=== PATIENT | female | born 1955 | race Caucasian/White ===

== ENCOUNTER 2018-07-12 18:03 | Inpatient (IN) | payer OTHER ==
[~2018-07-12] VITALS: Ht 154.9 cm; Wt 60.1 kg
[~2018-07-12 18:03] MED LIST: ASPI-535 PO; CINA60TA PO; CLON0.5T PO; CLON1TAB13 PO; FOLI-49 PO; GLYC15DR2 BOTH EYES; LAMO25TA8 PO; LEVO100T82 PO; LOSA50TA14 PO; NEPH PO; NORVAC; QUET100T32 PO; QUET400T11 PO; SEVE800T7 PO; SIMV40TA2 PO
--- NOTE | 2018-07-12 18:10 | ERD ---
ER Documentation Chief Complaint Chief Complaint BIB RA FROM HD C/O WEAKNESS. HPI The patient is a 61-year-old female, presenting to the ER because of generalized weakness and muscle spasm after hemodialysis. She had similar symptoms previously, she feels better now, denies headache, neck pain, chest pain, complains of dyspnea, denies abdominal pain, vomiting, dysuria, diarrhea. She does not smoke nor drink Past medical history: Hypertension, chronic kidney disease on hemodialysis Thursday/Thursday/Thursday, anxiety, dyslipidemia, hypothyroidism, chronic constipation Past surgical history: Left upper extremity AV fistula ROS All systems reviewed and are negative except as per history of present illness. Medications Home Meds Reported Medications [Norvac] No Conflict Check, 5 MILLIU DAILY 09/19/14 Clonazepam (Klonopin) 0.5 Mg Tablet, 0.5 MG PO HS, TAB 07/05/14 Losartan Potassium* (Losartan Potassium*) 50 Mg Tablet, 50 MG PO BID, TAB 07/05/14 Glycerin-Propylene Glycol (Lubricant Eye Drops) 15 Ml Drops, 2 DROP BOTH EYES QID, EA 07/05/14 Quetiapine Fumarate* (Quetiapine Fumarate*) 400 Mg Tablet, 400 MG PO HS, TAB 07/04/14 Quetiapine Fumarate* (Quetiapine Fumarate*) 100 Mg Tablet, 100 MG PO QPM, TAB 07/04/14 Lamotrigine* (Lamotrigine*) 25 Mg Tablet, 125 MG PO DAILY, TAB 07/04/14 Clonazepam* (Clonazepam*) 1 Mg Tablet, 1 MG PO DAILY PRN for ANXIETY, TAB 07/04/14 Folic Acid* (Folic Acid*) 1 Mg Tablet, 1 MG PO DAILY 06/29/13 Multivit/Ca Carb/B Cmplx/Fa* (Deepthi-Frida*) 1 Tab Tab, 1 TAB PO DAILY, TAB 06/24/13 Aspirin Ec (Aspir 81) 81 Mg Tablet.dr, 81 MG PO DAILY 06/24/13 Sevelamer Carbonate* (Renvela*) 800 Mg Tablet, 800 MG PO TID 06/24/13 Cinacalcet* (Sensipar*) 60 Mg Tablet, 60 MG PO DAILY 06/24/13 Simvastatin* (Zocor*) 40 Mg Tablet, 40 MG PO DAILY 02/12/10 Levothyroxine Sodium* (Levoxyl*) 100 Mcg Tablet, 100 MCG PO DAILY 02/20/09 Allergies Allergies: Coded Allergies: No Known Allergies (Verified Allergy, Mild, 07/10/13) PMhx/Soc History of Surgery: Yes (HERNIA, FISTULA LEFT ARM) Anesthesia Reaction: No Hx Neurological Disorder: No Hx Respiratory Disorders: No Hx Cardiac Disorders: No Hx Psychiatric Problems: Yes Hx Miscellaneous Medical Probl: No Hx Alcohol Use: No Hx Substance Use: No Hx Tobacco Use: No Physical Exam Vitals Vital Signs Date Temp Pulse Resp B/P (MAP) Pulse Ox O2 O2 Flow FiO2 Time Delivery Rate 07/12/18 98.1 96 18 199/88 92 18:05 (125) Physical Exam Const: No acute distress. Head: Atraumatic. Eyes: Normal Conjunctiva. ENT: Normal External Ears, Nose and Mouth. Neck: Full range of motion. No meningismus. Resp: Clear to auscultation bilaterally. Cardio: Regular rate and rhythm. Abd: Soft, non distended, normal bowel sounds, non tender. Skin: Ecchymosis Back: No midline or flank tenderness. Ext: bilateral leg edema, no calf tenderness Neur: Awake and alert. No focal deficit Psych: Anxious Result Diagram: 07/12/18 1848 07/12/18 1848 Results 24 hrs Laboratory Tests Test 07/12/18 18:48 White Blood Count 3.4 10^3/ul Red Blood Count 3.01 10^6/ul Hemoglobin 11.2 g/dl Hematocrit 33.4 % Mean Corpuscular Volume 111.0 fl Mean Corpuscular Hemoglobin 37.2 pg Mean Corpuscular Hemoglobin Concent 33.5 g/dl Red Cell Distribution Width 14.4 % Platelet Count 165 10^3/UL Mean Platelet Volume 10.5 fl Immature Granulocytes % 0.300 % Neutrophils % 63.6 % Lymphocytes % 16.7 % Monocytes % 12.8 % Eosinophils % 5.7 % Basophils % 0.9 % Nucleated Red Blood Cells % 0.0 /100WBC Immature Granulocytes # 0.010 10^3/ul Neutrophils # 2.1 10^3/ul Lymphocytes # 0.6 10^3/ul Monocytes # 0.4 10^3/ul Eosinophils # 0.2 10^3/ul Basophils # 0.0 10^3/ul Nucleated Red Blood Cells # 0.0 10^3/ul Sodium Level 135 mmol/L Potassium Level 4.0 mmol/L Chloride Level 99 mmol/L Carbon Dioxide Level 26 mmol/L Anion Gap 10 Blood Urea Nitrogen 27 mg/dl Creatinine 2.99 mg/dl Est Glomerular Filtrat Rate mL/min 16 mL/min Glucose Level 115 mg/dl Calcium Level 9.8 mg/dl Current Medications Medications Dose Sig/Martín Start Time Status Last (Trade) Ordered Route PRN Stop Time Admin Dose Reason Admin Hydralazine 10 mg ONCE ONCE 07/12/18 DC HCl IV 20:30 07/12/18 (Apresoline) 20:31 Furosemide 80 mg ONCE ONCE 07/12/18 DC (Lasix) IV 20:30 07/12/18 20:31 Procedures/[place] [id number] Radiology Main Line: [phone] DIAGNOSTIC IMAGING REPORT Patient: TERRI LOMAS : 1955 Age: 62 Sex: F MR #: [id number] DOS: 07/12/181818 Ordering MD: DAVID PARDO MD Location: E/R Room/Bed: PROCEDURE: XR Chest 1 View CLINICAL INDICATION: Chest pain TECHNIQUE: Frontal view of the chest was obtained COMPARISON: SD CR CHEST 05/26/2018 FINDINGS: Left central vascular stent noted. Left upper extremity clips. Heart is enlarged. Aorta is tortuous and atherosclerotic. Bibasilar linear patchy opacities, Moderate left and small right pleural effusions para No acute osseous abnormality. IMPRESSION: Cardiomegaly with congestive change and/or multifocal pneumonia. Moderate left and small right pleural effusions. RPTAT: [facility] Physician Niru Date Time Electronically viewed and signed by Physician Niru on 07/12/2018 19:42 ME/ CC: DAVID PARDO MD [phone] EKG: Read by emergency physician Rate/Rhythm: Normal Sinus Rhythm 64 beats/min QRS, ST, T-waves: No ST elevation, no T inversion, LAD Impression: Abnormal EKG Brain CT Pending MEDICAL MAKING DECISION: The patient is a 62-year-old female, presenting with acute generalized weakness, acute fluid overload, acute hypertensive urgency. She was treated with hydralazine 10 mg IV for acute hypertensive urgency, Lasix 80 mg IV for acute fluid overload because she is still making urine o2 saturation was 88% on room air, responding to supplemental nasal cannula The differential diagnoses considered include but are not limited to asthma, COPD, pneumonia, pulmonary embolus, pleural effusion, congestive heart failure. Departure Diagnosis: Primary Impression: Fluid overload Additional Impressions: Hypertensive urgency Hypoxemia Leukopenia Anemia Bilateral pleural effusion Condition: Stable Comments I discussed the findings with the patient. I discussed the patient with Dr Olivarez at 8:35 p , who was made aware of the lab, the treatment, the patient condition. The patient is admitted to [facility] Disclaimer: Inadvertent spelling and grammatical errors are likely due to EHR/dictation software use and do not reflect on the overall quality of patient care. Also, please note that the electronic time recorded on this note does not necessarily reflect the actual time of the patient encounter. DAVID PARDO MD July 12, 2018 18:10
[2018-07-12] MEDS ORDERED: hydrALAzine 20 MG INJ IV ONE ×2 (20:30→23:00)
[2018-07-12] MEDS: FUROSEMIDE 40 MG INJ IV ONE ×2 (20:40→20:54)
[2018-07-12] MEDS ORDERED: DOXA1TAB PO (22:20)
[2018-07-12] MEDS ORDERED: LEVO300T5 PO (22:20)
[2018-07-12] MEDS ORDERED: HYDR100T25 PO (22:24)
[2018-07-12] MEDS ORDERED: LEVO112T57 PO (22:24)
[2018-07-12] MEDS ORDERED: CLON0.2T5 PO (22:24)
[2018-07-13] VITALS (18 sets, daily range): BP systolic 161–194; BP diastolic 84–94; PULSE 63–73; RESP 17–18; Ht 154.9 cm; Wt 60.1 kg
[2018-07-13] MEDS ORDERED: NACL 0.9% 3 ML SYG IV SCH (00:30)
[2018-07-13] MEDS ORDERED: ACETAMINOPHEN 325 MG TAB PO PRN (00:30)
[2018-07-13] MEDS ORDERED: clonAZEPAM 0.5 MG TAB PO PRN (00:30)
[2018-07-13] MEDS: DOXAZOSIN 1 MG TAB PO SCH ×2 (02:36→08:31)
[2018-07-13] MEDS: LOSARTAN 50 MG TAB PO SCH ×3 (02:37→20:58)
[2018-07-13] MEDS ORDERED: ALPRAZOLAM 1 MG TAB PO PRN (03:30)
--- NOTE | 2018-07-13 06:15 | HP ---
Date/Time of Note Date/Time of Note DATE: 07/12/18 TIME: 23:30 Assessment/Plan VTE Prophylaxis Pharmacological prophylaxis: heparin Lines/Catheters IV Catheter Type (from Nrsg): Saline Lock Assessment/Plan Assessment/Plan 1. Hypertensive urgency -Blood pressure has been difficult to control -Adjust antihypertensive as needed -Nephrology consult 2. Generalized weakness and dizziness: Secondary to elevated pressure and chronic disease including the dialysis -Head CT negative for acute findings -PT eval 3. ESRD on HD (MWF): Nephrology consult 4. Dyslipidemia: Continue statin 5. Hypothyroidism: Continue Synthroid 6. Depression/anxiety: Continue home meds 7. Anemia of kidney failure/chronic disease: Hemoglobin stable Result Diagram: 07/13/18 0543 07/12/18 1848 Results 24hrs Laboratory Tests Test 07/12/18 18:48 07/13/18 05:43 White Blood Count 3.4 L 3.5 L Red Blood Count 3.01 L 2.75 L Hemoglobin 11.2 L 10.4 L Hematocrit 33.4 L 30.8 L Mean Corpuscular Volume 111.0 H 112.0 H Mean Corpuscular Hemoglobin 37.2 H 37.8 H Mean Corpuscular Hemoglobin Concent 33.5 33.8 Red Cell Distribution Width 14.4 14.6 H Platelet Count 165 164 Mean Platelet Volume 10.5 #H 10.4 Immature Granulocytes % 0.300 0.000 L Neutrophils % 63.6 61.8 Lymphocytes % 16.7 21.0 Monocytes % 12.8 H 12.9 H Eosinophils % 5.7 3.4 Basophils % 0.9 0.9 Nucleated Red Blood Cells % 0.0 0.0 Immature Granulocytes # 0.010 0.000 Neutrophils # 2.1 2.2 Lymphocytes # 0.6 L 0.7 L Monocytes # 0.4 0.5 Eosinophils # 0.2 0.1 Basophils # 0.0 0.0 Nucleated Red Blood Cells # 0.0 0.0 Sodium Level 135 Potassium Level 4.0 Chloride Level 99 Carbon Dioxide Level 26 Anion Gap 10 Blood Urea Nitrogen 27 H Creatinine 2.99 H Est Glomerular Filtrat Rate mL/min 16 L Glucose Level 115 Calcium Level 9.8 HPI/ROS Admit Date/Time Admit Date/Time Hx of Present Illness This is a 62-year-old female with a history of hypertension, ESRD on HD (MWF), dyslipidemia, bipolar, hypothyroidism, migraine headache. Patient was brought to the ER from the dialysis center complaining of generalized weakness and dizziness. Generalized weakness is been going on for several months. She has also occasionally been feeling dizzy. After dialysis her symptoms worsened and as such as shortness of brought here for evaluation. Denied focal weakness. She reports headache. No chest pain. When presented to ER, blood pressure was 200/88. Head CT without acute findings. Chest x-ray shows cardiomegaly with congestive change and/or multifocal pneumonia and Moderate left and small right pleural effusions. PMH/Family/Social Past Medical History Past Surgical Hx: other (HPI) Family History Significant Family History: no pertinent family hx Social History Alcohol Use: none Smoking Status: Never smoker Drug Use: none Exam Constitutional: alert, oriented, well developed Head: normocephalic, atraumatic Eyes: EOMI, PERRL Respiratory: clear to auscultation, normal air movement Cardiovascular: regular rate and rhythm, nl pulses Gastrointestinal: soft, other (Right lower quadrant tenderness elicited on palpation. Patient also with right flank pain) Extremities: normal pulses Medications Current Medications IV Flush (NS 3 ml) 3 ml PER PROTOCOL IV ; Start 07/13/18 at 00:30 Ondansetron HCl (Zofran Inj) 4 mg Q6H PRN IV NAUSEA/VOMITING; Start 07/13/18 at 00:30 Acetaminophen (Tylenol Tab) 650 mg Q6H PRN PO .PAIN 1-3 OR TEMP; Start 07/13/18 at 00:30 Acetaminophen/ Hydrocodone Bitart ([place] (5/325)) 1 tab Q6H PRN PO .PAIN 4-6; Start 07/13/18 at 00:30 Heparin Sodium (Porcine) (Heparin (5000 Units/1ml)) 5,000 unit Q12 SC ; Start 07/13/18 at 09:00 Albuterol/ Ipratropium (Duoneb) 3 ml Q2H RESP THERAPY PRN HHN SHORTNESS OF BREATH; Start 07/13/18 at 00:30 Aspirin (Halfprin) 81 mg DAILY PO ; Start 07/13/18 at 09:00 Cinacalcet (Sensipar) 60 mg DAILY PO ; Start 07/13/18 at 09:00 Clonazepam (Klonopin) 0.5 mg HS PO ; Start 07/13/18 at 21:00 Clonazepam (Klonopin) 1 mg DAILY PRN PO ANXIETY; Start 07/13/18 at 00:30 Clonidine (Catapres) 0.2 mg TID PO ; Start 07/13/18 at 09:00 Doxazosin Mesylate (Cardura) 1 mg BID PO Last administered on 07/13/18at 02:36; Admin Dose 1 MG; Start 07/13/18 at 00:30 Folic Acid (Folic Acid) 1 mg DAILY PO ; Start 07/13/18 at 09:00 Hydralazine HCl (Apresoline) 100 mg TID PO Last administered on 07/13/18at 02:36; Admin Dose 100 MG; Start 07/13/18 at 00:30 Lamotrigine (Lamictal) 125 mg DAILY PO ; Start 07/13/18 at 09:00 Levothyroxine Sodium (Synthroid) 224 mcg AC BREAKFAST PO ; Start 07/13/18 at 07:00 Losartan Potassium (Cozaar) 50 mg BID PO Last administered on 07/13/18at 02:37; Admin Dose 50 MG; Start 07/13/18 at 00:30 Multivit/Ca Carb/ B Cmplx/FA/Prenat (Deepthi-Frida) 1 tab DAILY PO ; Start 07/13/18 at 09:00 Quetiapine Fumarate (Seroquel) 400 mg HS PO ; Start 07/13/18 at 21:00 Sevelamer Carbonate (Renvela) 0.8 gm WITH MEALS PO ; Start 07/13/18 at 08:00 Alprazolam (Xanax) 1 mg Q4H WHILE AWAKE PRN PO ANXIETY Last administered on 07/13/18at 03:58; Admin Dose 1 MG; Start 07/13/18 at 03:30 Hydralazine HCl (Apresoline) 20 mg ONCE ONCE IV ; Start 07/13/18 at 06:30; Stop 07/13/18 at 06:31; Status UNV Clonidine (Catapres) 0.3 mg ONCE ONCE PO ; Start 07/13/18 at 06:30; Stop 07/13/18 at 06:31; Status UNV Labetalol HCl (Labetalol) 20 mg Q4H PRN IV SBP > 170; Start 5/7/19 at 06:30; Status UNV Coded Allergies: No Known Allergies (Verified Allergy, Mild, 07/10/13) Social History Smoking Status: Never smoker Exam/Review of Systems Vital Signs Vitals Vital Signs Date Temp Pulse Resp B/P (MAP) Pulse Ox O2 O2 Flow FiO2 Time Delivery Rate 07/13/18 72 24 193/80 99 Nasal 2.0 05:29 (117) Cannula 07/12/18 98.1 21:27 LUCÍA HICKS MD July 13, 2018 06:15
[2018-07-13] MEDS ORDERED: hydrALAzine 20 MG INJ IV ONE (06:30)
[2018-07-13] MEDS ORDERED: LABETALOL HCL 20MG INJ IV PRN (06:30)
[2018-07-13] MEDS ORDERED: LORAZEPAM 2 MG INJ IV ONE (07:00)
[2018-07-13] MEDS: LEVOTHYROXINE 112 MCG TAB PO SCH (08:28)
[2018-07-13] MEDS: HEPARIN 5,000 UNIT/1 ML VIAL SC SCH ×2 (08:28→21:00)
[2018-07-13] MEDS: FOLIC ACID 1 MG TAB PO SCH (08:30)
[2018-07-13] MEDS: LAMOTRIGINE 25 MG TAB PO SCH (08:30)
[2018-07-13] MEDS: CINACALCET 30 MG TAB PO SCH (08:31)
[2018-07-13] MEDS: ASPIRIN (EC) 81 MG TAB PO SCH (08:31)
[2018-07-13] MEDS: MULTIVIT/CA CARB/B CMPLX/FA TAB PO SCH (08:32)
--- NOTE | 2018-07-13 10:13 | CONS ---
DATE OF ADMISSION: 07/12/2018 DATE OF CONSULTATION: TYPE OF CONSULTATION: Nephrology. REASON FOR CONSULTATION: End-stage renal disease. PHYSICIAN REQUESTING CONSULT: HISTORY OF PRESENT ILLNESS: This is a 62-year-old female with a past medical history of end-stage re nal disease. The patient had dialysis in [place] on Thursday, Thursday, Thursday, access AV fistula. T he patient's primary wrapping checker is Dr. Vazquez who presents to [facility] for compla ints of weakness. The patient states that after hemodialysis, she started having generalized weaknes s, muscle spasms. The patient states she has had similar symptoms previously. As a result, she came in to [facility]. Upon arrival, the patient was noted to be hypertensive in the e mergency room, the patient was given antihypertensive medications. The patient also had a CT scan of the brain which showed no acute findings. The patient denies any hemoptysis, hematemesis or hematoc hezia. In terms of patient's renal history, the patient is on dialysis 3 times weekly Thursday, Thursday, Thu with access AV fistula. The patient's last hemodialysis was Thursday. The patient usually dialyze s for 3-1/2 hours with ultrafiltration approximately 1 to 2 kilograms. PAST MEDICAL HISTORY: See above, history of end-stage renal disease, history of anemia, history of h ypertension, history of mineral bone disorder, history of hypothyroidism, constipation, anxiety disor justin, dyslipidemia. PAST SURGICAL HISTORY: Left upper extremity AV fistula. FAMILY HISTORY: No family history of kidney disease. SOCIAL HISTORY: Does not drink, smoke or do drugs. MEDICATIONS: The patient's medications have been reviewed. ALLERGIES: HAVE BEEN REVIEWED. REVIEW OF SYSTEMS: A 14-point review of systems conducted. Pertinent positives stated in HPI, other mclean negative. PHYSICAL EXAMINATION: VITAL SIGNS: Blood pressure is 182/90, respirations 17, pulse 82, temperature 98.1. HEENT: Head is normocephalic. NECK: Supple. HEART: Regular rate. LUNGS: Show diminished breath sounds at the base. ABDOMEN: Soft, nontender to palpation without rebound or guarding. EXTREMITIES: Negative for clubbing, cyanosis, positive edema. DERMATOLOGIC: No rashes. MUSCULOSKELETAL: No joint effusion. NEUROLOGIC: No change in exam. LABORATORY DATA: Has been reviewed. IMAGING STUDIES: Have been reviewed. ASSESSMENT AND PLAN: This is a 62-year-old female with: 1. End-stage renal disease. The patient is on dialysis Thursday, Thursday, Thursday, access AV fistula . The patient's last hemodialysis was Thursday. Plan is for hemodialysis today for solute clearance a nd volume removal. The patient has noted anasarca. on physical exam and chest x-rays do show eviden ce of congestion. Will ultrafiltrate approximately 2 to 3 liters. 2. Hypertension in part due to increased intravascular volume. We will plan for ultrafiltration wit h hemodialysis. Continue current blood pressure regimen. 3. Anemia. Monitor hemoglobin and hematocrit levels, we will give Epogen as needed. 4. Mineral bone disorder. Monitor calcium and phosphorus levels. We will give phosphate binders as needed. 5. Generalized weakness, dizziness. Continue supportive care. CT scan was negative for acute findi ngs. 6. Dyslipidemia. Continue statin therapy. 7. Hypothyroidism. Continue Synthroid. 8. Depression. 9. Anxiety disorder. Continue current medical management. Thank you, , for this interesting consult. It will be a pleasure to follow patient with you throughout the hospital course. Dictated By: MOISES OLSON/DC Conf#: [id number] DID#: [id number]
[2018-07-13] MEDS: SEVELAMER CARBONATE 0.8 GM PKT PO SCH ×3 (12:00→17:25)
[2018-07-13] MEDS: ONDANSETRON 4 MG INJ IV PRN (12:12)
--- NOTE | 2018-07-13 13:17 | PN ---
Date/Time of Note Date/Time of Note DATE: 07/13/18 TIME: 13:12 Assessment/Plan VTE Prophylaxis SCD applied (from Nsg): Yes Pharmacological prophylaxis: heparin Lines/Catheters IV Catheter Type (from Nrsg): Saline Lock Assessment/Plan Assessment/Plan 1. Hypertensive urgency, adjust antihypertensive to get better BP control add procardia 2. Generalized weakness and dizziness: Secondary to elevated pressure and chronic disease including the dialysis, head CT negative for acute findings, PT 3. ESRD on HD (MWF): Nephrology for HD 4. Dyslipidemia: Continue statin 5. Hypothyroidism: Continue Synthroid 6. Depression/anxiety: Continue home meds 7. Anemia of kidney failure/chronic disease: Hemoglobin stable 8. DVT prophylaxis: heparin Result Diagram: 07/13/18 0543 07/13/18 0543 Results 24hrs Laboratory Tests Test 07/12/18 18:48 07/13/18 05:43 White Blood Count 3.4 L 3.5 L Red Blood Count 3.01 L 2.75 L Hemoglobin 11.2 L 10.4 L Hematocrit 33.4 L 30.8 L Mean Corpuscular Volume 111.0 H 112.0 H Mean Corpuscular Hemoglobin 37.2 H 37.8 H Mean Corpuscular Hemoglobin Concent 33.5 33.8 Red Cell Distribution Width 14.4 14.6 H Platelet Count 165 164 Mean Platelet Volume 10.5 #H 10.4 Immature Granulocytes % 0.300 0.000 L Neutrophils % 63.6 61.8 Lymphocytes % 16.7 21.0 Monocytes % 12.8 H 12.9 H Eosinophils % 5.7 3.4 Basophils % 0.9 0.9 Nucleated Red Blood Cells % 0.0 0.0 Immature Granulocytes # 0.010 0.000 Neutrophils # 2.1 2.2 Lymphocytes # 0.6 L 0.7 L Monocytes # 0.4 0.5 Eosinophils # 0.2 0.1 Basophils # 0.0 0.0 Nucleated Red Blood Cells # 0.0 0.0 Sodium Level 135 138 Potassium Level 4.0 4.0 Chloride Level 99 98 Carbon Dioxide Level 26 29 Anion Gap 10 11 Blood Urea Nitrogen 27 H 36 H Creatinine 2.99 H 3.60 H Est Glomerular Filtrat Rate mL/min 16 L 13 L Glucose Level 115 97 Calcium Level 9.8 9.7 Hemoglobin A1c 4.7 Magnesium Level 2.6 H Total Bilirubin 0.0 L Direct Bilirubin 0.00 Indirect Bilirubin 0.0 Aspartate Amino Transf (AST/SGOT) 24 Alanine Aminotransferase (ALT/SGPT) 12 L Alkaline Phosphatase 114 Total Protein 6.2 Albumin 3.7 Globulin 2.50 Albumin/Globulin Ratio 1.48 Triglycerides Level 122 Cholesterol Level 126 LDL Cholesterol, Calculated 48 HDL Cholesterol 54 Cholesterol/HDL Ratio 2.3 Thyroid Stimulating Hormone (TSH) 8.240 H Subjective 24 Hr Interval Summary Free Text/Dictation weakness Exam/Review of Systems Exam Vitals Vital Signs Date Temp Pulse Resp B/P (MAP) Pulse Ox O2 O2 Flow FiO2 Time Delivery Rate 07/13/18 98.7 71 16 174/100 100 Nasal 2.0 12:23 (124) Cannula Constitutional: alert, oriented, well developed Head: normocephalic, atraumatic Eyes: nl conjunctiva, EOMI, nl lids ENMT: nl external ears & nose, nl lips & teeth, nl nasal mucosa & septum Neck: supple, non-tender Respiratory: clear to auscultation, normal air movement; No congested cough, No crackles/rales, No diminished breath sounds, No intercostal retraction, No labored breathing, No respirations, No tactile fremitus, No wheezing, No other Cardiovascular: regular rate and rhythm, nl pulses; No bruits, No diastolic murmur, No edema, No gallop, No irregular rhythm, No jugular venous distention (JVD), No murmurs/extra sounds, No rub, No systolic murmur, No S3, No S4, No other Gastrointestinal: soft, nl liver, spleen, non-tender Musculoskeletal: nl extremities to inspection Extremities: normal pulses; No calf tenderness, No cyanosis, No clubbing, No edema, No pitting pedal edema, No palpable cord, No tenderness, No other Neurological: [employer] II-XII intact, nl mental status, nl speech, nl strength Results Results 24hrs Laboratory Tests Test 07/12/18 18:48 07/13/18 05:43 White Blood Count 3.4 L 3.5 L Red Blood Count 3.01 L 2.75 L Hemoglobin 11.2 L 10.4 L Hematocrit 33.4 L 30.8 L Mean Corpuscular Volume 111.0 H 112.0 H Mean Corpuscular Hemoglobin 37.2 H 37.8 H Mean Corpuscular Hemoglobin Concent 33.5 33.8 Red Cell Distribution Width 14.4 14.6 H Platelet Count 165 164 Mean Platelet Volume 10.5 #H 10.4 Immature Granulocytes % 0.300 0.000 L Neutrophils % 63.6 61.8 Lymphocytes % 16.7 21.0 Monocytes % 12.8 H 12.9 H Eosinophils % 5.7 3.4 Basophils % 0.9 0.9 Nucleated Red Blood Cells % 0.0 0.0 Immature Granulocytes # 0.010 0.000 Neutrophils # 2.1 2.2 Lymphocytes # 0.6 L 0.7 L Monocytes # 0.4 0.5 Eosinophils # 0.2 0.1 Basophils # 0.0 0.0 Nucleated Red Blood Cells # 0.0 0.0 Sodium Level 135 138 Potassium Level 4.0 4.0 Chloride Level 99 98 Carbon Dioxide Level 26 29 Anion Gap 10 11 Blood Urea Nitrogen 27 H 36 H Creatinine 2.99 H 3.60 H Est Glomerular Filtrat Rate mL/min 16 L 13 L Glucose Level 115 97 Calcium Level 9.8 9.7 Hemoglobin A1c 4.7 Magnesium Level 2.6 H Total Bilirubin 0.0 L Direct Bilirubin 0.00 Indirect Bilirubin 0.0 Aspartate Amino Transf (AST/SGOT) 24 Alanine Aminotransferase (ALT/SGPT) 12 L Alkaline Phosphatase 114 Total Protein 6.2 Albumin 3.7 Globulin 2.50 Albumin/Globulin Ratio 1.48 Triglycerides Level 122 Cholesterol Level 126 LDL Cholesterol, Calculated 48 HDL Cholesterol 54 Cholesterol/HDL Ratio 2.3 Thyroid Stimulating Hormone (TSH) 8.240 H Medications Medication Current Medications IV Flush (NS 3 ml) 3 ml PER PROTOCOL IV ; Start 07/13/18 at 00:30 Ondansetron HCl (Zofran Inj) 4 mg Q6H PRN IV NAUSEA/VOMITING Last administered on 07/13/18at 12:12; Admin Dose 4 MG; Start 07/13/18 at 00:30 Acetaminophen (Tylenol Tab) 650 mg Q6H PRN PO .PAIN 1-3 OR TEMP; Start 07/13/18 at 00:30 Acetaminophen/ Hydrocodone Bitart ([place] (5/325)) 1 tab Q6H PRN PO .PAIN 4-6; Start 07/13/18 at 00:30 Heparin Sodium (Porcine) (Heparin (5000 Units/1ml)) 5,000 unit Q12 SC Last administered on 07/13/18 08:28; Admin Dose 5,000 UNIT; Start 07/13/18 at 09:00 Albuterol/ Ipratropium (Duoneb) 3 ml Q2H RESP THERAPY PRN HHN SHORTNESS OF BREATH; Start 07/13/18 at 00:30 Aspirin (Halfprin) 81 mg DAILY PO Last administered on 07/13/18 08:31; Admin Dose 81 MG; Start 07/13/18 at 09:00 Cinacalcet (Sensipar) 60 mg DAILY PO Last administered on 07/13/18 08:31; Admin Dose 60 MG; Start 07/13/18 at 09:00 Clonazepam (Klonopin) 0.5 mg HS PO ; Start 07/13/18 at 21:00 Clonazepam (Klonopin) 1 mg DAILY PRN PO ANXIETY; Start 07/13/18 at 00:30 Clonidine (Catapres) 0.2 mg TID PO ; Start 07/13/18 at 09:00 Doxazosin Mesylate (Cardura) 1 mg BID PO Last administered on 07/13/18 08:31; Admin Dose 1 MG; Start 07/13/18 at 00:30 Folic Acid (Folic Acid) 1 mg DAILY PO Last administered on 07/13/18 08:30; Admin Dose 1 MG; Start 07/13/18 at 09:00 Hydralazine HCl (Apresoline) 100 mg TID PO Last administered on 07/13/18 08:29; Admin Dose 100 MG; Start 07/13/18 at 00:30 Lamotrigine (Lamictal) 125 mg DAILY PO Last administered on 07/13/18 08:30; Admin Dose 125 MG; Start 07/13/18 at 09:00 Levothyroxine Sodium (Synthroid) 224 mcg AC BREAKFAST PO Last administered on 07/13/18 08:28; Admin Dose 224 MCG; Start 07/13/18 at 07:00 Losartan Potassium (Cozaar) 50 mg BID PO Last administered on 07/13/18 08:32; Admin Dose 50 MG; Start 07/13/18 at 00:30 Multivit/Ca Carb/ B Cmplx/FA/Prenat (Deepthi-Frida) 1 tab DAILY PO Last administered on 5/7/19at 08:32; Admin Dose 1 TAB; Start 07/13/18 at 09:00 Quetiapine Fumarate (Seroquel) 400 mg HS PO ; Start 07/13/18 at 21:00 Sevelamer Carbonate (Renvela) 0.8 gm WITH MEALS PO ; Start 07/13/18 at 08:00 Alprazolam (Xanax) 1 mg Q4H WHILE AWAKE PRN PO ANXIETY Last administered on 07/13/18at 03:58; Admin Dose 1 MG; Start 07/13/18 at 03:30 Labetalol HCl (Labetalol) 20 mg Q4H PRN IV SBP > 170; Start 07/13/18 at 06:30 SHOLA GA MD July 13, 2018 13:17
[2018-07-13] MEDS ORDERED: AMLODIPINE 10 MG TAB PO SCH (13:30)
[2018-07-13] MEDS ORDERED: PENDING SANTYL ORDER FOR WOUND CARE XX PRN (14:30)
[2018-07-13] MEDS ORDERED: NIFEdipine (XL) 60 MG TAB PO SCH (16:00)
[2018-07-13] MEDS ORDERED: QUETIAPINE 100 MG TAB PO SCH (21:00)
[2018-07-13] MEDS: clonAZEPAM 0.5 MG TAB PO SCH (22:40)
[2018-07-13] MEDS: QUETIAPINE 100 MG TAB PO SCH (22:40)
[2018-07-14] VITALS (20 sets, daily range): BP systolic 122–202; BP diastolic 58–98; PULSE 66–79; RESP 16–20
[2018-07-14] MEDS ORDERED: hydrALAzine 20 MG INJ IV ONE ×2 (00:30→22:00)
[2018-07-14] MEDS: LEVOTHYROXINE 112 MCG TAB PO SCH (06:07)
[2018-07-14] MEDS: HEPARIN 5,000 UNIT/1 ML VIAL SC SCH ×2 (09:00→21:00)
--- NOTE | 2018-07-14 09:09 | PN ---
DATE: 07/14/2018 SUBJECTIVE: The patient is stable, had hemodialysis yesterday, tolerated well. OBJECTIVE: VITAL SIGNS: Blood pressure is 151/74, pulse 71, respirations 17, temperature 98.2. HEENT: Head is normocephalic. NECK: Supple. HEART: Regular rate. LUNGS: Show diminished breath sounds at the base. ABDOMEN: Soft, nontender to palpation without rebound or guarding. EXTREMITIES: Negative for clubbing, cyanosis, no edema. DERMATOLOGIC: No rashes. MUSCULOSKELETAL: No joint effusion. NEUROLOGIC: No change in exam. MEDICATIONS: Reviewed. LABORATORY DATA: Reviewed. ASSESSMENT AND PLAN: 1. End-stage renal disease. The patient is on dialysis Thursday, Thursday, and Thursday. The patient had hemodialysis yesterday, tolerated well. Plan is for dialysis again today. 2. Hypertension. Continue ultrafiltration with dialysis. Continue current blood pressure regimen. We will adjust medications as needed. 3. Anemia. Continue to monitor hemoglobin and hematocrit levels. Continue Epogen. 4. Mineral bone disorder. Continue to monitor calcium and phosphorus levels. Continue Sensipar, gi ve phosphate binders as needed. 5. Generalized weakness, dizziness, improved. 6. Dyslipidemia. Continue statin therapy. 7. Hypothyroidism. Continue Synthroid. 8. Depression. 9. Anxiety disorder. Continue current medical management. Dictated By: MOISES WEISS DO NR/NTS Conf#: [id number] DID#: [id number] CC: LUCÍA HICKS MD; SHOLA GA MD;*EndCC*
[2018-07-14] MEDS: MULTIVIT/CA CARB/B CMPLX/FA TAB PO SCH (09:10)
[2018-07-14] MEDS: FOLIC ACID 1 MG TAB PO SCH (09:10)
[2018-07-14] MEDS: ASPIRIN (EC) 81 MG TAB PO SCH (09:11)
[2018-07-14] MEDS: SEVELAMER CARBONATE 0.8 GM PKT PO SCH ×3 (09:11→17:53)
[2018-07-14] MEDS: CINACALCET 30 MG TAB PO SCH (09:11)
[2018-07-14] MEDS: LOSARTAN 50 MG TAB PO SCH ×2 (09:13→19:44)
[2018-07-14] MEDS: LAMOTRIGINE 25 MG TAB PO SCH (09:14)
[2018-07-14] MEDS: NIFEdipine (XL) 60 MG TAB PO SCH ×2 (09:14→19:45)
[2018-07-14] MEDS: ONDANSETRON 4 MG INJ IV PRN (12:30)
--- NOTE | 2018-07-14 13:02 | PN ---
Date/Time of Note Date/Time of Note DATE: 07/14/18 TIME: 12:59 Assessment/Plan VTE Prophylaxis Risk score (from Nsg)>0 risk: 7 Pharmacological prophylaxis: heparin Lines/Catheters IV Catheter Type (from Nrsg): Saline Lock Urinary Cath still in place: No Assessment/Plan Hospital Course 62-year-old female who was sent to us from dialysis center because of severe lethargy and multiple falls currently admitted and managed as follows: 1. Generalized weakness with multiple prior falls and severe lethargy: -Patient states this is likely secondary to chronic muscle wasting, she has been seen as outpatient by a neurologist was just recently started her on lamotrigine about 5 weeks ago. She however does not feel this drug is making her weak. She states this drug was started to help with the recurrent Muscle spasms and spasticity. -Brain CT was negative save for possible sinusitis -PT eval is pending -Patient has chronic debility but she feels this is getting worse. She has home health for physical therapy and multiple ADLs as well as a caregiver at home. -She would rather not consider SNF placement unless absolutely necessary. 2. End Stage renal disease on hemodialysis -Patient dialysis on Thursday and Thursday -Patient states this was due to lithium therapy for bipolar disorder -Patient does not wants fluid removal, she wants only ultrafiltration. Nephrology notified 3. Hypertension status post hypertensive emergency: -Hypertensive emergency was likely secondary to incomplete hemodialysis, indices have improved on current regimen, no further intervention required 4, Anemia of chronic renal disease with leucopenia -Rule out iron deficiency 5. Chronic dyslipidemia on statin 6. Chronic hypothyroidism -still with suboptimal control, continue current Synthroid therapy 7. Chronic bipolar disorder -for more than 11 years per patient -states she has been stable and remains stable. -Denies suicidal or homicidal ideations, denies depression. -Continue as needed Klonopin for anxiety 8. Chronic debility and lethargy: -Status post dietary review, recommendation of Novasure renal 3 times daily. Will initiate. 9. Chronic memory issues 10. Chronic msc spasms on lamotrigne started 5 weeks ago after multiple falls 11. abd distention 12. chronic constipation Disposition -await physical therapy evaluation for disposition, patient does not feel ready to be discharged home today, has not ambulated, she does look quite lethargic clinically. -She may require short-term SNF placement.. also send urine for UA and US for abd distention -Downgraded to [facility]. -Further interventions per clinical course. Result Diagram: 07/14/1814 07/14/1814 Results 24hrs Laboratory Tests Test 07/14/18 05:14 White Blood Count 3.7 L Red Blood Count 2.78 L Hemoglobin 10.1 L Hematocrit 31.4 L Mean Corpuscular Volume 112.9 H Mean Corpuscular Hemoglobin 36.3 H Mean Corpuscular Hemoglobin Concent 32.2 Red Cell Distribution Width 14.5 Platelet Count 166 Mean Platelet Volume 10.2 Immature Granulocytes % 0.300 Neutrophils % 56.1 Lymphocytes % 22.3 Monocytes % 14.0 H Eosinophils % 5.1 Basophils % 2.2 H Nucleated Red Blood Cells % 0.0 Immature Granulocytes # 0.010 Neutrophils # 2.1 Lymphocytes # 0.8 Monocytes # 0.5 Eosinophils # 0.2 Basophils # 0.1 Nucleated Red Blood Cells # 0.0 Sodium Level 136 Potassium Level 4.8 Chloride Level 97 Carbon Dioxide Level 28 Anion Gap 11 Blood Urea Nitrogen 51 H Creatinine 4.72 #H Est Glomerular Filtrat Rate mL/min 9 L Glucose Level 101 Calcium Level 9.3 Phosphorus Level 3.9 Magnesium Level 2.7 H Subjective 24 Hr Interval Summary Free Text/Dictation patient still very lethargic, still very weak Exam/Review of Systems Exam Vitals Vital Signs Date Temp Pulse Resp B/P (MAP) Pulse Ox O2 O2 Flow FiO2 Time Delivery Rate 07/14/18 68 12:05 07/14/18 98.0 18 122/58 90 11:02 (79) 07/14/18 Nasal 2.0 08:00 Cannula Intake and Output 07/13/18 07/13/18 07/14/18 1414:59 22:59 06:59 IntakeIntake Total 200 ml OutputOutput Total 2500 ml BalanceBalance -2300 ml Constitutional: alert, oriented, frail; No distress Head: normocephalic Eyes: PERRL ENMT: No mucosa pink and moist (dry) Respiratory: clear to auscultation, diminished breath sounds; No crackles/rales, No labored breathing, No wheezing Cardiovascular: regular rate and rhythm Gastrointestinal: soft, bowel sounds, distended, firm; No rebound or guarding Musculoskeletal: No muscle tone (reduced, with diffuse msc wasting ) Extremities: other; No edema Neurological: nl mental status, nl speech, lethargic Skin: other (large LUE AV fistula and old ecchymosis) Results Results 24hrs Laboratory Tests Test 07/14/18 05:14 White Blood Count 3.7 L Red Blood Count 2.78 L Hemoglobin 10.1 L Hematocrit 31.4 L Mean Corpuscular Volume 112.9 H Mean Corpuscular Hemoglobin 36.3 H Mean Corpuscular Hemoglobin Concent 32.2 Red Cell Distribution Width 14.5 Platelet Count 166 Mean Platelet Volume 10.2 Immature Granulocytes % 0.300 Neutrophils % 56.1 Lymphocytes % 22.3 Monocytes % 14.0 H Eosinophils % 5.1 Basophils % 2.2 H Nucleated Red Blood Cells % 0.0 Immature Granulocytes # 0.010 Neutrophils # 2.1 Lymphocytes # 0.8 Monocytes # 0.5 Eosinophils # 0.2 Basophils # 0.1 Nucleated Red Blood Cells # 0.0 Sodium Level 136 Potassium Level 4.8 Chloride Level 97 Carbon Dioxide Level 28 Anion Gap 11 Blood Urea Nitrogen 51 H Creatinine 4.72 #H Est Glomerular Filtrat Rate mL/min 9 L Glucose Level 101 Calcium Level 9.3 Phosphorus Level 3.9 Magnesium Level 2.7 H Medications Medication Current Medications IV Flush (NS 3 ml) 3 ml PER PROTOCOL IV ; Start 07/13/18 at 00:30 Ondansetron HCl (Zofran Inj) 4 mg Q6H PRN IV NAUSEA/VOMITING Last administered on 07/14/18at 12:30; Admin Dose 4 MG; Start 07/13/18 at 00:30 Acetaminophen (Tylenol Tab) 650 mg Q6H PRN PO .PAIN 1-3 OR TEMP Last administered on 07/14/18at 04:22; Admin Dose 650 MG; Start 07/13/18 at 00:30 Acetaminophen/ Hydrocodone Bitart ([place] (5/325)) 1 tab Q6H PRN PO .PAIN 4-6; Start 07/13/18 at 00:30 Heparin Sodium (Porcine) (Heparin (5000 Units/1ml)) 5,000 unit Q12 SC Last administered on 07/13/18at 08:28; Admin Dose 5,000 UNIT; Start 07/13/18 at 09:00 Albuterol/ Ipratropium (Duoneb) 3 ml Q2H RESP THERAPY PRN HHN SHORTNESS OF BREATH; Start 07/13/18 at 00:30 Aspirin (Halfprin) 81 mg DAILY PO Last administered on 07/14/18 09:11; Admin Dose 81 MG; Start 07/13/18 at 09:00 Cinacalcet (Sensipar) 60 mg DAILY PO Last administered on 07/14/18 09:11; Admin Dose 60 MG; Start 07/13/18 at 09:00 Clonazepam (Klonopin) 0.5 mg HS PO Last administered on 07/13/18 22:40; Admin Dose 0.5 MG; Start 07/13/18 at 21:00 Clonazepam (Klonopin) 1 mg DAILY PRN PO ANXIETY; Start 07/13/18 at 00:30 Folic Acid (Folic Acid) 1 mg DAILY PO Last administered on 07/14/18 09:10; Admin Dose 1 MG; Start 07/13/18 at 09:00 Hydralazine HCl (Apresoline) 100 mg TID PO Last administered on 07/14/18 09:14; Admin Dose 100 MG; Start 07/13/18 at 00:30 Lamotrigine (Lamictal) 125 mg DAILY PO Last administered on 07/14/18 09:14; Admin Dose 125 MG; Start 07/13/18 at 09:00 Levothyroxine Sodium (Synthroid) 224 mcg AC BREAKFAST PO Last administered on 07/14/18 06:07; Admin Dose 224 MCG; Start 07/13/18 at 07:00 Losartan Potassium (Cozaar) 50 mg BID PO Last administered on 07/14/18 09:13; Admin Dose 50 MG; Start 07/13/18 at 00:30 Multivit/Ca Carb/ B Cmplx/FA/Prenat (Deepthi-Frida) 1 tab DAILY PO Last administered on 07/14/18 09:10; Admin Dose 1 TAB; Start 07/13/18 at 09:00 Quetiapine Fumarate (Seroquel) 400 mg HS PO Last administered on 07/13/18 22:40; Admin Dose 400 MG; Start 07/13/18 at 21:00 Sevelamer Carbonate (Renvela) 0.8 gm WITH MEALS PO Last administered on 07/14/18 12:30; Admin Dose 0.8 GM; Start 07/13/18 at 08:00 Alprazolam (Xanax) 1 mg Q4H WHILE AWAKE PRN PO ANXIETY Last administered on 07/13/18at 03:58; Admin Dose 1 MG; Start 07/13/18 at 03:30 Labetalol HCl (Labetalol) 20 mg Q4H PRN IV SBP > 170; Start 07/13/18 at 06:30 Clonidine (Catapres) 0.1 mg Q6H PRN PO SBP>160 Last administered on 07/13/18at 20:58; Admin Dose 0.1 MG; Start 07/13/18 at 15:00 Miscellaneous Information (Pending Santyl Order For Wound Care) This patient sahu... PRN PRN XX WOUND CARE; Start 07/13/18 at 14:30 Nifedipine (Procardia Xl) 60 mg BID PO Last administered on 07/14/18at 09:14; Admin Dose 60 MG; Start 07/14/18 at 09:00 Amoxicillin (Amoxicillin) 500 mg Q8 PO ; Start 07/14/18 at 14:00; Stop 07/24/18 at 13:59 CARLOS SUÁREZ July 14, 2018 13:02
[2018-07-14] MEDS: POLYETHYLENE GLYCOL 17 GM PACKET PO SCH (14:15)
[2018-07-14] MEDS: AMOXICILLIN 500 MG CAP PO SCH ×2 (14:15→21:49)
[2018-07-14] MEDS: DOCUSATE SODIUM 250 MG CAP PO SCH (14:15)
[2018-07-14] MEDS: QUETIAPINE 100 MG TAB PO SCH (21:49)
[2018-07-14] MEDS: clonAZEPAM 0.5 MG TAB PO SCH (21:52)
[2018-07-14] MEDS ORDERED: MAGNESIUM HYDROXIDE 30ML CUP PO ONE (22:00)
[2018-07-15] VITALS (10 sets, daily range): BP systolic 142–212; BP diastolic 69–100; PULSE 76–79; RESP 17–18
[2018-07-15] MEDS: AMOXICILLIN 500 MG CAP PO SCH ×3 (06:51→21:33)
[2018-07-15] MEDS: HEPARIN 5,000 UNIT/1 ML VIAL SC SCH ×2 (09:00→20:36)
[2018-07-15] MEDS: SEVELAMER CARBONATE 0.8 GM PKT PO SCH ×3 (09:37→17:56)
[2018-07-15] MEDS: LEVOTHYROXINE 112 MCG TAB PO SCH (09:38)
[2018-07-15] MEDS: POLYETHYLENE GLYCOL 17 GM PACKET PO SCH (09:38)
[2018-07-15] MEDS: ASPIRIN (EC) 81 MG TAB PO SCH (09:38)
[2018-07-15] MEDS: FOLIC ACID 1 MG TAB PO SCH (09:38)
[2018-07-15] MEDS: LAMOTRIGINE 25 MG TAB PO SCH (09:39)
[2018-07-15] MEDS: MULTIVIT/CA CARB/B CMPLX/FA TAB PO SCH (09:40)
[2018-07-15] MEDS: SENNA TAB PO SCH (09:40)
[2018-07-15] MEDS: NIFEdipine (XL) 60 MG TAB PO SCH ×2 (09:41→20:29)
[2018-07-15] MEDS: LOSARTAN 50 MG TAB PO SCH ×2 (09:41→20:28)
[2018-07-15] MEDS: SPIRONOLACTONE 50 MG TAB PO SCH (09:42)
--- NOTE | 2018-07-15 10:23 | PN ---
DATE: 07/15/2018 SUBJECTIVE: The patient had hemodialysis yesterday, tolerated well. No other events noted. OBJECTIVE: VITAL SIGNS: Blood pressure is 157/76, respirations 18, pulse is 78, temperature is 98.7. HEENT: Head is normocephalic. NECK: Supple. HEART: Regular rate. LUNGS: Show diminished breath sounds at the base. ABDOMEN: Soft, nontender to palpation. No rebound or guarding. EXTREMITIES: Negative for clubbing, cyanosis, no edema. DERMATOLOGIC: No rashes. MUSCULOSKELETAL: No joint effusion. NEUROLOGIC: No change in exam. MEDICATIONS: The patient's medications have been reviewed. LABORATORY DATA: Reviewed. ASSESSMENT AND PLAN: 1. End-stage renal disease. The patient had hemodialysis yesterday, tolerated well. Plan is for di alysis again tomorrow. 2. Hypertension, etiology is multifactorial in part due to increased intravascular volume. Continue ultrafiltration with dialysis. Continue current blood pressure regimen. We will add Aldactone. 3. Anemia. Monitor hemoglobin and hematocrit levels. Continue Epogen as needed. 4. Mineral bone disorder. Monitor calcium and phosphorus levels. Continue Sensipar. 5. Dyslipidemia. Continue statin therapy. 6. Hypothyroidism. Continue Synthroid. 7. Anxiety disorder. Continue current medical management. 8. Depression. 9. Dyslipidemia. Continue statin therapy. Dictated By: MOISES WEISS DO NR/NTS Conf#: [id number] DID#: [id number] CC: LUCÍA HICKS MD; CARLOS SUÁREZ MD;*EndCC*
[2018-07-15] MEDS: CINACALCET 30 MG TAB PO SCH (12:27)
[2018-07-15] MEDS: DOCUSATE SODIUM 250 MG CAP PO SCH (12:27)
--- NOTE | 2018-07-15 14:29 | PN ---
Date/Time of Note Date/Time of Note DATE: 07/15/18 TIME: 14:25 Assessment/Plan VTE Prophylaxis Risk score (from Ns)>0 risk: 4 SCD applied (from Ns): Yes Pharmacological prophylaxis: heparin Lines/Catheters IV Catheter Type (from Nrs): Saline Lock Urinary Cath still in place: No Assessment/Plan Hospital Course Subjective : No new complaints Objective : Constitutional: alert, oriented, frail; No distress Head: normocephalic Eyes: PERRL ENMT: No mucosa pink and moist (dry) Respiratory: clear to auscultation, diminished breath sounds; No crackles/rales, No labored breathing, No wheezing Cardiovascular: regular rate and rhythm Gastrointestinal: soft, bowel sounds, distended, firm; No rebound or guarding Musculoskeletal: No muscle tone (reduced, with diffuse msc wasting ) yohan finger clubbing Extremities: other; No edema Neurological: nl mental status, nl speech, lethargic Skin: other (large LUE AV fistula and old ecchymosis) PROCEDURE: US Abdomen. IMPRESSION: 1. No evidence cholelithiasis or acute cholecystitis. 2. Increased bilateral renal cortical echogenicity suggest medical renal disease. 3. No obstructive uropathy. 4. Trace ascites and moderate right pleural effusion RPTAT: HH .Raheel Ram MD, Date Time Electronically viewed and signed by .Raheel Ram MD, on 07/14/2018 17:46 .W/ CC: CARLOS SUÁREZ assessment and plan: 62-year-old female who was sent to us from dialysis center because of severe lethargy and multiple falls currently admitted and managed as follows: 1. Generalized weakness with multiple prior falls and severe lethargy: -Patient states this is likely secondary to chronic muscle wasting, she has been seen as outpatient by a neurologist was just recently started her on lamotrigine about 5 weeks ago. She however does not feel this drug is making her weak. She states this drug was started to help with the recurrent Muscle spasms and spasticity. -Brain CT was negative save for possible sinusitis -PT eval is pending -Patient has chronic debility but she feels this is getting worse. She has home health for physical therapy and multiple ADLs as well as a caregiver at home. -She would rather not consider SNF placement unless absolutely necessary. 2. End Stage renal disease on hemodialysis -Patient dialysis on Thursday and Thursday -Patient states this was due to lithium therapy for bipolar disorder -Patient does not wants fluid removal, she wants only ultrafiltration. Nephrology notified 3. Hypertension status post hypertensive emergency: -Hypertensive emergency was likely secondary to incomplete hemodialysis, indices have improved on current regimen, no further intervention required 4, Anemia of chronic renal disease with leucopenia -Rule out iron deficiency 5. Chronic dyslipidemia on statin 6. Chronic hypothyroidism -still with suboptimal control, continue current Synthroid therapy 7. Chronic bipolar disorder -for more than 11 years per patient -states she has been stable and remains stable. -Denies suicidal or homicidal ideations, denies depression. -Continue as needed Klonopin for anxiety 8. Chronic debility and lethargy: -Status post dietary review, recommendation of Novasure renal 3 times daily. Will initiate. 9. Chronic memory issues 10. Chronic msc spasms on lamotrigne started 5 weeks ago after multiple falls 11. abd distention 12. chronic constipation 13. Moderate pleural effusion: fluid removal with hemodialysis, likely chronic, no indication for thoracentesis at this time, patient clinically stable Disposition -Physical therapy notes noted, arrange for assisted facility placement. Patient is in agreement. Result Diagram: 07/15/1818 07/15/18 0518 Results 24hrs Laboratory Tests Test 07/15/18 05:18 White Blood Count 4.2 L Red Blood Count 2.85 L Hemoglobin 10.5 L Hematocrit 31.9 L Mean Corpuscular Volume 111.9 H Mean Corpuscular Hemoglobin 36.8 H Mean Corpuscular Hemoglobin Concent 32.9 Red Cell Distribution Width 14.6 H Platelet Count 193 Mean Platelet Volume 10.3 Immature Granulocytes % 0.200 Neutrophils % 63.0 Lymphocytes % 18.3 Monocytes % 11.3 H Eosinophils % 6.0 Basophils % 1.2 Nucleated Red Blood Cells % 0.0 Immature Granulocytes # 0.010 Neutrophils # 2.6 Lymphocytes # 0.8 Monocytes # 0.5 Eosinophils # 0.3 Basophils # 0.1 Nucleated Red Blood Cells # 0.0 Sodium Level 139 Potassium Level 4.7 Chloride Level 98 Carbon Dioxide Level 30 Anion Gap 11 Blood Urea Nitrogen 39 #H Creatinine 3.82 H Est Glomerular Filtrat Rate mL/min 12 L Glucose Level 124 Calcium Level 9.0 Phosphorus Level 2.8 Magnesium Level 2.8 H Iron Level 65 Total Iron Binding Capacity 210 L Percent Iron Saturation 31 Exam/Review of Systems Exam Vitals Vital Signs Date Temp Pulse Resp B/P (MAP) Pulse Ox O2 O2 Flow FiO2 Time Delivery Rate 07/15/18 Nasal 2.0 08:30 Cannula 07/15/18 99.1 76 18 142/69 91 08:29 (93) Intake and Output 07/14/18 07/14/18 07/15/18 1515:00 23:00 07:00 IntakeIntake Total 400 ml OutputOutput Total 500 ml BalanceBalance -100 ml Results Results 24hrs Laboratory Tests Test 07/15/18 05:18 White Blood Count 4.2 L Red Blood Count 2.85 L Hemoglobin 10.5 L Hematocrit 31.9 L Mean Corpuscular Volume 111.9 H Mean Corpuscular Hemoglobin 36.8 H Mean Corpuscular Hemoglobin Concent 32.9 Red Cell Distribution Width 14.6 H Platelet Count 193 Mean Platelet Volume 10.3 Immature Granulocytes % 0.200 Neutrophils % 63.0 Lymphocytes % 18.3 Monocytes % 11.3 H Eosinophils % 6.0 Basophils % 1.2 Nucleated Red Blood Cells % 0.0 Immature Granulocytes # 0.010 Neutrophils # 2.6 Lymphocytes # 0.8 Monocytes # 0.5 Eosinophils # 0.3 Basophils # 0.1 Nucleated Red Blood Cells # 0.0 Sodium Level 139 Potassium Level 4.7 Chloride Level 98 Carbon Dioxide Level 30 Anion Gap 11 Blood Urea Nitrogen 39 #H Creatinine 3.82 H Est Glomerular Filtrat Rate mL/min 12 L Glucose Level 124 Calcium Level 9.0 Phosphorus Level 2.8 Magnesium Level 2.8 H Iron Level 65 Total Iron Binding Capacity 210 L Percent Iron Saturation 31 Medications Medication Current Medications IV Flush (NS 3 ml) 3 ml PER PROTOCOL IV ; Start 07/13/18 at 00:30 Ondansetron HCl (Zofran Inj) 4 mg Q6H PRN IV NAUSEA/VOMITING Last administered on 07/14/18at 12:30; Admin Dose 4 MG; Start 07/13/18 at 00:30 Acetaminophen (Tylenol Tab) 650 mg Q6H PRN PO .PAIN 1-3 OR TEMP Last administered on 07/14/18 04:22; Admin Dose 650 MG; Start 07/13/18 at 00:30 Acetaminophen/ Hydrocodone Bitart ([place] (5/325)) 1 tab Q6H PRN PO .PAIN 4-6; Start 07/13/18 at 00:30 Heparin Sodium (Porcine) (Heparin (5000 Units/1ml)) 5,000 unit Q12 SC Last administered on 07/13/18 08:28; Admin Dose 5,000 UNIT; Start 07/13/18 at 09:00 Albuterol/ Ipratropium (Duoneb) 3 ml Q2H RESP THERAPY PRN HHN SHORTNESS OF BREATH; Start 07/13/18 at 00:30 Aspirin (Halfprin) 81 mg DAILY PO Last administered on 07/15/18 09:38; Admin Dose 81 MG; Start 07/13/18 at 09:00 Cinacalcet (Sensipar) 60 mg DAILY PO Last administered on 07/15/18 12:27; Admin Dose 60 MG; Start 07/13/18 at 09:00 Clonazepam (Klonopin) 0.5 mg HS PO Last administered on 07/14/18 21:52; Admin Dose 0.5 MG; Start 07/13/18 at 21:00 Clonazepam (Klonopin) 1 mg DAILY PRN PO ANXIETY; Start 07/13/18 at 00:30 Folic Acid (Folic Acid) 1 mg DAILY PO Last administered on 07/15/18 09:38; Admin Dose 1 MG; Start 07/13/18 at 09:00 Hydralazine HCl (Apresoline) 100 mg TID PO Last administered on 07/15/18 12:27; Admin Dose 100 MG; Start 07/13/18 at 00:30 Lamotrigine (Lamictal) 125 mg DAILY PO Last administered on 07/15/18 09:39; Admin Dose 125 MG; Start 07/13/18 at 09:00 Levothyroxine Sodium (Synthroid) 224 mcg AC BREAKFAST PO Last administered on 07/15/18 09:38; Admin Dose 224 MCG; Start 07/13/18 at 07:00 Losartan Potassium (Cozaar) 50 mg BID PO Last administered on 07/15/18 09:41; Admin Dose 50 MG; Start 07/13/18 at 00:30 Multivit/Ca Carb/ B Cmplx/FA/Prenat (Deepthi-Frida) 1 tab DAILY PO Last administered on 07/15/18 09:40; Admin Dose 1 TAB; Start 07/13/18 at 09:00 Quetiapine Fumarate (Seroquel) 400 mg HS PO Last administered on 07/14/18 21:49; Admin Dose 400 MG; Start 07/13/18 at 21:00 Sevelamer Carbonate (Renvela) 0.8 gm WITH MEALS PO Last administered on 07/15/18 12:27; Admin Dose 0.8 GM; Start 07/13/18 at 08:00 [facility] This patient sahu... PRN PRN XX WOUND CARE; Start 07/13/18 at 14:30 Nifedipine (Procardia Xl) 60 mg BID PO Last administered on 07/15/18 09:41; Admin Dose 60 MG; Start 07/14/18 at 09:00 Amoxicillin (Amoxicillin) 500 mg Q8 PO Last administered on 07/15/18 06:51; Admin Dose 500 MG; Start 07/14/18 at 14:00; Stop 07/24/18 at 13:59 Polyethylene Glycol (Miralax) 8.5 gm DAILY PO Last administered on 07/15/18 09:38; Admin Dose 8.5 GM; Start 07/14/18 at 13:30 Docusate Sodium (Colace) 250 mg DAILY PO Last administered on 07/15/18 12:27; Admin Dose 250 MG; Start 07/14/18 at 13:30 Senna (Senokot) 2 tab DAILY PO Last administered on 07/15/18 09:40; Admin Dose 2 TAB; Start 07/15/18 at 09:00 Clonidine (Catapres) 0.1 mg Q6H PRN PO SBP>160 Last administered on 07/15/18 01:59; Admin Dose 0.1 MG; Start 07/15/18 at 01:55 Spironolactone (Aldactone) 50 mg DAILY PO Last administered on 5/9/19at 09:42; Admin Dose 50 MG; Start 07/15/18 at 09:00 CARLOS SUÁREZ July 15, 2018 14:29
[2018-07-15] MEDS: QUETIAPINE 100 MG TAB PO SCH (20:28)
[2018-07-15] MEDS: clonAZEPAM 0.5 MG TAB PO SCH (20:29)
[2018-07-16] VITALS (23 sets, daily range): BP systolic 128–208; BP diastolic 67–98; PULSE 66–80; RESP 16–18
[2018-07-16] MEDS: LEVOTHYROXINE 112 MCG TAB PO SCH (06:14)
[2018-07-16] MEDS: AMOXICILLIN 500 MG CAP PO SCH ×3 (06:14→21:37)
[2018-07-16] MEDS: CINACALCET 30 MG TAB PO SCH (08:39)
[2018-07-16] MEDS: HEPARIN 5,000 UNIT/1 ML VIAL SC SCH ×2 (08:39→21:00)
[2018-07-16] MEDS: SENNA TAB PO SCH (08:39)
[2018-07-16] MEDS: SEVELAMER CARBONATE 0.8 GM PKT PO SCH ×3 (08:39→17:29)
[2018-07-16] MEDS: LAMOTRIGINE 25 MG TAB PO SCH ×2 (08:40→21:36)
[2018-07-16] MEDS: SPIRONOLACTONE 50 MG TAB PO SCH (08:40)
[2018-07-16] MEDS: DOCUSATE SODIUM 250 MG CAP PO SCH (08:40)
[2018-07-16] MEDS: FOLIC ACID 1 MG TAB PO SCH (08:41)
[2018-07-16] MEDS: MULTIVIT/CA CARB/B CMPLX/FA TAB PO SCH (08:41)
[2018-07-16] MEDS: LOSARTAN 50 MG TAB PO SCH ×2 (08:41→21:37)
[2018-07-16] MEDS: ASPIRIN (EC) 81 MG TAB PO SCH (08:41)
[2018-07-16] MEDS: NIFEdipine (XL) 60 MG TAB PO SCH ×2 (08:42→21:34)
[2018-07-16] MEDS: POLYETHYLENE GLYCOL 17 GM PACKET PO SCH (08:42)
--- NOTE | 2018-07-16 08:51 | PN ---
DATE: 07/16/2018 SUBJECTIVE: The patient is stable, no events overnight. OBJECTIVE: VITAL SIGNS: Blood pressure is 151/71, pulse 72, respiration 18, temperature 98.3. HEENT: Head is normocephalic. NECK: Supple. HEART: Regular rate. LUNGS: Show diminished breath sounds at the base. ABDOMEN: Soft, nontender to palpation without rebound or guarding. EXTREMITIES: Negative for clubbing, cyanosis, no edema. DERMATOLOGIC: No rashes. MUSCULOSKELETAL: No joint effusions. NEUROLOGIC: No change in exam. MEDICATIONS: The patient's medications have been reviewed. LABORATORY DATA: Has been reviewed. IMAGING STUDIES: Have been reviewed. ASSESSMENT AND PLAN: 1. End-stage renal disease. The patient is scheduled for dialysis today. We will dialyze 3 hours 2 k bath, calcium 2.5. 2. Hyperkalemia. The patient will be dialyzed on a low potassium bath. 3. Hypertension. Continue current blood pressure regimen. Continue ultrafiltration with hemodialys is. 4. Anemia. Monitor hemoglobin and hematocrit levels. Will give Epogen as needed. 5. Mineral bone disorder. Patient is on Sensipar, phos binders will continue. Monitor calcium and phosphorus levels. 6. Dyslipidemia. Continue statin therapy. 7. Hypothyroidism. Continue Synthroid. 8. Anxiety disorder. Continue medical management. 9. Depression. Dictated By: MOISES WEISS DO NR/NTS Conf#: [id number] DID#: [id number] CC: LUCÍA HICKS MD;*EndCC*
[2018-07-16] MEDS ORDERED: MAGNESIUM CITRATE 300 ML BTL PO ONE (11:30)
--- NOTE | 2018-07-16 11:46 | DS ---
Date/Time of Note Date/Time of Note DATE: 07/16/18 TIME: 11:45 Discharge Summary Admission/Discharge Info Admit Date/Time July 12, 2018 at 20:28 Discharge Date/Time Discharge Diagnosis assessment and plan: 62-year-old female who was sent to us from dialysis center because of severe lethargy and multiple falls currently admitted and managed as follows: 1. Generalized weakness with multiple prior falls and severe lethargy: -Patient states this is likely secondary to chronic muscle wasting, she has been seen as outpatient by a neurologist was just recently started her on lamotrigine about 5 weeks ago. She however does not feel this drug is making her weak. She states this drug was started to help with the recurrent Muscle spasms and spasticity. -Brain CT was negative save for possible sinusitis -requiring skilled PT 2. End Stage renal disease on hemodialysis -Patient dialysis on Thursday and Thursday -Patient states this was due to lithium therapy for bipolar disorder 3. Hypertension status post hypertensive emergency: -Hypertensive emergency was likely secondary to incomplete hemodialysis, indices have improved on current regimen, no further intervention required 4, Anemia of chronic renal disease with leucopenia -Rule out iron deficiency 5. Chronic dyslipidemia on statin 6. Chronic hypothyroidism -still with suboptimal control, continue current Synthroid therapy 7. Chronic bipolar disorder -for more than 11 years per patient -states she has been stable and remains stable. -Denies suicidal or homicidal ideations, denies depression. -Continue as needed Klonopin for anxiety 8. Chronic debility and lethargy: -Status post dietary review, recommendation of Novasure renal 3 times daily initiated 9. Chronic memory issues 10. Chronic msc spasms on lamotrigne started 5 weeks ago after multiple falls 11. abd distention with unremarkable USS 12. chronic constipation: maintained on stool softeners 13. Multifocal pneumonia with yohan pleural effusion: treat for HCAP with abx post HD. needs CXR upon completion of abx therapy. . Patient Condition: Stable Consults Nephrology: [facility] Course 62-year-old female with a long-term history of end-stage renal disease on hemodialysis (11years) sent to us from dialysis unit after she was having multiple falls, she was found to be very lethargic and the dialysis unit felt she was unsafe to go home by herself. The patient does have evidence of chronic muscle wasting and she is quite frail and debilitated. She was also found to be in hypertensive emergency on arrival. Her multiple comorbidities were monitored, and patient was also found to be with possible multifocal pneumonia and bilateral pleural effusions described as possibly moderate on the left side. Her medications were adjusted, she was also have found to have some abdominal distention which was worked up by ultrasound without any significant findings. Patient did also report constipation. At this time the plan is to repeat her chest x-ray after which she will make a decision on whether she does need antibiotics for pneumonia. She is planned for hemodialysis today after which she will be discharged to a half-way facility for rehab. Note the patient's debility is chronic and she has ADLs at home and a primary caregiver. But due to her debility, she will benefit from short-term SNF placement. . Home Meds Active Scripts Sennosides* (Senna Lax*) 8.6 Mg Tablet, 2 TAB PO DAILY for 30 Days, TAB Prov:CARLOS SUÁREZ. 07/16/18 Polyethylene Glycol* (Miralax*) 17 Gm Powd.pack, 17 GM PO DAILY, #30 PACKET Prov:CARLOS SUÁREZ. 07/16/18 Lactobacillus Rhamnosus GG (Culturelle) 1 Each Capsule, 1 CAP PO BID for 14 Days, CAP Prov:CARLOS SUÁREZ. 07/16/18 Docusate Sodium* (Colace*) 250 Mg Capsule, 250 MG PO DAILY, #30 CAP Prov:CARLOS SUÁREZ. 07/16/18 Buspirone Hcl* (Buspirone Hcl*) 5 Mg Tab, 5 MG PO BID, #60 TAB Prov:CARLOS SUÁREZ. 07/16/18 Spironolactone* (Aldactone*) 50 Mg Tablet, 50 MG PO DAILY, #30 TAB Prov:CARLOS SUÁREZ. 07/16/18 Nifedipine (Procardia Xl) 60 Mg Tab.er.24, 60 MG PO BID, #60 TAB Prov:CARLOS SUÁREZ. 07/16/18 Ipratropium-Albuterol (Ipratropium-Albuterol) 0.5-3 Mg/3 Ml Ampul.neb, 3 ML HHN Q2H RESP THERAPY PRN for SHORTNESS OF BREATH, #30 VIAL Prov:CARLOS SUÁREZ. 07/16/18 Cefepime Hcl/Dextrose, Iso-Osm (Cefepime 2 Gm Injection) 2 Gm/100 Ml Froz.piggy, 2 GM IV AFTER DIALYSIS, #5 DOSE Prov:CARLOS SUÁREZ. 07/16/18 Reported Medications Levothyroxine Sodium* (Levothyroxine Sodium*) 112 Mcg Tablet, 224 MCG PO AC BREAKFAST for 30 Days, #60 07/12/18 Clonidine Hcl* (Clonidine Hcl*) 0.2 Mg Tablet, 0.2 MG PO TID for 30 Days, #90 TAKE 1 TABLET (0.2 MG TOTAL) BY MOUTH THREE (3) TIMES DAILY. 07/12/18 Hydralazine Hcl* (Hydralazine Hcl*) 100 Mg Tablet, 100 MG PO TID TAKE 1 TABLET (100 MG TOTAL) BY MOUTH THREE (3) TIMES DAILY. 07/12/18 Clonazepam (Klonopin) 0.5 Mg Tablet, 0.5 MG PO HS, TAB 07/05/14 Losartan Potassium* (Losartan Potassium*) 50 Mg Tablet, 50 MG PO BID, TAB 07/05/14 Glycerin-Propylene Glycol (Lubricant Eye Drops) 15 Ml Drops, 2 DROP BOTH EYES QID, EA 07/05/14 Quetiapine Fumarate* (Quetiapine Fumarate*) 400 Mg Tablet, 400 MG PO HS, TAB 07/04/14 Folic Acid* (Folic Acid*) 1 Mg Tablet, 1 MG PO DAILY 06/29/13 Multivit/Ca Carb/B Cmplx/Fa* (Deepthi-Frida*) 1 Tab Tab, 1 TAB PO DAILY, TAB 06/24/13 Aspirin Ec (Aspir 81) 81 Mg Tablet.dr, 81 MG PO DAILY 06/24/13 Sevelamer Carbonate* (Renvela*) 800 Mg Tablet, 800 MG PO TID 06/24/13 Cinacalcet* (Sensipar*) 60 Mg Tablet, 60 MG PO DAILY 06/24/13 Discontinued Reported Medications Doxazosin Mesylate* (Doxazosin Mesylate*) 1 Mg Tablet, 1 MG PO BID for 90 Days, #180 TAKE ONE TABLET BY MOUTH TWICE DAILY 07/12/18 Quetiapine Fumarate* (Quetiapine Fumarate*) 100 Mg Tablet, 100 MG PO QPM, TAB 07/04/14 Lamotrigine* (Lamotrigine*) 25 Mg Tablet, 125 MG PO DAILY, TAB 07/04/14 Clonazepam* (Clonazepam*) 1 Mg Tablet, 1 MG PO DAILY PRN for ANXIETY, TAB 07/04/14 Levothyroxine Sodium* (Levothyroxine Sodium*) 300 Mcg Tablet, 300 MCG PO BEFORE BREAKFAST, #30 TAB 07/12/18 [Norvac] No Conflict Check, 5 MILLIU DAILY 09/19/14 Simvastatin* (Zocor*) 40 Mg Tablet, 40 MG PO DAILY 02/12/10 Levothyroxine Sodium* (Levoxyl*) 100 Mcg Tablet, 100 MCG PO DAILY 02/20/09 Follow-up Plan SNF needs CXR upon completion of abx therapy. . Primary Care Provider Not On Staff Doctor Time spent on discharge: > 30 minutes Pending Labs Laboratory Tests Test 07/16/18 04:54 White Blood Count 4.8 10^3/ul (4.8-10.8) Red Blood Count 2.80 10^6/ul (4.20-5.40) Hemoglobin 10.2 g/dl (12.0-16.0) Hematocrit 31.5 % (37.0-47.0) Mean Corpuscular Volume 112.5 fl (82.0-101.0) Mean Corpuscular Hemoglobin 36.4 pg (29.0-33.0) Mean Corpuscular Hemoglobin Concent 32.4 g/dl (32.0-37.0) Red Cell Distribution Width 14.9 % (11.5-14.5) Platelet Count 186 10^3/UL (140-415) Mean Platelet Volume 10.2 fl (7.4-10.4) Immature Granulocytes % 0.200 % (0.001-0.429) Neutrophils % 59.5 % (39.0-77.0) Lymphocytes % 18.4 % (15.0-51.0) Monocytes % 14.0 % (0.0-11.0) Eosinophils % 6.9 % (0.0-7.0) Basophils % 1.0 % (0.0-2.0) Nucleated Red Blood Cells % 0.0 /100WBC (0.0-0.0) Immature Granulocytes # 0.010 10^3/ul (0.0-0.031) Neutrophils # 2.8 10^3/ul (1.6-7.5) Lymphocytes # 0.9 10^3/ul (0.8-2.9) Monocytes # 0.7 10^3/ul (0.3-0.9) Eosinophils # 0.3 10^3/ul (0.0-0.5) Basophils # 0.1 10^3/ul (0.0-0.1) Nucleated Red Blood Cells # 0.0 10^3/ul (0.0-0.0) Sodium Level 136 mmol/L (135-144) Potassium Level 5.9 mmol/L (3.5-5.1) Chloride Level 99 mmol/L (97-110) Carbon Dioxide Level 26 mmol/L (21-31) Anion Gap 11 (5-13) Blood Urea Nitrogen 62 mg/dl (7-20) Creatinine 4.78 mg/dl (0.44-1.00) Est Glomerular Filtrat Rate mL/min 9 mL/min (>60) Glucose Level 100 mg/dl (70-220) Calcium Level 8.9 mg/dl (8.4-10.2) CARLOS SUÁREZ July 16, 2018 11:46
[2018-07-16] MEDS ORDERED: LAMOTRIGINE 25 MG TAB GTB SCH (12:30)
--- NOTE | 2018-07-16 12:38 | PSY ---
Date/Time of Note Date/Time of Note DATE: 07/16/18 TIME: 12:28 Psychiatric Subjective Eval Consent Pt consented to telemedicine: No Subjective Evaluation Patient location: inpatient Chief Complaint: BIB RA FROM HD C/O WEAKNESS. History of present illness Patient is a 62-year-old female with a history of ESRD on HD, hypertension, dyslipidemia, bipolar, hypothyroidism, and migraine headache. On a face to face evaluation, patient reports increased anxiety, poor coping skills, she also reports history of Bipolar disorder with a lot of impulsivity. She denies suicidal ideation and contracted for safety. Past psychiatric history Long history with Bipolar disorder Hospitalization: other Medical history Problems Medical Problems: (1) Anemia Status: Acute (2) Bilateral pleural effusion Status: Acute (3) Fluid overload Status: Acute (4) Hypertensive urgency Status: Acute (5) Hypoxemia Status: Acute (6) Intractable headache Status: Acute (7) Leukopenia Status: Acute Allergies: Coded Allergies: No Known Allergies (Verified Allergy, Mild, 07/10/13) Substance Abuse Substance use: other Substance abuse history: No Prior substance abuse treatmen: No Social History Marital status: other DPA/Conservatorship: No Psychiatric Objective Eval Review of Systems: Review of Systems: Not Applicable Physical Examination: Physical Examination: Not Applicable Mental Status Examination: Appearance: Groomed Eye Contact: Good Psychomotor Activity: Slow Behavior: Cooperative Speech: Clear AFFECT: Anxious Mood: Anxious Though Process: Linear Thought Content: Other Insight: Intact Judgement: Intact Attention Span: Intact Laboratory Results Laboratory Tests Test 07/14/18 15:07 07/15/18 05:18 07/16/18 04:54 Urine Color STRAW Urine Clarity CLEAR Urine pH 8.0 Urine Specific [place] 1.005 Urine Ketones NEGATIVE mg/dL Urine Nitrite NEGATIVE mg/dL Urine Bilirubin NEGATIVE mg/dL Urine Urobilinogen NEGATIVE mg/dL Urine Leukocyte Esterase NEGATIVE Filipe/ul Urine Microscopic RBC 1 /HPF Urine Microscopic WBC 0 /HPF Urine Hemoglobin NEGATIVE mg/dL Urine Glucose NEGATIVE mg/dL Urine Total Protein 2+ mg/dl White Blood Count 4.2 10^3/ul 4.8 10^3/ul Red Blood Count 2.85 10^6/ul 2.80 10^6/ul Hemoglobin 10.5 g/dl 10.2 g/dl Hematocrit 31.9 % 31.5 % Mean Corpuscular Volume 111.9 fl 112.5 fl Mean Corpuscular Hemoglobin 36.8 pg 36.4 pg Mean Corpuscular 32.9 g/dl 32.4 g/dl Hemoglobin Concent Red Cell Distribution Width 14.6 % 14.9 % Platelet Count 193 10^3/UL 186 10^3/UL Mean Platelet Volume 10.3 fl 10.2 fl Immature Granulocytes % 0.200 % 0.200 % Neutrophils % 63.0 % 59.5 % Lymphocytes % 18.3 % 18.4 % Monocytes % 11.3 % 14.0 % Eosinophils % 6.0 % 6.9 % Basophils % 1.2 % 1.0 % Nucleated Red Blood Cells % 0.0 /100WBC 0.0 /100WBC Immature Granulocytes # 0.010 10^3/ul 0.010 10^3/ul Neutrophils # 2.6 10^3/ul 2.8 10^3/ul Lymphocytes # 0.8 10^3/ul 0.9 10^3/ul Monocytes # 0.5 10^3/ul 0.7 10^3/ul Eosinophils # 0.3 10^3/ul 0.3 10^3/ul Basophils # 0.1 10^3/ul 0.1 10^3/ul Nucleated Red Blood Cells # 0.0 10^3/ul 0.0 10^3/ul Sodium Level 139 mmol/L 136 mmol/L Potassium Level 4.7 mmol/L 5.9 mmol/L Chloride Level 98 mmol/L 99 mmol/L Carbon Dioxide Level 30 mmol/L 26 mmol/L Anion Gap 11 11 Blood Urea Nitrogen 39 mg/dl 62 mg/dl Creatinine 3.82 mg/dl 4.78 mg/dl Est Glomerular Filtrat 12 mL/min 9 mL/min Rate mL/min Glucose Level 124 mg/dl 100 mg/dl Calcium Level 9.0 mg/dl 8.9 mg/dl Phosphorus Level 2.8 mg/dl Magnesium Level 2.8 mg/dl Iron Level 65 ug/dl Total Iron Binding Capacity 210 ug/dl Percent Iron Saturation 31 % SAT Assessment and Plan Assessment/Diagnosis Diagnosis Bipolar disorder Depressed type Recommendation/Plan Medication Management Lamictal 50mg bid, Seroquel 400mg QHS, Klonopin 1mg Q6H and Buspar 5mg TID Multiple antipsychotics: No Discharge Disposition: Other Legal Status: Voluntary (Does not meet criteria for 5150) YONAS VYAS NP July 16, 2018 12:37
[2018-07-16] MEDS: BUSPIRONE 5 MG TAB PO SCH ×2 (14:15→21:37)
[2018-07-16] MEDS ORDERED: IPRA3AMP29 HHN (14:23)
[2018-07-16] MEDS ORDERED: NIFE60TA2 PO (14:23)
[2018-07-16] MEDS ORDERED: DOCU250C58 PO (14:23)
[2018-07-16] MEDS ORDERED: SENN-120 PO (14:23)
[2018-07-16] MEDS ORDERED: CEFE2FRO IV (14:23)
[2018-07-16] MEDS ORDERED: LACT1CAP28 PO (14:23)
[2018-07-16] MEDS ORDERED: BUSP5TAB2 PO (14:23)
[2018-07-16] MEDS ORDERED: SPIR50TA PO (14:23)
[2018-07-16] MEDS ORDERED: POLY17PO6 PO (14:23)
--- NOTE | 2018-07-16 14:25 | PDOCDIS ---
Discharge Instructions CONDITION [id number] Patient Condition: [id number] Stable ACTIVITY: [id number] Activity Restrictions: [id number] Slowly Increase Activity Rest between Activity FOLLOW UP/APPOINTMENTS Follow-up Plan Complete abx therapy Continue wound care Aggressive PT needs physician visit in the next 1-2 days CARLOS SUÁREZ July 16, 2018 14:25
[2018-07-16] MEDS: CEFEPIME 1GM/50 ML (PMX) 50 ML IVPB SCH (14:30)
[2018-07-16] MEDS ORDERED: hydrALAzine 20 MG INJ IV ONE (20:00)
[2018-07-16] MEDS ORDERED: LAMOTRIGINE 25 MG TAB PO SCH (21:00)
[2018-07-16] MEDS: LACTOBACILLUS RHAMNOSUS CAP PO SCH (21:34)
[2018-07-16] MEDS: QUETIAPINE 100 MG TAB PO SCH (21:35)
[2018-07-16] MEDS: clonAZEPAM 0.5 MG TAB PO SCH (21:38)
[2018-07-16] MEDS: HYDROCODONE/APAP (5/325) TAB PO PRN (22:21)
[2018-07-17 02:00] VITALS: BP 221/97; PULSE 75; RESP 16
[2018-07-17] MEDS ORDERED: hydrALAzine 20 MG INJ IV ONE ×2 (04:00→11:30)
[2018-07-17] MEDS: AMOXICILLIN 500 MG CAP PO SCH ×2 (06:08→13:36)
[2018-07-17] MEDS: LEVOTHYROXINE 112 MCG TAB PO SCH (06:08)
[2018-07-17 07:46] VITALS: BP 185/89; PULSE 76; RESP 16
[2018-07-17] MEDS: DOCUSATE SODIUM 250 MG CAP PO SCH (08:16)
[2018-07-17] MEDS: BUSPIRONE 5 MG TAB PO SCH ×3 (08:17→20:17)
[2018-07-17] MEDS: ASPIRIN (EC) 81 MG TAB PO SCH (08:17)
[2018-07-17] MEDS: LACTOBACILLUS RHAMNOSUS CAP PO SCH ×2 (08:17→20:15)
[2018-07-17] MEDS: MULTIVIT/CA CARB/B CMPLX/FA TAB PO SCH (08:17)
[2018-07-17] MEDS: FOLIC ACID 1 MG TAB PO SCH (08:17)
[2018-07-17] MEDS: NIFEdipine (XL) 60 MG TAB PO SCH ×2 (08:18→20:16)
[2018-07-17] MEDS: SENNA TAB PO SCH (08:18)
[2018-07-17] MEDS: LOSARTAN 50 MG TAB PO SCH ×2 (08:18→20:15)
[2018-07-17] MEDS: SEVELAMER CARBONATE 0.8 GM PKT PO SCH ×3 (08:19→18:56)
[2018-07-17] MEDS: LAMOTRIGINE 25 MG TAB PO SCH ×2 (08:19→20:15)
[2018-07-17] MEDS: POLYETHYLENE GLYCOL 17 GM PACKET PO SCH (08:19)
[2018-07-17] MEDS: SPIRONOLACTONE 50 MG TAB PO SCH (08:45)
[2018-07-17] MEDS: CINACALCET 30 MG TAB PO SCH (08:45)
[2018-07-17] MEDS: HEPARIN 5,000 UNIT/1 ML VIAL SC SCH ×2 (08:46→20:17)
[2018-07-17 10:56] VITALS: BP 169/74
--- NOTE | 2018-07-17 11:08 | DS ---
Date/Time of Note Date/Time of Note DATE: 07/17/18 TIME: 11:07 Discharge Summary Admission/Discharge Info Admit Date/Time July 12, 2018 at 20:28 Discharge Date/Time Discharge Diagnosis assessment and plan: 62-year-old female who was sent to us from dialysis center because of severe lethargy and multiple falls currently admitted and managed as follows: 1. Generalized weakness with multiple prior falls and severe lethargy: -Patient states this is likely secondary to chronic muscle wasting, she has been seen as outpatient by a neurologist was just recently started her on lamotrigine about 5 weeks ago. She however does not feel this drug is making her weak. She states this drug was started to help with the recurrent Muscle spasms and spasticity. -Brain CT was negative save for possible sinusitis -requiring skilled PT 2. End Stage renal disease on hemodialysis -Patient dialysis on Thursday and Thursday -Patient states this was due to lithium therapy for bipolar disorder 3. Hypertension status post hypertensive emergency: -Hypertensive emergency was likely secondary to incomplete hemodialysis, indices have improved on current regimen, no further intervention required 4, Anemia of chronic renal disease with leucopenia -Rule out iron deficiency 5. Chronic dyslipidemia on statin 6. Chronic hypothyroidism -still with suboptimal control, continue current Synthroid therapy 7. Chronic bipolar disorder -for more than 11 years per patient -states she has been stable and remains stable. -Denies suicidal or homicidal ideations, denies depression. -Continue as needed Klonopin for anxiety 8. Chronic debility and lethargy: -Status post dietary review, recommendation of Novasure renal 3 times daily initiated 9. Chronic memory issues 10. Chronic msc spasms on lamotrigne started 5 weeks ago after multiple falls 11. abd distention with unremarkable USS 12. chronic constipation: maintained on stool softeners 13. Multifocal pneumonia with yohan pleural effusion: treat for HCAP with abx post HD. needs CXR upon completion of abx therapy. . Patient Condition: Stable Hospital Course 62-year-old female with a long-term history of end-stage renal disease on hemodialysis (11years) sent to us from dialysis unit after she was having multiple falls, she was found to be very lethargic and the dialysis unit felt she was unsafe to go home by herself. The patient does have evidence of chronic muscle wasting and she is quite frail and debilitated. She was also found to be in hypertensive emergency on arrival. Her multiple comorbidities were monitored, and patient was also found to be with possible multifocal pneumonia and bilateral pleural effusions described as possibly moderate on the left side. Her medications were adjusted, she was also have found to have some abdominal distention which was worked up by ultrasound without any significant findings. Patient did also report constipation. At this time the plan is to repeat her chest x-ray after which she will make a decision on whether she does need antibiotics for pneumonia. Patient received hemodialysis on July 16, 2018. She was supposed to be discharged to care home facility that evening, but still had high blood pressure. On the morning of July 17, 2018 blood pressure is improved and patient will be discharged to SNF today. See printed medicine reconciliation sheet for full list of discharge medications Note the patient's debility is chronic and she has ADLs at home and a primary caregiver. But due to her debility, she will benefit from short-term SNF placement. . Home Meds Active Scripts Sennosides* (Senna Lax*) 8.6 Mg Tablet, 2 TAB PO DAILY for 30 Days, TAB Prov:CARLOS SÁUREZ. 07/16/18 Polyethylene Glycol* (Miralax*) 17 Gm Powd.pack, 17 GM PO DAILY, #30 PACKET Prov:CARLOS SUÁREZ. 07/16/18 Lactobacillus Rhamnosus GG (Culturelle) 1 Each Capsule, 1 CAP PO BID for 14 Days, CAP Prov:CARLOS SUÁREZ. 07/16/18 Docusate Sodium* (Colace*) 250 Mg Capsule, 250 MG PO DAILY, #30 CAP Prov:CARLOS SUÁREZ. 07/16/18 Buspirone Hcl* (Buspirone Hcl*) 5 Mg Tab, 5 MG PO BID, #60 TAB Prov:CARLOS SUÁREZ. 07/16/18 Spironolactone* (Aldactone*) 50 Mg Tablet, 50 MG PO DAILY, #30 TAB Prov:CARLOS SUÁREZ. 07/16/18 Nifedipine (Procardia Xl) 60 Mg Tab.er.24, 60 MG PO BID, #60 TAB Prov:CARLOS SUÁREZ. 07/16/18 Ipratropium-Albuterol (Ipratropium-Albuterol) 0.5-3 Mg/3 Ml Ampul.neb, 3 ML HHN Q2H RESP THERAPY PRN for SHORTNESS OF BREATH, #30 VIAL Prov:CARLOS SUÁREZ. 07/16/18 Cefepime Hcl/Dextrose, Iso-Osm (Cefepime 2 Gm Injection) 2 Gm/100 Ml Froz.piggy, 2 GM IV AFTER DIALYSIS, #5 DOSE Prov:CARLOS SUÁREZ. 07/16/18 Reported Medications Levothyroxine Sodium* (Levothyroxine Sodium*) 112 Mcg Tablet, 224 MCG PO AC BREAKFAST for 30 Days, #60 07/12/18 Clonidine Hcl* (Clonidine Hcl*) 0.2 Mg Tablet, 0.2 MG PO TID for 30 Days, #90 TAKE 1 TABLET (0.2 MG TOTAL) BY MOUTH THREE (3) TIMES DAILY. 07/12/18 Hydralazine Hcl* (Hydralazine Hcl*) 100 Mg Tablet, 100 MG PO TID TAKE 1 TABLET (100 MG TOTAL) BY MOUTH THREE (3) TIMES DAILY. 07/12/18 Clonazepam (Klonopin) 0.5 Mg Tablet, 0.5 MG PO HS, TAB 07/05/14 Losartan Potassium* (Losartan Potassium*) 50 Mg Tablet, 50 MG PO BID, TAB 07/05/14 Glycerin-Propylene Glycol (Lubricant Eye Drops) 15 Ml Drops, 2 DROP BOTH EYES QID, EA 07/05/14 Quetiapine Fumarate* (Quetiapine Fumarate*) 400 Mg Tablet, 400 MG PO HS, TAB 07/04/14 Folic Acid* (Folic Acid*) 1 Mg Tablet, 1 MG PO DAILY 06/29/13 Multivit/Ca Carb/B Cmplx/Fa* (Deepthi-Frida*) 1 Tab Tab, 1 TAB PO DAILY, TAB 06/24/13 Aspirin Ec (Aspir 81) 81 Mg Tablet.dr, 81 MG PO DAILY 06/24/13 Sevelamer Carbonate* (Renvela*) 800 Mg Tablet, 800 MG PO TID 06/24/13 Cinacalcet* (Sensipar*) 60 Mg Tablet, 60 MG PO DAILY 06/24/13 Discontinued Reported Medications Doxazosin Mesylate* (Doxazosin Mesylate*) 1 Mg Tablet, 1 MG PO BID for 90 Days, #180 TAKE ONE TABLET BY MOUTH TWICE DAILY 07/12/18 Quetiapine Fumarate* (Quetiapine Fumarate*) 100 Mg Tablet, 100 MG PO QPM, TAB 07/04/14 Lamotrigine* (Lamotrigine*) 25 Mg Tablet, 125 MG PO DAILY, TAB 07/04/14 Clonazepam* (Clonazepam*) 1 Mg Tablet, 1 MG PO DAILY PRN for ANXIETY, TAB 07/04/14 Levothyroxine Sodium* (Levothyroxine Sodium*) 300 Mcg Tablet, 300 MCG PO BEFORE BREAKFAST, #30 TAB 07/12/18 [Norvac] No Conflict Check, 5 MILLIU DAILY 09/19/14 Simvastatin* (Zocor*) 40 Mg Tablet, 40 MG PO DAILY 02/12/10 Levothyroxine Sodium* (Levoxyl*) 100 Mcg Tablet, 100 MCG PO DAILY 02/20/09 Follow-up Plan SNF needs CXR upon completion of abx therapy. . Primary Care Provider Not On Staff Doctor Time spent on discharge: > 30 minutes Pending Labs Laboratory Tests Test 07/17/18 06:04 White Blood Count 4.3 10^3/ul (4.8-10.8) Red Blood Count 2.86 10^6/ul (4.20-5.40) Hemoglobin 10.7 g/dl (12.0-16.0) Hematocrit 31.7 % (37.0-47.0) Mean Corpuscular Volume 110.8 fl (82.0-101.0) Mean Corpuscular Hemoglobin 37.4 pg (29.0-33.0) Mean Corpuscular Hemoglobin Concent 33.8 g/dl (32.0-37.0) Red Cell Distribution Width 14.6 % (11.5-14.5) Platelet Count 183 10^3/UL (140-415) Mean Platelet Volume 9.9 fl (7.4-10.4) Immature Granulocytes % 0.200 % (0.001-0.429) Neutrophils % 61.0 % (39.0-77.0) Lymphocytes % 17.2 % (15.0-51.0) Monocytes % 13.4 % (0.0-11.0) Eosinophils % 7.5 % (0.0-7.0) Basophils % 0.7 % (0.0-2.0) Nucleated Red Blood Cells % 0.0 /100WBC (0.0-0.0) Immature Granulocytes # 0.010 10^3/ul (0.0-0.031) Neutrophils # 2.6 10^3/ul (1.6-7.5) Lymphocytes # 0.7 10^3/ul (0.8-2.9) Monocytes # 0.6 10^3/ul (0.3-0.9) Eosinophils # 0.3 10^3/ul (0.0-0.5) Basophils # 0.0 10^3/ul (0.0-0.1) Nucleated Red Blood Cells # 0.0 10^3/ul (0.0-0.0) Sodium Level 135 mmol/L (135-144) Potassium Level 5.1 mmol/L (3.5-5.1) Chloride Level 95 mmol/L (97-110) Carbon Dioxide Level 27 mmol/L (21-31) Anion Gap 13 (5-13) Blood Urea Nitrogen 42 mg/dl (7-20) Creatinine 3.28 mg/dl (0.44-1.00) Est Glomerular Filtrat Rate mL/min 14 mL/min (>60) Glucose Level 103 mg/dl (70-220) Calcium Level 8.4 mg/dl (8.4-10.2) JARED SOTO July 17, 2018 11:08
[2018-07-17] MEDS: HYDROCODONE/APAP (5/325) TAB PO PRN ×2 (11:47→20:21)
--- NOTE | 2018-07-17 12:40 | CONS ---
Assessment/Plan Assessment/Plan Hospital Course (Demo Recall) 1. End-stage renal disease. s/p HD yesterday 2. Hyperkalemia. improved with HD 3. Hypertension. Continue current blood pressure regimen. Continue ultrafiltration with hemodialysis. 4. Anemia. Monitor hemoglobin and hematocrit levels. Will give Epogen as needed. 5. Mineral bone disorder. Patient is on Sensipar, phos binders will continue. Monitor calcium and phosphorus levels. 6. Dyslipidemia. Continue statin therapy. 7. Hypothyroidism. Continue Synthroid. 8. Anxiety disorder. Continue medical management. 9. Depression. Consultation Date/Type/Reason Admit Date/Time July 12, 2018 at 20:28 Initial Consult Date Date/Time of Note DATE: 07/17/18 TIME: 12:39 24 HR Interval Summary Free Text/Dictation denies n/v or shortness of breath gen nad cv rrr pulm ctab abd soft, nd,nt +bs ext: no edema Exam/Review of Systems Exam Vitals Vital Signs Date Temp Pulse Resp B/P (MAP) Pulse Ox O2 O2 Flow FiO2 Time Delivery Rate 07/17/18 Nasal 2.0 11:23 Cannula 07/17/18 169/74 10:56 (105) 07/17/18 98.4 76 16 95 07:46 Intake and Output 07/16/18 07/16/18 07/17/18 1515:00 23:00 07:00 IntakeIntake Total 240 ml OutputOutput Total 900 ml BalanceBalance -660 ml Results Result Diagram: 07/17/18 0604 07/17/18 0604 Results 24hrs Laboratory Tests Test 07/17/18 06:04 White Blood Count 4.3 L Red Blood Count 2.86 L Hemoglobin 10.7 L Hematocrit 31.7 L Mean Corpuscular Volume 110.8 H Mean Corpuscular Hemoglobin 37.4 H Mean Corpuscular Hemoglobin Concent 33.8 Red Cell Distribution Width 14.6 H Platelet Count 183 Mean Platelet Volume 9.9 Immature Granulocytes % 0.200 Neutrophils % 61.0 Lymphocytes % 17.2 Monocytes % 13.4 H Eosinophils % 7.5 H Basophils % 0.7 Nucleated Red Blood Cells % 0.0 Immature Granulocytes # 0.010 Neutrophils # 2.6 Lymphocytes # 0.7 L Monocytes # 0.6 Eosinophils # 0.3 Basophils # 0.0 Nucleated Red Blood Cells # 0.0 Sodium Level 135 Potassium Level 5.1 Chloride Level 95 L Carbon Dioxide Level 27 Anion Gap 13 Blood Urea Nitrogen 42 #H Creatinine 3.28 #H Est Glomerular Filtrat Rate mL/min 14 L Glucose Level 103 Calcium Level 8.4 Medications Medication Current Medications IV Flush (NS 3 ml) 3 ml PER PROTOCOL IV ; Start 07/13/18 at 00:30 Ondansetron HCl (Zofran Inj) 4 mg Q6H PRN IV NAUSEA/VOMITING Last administered on 07/14/18 12:30; Admin Dose 4 MG; Start 07/13/18 at 00:30 Acetaminophen (Tylenol Tab) 650 mg Q6H PRN PO .PAIN 1-3 OR TEMP Last administered on 07/14/18 04:22; Admin Dose 650 MG; Start 07/13/18 at 00:30 Acetaminophen/ Hydrocodone Bitart ([place] (5/325)) 1 tab Q6H PRN PO .PAIN 4-6 Last administered on 07/17/18 11:47; Admin Dose 1 TAB; Start 07/13/18 at 00:30 Heparin Sodium (Porcine) (Heparin (5000 Units/1ml)) 5,000 unit Q12 SC Last administered on 07/13/18 08:28; Admin Dose 5,000 UNIT; Start 07/13/18 at 09:00 Albuterol/ Ipratropium (Duoneb) 3 ml Q2H RESP THERAPY PRN HHN SHORTNESS OF BREATH; Start 07/13/18 at 00:30 Aspirin (Halfprin) 81 mg DAILY PO Last administered on 07/17/18 08:17; Admin Dose 81 MG; Start 07/13/18 at 09:00 Cinacalcet (Sensipar) 60 mg DAILY PO Last administered on 07/16/18 08:39; Admin Dose 60 MG; Start 07/13/18 at 09:00 Clonazepam (Klonopin) 0.5 mg HS PO Last administered on 07/16/18 21:38; Admin Dose 0.5 MG; Start 07/13/18 at 21:00 Folic Acid (Folic Acid) 1 mg DAILY PO Last administered on 07/17/18 08:17; Admin Dose 1 MG; Start 07/13/18 at 09:00 Hydralazine HCl (Apresoline) 100 mg TID PO Last administered on 07/17/18 08:17; Admin Dose 100 MG; Start 07/13/18 at 00:30 Levothyroxine Sodium (Synthroid) 224 mcg AC BREAKFAST PO Last administered on 07/17/18 06:08; Admin Dose 224 MCG; Start 07/13/18 at 07:00 Losartan Potassium (Cozaar) 50 mg BID PO Last administered on 07/17/18 08:18; Admin Dose 50 MG; Start 07/13/18 at 00:30 Multivit/Ca Carb/ B Cmplx/FA/Prenat (Deepthi-Frida) 1 tab DAILY PO Last administered on 07/17/18 08:17; Admin Dose 1 TAB; Start 07/13/18 at 09:00 Quetiapine Fumarate (Seroquel) 400 mg HS PO Last administered on 07/16/18 21:35; Admin Dose 400 MG; Start 07/13/18 at 21:00 Sevelamer Carbonate (Renvela) 0.8 gm WITH MEALS PO Last administered on 07/17/18 08:19; Admin Dose 0.8 GM; Start 07/13/18 at 08:00 [facility]isc[facility] This patient sahu... PRN PRN XX WOUND CARE; Start 07/13/18 at 14:30 Nifedipine (Procardia Xl) 60 mg BID PO Last administered on 07/17/18 08:18; Admin Dose 60 MG; Start 07/14/18 at 09:00 Amoxicillin (Amoxicillin) 500 mg Q8 PO Last administered on 07/17/18 06:08; Admin Dose 500 MG; Start 07/14/18 at 14:00; Stop 07/24/18 at 13:59 Docusate Sodium (Colace) 250 mg DAILY PO Last administered on 07/17/18 08:16; Admin Dose 250 MG; Start 07/14/18 at 13:30 Senna (Senokot) 2 tab DAILY PO Last administered on 07/17/18 08:18; Admin Dose 2 TAB; Start 07/15/18 at 09:00 Clonidine (Catapres) 0.1 mg Q6H PRN PO SBP>160 Last administered on 07/17/18 08:17; Admin Dose 0.1 MG; Start 07/15/18 at 01:55 Spironolactone (Aldactone) 50 mg DAILY PO Last administered on 07/16/18at 08:40; Admin Dose 50 MG; Start 07/15/18 at 09:00 Polyethylene Glycol (Miralax) 17 gm DAILY PO Last administered on 07/17/18 08:19; Admin Dose 17 GM; Start 07/17/18 at 09:00 Lamotrigine (Lamictal) 50 mg BID PO Last administered on 07/17/18 08:19; Admin Dose 50 MG; Start 07/16/18 at 21:00 Clonazepam (Klonopin) 1 mg Q6H PRN PO ANXIETY; Start 07/16/18 at 13:00 Buspirone HCl (Buspar) 5 mg TID PO Last administered on 07/17/18at 08:17; Admin Dose 5 MG; Start 07/16/18 at 13:00 Cefepime HCl 50 ml @ 100 mls/hr Q24H IVPB ; Start 07/16/18 at 14:30 Lactobacillus Acidophilus/ Rhamnosus (Culturelle) 1 cap BID PO Last administered on 07/17/18at 08:17; Admin Dose 1 CAP; Start 07/16/18 at 21:00 AJ PRICE MD July 17, 2018 12:40
[2018-07-17] MEDS: clonAZEPAM 0.5 MG TAB PO PRN (13:35)
[2018-07-17 14:47] VITALS: BP 162/77; PULSE 75; RESP 16
[2018-07-17] MEDS: CEFEPIME 1GM/50 ML (PMX) 50 ML IVPB SCH (16:18)
[2018-07-17 19:59] VITALS: BP 202/97; PULSE 78; RESP 16
[2018-07-17] MEDS: clonAZEPAM 0.5 MG TAB PO SCH (20:15)
[2018-07-17] MEDS: QUETIAPINE 100 MG TAB PO SCH (20:16)
[2018-07-17] MEDS: BENAZEPRIL 40 MG TAB PO SCH (22:39)
[2018-07-18 01:03] VITALS: BP 205/95; PULSE 80; RESP 16
[2018-07-18] MEDS: LEVOTHYROXINE 112 MCG TAB PO SCH (06:03)
[2018-07-18 06:44] VITALS: BP 186/86; PULSE 83; RESP 18
[2018-07-18 07:38] VITALS: BP 177/90; PULSE 76; RESP 20
[2018-07-18] MEDS: HEPARIN 5,000 UNIT/1 ML VIAL SC SCH ×2 (09:00→20:42)
[2018-07-18] MEDS: CINACALCET 30 MG TAB PO SCH (09:00)
[2018-07-18] MEDS: MULTIVIT/CA CARB/B CMPLX/FA TAB PO SCH (09:30)
[2018-07-18] MEDS: POLYETHYLENE GLYCOL 17 GM PACKET PO SCH (09:30)
[2018-07-18] MEDS: LOSARTAN 50 MG TAB PO SCH ×2 (09:31→20:41)
[2018-07-18] MEDS: LACTOBACILLUS RHAMNOSUS CAP PO SCH ×2 (09:31→20:39)
[2018-07-18] MEDS: FOLIC ACID 1 MG TAB PO SCH (09:31)
[2018-07-18] MEDS: BUSPIRONE 5 MG TAB PO SCH ×3 (09:31→20:39)
[2018-07-18] MEDS: BENAZEPRIL 40 MG TAB PO SCH (09:31)
[2018-07-18] MEDS: SENNA TAB PO SCH (09:32)
[2018-07-18] MEDS: SPIRONOLACTONE 50 MG TAB PO SCH (09:32)
[2018-07-18] MEDS: LAMOTRIGINE 25 MG TAB PO SCH ×2 (09:32→20:41)
[2018-07-18] MEDS: ASPIRIN (EC) 81 MG TAB PO SCH (09:32)
[2018-07-18] MEDS: SEVELAMER CARBONATE 0.8 GM PKT PO SCH ×3 (09:33→18:07)
[2018-07-18] MEDS: DOCUSATE SODIUM 250 MG CAP PO SCH (09:34)
[2018-07-18] MEDS: NIFEdipine (XL) 60 MG TAB PO SCH ×2 (11:40→20:41)
--- NOTE | 2018-07-18 12:08 | CONS ---
Assessment/Plan Assessment/Plan Hospital Course (Demo Recall) 1. End-stage renal disease. HD tomorrow 2. Hyperkalemia. improved with HD 3. Hypertension. elevated. started on clonidine and lisinopril. adjust as needed 4. Anemia. Monitor hemoglobin and hematocrit levels. Will give Epogen as needed. 5. Mineral bone disorder. Patient is on Sensipar, phos binders will continue. Monitor calcium and phosphorus levels. 6. Dyslipidemia. Continue statin therapy. 7. Hypothyroidism. Continue Synthroid. 8. Anxiety disorder. Continue medical management. 9. Depression. Consultation Date/Type/Reason Admit Date/Time July 12, 2018 at 20:28 Initial Consult Date Date/Time of Note DATE: 07/18/18 TIME: 12:07 24 HR Interval Summary Free Text/Dictation denies shortness of breath, n/v gen nad cv rrr pulm ctab abd soft, nd, nt +bs ext: no edema Exam/Review of Systems Exam Vitals Vital Signs Date Temp Pulse Resp B/P (MAP) Pulse Ox O2 O2 Flow FiO2 Time Delivery Rate 07/18/18 Nasal 2.0 08:00 Cannula 07/18/18 98.9 76 20 177/90 97 07:38 (119) Intake and Output 07/17/18 07/17/18 07/18/18 1515:00 23:00 07:00 IntakeIntake Total 1040 ml 370 ml BalanceBalance 1040 ml 370 ml Results Result Diagram: 07/17/18 0604 07/17/18 0604 Medications Medication Current Medications IV Flush (NS 3 ml) 3 ml PER PROTOCOL IV ; Start 07/13/18 at 00:30 Ondansetron HCl (Zofran Inj) 4 mg Q6H PRN IV NAUSEA/VOMITING Last administered on 07/14/18at 12:30; Admin Dose 4 MG; Start 07/13/18 at 00:30 Acetaminophen (Tylenol Tab) 650 mg Q6H PRN PO .PAIN 1-3 OR TEMP Last administered on 07/14/18at 04:22; Admin Dose 650 MG; Start 07/13/18 at 00:30 Acetaminophen/ Hydrocodone Bitart ([place] (5/325)) 1 tab Q6H PRN PO .PAIN 4-6 Last administered on 07/17/18at 20:21; Admin Dose 1 TAB; Start 07/13/18 at 00:30 Heparin Sodium (Porcine) (Heparin (5000 Units/1ml)) 5,000 unit Q12 SC Last administered on 07/13/18 08:28; Admin Dose 5,000 UNIT; Start 07/13/18 at 09:00 Albuterol/ Ipratropium (Duoneb) 3 ml Q2H RESP THERAPY PRN HHN SHORTNESS OF BREATH; Start 07/13/18 at 00:30 Aspirin (Halfprin) 81 mg DAILY PO Last administered on 07/18/18 09:32; Admin Dose 81 MG; Start 07/13/18 at 09:00 Cinacalcet (Sensipar) 60 mg DAILY PO Last administered on 07/16/18 08:39; Admin Dose 60 MG; Start 07/13/18 at 09:00 Clonazepam (Klonopin) 0.5 mg HS PO Last administered on 07/17/18 20:15; Admin Dose 0.5 MG; Start 07/13/18 at 21:00 Folic Acid (Folic Acid) 1 mg DAILY PO Last administered on 07/18/18 09:31; Admin Dose 1 MG; Start 07/13/18 at 09:00 Levothyroxine Sodium (Synthroid) 224 mcg AC BREAKFAST PO Last administered on 07/18/18 06:03; Admin Dose 224 MCG; Start 07/13/18 at 07:00 Losartan Potassium (Cozaar) 50 mg BID PO Last administered on 07/18/18 09:31; Admin Dose 50 MG; Start 07/13/18 at 00:30 Multivit/Ca Carb/ B Cmplx/FA/Prenat (Deepthi-Frida) 1 tab DAILY PO Last administered on 07/18/18 09:30; Admin Dose 1 TAB; Start 07/13/18 at 09:00 Quetiapine Fumarate (Seroquel) 400 mg HS PO Last administered on 07/17/18 20:16; Admin Dose 400 MG; Start 07/13/18 at 21:00 Sevelamer Carbonate (Renvela) 0.8 gm WITH MEALS PO Last administered on 07/18/18 09:33; Admin Dose 0.8 GM; Start 07/13/18 at 08:00 Miscellaneous Information (Pending [facility] Order For Wound Care) This patient sahu... PRN PRN XX WOUND CARE; Start 07/13/18 at 14:30 Nifedipine (Procardia Xl) 60 mg BID PO Last administered on 07/18/18 11:40; Admin Dose 60 MG; Start 07/14/18 at 09:00 Docusate Sodium (Colace) 250 mg DAILY PO Last administered on 07/18/18 09:34; Admin Dose 250 MG; Start 07/14/18 at 13:30 Senna (Senokot) 2 tab DAILY PO Last administered on 07/18/18 09:32; Admin Dose 2 TAB; Start 07/15/18 at 09:00 Clonidine (Catapres) 0.1 mg Q6H PRN PO SBP>160 Last administered on 07/17/18 21:11; Admin Dose 0.1 MG; Start 07/15/18 at 01:55 Spironolactone (Aldactone) 50 mg DAILY PO Last administered on 07/18/18 09:32; Admin Dose 50 MG; Start 07/15/18 at 09:00 Polyethylene Glycol (Miralax) 17 gm DAILY PO Last administered on 07/18/18 09:30; Admin Dose 17 GM; Start 07/17/18 at 09:00 Lamotrigine (Lamictal) 50 mg BID PO Last administered on 07/18/18 09:32; Admin Dose 50 MG; Start 07/16/18 at 21:00 Clonazepam (Klonopin) 1 mg Q6H PRN PO ANXIETY Last administered on 07/17/18 13:35; Admin Dose 1 MG; Start 07/16/18 at 13:00 Buspirone HCl (Buspar) 5 mg TID PO Last administered on 07/18/18 09:31; Admin Dose 5 MG; Start 07/16/18 at 13:00 Cefepime HCl 50 ml @ 100 mls/hr Q24H IVPB Last administered on 07/17/18 16:18; Admin Dose 100 MLS/HR; Start 07/16/18 at 14:30 Lactobacillus Acidophilus/ Rhamnosus (Culturelle) 1 cap BID PO Last administered on 07/18/18 09:31; Admin Dose 1 CAP; Start 07/16/18 at 21:00 Amoxicillin (Amoxicillin) 500 mg Q24H PO ; Start 07/18/18 at 14:00; Stop 07/24/18 at 13:59 Hydralazine HCl (Apresoline) 100 mg Q6 PO Last administered on 07/18/18at 06:02; Admin Dose 100 MG; Start 07/18/18 at 00:00 Benazepril HCl (Lotensin) 40 mg DAILY PO Last administered on 07/18/18at 09:31; Admin Dose 40 MG; Start 07/17/18 at 22:30 Clonidine (Catapres) 0.2 mg Q8 PO Last administered on 07/18/18at 06:02; Admin Dose 0.2 MG; Start 07/18/18 at 06:00 AJ PRICE MD July 18, 2018 12:08
--- NOTE | 2018-07-18 12:28 | PN ---
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 Ultrasound results of the bilateral proximity did not show any clots or other abnormalities acutely. Seen by physical therapy team yesterday. Objective : Constitutional: alert, oriented, frail; No distress Head: normocephalic Eyes: PERRL ENMT: No mucosa pink and moist (dry) Respiratory: clear to auscultation, No crackles/rales, No labored breathing, No wheezing Cardiovascular: regular rate and rhythm Gastrointestinal: soft, bowel sounds, firm; No rebound or guarding Musculoskeletal: No muscle tone (reduced, with diffuse msc wasting ) yohan finger clubbing Extremities: other; mild upper extremity edema Neurological: nl mental status, nl speech, lethargic Skin: other (large LUE AV fistula and old ecchymosis) PROCEDURE: US Abdomen. IMPRESSION: 1. No evidence cholelithiasis or acute cholecystitis. 2. Increased bilateral renal cortical echogenicity suggest medical renal disease. 3. No obstructive uropathy. 4. Trace ascites and moderate right pleural effusion Assessment and plan: 62-year-old female who was sent to us from dialysis center because of severe lethargy and multiple falls currently admitted and managed as follows: 1. Generalized weakness with multiple prior falls and severe lethargy-Patient states this is likely secondary to chronic muscle wasting, she has been seen as outpatient by a neurologist was just recently started her on lamotrigine about 5 weeks ago. She however does not feel this drug is making her weak. She states this drug was started to help with the recurrent Muscle spasms and spasticity.- Brain CT was negative save for possible sinusitis -Continue physical therapy while patient here in the hospital -Again awaiting discharge to SNF either today or tomorrow, patient is medically clear for the since yesterday but she is appealing the discharge since yesterday 2. End Stage renal disease on hemodialysis-Patient dialysis on Thursday and Thursday-Patient states this was due to lithium therapy for bipolar disorder- Nephrology notified -Follow-up renal recommendations, continue dialysis per the recommendations, next session scheduled for tomorrow 3. Hypertension status post hypertensive emergency:-Hypertensive emergency was likely secondary to incomplete hemodialysis, indices have improved on current regimen, no further intervention required. Blood pressure has been improved since then but still occasionally is in the systolic 1 70-1 80 range -Monitor, continue current IV PRN medications as well as [id number] p.o. medications as ordered 4, Anemia of chronic renal disease -iron levels normal, hemoglobin stable -Monitor 5. Chronic dyslipidemia -on statin 6. Chronic hypothyroidism -still with suboptimal control, continue current Synthroid therapy 7. Chronic bipolar disorder-for more than 11 years per patient-states she has been "stable"-Denies suicidal or homicidal ideations, denies depression. Seen by psychiatry team earlier this admission -Continue Lamictal 50mg bid, Seroquel 400mg QHS, Klonopin 1mg Q6H prn, and Buspar 5mg TID per psychiatry recommendations 8. Chronic debility and lethargy: -Status post dietary review. Seen by physical therapy during this hospitalization, and again recommended for SNF placement -Monitor, continue PT while patient here in the hospital, eventually will be discharged to SNF in the next 24 hours as patient is presently appealing the discharge -recommendation of Novasure renal 3 times daily. 9. Chronic memory issues -Monitor 10. Chronic msc spasms on lamotrigne started 5 weeks ago after multiple falls -Continue PT, monitor 12. chronic constipation -Colace as needed 13. Moderate pleural effusion: fluid removal with hemodialysis, likely chron ic, no indication for thoracentesis at this time, patient clinically stable -Monitor Disposition -Again patient did not go to SNF yesterday, appealed the discharge because she wants a vascular surgeon first. We have contacted the vascular surgeon who saw her 2015 briefly for her upper extremity stenosis and AV fistula. Patient's ultrasound of her upper extremities yesterday did not show any acute abnormality's. Nevertheless vascular surgeon is aware of these results and says that he will see the patient Thursday either at the [facility] facility if the patient goes there, or here in the hospital if the patient still here. Result Diagram: 07/17/1860307/17/18603 Exam/Review of Systems Exam Vitals Vital Signs Date Temp Pulse Resp B/P (MAP) Pulse Ox O2 O2 Flow FiO2 Time Delivery Rate 07/18/18 Nasal 2.0 08:00 Cannula 07/18/18 98.9 76 20 177/90 97 07:38 (119) Intake and Output 07/17/18 07/17/18 07/18/18 1414:59 22:59 06:59 IntakeIntake Total 1040 ml 370 ml BalanceBalance 1040 ml 370 ml Medications Medication Current Medications IV Flush (NS 3 ml) 3 ml PER PROTOCOL IV ; Start 07/13/18 at 00:30 Ondansetron HCl (Zofran Inj) 4 mg Q6H PRN IV NAUSEA/VOMITING Last administered on 07/14/18 12:30; Admin Dose 4 MG; Start 07/13/18 at 00:30 Acetaminophen (Tylenol Tab) 650 mg Q6H PRN PO .PAIN 1-3 OR TEMP Last administered on 07/14/18 04:22; Admin Dose 650 MG; Start 07/13/18 at 00:30 Acetaminophen/ Hydrocodone Bitart ([place] (5/325)) 1 tab Q6H PRN PO .PAIN 4-6 Last administered on 07/17/18 20:21; Admin Dose 1 TAB; Start 07/13/18 at 00:30 Heparin Sodium (Porcine) (Heparin (5000 Units/1ml)) 5,000 unit Q12 SC Last administered on 07/13/18 08:28; Admin Dose 5,000 UNIT; Start 07/13/18 at 09:00 Albuterol/ Ipratropium (Duoneb) 3 ml Q2H RESP THERAPY PRN HHN SHORTNESS OF BREATH; Start 07/13/18 at 00:30 Aspirin (Halfprin) 81 mg DAILY PO Last administered on 07/18/18 09:32; Admin Dose 81 MG; Start 07/13/18 at 09:00 Cinacalcet (Sensipar) 60 mg DAILY PO Last administered on 07/16/18 08:39; Admin Dose 60 MG; Start 07/13/18 at 09:00 Clonazepam (Klonopin) 0.5 mg HS PO Last administered on 07/17/18 20:15; Admin Dose 0.5 MG; Start 07/13/18 at 21:00 Folic Acid (Folic Acid) 1 mg DAILY PO Last administered on 07/18/18 09:31; Admin Dose 1 MG; Start 07/13/18 at 09:00 Levothyroxine Sodium (Synthroid) 224 mcg AC BREAKFAST PO Last administered on 07/18/18 06:03; Admin Dose 224 MCG; Start 07/13/18 at 07:00 Losartan Potassium (Cozaar) 50 mg BID PO Last administered on 07/18/18 09:31; Admin Dose 50 MG; Start 07/13/18 at 00:30 Multivit/Ca Carb/ B Cmplx/FA/Prenat (Deepthi-Frida) 1 tab DAILY PO Last administered on 07/18/18 09:30; Admin Dose 1 TAB; Start 07/13/18 at 09:00 Quetiapine Fumarate (Seroquel) 400 mg HS PO Last administered on 07/17/18 20:16; Admin Dose 400 MG; Start 07/13/18 at 21:00 Sevelamer Carbonate (Renvela) 0.8 gm WITH MEALS PO Last administered on 07/18/18 09:33; Admin Dose 0.8 GM; Start 07/13/18 at 08:00 Miscellaneous Information (Pending [facility] Order For Wound Care) This patient sahu... PRN PRN XX WOUND CARE; Start 07/13/18 at 14:30 Nifedipine (Procardia Xl) 60 mg BID PO Last administered on 07/18/18 11:40; Admin Dose 60 MG; Start 07/14/18 at 09:00 Docusate Sodium (Colace) 250 mg DAILY PO Last administered on 07/18/18 09:34; Admin Dose 250 MG; Start 07/14/18 at 13:30 Senna (Senokot) 2 tab DAILY PO Last administered on 07/18/18 09:32; Admin Dose 2 TAB; Start 07/15/18 at 09:00 Clonidine (Catapres) 0.1 mg Q6H PRN PO SBP>160 Last administered on 07/17/18 21:11; Admin Dose 0.1 MG; Start 07/15/18 at 01:55 Spironolactone (Aldactone) 50 mg DAILY PO Last administered on 07/18/18 09:32; Admin Dose 50 MG; Start 07/15/18 at 09:00 Polyethylene Glycol (Miralax) 17 gm DAILY PO Last administered on 07/18/18 09:30; Admin Dose 17 GM; Start 07/17/18 at 09:00 Lamotrigine (Lamictal) 50 mg BID PO Last administered on 07/18/18 09:32; Admin Dose 50 MG; Start 07/16/18 at 21:00 Clonazepam (Klonopin) 1 mg Q6H PRN PO ANXIETY Last administered on 07/17/18 13:35; Admin Dose 1 MG; Start 07/16/18 at 13:00 Buspirone HCl (Buspar) 5 mg TID PO Last administered on 07/18/18 09:31; Admin Dose 5 MG; Start 07/16/18 at 13:00 Cefepime HCl 50 ml @ 100 mls/hr Q24H IVPB Last administered on 07/17/18 16:18; Admin Dose 100 MLS/HR; Start 07/16/18 at 14:30 Lactobacillus Acidophilus/ Rhamnosus (Culturelle) 1 cap BID PO Last administered on 07/18/18 09:31; Admin Dose 1 CAP; Start 07/16/18 at 21:00 Amoxicillin (Amoxicillin) 500 mg Q24H PO ; Start 07/18/18 at 14:00; Stop 07/24/18 at 13:59 Hydralazine HCl (Apresoline) 100 mg Q6 PO Last administered on 07/18/18 06:02; Admin Dose 100 MG; Start 07/18/18 at 00:00 Benazepril HCl (Lotensin) 40 mg DAILY PO Last administered on 07/18/18 09:31; Admin Dose 40 MG; Start 07/17/18 at 22:30 Clonidine (Catapres) 0.2 mg Q8 PO Last administered on 07/18/18 06:02; Admin Dose 0.2 MG; Start 07/18/18 at 06:00 JARED SOTO July 18, 2018 12:28
[2018-07-18] MEDS: HYDROCODONE/APAP (5/325) TAB PO PRN ×2 (12:32→23:07)
[2018-07-18] MEDS: ONDANSETRON 4 MG INJ IV PRN (12:56)
[2018-07-18 13:43] VITALS: BP 144/69; PULSE 72; RESP 20
[2018-07-18] MEDS: CEFEPIME 1GM/50 ML (PMX) 50 ML IVPB SCH (14:00)
[2018-07-18] MEDS: AMOXICILLIN 500 MG CAP PO SCH (14:01)
[2018-07-18] MEDS: clonAZEPAM 0.5 MG TAB PO PRN (18:07)
[2018-07-18 20:00] VITALS: BP_SYST 140; BP_SYST 187; BP_DIAS 61; BP_DIAS 83; PULSE 75; PULSE 78; RESP 19
[2018-07-18] MEDS: QUETIAPINE 100 MG TAB PO SCH (20:40)
[2018-07-18] MEDS: clonAZEPAM 0.5 MG TAB PO SCH (20:40)
[2018-07-19] VITALS (19 sets, daily range): BP systolic 167–227; BP diastolic 84–139; PULSE 76–102; RESP 16–22
[2018-07-19] MEDS: LEVOTHYROXINE 112 MCG TAB PO SCH (06:04)
[2018-07-19] MEDS: HYDROCODONE/APAP (5/325) TAB PO PRN (06:11)
--- NOTE | 2018-07-19 08:26 | CONS ---
DATE OF ADMISSION: 07/12/2018 DATE OF CONSULTATION: 07/19/2018 REFERRING PHYSICIAN: Dr. Jared Soto REASON FOR CONSULTATION: Evaluate left arm AV fistula. HISTORY OF PRESENT ILLNESS: This is a 62-year-old woman. She has end-stage renal disease, has been on dialysis for at least 5 or 6 years. I saw her once in 2014 for her left upper arm AV fistula, jada or to that I think Dr. Patino had made the fistula and had placed some central venous stents back in . She was admitted with hypertension today. She has actually been treated and ready to be discha rg, but she insisted on seeing a vascular surgeon before she went home. She said she has been seei ng Dr. Shaw at [place] and has had multiple angioplasties in the past. Her primary earth moving technician i s Dr. Vazquez over the [place] area as well. Here, Dr. Weiss is seeing her. She has a long histo ry of mental disorder. She is bipolar for many years. She lives in a residential facility and s he has been evaluated by a psychiatrist while she is here. She has not been found to be suicidal. PAST MEDICAL HISTORY: Again, significant for end-stage renal disease on hemodialysis, hypertension, hypothyroidism, bipolar disorder, anxiety, hyperlipidemia. PAST SURGICAL HISTORY: Significant for left upper arm AV fistulas and multiple central venous stents in the past. MEDICATIONS: Consist of: 1. Amoxicillin. 2. Catapres. 3. Hydralazine. 4. Lotensin. 5. MiraLax. 6. Lamictal. 7. Culturelle. 8. Cefepime. 9. Klonopin. 10. BuSpar 11. Senokot. 12. Aldactone. 13. Nifedipine. 14. Seroquel. 15. Aspirin. 16. Sensipar. 17. Renvela. 18. Zofran. 19. Cozaar. ALLERGIES: No known drug allergies. SOCIAL HISTORY: She is a nonsmoker. Does not drink or do any illicit drugs. She lives in a residential facility. REVIEW OF SYSTEMS: She complains of just generalized weakness. Says she can't walk and she is not s ure why. She complains of some swelling in both arms. Facial swelling is moderate. It appears to b e fairly chronic. She has no chest pain or shortness of breath, no nausea, vomiting or diarrhea. No fever, no chills, no recent weight gain or weight loss. PHYSICAL EXAMINATION: GENERAL: She is an elderly woman. She is in no acute distress. She appears much older th an her stated age. VITAL SIGNS: She has been afebrile. Blood pressure is 196/85, heart rate 81, respiratory rate is 18 . She is 98% sat on room air. NECK: She has 2+ carotid, radial and brachial pulses bilaterally. EXTREMITIES: She has a left upper arm AV fistula that has an excellent thrill. It has chronic pseud oaneurysmal enlargement. There are no ulcerations. She has some moderate edema in the forearm and h ands bilaterally. It is actually worse on the right than the left, but very soft, not tense at all. She has good radial pulses. There is good color and normal sensation and motor function in both shah ds. LUNGS: Clear. HEART: Regular rate and rhythm. ABDOMEN: Obese, soft, nontender, nondistended. MUSCULOSKELETAL: She has 2+ femoral, popliteal and DP pulses bilaterally. Her feet are both warm an d pink, well perfused. No ulcerations. LABORATORY DATA: Had a venous duplex of the upper extremities which shows normal flow in the bilater al upper extremity veins. No sign of any central venous stenosis or occlusion. The fistula is aneur ysmal, but has good flow and is patent. Ultrasound of the abdomen did show some ascites that it look s like she does have some general overall fluid overload. Her lab values are relatively normal other than her elevated creatinine. IMPRESSION: Left arm AV fistula. 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 Th ere is no sign of infection. She does have some edema in both upper extremities. Venous duplex is n ormal. The fistula has been working well. I could schedule her for a fistulogram as an outpatient. I do not see any acute issues and from my standpoint, she can be discharged to a [facility] that has already been arranged. I will arrange for outpatient fistulogram. She sees Dr. Vazquez and Dr. Shaw at [place]. If she wants to follow up with them, that is fine as well. I will follo w up with her once she is discharged, and arrange for the outpatient fistulogram to be done. Dictated By: TANA MCCLENDON/DC Conf#: [id number] DID#: [id number] CC: CARLOS SUÁREZ MD; AJ PRICE MD; MOISES WEISS DO; LUCÍA HICKS MD; JARED SOTO;*EndCC*
--- NOTE | 2018-07-19 08:34 | PN ---
DATE: 07/19/2018 SUBJECTIVE: The patient is stable. No events overnight. OBJECTIVE: VITAL SIGNS: Blood pressure is 196/85, pulse 81, respirations 18, temperature 98.1. HEENT: Head is normocephalic. NECK: Supple. HEART: Regular rate. LUNGS: Show diminished breath sounds at the base. ABDOMEN: Soft, nontender to palpation without rebound or guarding. EXTREMITIES: Negative for clubbing, cyanosis, no edema. DERMATOLOGIC: No rashes. MUSCULOSKELETAL: No joint effusion. NEUROLOGIC: No change in exam. MEDICATIONS: Reviewed. LABORATORY DATA: Reviewed. ASSESSMENT AND PLAN: 1. End-stage renal disease. Plan is for hemodialysis today. We will dialyze for 3 hours 2k bath, c alcium 2.5. 2. Hyperkalemia. Continue dialysis on a low potassium bath. 3. Hypertension. Blood pressure remains elevated. Continue to adjust blood pressure regimen. Cont inue ultrafiltration with hemodialysis. 4. Anemia. Monitor hemoglobin and hematocrit levels. We will give Epogen as needed. 5. Mineral bone disorder. The patient is on Sensipar and phosphate binders. Continue to monitor. 6. Dyslipidemia. Continue statin therapy. 7. Hypothyroidism. Continue Synthroid. 8. Anxiety disorder. Continue medical management. 9. Depression. Dictated By: MOISES WEISS DO NR/NTS Conf#: [id number] DID#: [id number] CC: TANA BENTON MD; LUCÍA HICKS MD; JARED SOTO;*EndCC*
[2018-07-19] MEDS: LAMOTRIGINE 25 MG TAB PO SCH (08:38)
[2018-07-19] MEDS: ASPIRIN (EC) 81 MG TAB PO SCH (08:38)
[2018-07-19] MEDS: FOLIC ACID 1 MG TAB PO SCH (08:38)
[2018-07-19] MEDS: SENNA TAB PO SCH (08:38)
[2018-07-19] MEDS: MULTIVIT/CA CARB/B CMPLX/FA TAB PO SCH (08:38)
[2018-07-19] MEDS: DOCUSATE SODIUM 250 MG CAP PO SCH (08:38)
[2018-07-19] MEDS: CINACALCET 30 MG TAB PO SCH (08:38)
[2018-07-19] MEDS: BUSPIRONE 5 MG TAB PO SCH ×3 (08:38→21:27)
[2018-07-19] MEDS: SEVELAMER CARBONATE 0.8 GM PKT PO SCH ×3 (08:38→17:54)
[2018-07-19] MEDS: SPIRONOLACTONE 50 MG TAB PO SCH (08:39)
[2018-07-19] MEDS: LOSARTAN 50 MG TAB PO SCH ×2 (08:39→21:27)
[2018-07-19] MEDS: POLYETHYLENE GLYCOL 17 GM PACKET PO SCH (08:39)
[2018-07-19] MEDS: LACTOBACILLUS RHAMNOSUS CAP PO SCH ×2 (08:39→21:25)
[2018-07-19] MEDS: NIFEdipine (XL) 60 MG TAB PO SCH ×2 (08:39→21:26)
[2018-07-19] MEDS: BENAZEPRIL 40 MG TAB PO SCH (08:40)
[2018-07-19] MEDS: HEPARIN 5,000 UNIT/1 ML VIAL SC SCH ×4 (08:48→21:34)
[2018-07-19] MEDS ORDERED: LORAZEPAM 2 MG INJ IV ONE (13:30)
[2018-07-19] MEDS: AMOXICILLIN 500 MG CAP PO SCH (14:11)
[2018-07-19] MEDS: CEFEPIME 1GM/50 ML (PMX) 50 ML IVPB SCH (14:12)
--- NOTE | 2018-07-19 14:30 | PN ---
Date/Time of Note Date/Time of Note DATE: 07/19/18 TIME: 14:11 Assessment/Plan VTE Prophylaxis Risk score (from Nsg)>0 risk: 4 SCD applied (from Nsg): Yes Pharmacological prophylaxis: heparin Lines/Catheters IV Catheter Type (from Nrsg): Saline Lock Urinary Cath still in place: No Assessment/Plan Hospital Course Subjective: Patient is quite short of breath today, unable to speak in full sentences. She also seems somewhat confused as compared to my last assessment of her 2 days ago. The dialysis nurses at the bedside trying to check her blood pressure but she is refusing. She is trying to say something about why she does not want any intervention but it is not clear. She just keeps repeating "I do not feel well, I do not feel well" . Objective : Constitutional: Alert, visibly tachypneic, confused? Head: normocephalic Eyes: PERRL, conjunctival pallor ENMT: No mucosa pink and moist (dry) Respiratory: diminished breath sounds; bibasal crackles Cardiovascular: regular rate and rhythm Gastrointestinal: soft, bowel sounds, more distended? firm; No rebound or guarding Musculoskeletal: No muscle tone (reduced, with diffuse msc wasting ) yohan finger clubbing Extremities: other; Pitting edema in all 4 extremities, upper extremities more than lower extremities Neurological: nl mental status, nl speech, lethargic Skin: other (large LUE AV fistula and old ecchymosis) assessment and plan: 62-year-old female who was sent to us from dialysis center because of severe lethargy and multiple falls currently admitted and managed as follows: 62-year-old female with a history of end-stage renal disease on hemodialysis who was originally admitted from dialysis units due to weakness and lethargy and recurrent falls. She had gone to the dialysis unit but was too weak to be discharged to. She was sent to the emergency room for evaluation. Her own home detailed work-up only showed multifocal pneumonia with bilateral pleural ef fusion and she was treated for healthcare associated pneumonia she was planned [facility] on IV antibiotic therapy. However upon my review today, her problems are listed below: 1. Mild acute encephalopathy: Likely toxic metabolic. May be related to uremia -Dialysis nurses at the bedside for hemodialysis, patient is refusing the procedure, its unclear how cognitive she is. Plan to reevaluate post hemodialysis. If no improvement patient will need brain imaging. 2. Respiratory distress and shortness of breath. -Patient does have generalized anasarca. Prior chest x-ray had showed fluid overload, central pulmonary congestion, infiltrates and pleural effusions. -Patient will benefit from thoracentesis -We will get CT of the chest to properly define lung parenchyma and evaluate pleural effusion to see if further intervention is warranted. 3. Healthcare assisted pneumonia: -On treatment with IV cefepime 4. End-stage renal disease: -Patient is on routine hemodialysis, she had complained prior that she did not want fluid removal just ultrafiltration, however it seems patient would benefit from some fluid removal at this time. -Defer to nephrology 5. Generalized anasarca -No evidence of hypoalbuminemia labs, likely secondary to fluid retention due to patient's wishes for lack of fluid removal during hemodialysis. 6. Abdominal distention: -Ultrasound prior suggestion 3 cystitis hemorrhagic pleural effusion -We will get CT of the abdomen and pelvis to further evaluate. -Distention looks worse than prior 7. Hypertension: Well-controlled -Indices should hopefully improve with hemodialysis -Continue to titrate antihypertensives for improved control 8. Chronic muscle wasting and multiple muscle spasms -Patient was started on lamotrigine by outpatient neurologist -In view of patient's lethargy, will hold this medication for now 9. Chronic bipolar disorder -Per patient she has had for 11 years and is well controlled on current regimen 10. Chronic hypothyroidism: -Free T4 within the marriage though TSH still high -Patient continued on home regimen of Synthroid 11. Sinusitis on CAT scan -She was started on amoxicillin for 10 days, but in view of the fact that she is on cefepime for H CAP, will DC amoxicillin. 12. Generalized weakness with multiple prior falls and severe lethargy and memory loss -brain MRI to assess for possible CVA 13. 13. chronic constipation Disposition: -Hold discharge for now -Work-up as per above -If no improvement post hemodialysis, patient may need to be transferred to telemetry versus ICU -Close monitoring -I will also transiently cut down her psychotropic drugs in view of her severe lethargy. Once her overall state is improved, we can slowly increase her dose back to prior dosages -We will also call patient is next of kin, her brother whose documentation is in the chart to update him of patient's clinical status. Result Diagram: 07/17/1860307/17/18603 Exam/Review of Systems Exam Vitals Vital Signs Date Temp Pulse Resp B/P (MAP) Pulse Ox O2 O2 Flow FiO2 Time Delivery Rate 07/19/18 Nasal 2.0 08:15 Cannula 07/19/18 98.1 81 18 196/85 98 07:36 (122) Intake and Output 07/18/18 07/18/18 07/19/18 1515:00 23:00 07:00 IntakeIntake Total 530 ml 240 ml OutputOutput Total 0 ml BalanceBalance 530 ml 240 ml Medications Medication Current Medications IV Flush (NS 3 ml) 3 ml PER PROTOCOL IV ; Start 07/13/18 at 00:30 Ondansetron HCl (Zofran Inj) 4 mg Q6H PRN IV NAUSEA/VOMITING Last administered on 07/18/18 12:56; Admin Dose 4 MG; Start 07/13/18 at 00:30 Acetaminophen (Tylenol Tab) 650 mg Q6H PRN PO .PAIN 1-3 OR TEMP Last administered on 07/14/18 04:22; Admin Dose 650 MG; Start 07/13/18 at 00:30 Acetaminophen/ Hydrocodone Bitart ([place] (5/325)) 1 tab Q6H PRN PO .PAIN 4-6 Last administered on 07/19/18 06:11; Admin Dose 1 TAB; Start 07/13/18 at 00:30 Heparin Sodium (Porcine) (Heparin (5000 Units/1ml)) 5,000 unit Q12 SC Last administered on 07/13/18 08:28; Admin Dose 5,000 UNIT; Start 07/13/18 at 09:00 Albuterol/ Ipratropium (Duoneb) 3 ml Q2H RESP THERAPY PRN HHN SHORTNESS OF BREATH; Start 07/13/18 at 00:30 Aspirin (Halfprin) 81 mg DAILY PO Last administered on 07/19/18 08:38; Admin Dose 81 MG; Start 07/13/18 at 09:00 Cinacalcet (Sensipar) 60 mg DAILY PO Last administered on 07/19/18 08:38; Admin Dose 60 MG; Start 07/13/18 at 09:00 Clonazepam (Klonopin) 0.5 mg HS PO Last administered on 07/18/18 20:40; Admin Dose 0.5 MG; Start 07/13/18 at 21:00 Folic Acid (Folic Acid) 1 mg DAILY PO Last administered on 07/19/18 08:38; Adm in Dose 1 MG; Start 07/13/18 at 09:00 Levothyroxine Sodium (Synthroid) 224 mcg AC BREAKFAST PO Last administered on 07/19/18 06:04; Admin Dose 224 MCG; Start 07/13/18 at 07:00 Losartan Potassium (Cozaar) 50 mg BID PO Last administered on 07/19/18 08:39; Admin Dose 50 MG; Start 07/13/18 at 00:30 Multivit/Ca Carb/ B Cmplx/FA/Prenat (Deepthi-Frida) 1 tab DAILY PO Last administered on 07/19/18 08:38; Admin Dose 1 TAB; Start 07/13/18 at 09:00 Quetiapine Fumarate (Seroquel) 400 mg HS PO Last administered on 07/18/18 20:40; Admin Dose 400 MG; Start 07/13/18 at 21:00 Sevelamer Carbonate (Renvela) 0.8 gm WITH MEALS PO Last administered on 07/19/18 08:38; Admin Dose 0.8 GM; Start 07/13/18 at 08:00 Miscellaneous Information (Pending [facility] Order For Wound Care) This patient sahu... PRN PRN XX WOUND CARE; Start 07/13/18 at 14:30 Nifedipine (Procardia Xl) 60 mg BID PO Last administered on 07/19/18 08:39; Admin Dose 60 MG; Start 07/14/18 at 09:00 Docusate Sodium (Colace) 250 mg DAILY PO Last administered on 07/19/18 08:38; Admin Dose 250 MG; Start 07/14/18 at 13:30 Senna (Senokot) 2 tab DAILY PO Last administered on 07/19/18 08:38; Admin Dose 2 TAB; Start 07/15/18 at 09:00 Clonidine (Catapres) 0.1 mg Q6H PRN PO SBP>160 Last administered on 07/17/18 21:11; Admin Dose 0.1 MG; Start 07/15/18 at 01:55 Spironolactone (Aldactone) 50 mg DAILY PO Last administered on 07/19/18 08:39; Admin Dose 50 MG; Start 07/15/18 at 09:00 Polyethylene Glycol (Miralax) 17 gm DAILY PO Last administered on 07/19/18 08:39; Admin Dose 17 GM; Start 07/17/18 at 09:00 Lamotrigine (Lamictal) 50 mg BID PO Last administered on 07/19/18 08:38; Admin Dose 50 MG; Start 07/16/18 at 21:00 Clonazepam (Klonopin) 1 mg Q6H PRN PO ANXIETY Last administered on 07/18/18 18:07; Admin Dose 1 MG; Start 07/16/18 at 13:00 Buspirone HCl (Buspar) 5 mg TID PO Last administered on 07/19/18 08:38; Admin Dose 5 MG; Start 07/16/18 at 13:00 Cefepime HCl 50 ml @ 100 mls/hr Q24H IVPB Last administered on 07/18/18 14:00; Admin Dose 100 MLS/HR; Start 07/16/18 at 14:30 Lactobacillus Acidophilus/ Rhamnosus (Culturelle) 1 cap BID PO Last administered on 07/19/18 08:39; Admin Dose 1 CAP; Start 07/16/18 at 21:00 Amoxicillin (Amoxicillin) 500 mg Q24H PO Last administered on 07/18/18 14:01; Admin Dose 500 MG; Start 07/18/18 at 14:00; Stop 07/24/18 at 13:59 Hydralazine HCl (Apresoline) 100 mg Q6 PO Last administered on 07/19/18 06:11; Admin Dose 100 MG; Start 07/18/18 at 00:00 Benazepril HCl (Lotensin) 40 mg DAILY PO Last administered on 07/19/18 08:40; Admin Dose 40 MG; Start 07/17/18 at 22:30 Clonidine (Catapres) 0.2 mg Q8 PO Last administered on 07/19/18 06:12; Admin Dose 0.2 MG; Start 07/18/18 at 06:00 CARLOS SUÁREZ July 19, 2018 14:21
[2018-07-19] MEDS: clonAZEPAM 0.5 MG TAB PO SCH (21:26)
[2018-07-19] MEDS: QUETIAPINE 100 MG TAB PO SCH (21:27)
[2018-07-20] VITALS (16 sets, daily range): BP systolic 142–189; BP diastolic 65–87; PULSE 80–88; RESP 16–19
[2018-07-20] MEDS: LEVOTHYROXINE 112 MCG TAB PO SCH (06:31)
--- NOTE | 2018-07-20 09:03 | PN ---
DATE: 07/20/2018 SUBJECTIVE: The patient had hemodialysis yesterday with approximately 2 liters removed. No other ac [place] events noted. OBJECTIVE: VITAL SIGNS: Blood pressure is 142/65, respirations 16, pulse 83, temperature 97.9. HEENT: Head is normocephalic. NECK: Supple. HEART: Regular rate. LUNGS: Show diminished breath sounds at the base. ABDOMEN: Soft, nontender to palpation without rebound or guarding. EXTREMITIES: Negative for clubbing, cyanosis. Trace edema. DERMATOLOGIC: No rashes. MUSCULOSKELETAL: No joint effusion. NEUROLOGIC: No change in exam. MEDICATIONS: Reviewed. LABORATORY DATA: Reviewed. ASSESSMENT AND PLAN: 1. End-stage renal disease. The patient had hemodialysis yesterday. Anticipate dialysis again toda y for solute clearance. 2. Hyperkalemia. Plan is for dialysis again on a low potassium bath. 3. Hypertension. Blood pressure improved. Continue current blood pressure regimen. Continue ultra filtration with dialysis. 4. Anemia. Monitor hemoglobin and hematocrit levels. We will give Epogen as needed. 5. Mineral bone disorder, monitor calcium and phosphorus levels. Continue Sensipar and phosphate bi nders. 6. Dyslipidemia. Continue statin therapy. 7. Hypothyroidism. Continue Synthroid. 8. Anxiety disorder. Continue medical management. 9. Depression. Dictated By: MOISES WEISS DO NR/NTS Conf#: [id number] DID#: [id number] CC: LUCÍA HICKS MD; CARLOS SUÁREZ MD; TANA BENTON MD;*EndCC*
[2018-07-20] MEDS: ASPIRIN (EC) 81 MG TAB PO SCH (09:57)
[2018-07-20] MEDS: POLYETHYLENE GLYCOL 17 GM PACKET PO SCH (09:58)
[2018-07-20] MEDS: CINACALCET 30 MG TAB PO SCH (09:58)
[2018-07-20] MEDS: BUSPIRONE 5 MG TAB PO SCH ×2 (09:58→20:24)
[2018-07-20] MEDS: NIFEdipine (XL) 60 MG TAB PO SCH ×2 (09:58→20:25)
[2018-07-20] MEDS: BENAZEPRIL 40 MG TAB PO SCH (09:58)
[2018-07-20] MEDS: DOCUSATE SODIUM 250 MG CAP PO SCH (09:58)
[2018-07-20] MEDS: MULTIVIT/CA CARB/B CMPLX/FA TAB PO SCH (09:58)
[2018-07-20] MEDS: LACTOBACILLUS RHAMNOSUS CAP PO SCH ×2 (09:58→20:24)
[2018-07-20] MEDS: SPIRONOLACTONE 50 MG TAB PO SCH (09:59)
[2018-07-20] MEDS: FOLIC ACID 1 MG TAB PO SCH (09:59)
[2018-07-20] MEDS: LOSARTAN 50 MG TAB PO SCH ×2 (09:59→20:25)
[2018-07-20] MEDS: SENNA TAB PO SCH (09:59)
[2018-07-20] MEDS: SEVELAMER CARBONATE 0.8 GM PKT PO SCH ×3 (09:59→18:00)
[2018-07-20] MEDS: HEPARIN 5,000 UNIT/1 ML VIAL SC SCH ×2 (10:08→20:37)
--- NOTE | 2018-07-20 10:35 | PN ---
Date/Time of Note Date/Time of Note DATE: 07/20/18 TIME: 10:35 Assessment/Plan VTE Prophylaxis Risk score (from Nsg)>0 risk: 5 Pharmacological prophylaxis: heparin Lines/Catheters IV Catheter Type (from Nrsg): Saline Lock Urinary Cath still in place: No Assessment/Plan Hospital Course Subjective: less confusion, anxiety +++, demanding to speak with psychiatrist right away Objective : Constitutional: Alert, very anxious, lethargic Head: normocephalic Eyes: PERRL, conjunctival pallor ENMT: No mucosa pink and moist (dry) Respiratory: diminished breath sounds; Cardiovascular: regular rate and rhythm Gastrointestinal: soft, bowel sounds, more distended? firm; No rebound or guarding Musculoskeletal: No muscle tone (reduced, with diffuse msc wasting ) yohan finger clubbing Extremities: other; Pitting edema in all 4 extremities, upper extremities more than lower extremities Neurological: nl mental status, nl speech, lethargic Skin: other (large LUE AV fistula and old ecchymosis) assessment and plan: 62-year-old female with a history of end-stage renal disease on hemodialysis who was originally admitted from dialysis units due to weakness and lethargy and recurrent falls. She had gone to the dialysis unit but was too weak to be discharged home . She was sent to the emergency room for evaluation. Detailed work-up only showed multifocal pneumonia with bilateral pleural effusion and she was treated for healthcare associated pneumonia she was planned to be discharged to snf facility on IV antibiotic therapy but still felt sick, she is currently managed for the followin. Pericardial effusion 2. SOB with fluid overload and Bilateral pleural effusion, moderate on the ri ght with associated atelectasis 3. Bilateral, multifocal pneumonia 4. Severe constipation with possible enteritis versus developing small bowel obstruction 5. Severe anasarca with market body wall edema, severe mesenteric edema, trace ascites 6. Soft tissue fullness right lower neck concerning for dilated vascular structures versus lymphadenopathy 6. Impaired cognition with poor short term memory likely reflective of dementia versus acute CVA 8. End-stage renal disease on hemodialysis 9. Chronic bipolar disorder 10. Chronic hypothyroidism 11. Chronic debility Plan: -Patient has impaired short-term memory, and this is very distressing to her worsening her anxiety. MRI of the brain, neurology consult -Cardiology consultation for pericardial effusion, will also order 2D echo -Continue IV antibiotics, will continue to try to convince patient to undergo thoracentesis. -Spoke with patient's brother and next of kin extensively. He will try to convince patient to do thoracentesis. -Start patient on enema until patient has good bowel response, will also get GI consultation to help with treatment of severe constipation. -Add Flagyl for possible enteritis -Reconsult psych per patient's request and resume antianxiety medication -charge nurse and primary nurse at bedside, orders given to recall licensed clinical psychologist who was already on case officially, primary RN will call per charge. -Note that on arrival patient had requested for no fluid removal during dialysis patient for ultrafiltration only. Result Diagram: 07/20/18 0439 07/20/18 0439 Results 24hrs Laboratory Tests Test 07/19/18 14:09 07/19/18 14:34 07/20/18 04:39 Blood Gas Specimen Source Blood arterial Arterial Blood Date Drawn 07/19/2018 7:35:00 PM Arterial Blood pH 7.408 (Temp corrected) Arterial Blood pCO2 43.8 (Temp correct) Arterial Blood pO2 91.1 (Temp corrected) Arterial Blood HCO3 27.0 H Arterial Blood Base Excess 2.0 Arterial Blood 95.8 Oxygen Saturation Tommy Test ACCEPTAB Arterial Blood Gas Right Radial Puncture Site Arterial 0.6 Blood Carboxyhemoglobin Arterial Blood Methemoglobin 0.1 Blood Gas A-a O2 71.3 H Differential Oxyhemoglobin Percent 95.1 Blood Gas Temperature 37.0 Blood Gas Modality NASAL CANNULA FiO2 30.0 Blood Gas Notified Whom RTR Blood Gas Notified Time 07/19/2018 7:56:00 PM White Blood Count 4.1 L 4.0 L Red Blood Count 2.61 L 2.60 L Hemoglobin 9.6 L 9.7 L Hematocrit 28.7 L 29.1 L Mean Corpuscular Volume 110.0 H 111.9 H Mean Corpuscular Hemoglobin 36.8 H 37.3 H Mean Corpuscular 33.4 33.3 Hemoglobin Concent Red Cell Distribution Width 14.5 14.4 Platelet Count 160 169 Mean Platelet Volume 9.6 10.1 Immature Granulocytes % 0.200 0.300 Neutrophils % 56.3 56.8 Lymphocytes % 20.4 17.9 Monocytes % 14.5 H 15.4 H Eosinophils % 7.6 H 8.6 H Basophils % 1.0 1.0 Nucleated Red Blood Cells % 0.0 0.0 Immature Granulocytes # 0.010 0.010 Neutrophils # 2.3 2.3 Lymphocytes # 0.8 0.7 L Monocytes # 0.6 0.6 Eosinophils # 0.3 0.3 Basophils # 0.0 0.0 Nucleated Red Blood Cells # 0.0 0.0 Prothrombin Time 14.1 Prothrombin Time Ratio 1.1 INR International 1.08 Normalized Ratio Activated 34.4 Partial Thromboplast Time Sodium Level 128 L 135 Potassium Level 6.1 *H 5.3 H Chloride Level 91 L 97 Carbon Dioxide Level 26 27 Anion Gap 11 11 Blood Urea Nitrogen 86 H 59 H Creatinine 5.14 H 3.67 #H Est Glomerular Filtrat 8 L 12 L Rate mL/min Glucose Level 89 96 Calcium Level 8.7 8.9 Phosphorus Level 4.1 Magnesium Level 3.2 H 2.8 H Total Bilirubin 0.0 L Direct Bilirubin 0.00 Indirect Bilirubin 0.0 Aspartate Amino 21 Transf (AST/SGOT) Alanine 15 Aminotransferase (ALT/SGPT) Alkaline Phosphatase 147 H Total Protein 6.3 Albumin 3.5 Globulin 2.80 Albumin/Globulin Ratio 1.25 Exam/Review of Systems Exam Vitals Vital Signs Date Temp Pulse Resp B/P (MAP) Pulse Ox O2 O2 Flow FiO2 Time Delivery Rate 07/20/18 97.9 83 16 142/65 97 07:36 (90) 07/20/18 3.0 05:32 07/19/18 Nasal 22:29 Cannula Intake and Output 07/19/18 07/19/18 07/20/18 1515:00 23:00 07:00 IntakeIntake Total 240 ml 50 ml 118 ml OutputOutput Total 2300 ml BalanceBalance 240 ml -2250 ml 118 ml Results Results 24hrs Laboratory Tests Test 07/19/18 14:09 07/19/18 14:34 07/20/18 04:39 Blood Gas Specimen Source Blood arterial Arterial Blood Date Drawn 07/19/2018 7:35:00 PM Arterial Blood pH 7.408 (Temp corrected) Arterial Blood pCO2 43.8 (Temp correct) Arterial Blood pO2 91.1 (Temp corrected) Arterial Blood HCO3 27.0 H Arterial Blood Base Excess 2.0 Arterial Blood 95.8 Oxygen Saturation Tommy Test ACCEPTAB Arterial Blood Gas Right Radial Puncture Site Arterial 0.6 Blood Carboxyhemoglobin Arterial Blood Methemoglobin 0.1 Blood Gas A-a O2 71.3 H Differential Oxyhemoglobin Percent 95.1 Blood Gas Temperature 37.0 Blood Gas Modality NASAL CANNULA FiO2 30.0 Blood Gas Notified Whom RTR Blood Gas Notified Time 07/19/2018 7:56:00 PM White Blood Count 4.1 L 4.0 L Red Blood Count 2.61 L 2.60 L Hemoglobin 9.6 L 9.7 L Hematocrit 28.7 L 29.1 L Mean Corpuscular Volume 110.0 H 111.9 H Mean Corpuscular Hemoglobin 36.8 H 37.3 H Mean Corpuscular 33.4 33.3 Hemoglobin Concent Red Cell Distribution Width 14.5 14.4 Platelet Count 160 169 Mean Platelet Volume 9.6 10.1 Immature Granulocytes % 0.200 0.300 Neutrophils % 56.3 56.8 Lymphocytes % 20.4 17.9 Monocytes % 14.5 H 15.4 H Eosinophils % 7.6 H 8.6 H Basophils % 1.0 1.0 Nucleated Red Blood Cells % 0.0 0.0 Immature Granulocytes # 0.010 0.010 Neutrophils # 2.3 2.3 Lymphocytes # 0.8 0.7 L Monocytes # 0.6 0.6 Eosinophils # 0.3 0.3 Basophils # 0.0 0.0 Nucleated Red Blood Cells # 0.0 0.0 Prothrombin Time 14.1 Prothrombin Time Ratio 1.1 INR International 1.08 Normalized Ratio Activated 34.4 Partial Thromboplast Time Sodium Level 128 L 135 Potassium Level 6.1 *H 5.3 H Chloride Level 91 L 97 Carbon Dioxide Level 26 27 Anion Gap 11 11 Blood Urea Nitrogen 86 H 59 H Creatinine 5.14 H 3.67 #H Est Glomerular Filtrat 8 L 12 L Rate mL/min Glucose Level 89 96 Calcium Level 8.7 8.9 Phosphorus Level 4.1 Magnesium Level 3.2 H 2.8 H Total Bilirubin 0.0 L Direct Bilirubin 0.00 Indirect Bilirubin 0.0 Aspartate Amino 21 Transf (AST/SGOT) Alanine 15 Aminotransferase (ALT/SGPT) Alkaline Phosphatase 147 H Total Protein 6.3 Albumin 3.5 Globulin 2.80 Albumin/Globulin Ratio 1.25 Medications Medication Current Medications IV Flush (NS 3 ml) 3 ml PER PROTOCOL IV ; Start 07/13/18 at 00:30 Ondansetron HCl (Zofran Inj) 4 mg Q6H PRN IV NAUSEA/VOMITING Last administered on 07/18/18 12:56; Admin Dose 4 MG; Start 07/13/18 at 00:30 Acetaminophen (Tylenol Tab) 650 mg Q6H PRN PO .PAIN 1-3 OR TEMP Last administered on 07/14/18 04:22; Admin Dose 650 MG; Start 07/13/18 at 00:30 Acetaminophen/ Hydrocodone Bitart ([place] (5/325)) 1 tab Q6H PRN PO .PAIN 4-6 Last administered on 07/19/18 06:11; Admin Dose 1 TAB; Start 07/13/18 at 00:30 Heparin Sodium (Porcine) (Heparin (5000 Units/1ml)) 5,000 unit Q12 SC Last administered on 07/13/18 08:28; Admin Dose 5,000 UNIT; Start 07/13/18 at 09:00 Albuterol/ Ipratropium (Duoneb) 3 ml Q2H RESP THERAPY PRN HHN SHORTNESS OF BREATH; Start 07/13/18 at 00:30 Aspirin (Halfprin) 81 mg DAILY PO Last administered on 07/20/18 09:57; Admin Dose 81 MG; Start 07/13/18 at 09:00 Cinacalcet (Sensipar) 60 mg DAILY PO Last administered on 07/20/18 09:58; Admin Dose 60 MG; Start 07/13/18 at 09:00 Clonazepam (Klonopin) 0.5 mg HS PO Last administered on 07/19/18 21:26; Admin Dose 0.5 MG; Start 07/13/18 at 21:00 Folic Acid (Folic Acid) 1 mg DAILY PO Last administered on 07/20/18 09:59; Admin Dose 1 MG; Start 07/13/18 at 09:00 Levothyroxine Sodium (Synthroid) 224 mcg AC BREAKFAST PO Last administered on 07/20/18 06:31; Admin Dose 224 MCG; Start 07/13/18 at 07:00 Losartan Potassium (Cozaar) 50 mg BID PO Last administered on 07/20/18 09:59; Admin Dose 50 MG; Start 07/13/18 at 00:30 Multivit/Ca Carb/ B Cmplx/FA/Prenat (Deepthi-Frida) 1 tab DAILY PO Last administered on 07/20/18 09:58; Admin Dose 1 TAB; Start 07/13/18 at 09:00 Sevelamer Carbonate (Renvela) 0.8 gm WITH MEALS PO Last administered on 07/20/18 09:59; Admin Dose 0.8 GM; Start 07/13/18 at 08:00 Miscellaneous Information (Pending Santyl Order For Wound Care) This patient sahu... PRN PRN XX WOUND CARE; Start 07/13/18 at 14:30 Nifedipine (Procardia Xl) 60 mg BID PO Last administered on 07/20/18 09:58; Admin Dose 60 MG; Start 07/14/18 at 09:00 Docusate Sodium (Colace) 250 mg DAILY PO Last administered on 07/20/18 09:58; Admin Dose 250 MG; Start 07/14/18 at 13:30 Senna (Senokot) 2 tab DAILY PO Last administered on 07/20/18 09:59; Admin Dose 2 TAB; Start 07/15/18 at 09:00 Clonidine (Catapres) 0.1 mg Q6H PRN PO SBP>160 Last administered on 07/19/18 1 6:58; Admin Dose 0.1 MG; Start 07/15/18 at 01:55 Spironolactone (Aldactone) 50 mg DAILY PO Last administered on 07/20/18 09:59; Admin Dose 50 MG; Start 07/15/18 at 09:00 Polyethylene Glycol (Miralax) 17 gm DAILY PO Last administered on 07/20/18 09:58; Admin Dose 17 GM; Start 07/17/18 at 09:00 Lamotrigine (Lamictal) 50 mg BID PO Last administered on 07/19/18 08:38; Admin Dose 50 MG; Start 07/16/18 at 21:00; Status Hold Clonazepam (Klonopin) 1 mg Q6H PRN PO ANXIETY Last administered on 07/18/18 18:07; Admin Dose 1 MG; Start 07/16/18 at 13:00 Cefepime HCl 50 ml @ 100 mls/hr Q24H IVPB Last administered on 07/19/18 14:12; Admin Dose 100 MLS/HR; Start 07/16/18 at 14:30 Lactobacillus Acidophilus/ Rhamnosus (Culturelle) 1 cap BID PO Last administered on 07/20/18 09:58; Admin Dose 1 CAP; Start 07/16/18 at 21:00 Hydralazine HCl (Apresoline) 100 mg Q6 PO Last administered on 07/20/18 06:30; Admin Dose 100 MG; Start 07/18/18 at 00:00 Benazepril HCl (Lotensin) 40 mg DAILY PO Last administered on 07/20/18 09:58; Admin Dose 40 MG; Start 07/17/18 at 22:30 Clonidine (Catapres) 0.2 mg Q8 PO Last administered on 07/20/18 06:31; Admin Dose 0.2 MG; Start 07/18/18 at 06:00 Buspirone HCl (Buspar) 5 mg BID PO Last administered on 07/20/18 09:58; Admin Dose 5 MG; Start 07/19/18 at 21:00 Quetiapine Fumarate (Seroquel) 200 mg HS PO Last administered on 07/19/18 21:27; Admin Dose 200 MG; Start 07/19/18 at 21:00 CARLOS SUÁREZ July 20, 2018 10:35
[2018-07-20] MEDS: clonAZEPAM 0.5 MG TAB PO SCH ×3 (12:15→20:24)
[2018-07-20] MEDS ORDERED: MAGNESIUM CITRATE 300 ML BTL PO ONE (13:00)
[2018-07-20] MEDS: CEFEPIME 1GM/50 ML (PMX) 50 ML IVPB SCH (14:43)
[2018-07-20] MEDS: clonAZEPAM 0.5 MG TAB PO PRN ×2 (14:50→21:40)
[2018-07-20] MEDS: HYDROCODONE/APAP (5/325) TAB PO PRN ×2 (16:22→22:41)
[2018-07-20] MEDS: QUETIAPINE 100 MG TAB PO SCH (20:24)
[2018-07-20] MEDS ORDERED: traZODone 50 MG TAB PO ONE (23:00)
[2018-07-21] VITALS (18 sets, daily range): BP systolic 151–190; BP diastolic 69–93; PULSE 77–91; RESP 17–21
--- NOTE | 2018-07-21 06:15 | PN ---
Date/Time of Note Date/Time of Note DATE: 07/21/18 TIME: 06:04 Assessment/Plan VTE Prophylaxis Risk score (from Ns)>0 risk: 9 SCD applied (from Ns): No SCD contraindicated: other Pharmacological prophylaxis: heparin Lines/Catheters IV [facility]from [facility] Saline Lock Urinary Cath still in place: No Assessment/Plan Hospital Course Subjective: still no BM, anxiety a little better , concerned about lack of BM and left upper extremity swelling Objective : Constitutional: Alert, lethargic, much more cooperative and less anxious today Head: normocephalic Eyes: PERRL, conjunctival pallor ENMT: No mucosa pink and moist (dry) Respiratory: diminished breath sounds; Cardiovascular: regular rate and rhythm Gastrointestinal: soft, bowel sounds, more distended? firm; No rebound or guarding Musculoskeletal: No muscle tone (reduced, with diffuse msc wasting ) yohan finger clubbing Extremities: other; Pitting edema in all 4 extremities, upper extremities more than lower extremities Neurological: nl mental status, nl speech, lethargic Skin: other (large LUE AV fistula and old ecchymosis) assessment and plan: 62-year-old female with a history of end-stage renal disease on hemodialysis who was originally admitted from dialysis units due to weakness and lethargy and recurrent falls. -She had gone to the dialysis unit but was too weak to be discharged home . She was sent to the emergency room for evaluation. -Detailed work-up only showed multifocal pneumonia with bilateral pleural effusion and she was treated for healthcare associated pneumonia she was [facility] on IV antibiotic therapy but still felt sick, she is currently managed for the followin. Pericardial effusion -echo ordered -cardio to review today, f/u recs 2. SOB with fluid overload and Bilateral pleural effusion, moderate on the right with associated atelectasis -patient has finally consented to thoracentesis -hopefully it can be done today 3. Bilateral, multifocal pneumonia -continue IV abx 4. Severe constipation with possible enteritis versus developing small bowel obstruction -still no BM -add suppositories, GI consult 5. Severe anasarca with market body wall edema, severe mesenteric edema, trace ascites -fluid removal with HD, patient had previously declined this 6. Soft tissue fullness right lower neck concerning for dilated vascular structures versus lymphadenopathy -will get USS 6. Impaired cognition with poor short term memory likely reflective of dementia versus acute CVA --Patient has impaired short-term memory, and this is very distressing to her worsening her anxiety. MRI of the brain, neurology consult 8. End-stage renal disease on hemodialysis 9. Chronic bipolar disorder 10. Chronic hypothyroidism 11. Chronic debility Plan: -patient with persistent pleural effusion and constipation. once improved can be dced back to snf. -MRI of the brain also pending to work-up worsening of mentation. Result Diagram: 07/20/1843807/20/18438 Exam/Review of Systems Exam Vitals Vital Signs Date Temp Pulse Resp B/P (MAP) Pulse Ox O2 O2 Flow FiO2 Time Delivery Rate 07/20/18 Nasal 2.0 22:00 Cannula 07/20/18 97.8 82 19 165/72 98 21:10 (103) Intake and Output 07/20/18 07/20/18 07/21/18 1515:00 23:00 07:00 IntakeIntake Total 480 ml OutputOutput Total 1400 ml BalanceBalance 480 ml -1400 ml Medications Medication Current Medications IV Flush (NS 3 ml) 3 ml PER PROTOCOL IV ; Start 07/13/18 at 00:30 Ondansetron HCl (Zofran Inj) 4 mg Q6H PRN IV NAUSEA/VOMITING Last administered on 07/18/18at 12:56; Admin Dose 4 MG; Start 07/13/18 at 00:30 Acetaminophen (Tylenol Tab) 650 mg Q6H PRN PO .PAIN 1-3 OR TEMP Last administered on 07/14/18 04:22; Admin Dose 650 MG; Start 07/13/18 at 00:30 Acetaminophen/ Hydrocodone Bitart ([place] (5/325)) 1 tab Q6H PRN PO .PAIN 4-6 Last administered on 07/20/18at 16:22; Admin Dose 1 TAB; Start 07/13/18 at 00:30 Heparin Sodium (Porcine) (Heparin (5000 Units/1ml)) 5,000 unit Q12 SC Last administered on 07/13/18at 08:28; Admin Dose 5,000 UNIT; Start 07/13/18 at 09:00 Albuterol/ Ipratropium (Duoneb) 3 ml Q2H RESP THERAPY PRN HHN SHORTNESS OF BREATH; Start 07/13/18 at 00:30 Aspirin (Halfprin) 81 mg DAILY PO Last administered on 07/20/18 09:57; Admin Dose 81 MG; Start 07/13/18 at 09:00 Cinacalcet (Sensipar) 60 mg DAILY PO Last administered on 07/20/18 09:58; Admin Dose 60 MG; Start 07/13/18 at 09:00 Clonazepam (Klonopin) 0.5 mg HS PO Last administered on 07/20/18 20:24; Admin Dose 0.5 MG; Start 07/13/18 at 21:00 Folic Acid (Folic Acid) 1 mg DAILY PO Last administered on 07/20/18 09:59; Admin Dose 1 MG; Start 07/13/18 at 09:00 Levothyroxine Sodium (Synthroid) 224 mcg AC BREAKFAST PO Last administered on 07/20/18 06:31; Admin Dose 224 MCG; Start 07/13/18 at 07:00 Losartan Potassium (Cozaar) 50 mg BID PO Last administered on 07/20/18 20:25; Admin Dose 50 MG; Start 07/13/18 at 00:30 Multivit/Ca Carb/ B Cmplx/FA/Prenat (Deepthi-Frida) 1 tab DAILY PO Last administered on 07/20/18 09:58; Admin Dose 1 TAB; Start 07/13/18 at 09:00 Sevelamer Carbonate (Renvela) 0.8 gm WITH MEALS PO Last administered on 07/20/18 12:15; Admin Dose 0.8 GM; Start 07/13/18 at 08:00 Miscellaneous Information (Pending [facility] Order For Wound Care) This patient sahu... PRN PRN XX WOUND CARE; Start 07/13/18 at 14:30 Nifedipine (Procardia Xl) 60 mg BID PO Last administered on 07/20/18 20:25; Admin Dose 60 MG; Start 07/14/18 at 09:00 Docusate Sodium (Colace) 250 mg DAILY PO Last administered on 07/20/18 09:58; Admin Dose 250 MG; Start 07/14/18 at 13:30 Senna (Senokot) 2 tab DAILY PO Last administered on 07/20/18 09:59; Admin Dose 2 TAB; Start 07/15/18 at 09:00 Clonidine (Catapres) 0.1 mg Q6H PRN PO SBP>160 Last administered on 07/19/18 16:58; Admin Dose 0.1 MG; Start 07/15/18 at 01:55 Spironolactone (Aldactone) 50 mg DAILY PO Last administered on 07/20/18 09:59; Admin Dose 50 MG; Start 07/15/18 at 09:00 Polyethylene Glycol (Miralax) 17 gm DAILY PO Last administered on 07/20/18 09:58; Admin Dose 17 GM; Start 07/17/18 at 09:00 Lamotrigine (Lamictal) 50 mg BID PO Last administered on 07/19/18 08:38; Admin Dose 50 MG; Start 07/16/18 at 21:00; Status Hold Clonazepam (Klonopin) 1 mg Q6H PRN PO ANXIETY Last administered on 07/20/18 21:40; Admin Dose 1 MG; Start 07/16/18 at 13:00 Cefepime HCl 50 ml @ 100 mls/hr Q24H IVPB Last administered on 07/20/18 14:43; Admin Dose 100 MLS/HR; Start 07/16/18 at 14:30 Lactobacillus Acidophilus/ Rhamnosus (Culturelle) 1 cap BID PO Last administered on 07/20/18 20:24; Admin Dose 1 CAP; Start 07/16/18 at 21:00 Hydralazine HCl (Apresoline) 100 mg Q6 PO Last administered on 07/20/18 12:19; Admin Dose 100 MG; Start 07/18/18 at 00:00 Benazepril HCl (Lotensin) 40 mg DAILY PO Last administered on 07/20/18 09:58; Admin Dose 40 MG; Start 07/17/18 at 22:30 Clonidine (Catapres) 0.2 mg Q8 PO Last administered on 07/20/18 21:41; Admin Dose 0.2 MG; Start 07/18/18 at 06:00 Buspirone HCl (Buspar) 5 mg BID PO Last administered on 07/20/18 20:24; Admin Dose 5 MG; Start 07/19/18 at 21:00 Quetiapine Fumarate (Seroquel) 200 mg HS PO Last administered on 5/14/19at 20:24; Admin Dose 200 MG; Start 07/19/18 at 21:00 Clonazepam (Klonopin) 0.5 mg Q12 PO Last administered on 07/20/18at 20:24; Admin Dose 0.5 MG; Start 07/20/18 at 11:30 CARLOS SUÁREZ July 21, 2018 06:14
[2018-07-21] MEDS: LEVOTHYROXINE 112 MCG TAB PO SCH (06:44)
[2018-07-21] MEDS: BISACODYL 10 MG SUPP PR ONE ×2 (06:45→13:25)
[2018-07-21] MEDS: HEPARIN 5,000 UNIT/1 ML VIAL SC SCH ×3 (09:00→21:00)
--- NOTE | 2018-07-21 09:40 | RADRPT ---
Echocardiogram Report Patient Name: BERTO LOMASatient ID: [id number] : 1955 (62y 12m)Study Date: 07/21/2018 7:13:01 AM Gender: FAccession #: [id number] Tech: Carter Rossi [facility] Location: [id number] Ref.Physician: DARLIN HANSEN Height(Cm): BSA: Weight(Kg): Quality: AdequateOrder Physician: DARLIN HANSEN Account #: Procedures: Echocardiographic Report: Transthoracic echocardiogram with complete 2D, M-Mode, and doppler examination. Indications: Pericardial Effusion. Measurements: 2D/M Mode Doppler Measurement Value Normal Range Measurement Value Normal Range LVIDd 2D 4.0 [ 3.8 - 5.2 ] cm AV Mean Roberto 1.5 [ 70.0 - 90.0 ] cm/sec LVIDs 2D 2.3 [ 2.2 - 3.5 ] cm AV Mean PG 10.0 [ 2.0 - 4.0 ] mmHg LVPWd 2D 1.7 [ 0.6 - 0.9 ] cm AV Peak Roberto 2.1 [ 100.0 - 170.0 ] cm/sec IVSd 2D 1.4 [ 0.6 - 0.9 ] cm AV Peak PG 18.0 [ 2.0 - 9.0 ] mmHg AoR Diam 2D 3.1 [ 2.3 - 3.1 ] cm AV VTI 48.1 cm EDV 2D 67.9 [ 46.0 - 106.0 ] ml LVOT Mean Roberto 1.0 [ 60.0 - 80.0 ] cm/sec ESV 2D 18.1 [ 14.0 - 42.0 ] ml LVOT Mean PG 5.0 [ 1.0 - 3.0 ] mmHg EF 2D 73.3 [ 54.0 - 74.0 ] percent LVOT Peak Roberto 1.5 [ 70.0 - 110.0 ] cm/sec LA Dimen 2D 3.7 [ 2.7 - 3.8 ] cm LVOT Peak PG 9.0 [ 2.0 - 6.0 ] mmHg LVOT VTI 31.0 [ 20.0 - 30.0 ] cm MV E Peak Roberto 1.2 [ 60.0 - 130.0 ] cm/sec MV A Peak Roberto 1.0 [ 100.0 - 120.0 ] cm/sec MV E/A 1.2 [ 0.8 - 1.5 ] ratio MV Decel Time 158 [ 104 - 258 ] msec Lat E` Roberto 0.1 [ 10.0 - 15.0 ] cm/sec Lateral E/E` 16.1 [ 1.0 - 2.0 ] ratio MV E/A 1.2 [ 0.8 - 1.5 ] ratio TR Peak Roberto 1.7 [ 100.0 - 280.0 ] cm/sec TR Peak PG 12.0 mmHg RVSP 20.0 [ 10.0 - 36.0 ] mmHg RA Pressure 8.0 mmHg Findings: Left Ventricle: Normal left ventricular systolic function. Normal left ventricular cavity size. Severe concentric left ventricular hypertrophy. Ejection fraction is visually estimated at 55 %. Tissue Doppler/Mitral Doppler indices are consistent with pseudonormalization with mildly elevated left atrial pressure (Stage II diastolic dysfunction). Right Ventricle: Normal right ventricular size. Normal right ventricular systolic function. Left Atrium: The left atrium is normal in size. Right Atrium: The right atrium is normal in size. Mitral Valve: Mitral valve leaflets appear mildly thickened. Mild mitral annular calcification. Trace mitral regurgitation. Aortic Valve: Aortic valve Max velocity 2.12 m/sec. Max PG 18.00 mmHg. Mean PG 10.00 mmHg. Aortic sclerosis without significant stenosis. Trace aortic valve regurgitation. Tricuspid Valve: Normal appearance of the tricuspid valve. Estimated peak PA systolic pressure 20 mmHg. There is trace tricuspid regurgitation. Pulmonic Valve: Pulmonic valve not well visualized. Pericardium: Moderate pericardial effusion. No echocardiographic evidence to suggest pericardial tamponade. Pleural effusion seen. Aorta: Normal aortic root. IVC: Normal size and normal respiratory collapse consistent with normal right atrial pressure. Conclusions: Severe concentric left ventricular hypertrophy with normal systolic function. Pseudonormal diastolic function. Moderate sized circumferential pericardial effusion without tamponade. Left pleural effusion. Mild mitral regurgitation. Trace tricuspid regurgitation. Electronically Signed By: Darlin Hansen 2018-07-21 09:39:43 PDT
[2018-07-21] MEDS ORDERED: LIDOCAINE 1% (MPF) 5 ML VIAL ONE (09:42)
--- NOTE | 2018-07-21 09:56 | PN ---
DATE: 07/21/2018 SUBJECTIVE: The patient had hemodialysis yesterday, tolerated well. OBJECTIVE: VITAL SIGNS: Blood pressure is 165/77, respirations 18, pulse 80, temperature 98.0. HEENT: Head is normocephalic. NECK: Supple. HEART: Regular rate. LUNGS: Show diminished breath sounds at the base. ABDOMEN: Soft, nontender to palpation without rebound or guarding. EXTREMITIES: Negative for clubbing, cyanosis, positive edema. DERMATOLOGIC: No rashes. MUSCULOSKELETAL: No joint effusion. NEUROLOGIC: No change in exam. MEDICATIONS: The patient's medications have been reviewed. LABORATORY DATA: Reviewed. ASSESSMENT AND PLAN: 1. End-stage renal disease. The patient had hemodialysis yesterday, tolerated well. Plan is for di alysis again tomorrow. 2. Hyperkalemia, improved. Continue dialysis on low potassium bath. Continue low-potassium diet. 3. Hypertension, improving. Continue ultrafiltration with hemodialysis. Continue current blood pre ssure regimen. 4. Volume overload secondary to end-stage renal disease. Continue ultrafiltration with hemodialysis . 5. Anemia. Continue to monitor hemoglobin and hematocrit levels. We will give Epogen as needed. 6. Mineral bone disorder. Monitor calcium and phosphorus levels. Continue Sensipar and phosphate b inders. 7. Dyslipidemia. Continue statin therapy. 8. Hypothyroidism. Continue Synthroid. 9. Anxiety disorder, depression, behavioral disorder. Continue to monitor. 10. Pneumonia. Continue current antibiotic therapy. 11. Large pericardial effusion. The patient is pending 2D echo. We would continue aggressive dialy sis if the patient allows. Dictated By: MOISES WEISS DO NR/NTS Conf#: [id number] DID#: [id number] CC: LUCÍA HICKS MD; TANA BENTON MD; CARLOS SUÁREZ MD;*EndCC*
[2018-07-21] MEDS: NIFEdipine (XL) 60 MG TAB PO SCH ×2 (10:20→20:47)
[2018-07-21] MEDS: POLYETHYLENE GLYCOL 17 GM PACKET PO SCH (10:20)
[2018-07-21] MEDS: BENAZEPRIL 40 MG TAB PO SCH (10:21)
[2018-07-21] MEDS: ASPIRIN (EC) 81 MG TAB PO SCH (10:21)
[2018-07-21] MEDS: FOLIC ACID 1 MG TAB PO SCH (10:21)
[2018-07-21] MEDS: CINACALCET 30 MG TAB PO SCH (10:21)
[2018-07-21] MEDS: DOCUSATE SODIUM 250 MG CAP PO SCH (10:21)
[2018-07-21] MEDS: MULTIVIT/CA CARB/B CMPLX/FA TAB PO SCH (10:21)
[2018-07-21] MEDS: LACTOBACILLUS RHAMNOSUS CAP PO SCH ×2 (10:21→20:48)
[2018-07-21] MEDS: SENNA TAB PO SCH (10:22)
[2018-07-21] MEDS: BUSPIRONE 5 MG TAB PO SCH ×2 (10:22→20:47)
[2018-07-21] MEDS: LOSARTAN 50 MG TAB PO SCH ×2 (10:22→20:48)
[2018-07-21] MEDS: clonAZEPAM 0.5 MG TAB PO SCH ×3 (10:22→20:47)
[2018-07-21] MEDS: SEVELAMER CARBONATE 0.8 GM PKT PO SCH ×3 (10:23→17:04)
[2018-07-21] MEDS: SPIRONOLACTONE 50 MG TAB PO SCH (10:23)
--- NOTE | 2018-07-21 12:05 | CONS ---
Assessment/Plan Assessment/Plan Hospital Course (Demo Recall) Medium size pericardial effusion Preserved left ventricular ejection fraction Left ventricular hypertrophy Hypertension End-stage renal disease on hemodialysis Psychiatric disorder -Echocardiogram with medium sized pericardial effusion with no evidence of tamponade. Furthermore, no hypotension, actually patient with hypertension. -In discussion with nursing staff, patient has not been agreeable to further fluid removal with hemodialysis. Given patient with pleural effusions and pericardial effusion, I agree, volume removal via hemodialysis is the ideal therapy -Continue blood pressure control -No further inpatient cardiac work-up needed at the current time Consultation Date/Type/Reason Admit Date/Time July 12, 2018 at 20:28 Type of Consult Cardiology Reason for Consultation Pericardial effusion Date/Time of Note DATE: 07/21/18 TIME: 11:56 Hx of Present Illness This is a 62-year-old female who presents emergency room with symptoms of fatigue and tiredness. Patient also with hypertension urgency. Patient was admitted for further evaluation and care. Patient had a CT scan which demonstrated a pericardial effusion and for this reason cardiology consult was requested. She denies any current shortness of breath, dizziness or chest pain. Her main complaint is left arm swelling where her AV fistula is. She also complains of fatigue. She becomes agitated at times during history taking and tells me repeatedly "why want to fix the swelling in my arm? I need to see an infectious specialist now!" 12 point review of systems was performed with all pertinent positives and negatives mentioned above and all else is negative Past Medical History Psychiatric disorder Medical History: hypertension, renal disease Home Meds Active Scripts Sennosides* (Senna Lax*) 8.6 Mg Tablet, 2 TAB PO DAILY for 30 Days, TAB Prov:KAMINIJESICAATITO M. 07/16/18 Polyethylene Glycol* (Miralax*) 17 Gm Powd.pack, 17 GM PO DAILY, #30 PACKET Prov:KAMINI,JESICAATITO M. 07/16/18 Lactobacillus Rhamnosus GG (Culturelle) 1 Each Capsule, 1 CAP PO BID for 14 Days, CAP Prov:KAMINIHEIDIO M. 07/16/18 Docusate Sodium* (Colace*) 250 Mg Capsule, 250 MG PO DAILY, #30 CAP Prov:KAMINI,JESICAATITO M. 07/16/18 Buspirone Hcl* (Buspirone Hcl*) 5 Mg Tab, 5 MG PO BID, #60 TAB Prov:CARLOS SUÁREZ. 07/16/18 Spironolactone* (Aldactone*) 50 Mg Tablet, 50 MG PO DAILY, #30 TAB Prov:CARLOS SUÁREZ. 07/16/18 Nifedipine (Procardia Xl) 60 Mg Tab.er.24, 60 MG PO BID, #60 TAB Prov:CARLOS SUÁREZ. 07/16/18 Ipratropium-Albuterol (Ipratropium-Albuterol) 0.5-3 Mg/3 Ml Ampul.neb, 3 ML HHN Q2H RESP THERAPY PRN for SHORTNESS OF BREATH, #30 VIAL Prov:CARLOS SUÁREZ. 07/16/18 Cefepime Hcl/Dextrose, Iso-Osm (Cefepime 2 Gm Injection) 2 Gm/100 Ml Froz.piggy, 2 GM IV AFTER DIALYSIS, #5 DOSE Prov:CARLOS SUÁREZ. 07/16/18 Reported Medications Levothyroxine Sodium* (Levothyroxine Sodium*) 112 Mcg Tablet, 224 MCG PO AC BREAKFAST for 30 Days, #60 07/12/18 Clonidine Hcl* (Clonidine Hcl*) 0.2 Mg Tablet, 0.2 MG PO TID for 30 Days, #90 TAKE 1 TABLET (0.2 MG TOTAL) BY MOUTH THREE (3) TIMES DAILY. 07/12/18 Hydralazine Hcl* (Hydralazine Hcl*) 100 Mg Tablet, 100 MG PO TID TAKE 1 TABLET (100 MG TOTAL) BY MOUTH THREE (3) TIMES DAILY. 07/12/18 Clonazepam (Klonopin) 0.5 Mg Tablet, 0.5 MG PO HS, TAB 07/05/14 Losartan Potassium* (Losartan Potassium*) 50 Mg Tablet, 50 MG PO BID, TAB 07/05/14 Glycerin-Propylene Glycol (Lubricant Eye Drops) 15 Ml Drops, 2 DROP BOTH EYES QID, EA 07/05/14 Quetiapine Fumarate* (Quetiapine Fumarate*) 400 Mg Tablet, 400 MG PO HS, TAB 07/04/14 Folic Acid* (Folic Acid*) 1 Mg Tablet, 1 MG PO DAILY 06/29/13 Multivit/Ca Carb/B Cmplx/Fa* (Deepthi-Frida*) 1 Tab Tab, 1 TAB PO DAILY, TAB 06/24/13 Aspirin Ec (Aspir 81) 81 Mg Tablet.dr, 81 MG PO DAILY 06/24/13 Sevelamer Carbonate* (Renvela*) 800 Mg Tablet, 800 MG PO TID 06/24/13 Cinacalcet* (Sensipar*) 60 Mg Tablet, 60 MG PO DAILY 06/24/13 Discontinued Reported Medications Doxazosin Mesylate* (Doxazosin Mesylate*) 1 Mg Tablet, 1 MG PO BID for 90 Days, #180 TAKE ONE TABLET BY MOUTH TWICE DAILY 07/12/18 Quetiapine Fumarate* (Quetiapine Fumarate*) 100 Mg Tablet, 100 MG PO QPM, TAB 07/04/14 Lamotrigine* (Lamotrigine*) 25 Mg Tablet, 125 MG PO DAILY, TAB 07/04/14 Clonazepam* (Clonazepam*) 1 Mg Tablet, 1 MG PO DAILY PRN for ANXIETY, TAB 07/04/14 Medications Current Medications IV Flush (NS 3 ml) 3 ml PER PROTOCOL IV ; Start 07/13/18 at 00:30 Ondansetron HCl (Zofran Inj) 4 mg Q6H PRN IV NAUSEA/VOMITING Last administered on 07/18/18 12:56; Admin Dose 4 MG; Start 07/13/18 at 00:30 Acetaminophen (Tylenol Tab) 650 mg Q6H PRN PO .PAIN 1-3 OR TEMP Last administered on 07/14/18 04:22; Admin Dose 650 MG; Start 07/13/18 at 00:30 Acetaminophen/ Hydrocodone Bitart ([place] (5/325)) 1 tab Q6H PRN PO .PAIN 4-6 Last administered on 07/20/18 16:22; Admin Dose 1 TAB; Start 07/13/18 at 00:30 Heparin Sodium (Porcine) (Heparin (5000 Units/1ml)) 5,000 unit Q12 SC Last administered on 07/13/18 08:28; Admin Dose 5,000 UNIT; Start 07/13/18 at 09:00 Albuterol/ Ipratropium (Duoneb) 3 ml Q2H RESP THERAPY PRN HHN SHORTNESS OF BREATH; Start 07/13/18 at 00:30 Aspirin (Halfprin) 81 mg DAILY PO Last administered on 07/21/18 10:21; Admin Dose 81 MG; Start 07/13/18 at 09:00 Cinacalcet (Sensipar) 60 mg DAILY PO Last administered on 07/21/18 10:21; Admin Dose 60 MG; Start 07/13/18 at 09:00 Clonazepam (Klonopin) 0.5 mg HS PO Last administered on 07/20/18 20:24; Admin Dose 0.5 MG; Start 07/13/18 at 21:00 Folic Acid (Folic Acid) 1 mg DAILY PO Last administered on 07/21/18 10:21; Admin Dose 1 MG; Start 07/13/18 at 09:00 Levothyroxine Sodium (Synthroid) 224 mcg AC BREAKFAST PO Last administered on 07/21/18 06:44; Admin Dose 224 MCG; Start 07/13/18 at 07:00 Losartan Potassium (Cozaar) 50 mg BID PO Last administered on 07/21/18 10:22; Admin Dose 50 MG; Start 07/13/18 at 00:30 Multivit/Ca Carb/ B Cmplx/FA/Prenat (Deepthi-Frida) 1 tab DAILY PO Last administered on 07/21/18 10:21; Admin Dose 1 TAB; Start 07/13/18 at 09:00 Sevelamer Carbonate (Renvela) 0.8 gm WITH MEALS PO Last administered on 07/21/18 10:23; Admin Dose 0.8 GM; Start 07/13/18 at 08:00 Miscellaneous Information (Pending [facility] Order For Wound Care) This patient sahu... PRN PRN XX WOUND CARE; Start 07/13/18 at 14:30 Nifedipine (Procardia Xl) 60 mg BID PO Last administered on 07/21/18 10:20; Admin Dose 60 MG; Start 07/14/18 at 09:00 Docusate Sodium (Colace) 250 mg DAILY PO Last administered on 07/21/18 10:21; Admin Dose 250 MG; Start 07/14/18 at 13:30 Senna (Senokot) 2 tab DAILY PO Last administered on 07/21/18 10:22; Admin Dose 2 TAB; Start 07/15/18 at 09:00 Clonidine (Catapres) 0.1 mg Q6H PRN PO SBP>160 Last administered on 07/19/18 16:58; Admin Dose 0.1 MG; Start 07/15/18 at 01:55 Spironolactone (Aldactone) 50 mg DAILY PO Last administered on 07/21/18 10:23; Admin Dose 50 MG; Start 07/15/18 at 09:00 Polyethylene Glycol (Miralax) 17 gm DAILY PO Last administered on 07/21/18 10:20; Admin Dose 17 GM; Start 07/17/18 at 09:00 Lamotrigine (Lamictal) 50 mg BID PO Last administered on 07/19/18 08:38; Admin Dose 50 MG; Start 07/16/18 at 21:00; Status Hold Clonazepam (Klonopin) 1 mg Q6H PRN PO ANXIETY Last administered on 07/20/18 21:40; Admin Dose 1 MG; Start 07/16/18 at 13:00 Cefepime HCl 50 ml @ 100 mls/hr Q24H IVPB Last administered on 07/20/18 14:43; Admin Dose 100 MLS/HR; Start 07/16/18 at 14:30 Lactobacillus Acidophilus/ Rhamnosus (Culturelle) 1 cap BID PO Last administered on 07/21/18 10:21; Admin Dose 1 CAP; Start 07/16/18 at 21:00 Hydralazine HCl (Apresoline) 100 mg Q6 PO Last administered on 07/20/18 12:19; Admin Dose 100 MG; Start 07/18/18 at 00:00 Benazepril HCl (Lotensin) 40 mg DAILY PO Last administered on 07/21/18 10:21; Admin Dose 40 MG; Start 07/17/18 at 22:30 Clonidine (Catapres) 0.2 mg Q8 PO Last administered on 07/20/18 21:41; Admin Dose 0.2 MG; Start 07/18/18 at 06:00 Buspirone HCl (Buspar) 5 mg BID PO Last administered on 07/21/18 10:22; Admin Dose 5 MG; Start 07/19/18 at 21:00 Quetiapine Fumarate (Seroquel) 200 mg HS PO Last administered on 07/20/18 20:24; Admin Dose 200 MG; Start 07/19/18 at 21:00 Clonazepam (Klonopin) 0.5 mg Q12 PO Last administered on 07/21/18at 10:22; Admin Dose 0.5 MG; Start 07/20/18 at 11:30 Bisacodyl (Dulcolax Supp) 10 mg DAILY PRN [place] CONSTIPATION; Start 07/21/18 at 06:30 Allergies: Coded Allergies: No Known Allergies (Verified Allergy, Mild, 07/10/13) Past Surgical History Past Surgical Hx: other (Including but not limited to AV fistula) Social History Smoking Status: Never smoker Exam/Review of Systems Vital Signs Vitals Vital Signs Date Temp Pulse Resp B/P (MAP) Pulse Ox O2 O2 Flow FiO2 Time Delivery Rate 07/21/18 77 17 156/70 94 Room Air 09:40 (98) 07/21/18 2.0 08:00 07/21/18 98.0 07:37 Intake and Output 07/20/18 07/20/18 07/21/18 1515:00 23:00 07:00 IntakeIntake Total 480 ml OutputOutput Total 1400 ml BalanceBalance 480 ml -1400 ml Exam Constitutional: alert, oriented (Becomes agitated and yelling at times, no dyspnea with speaking) Head: normocephalic Respiratory: other (Coarse breath sounds bilaterally, no wheezing) Cardiovascular: regular rate and rhythm, systolic murmur (S1-S2 heard) Gastrointestinal: soft, non-tender, bowel sounds Extremities: other (Fistula left upper extremity with edema and ecchymosis, trace lower extremity edema) Labs Result Diagram: 07/21/18 0729 07/21/18 0729 Results 24hrs Laboratory Tests Test 07/21/18 07:29 White Blood Count 3.8 L Red Blood Count 2.59 L Hemoglobin 9.5 L Hematocrit 29.0 L Mean Corpuscular Volume 112.0 H Mean Corpuscular Hemoglobin 36.7 H Mean Corpuscular Hemoglobin Concent 32.8 Red Cell Distribution Width 14.6 H Platelet Count 157 Mean Platelet Volume 9.4 Immature Granulocytes % 0.300 Neutrophils % 53.4 Lymphocytes % 18.6 Monocytes % 17.8 H Eosinophils % 8.6 H Basophils % 1.3 Nucleated Red Blood Cells % 0.0 Immature Granulocytes # 0.010 Neutrophils # 2.0 Lymphocytes # 0.7 L Monocytes # 0.7 Eosinophils # 0.3 Basophils # 0.1 Nucleated Red Blood Cells # 0.0 Sodium Level 136 Potassium Level 5.1 Chloride Level 97 Carbon Dioxide Level 28 Anion Gap 11 Blood Urea Nitrogen 54 H Creatinine 3.55 H Est Glomerular Filtrat Rate mL/min 13 L Glucose Level 94 Calcium Level 8.7 Imaging Imaging ECG demonstrates sinus rhythm at 64 bpm, QRS 90 ms, nonspecific ST abnormalities Medications Medications Current Medications IV Flush (NS 3 ml) 3 ml PER PROTOCOL IV ; Start 07/13/18 at 00:30 Ondansetron HCl (Zofran Inj) 4 mg Q6H PRN IV NAUSEA/VOMITING Last administered on 07/18/18 12:56; Admin Dose 4 MG; Start 07/13/18 at 00:30 Acetaminophen (Tylenol Tab) 650 mg Q6H PRN PO .PAIN 1-3 OR TEMP Last administered on 07/14/18 04:22; Admin Dose 650 MG; Start 07/13/18 at 00:30 Acetaminophen/ Hydrocodone Bitart ([place] (5/325)) 1 tab Q6H PRN PO .PAIN 4-6 Last administered on 07/20/18 16:22; Admin Dose 1 TAB; Start 07/13/18 at 00:30 Heparin Sodium (Porcine) (Heparin (5000 Units/1ml)) 5,000 unit Q12 SC Last administered on 07/13/18 08:28; Admin Dose 5,000 UNIT; Start 07/13/18 at 09:00 Albuterol/ Ipratropium (Duoneb) 3 ml Q2H RESP THERAPY PRN HHN SHORTNESS OF BREATH; Start 07/13/18 at 00:30 Aspirin (Halfprin) 81 mg DAILY PO Last administered on 07/21/18 10:21; Admin Dose 81 MG; Start 07/13/18 at 09:00 Cinacalcet (Sensipar) 60 mg DAILY PO Last administered on 07/21/18 10:21; Admin Dose 60 MG; Start 07/13/18 at 09:00 Clonazepam (Klonopin) 0.5 mg HS PO Last administered on 07/20/18 20:24; Admin Dose 0.5 MG; Start 07/13/18 at 21:00 Folic Acid (Folic Acid) 1 mg DAILY PO Last administered on 07/21/18 10:21; Admin Dose 1 MG; Start 07/13/18 at 09:00 Levothyroxine Sodium (Synthroid) 224 mcg AC BREAKFAST PO Last administered on 07/21/18 06:44; Admin Dose 224 MCG; Start 07/13/18 at 07:00 Losartan Potassium (Cozaar) 50 mg BID PO Last administered on 07/21/18 10:22; Admin Dose 50 MG; Start 07/13/18 at 00:30 Multivit/Ca Carb/ B Cmplx/FA/Prenat (Deepthi-Frida) 1 tab DAILY PO Last administered on 07/21/18 10:21; Admin Dose 1 TAB; Start 07/13/18 at 09:00 Sevelamer Carbonate (Renvela) 0.8 gm WITH MEALS PO Last administered on 07/21/18 10:23; Admin Dose 0.8 GM; Start 07/13/18 at 08:00 Miscellaneous Information (Pending [facility] Order For Wound Care) This patient sahu... PRN PRN XX WOUND CARE; Start 07/13/18 at 14:30 Nifedipine (Procardia Xl) 60 mg BID PO Last administered on 07/21/18 10:20; Admin Dose 60 MG; Start 07/14/18 at 09:00 Docusate Sodium (Colace) 250 mg DAILY PO Last administered on 07/21/18 10:21; Admin Dose 250 MG; Start 07/14/18 at 13:30 Senna (Senokot) 2 tab DAILY PO Last administered on 07/21/18 10:22; Admin Dose 2 TAB; Start 07/15/18 at 09:00 Clonidine (Catapres) 0.1 mg Q6H PRN PO SBP>160 Last administered on 07/19/18 16:58; Admin Dose 0.1 MG; Start 07/15/18 at 01:55 Spironolactone (Aldactone) 50 mg DAILY PO Last administered on 07/21/18 10:23; Admin Dose 50 MG; Start 07/15/18 at 09:00 Polyethylene Glycol (Miralax) 17 gm DAILY PO Last administered on 07/21/18 10:20; Admin Dose 17 GM; Start 07/17/18 at 09:00 Lamotrigine (Lamictal) 50 mg BID PO Last administered on 07/19/18 08:38; Admin Dose 50 MG; Start 07/16/18 at 21:00; Status Hold Clonazepam (Klonopin) 1 mg Q6H PRN PO ANXIETY Last administered on 07/20/18 2 1:40; Admin Dose 1 MG; Start 07/16/18 at 13:00 Cefepime HCl 50 ml @ 100 mls/hr Q24H IVPB Last administered on 07/20/18 14:43; Admin Dose 100 MLS/HR; Start 07/16/18 at 14:30 Lactobacillus Acidophilus/ Rhamnosus (Culturelle) 1 cap BID PO Last administered on 07/21/18 10:21; Admin Dose 1 CAP; Start 07/16/18 at 21:00 Hydralazine HCl (Apresoline) 100 mg Q6 PO Last administered on 07/20/18 12:19; Admin Dose 100 MG; Start 07/18/18 at 00:00 Benazepril HCl (Lotensin) 40 mg DAILY PO Last administered on 07/21/18 10:21; Admin Dose 40 MG; Start 07/17/18 at 22:30 Clonidine (Catapres) 0.2 mg Q8 PO Last administered on 07/20/18 21:41; Admin Dose 0.2 MG; Start 07/18/18 at 06:00 Buspirone HCl (Buspar) 5 mg BID PO Last administered on 07/21/18 10:22; Admin Dose 5 MG; Start 07/19/18 at 21:00 Quetiapine Fumarate (Seroquel) 200 mg HS PO Last administered on 07/20/18 20:24; Admin Dose 200 MG; Start 07/19/18 at 21:00 Clonazepam (Klonopin) 0.5 mg Q12 PO Last administered on 07/21/18 10:22; Admin Dose 0.5 MG; Start 07/20/18 at 11:30 Bisacodyl (Dulcolax Supp) 10 mg DAILY PRN [place] CONSTIPATION; Start 07/21/18 at 06:30 Gonzales Munroe DO July 21, 2018 12:05
[2018-07-21] MEDS: HYDROCODONE/APAP (5/325) TAB PO PRN (13:30)
--- NOTE | 2018-07-21 13:48 | CONS ---
Assessment/Plan Assessment/Plan Hospital Course (Demo Recall) Summary Assessment and Plan: Assessment: Chronic constipation ESRD on HD Macrocytic anemia -Abd us- shows the liver is normal in echogenicity and measures 16.7 cm Pneumonia- on ABX HTN Medium size pericardial effusion -Preserved left ventricular ejection fraction History of Bipolar disorder Plan: KUB assess obstruction/ileus If negative will start Amitiza and increase MiraLAX to BID Enemas PRN Encourage ambulation/OOB as tolerated Patient seen in collaboration with Dr. Knight CC: MIKEL KNIGHT MD ; Consultation Date/Type/Reason Admit Date/Time July 12, 2018 at 20:28 Date of Consultation: July 21, 2018 Type of Consult GI Reason for Consultation Constipation Date/Time of Note DATE: 07/21/18 TIME: 13:30 Hx of Present Illness This is a 62 year old female with PMH of ESRD on HD, hypothyroidism, HTN, anxiety/depression, anemia, chronic constipation who presented from her dialysis center for fatigue/lethargy, during hospitalization here patient has been treated for with moderate left and small right pleural effusions s/p thoracentesis and pneumonia treated with antibiotics. She now complains of constipation. Last bowel movement documented on 07/18/2018. Patient states she has had chronic constipation most of her adult life she also complains of bloating and abdominal discomfort. She denies passing flatus, but has been eating a renal diet without noted nausea/vomiting or increased abdominal pain. Review of Systems: A 12 system, review was conducted and is negative except as noted in the HPI or here. Past Medical History Home Meds Active Scripts Sennosides* (Senna Lax*) 8.6 Mg Tablet, 2 TAB PO DAILY for 30 Days, TAB Prov:KAMINI,BOLATITO M. 07/16/18 Polyethylene Glycol* (Miralax*) 17 Gm Powd.pack, 17 GM PO DAILY, #30 PACKET Prov:KAMINI,BOLATITO M. 07/16/18 Lactobacillus Rhamnosus GG (Culturelle) 1 Each Capsule, 1 CAP PO BID for 14 D ays, CAP Prov:KAMINI,JESICAATITO M. 07/16/18 Docusate Sodium* (Colace*) 250 Mg Capsule, 250 MG PO DAILY, #30 CAP Prov:KAMINI,BOLATITO M. 07/16/18 Buspirone Hcl* (Buspirone Hcl*) 5 Mg Tab, 5 MG PO BID, #60 TAB Prov:CARLOS SUÁREZ. 07/16/18 Spironolactone* (Aldactone*) 50 Mg Tablet, 50 MG PO DAILY, #30 TAB Prov:CARLOS SUÁREZ. 07/16/18 Nifedipine (Procardia Xl) 60 Mg Tab.er.24, 60 MG PO BID, #60 TAB Prov:CARLOS SUÁREZ. 07/16/18 Ipratropium-Albuterol (Ipratropium-Albuterol) 0.5-3 Mg/3 Ml Ampul.neb, 3 ML HHN Q2H RESP THERAPY PRN for SHORTNESS OF BREATH, #30 VIAL Prov:CARLOS SUÁREZBlaze 07/16/18 Cefepime Hcl/Dextrose, Iso-Osm (Cefepime 2 Gm Injection) 2 Gm/100 Ml Froz.piggy, 2 GM IV AFTER DIALYSIS, #5 DOSE Prov:CARLOS SUÁREZBlaze 07/16/18 Reported Medications Levothyroxine Sodium* (Levothyroxine Sodium*) 112 Mcg Tablet, 224 MCG PO AC BREAKFAST for 30 Days, #60 07/12/18 Clonidine Hcl* (Clonidine Hcl*) 0.2 Mg Tablet, 0.2 MG PO TID for 30 Days, #90 TAKE 1 TABLET (0.2 MG TOTAL) BY MOUTH THREE (3) TIMES DAILY. 07/12/18 Hydralazine Hcl* (Hydralazine Hcl*) 100 Mg Tablet, 100 MG PO TID TAKE 1 TABLET (100 MG TOTAL) BY MOUTH THREE (3) TIMES DAILY. 07/12/18 Clonazepam (Klonopin) 0.5 Mg Tablet, 0.5 MG PO HS, TAB 07/05/14 Losartan Potassium* (Losartan Potassium*) 50 Mg Tablet, 50 MG PO BID, TAB 07/05/14 Glycerin-Propylene Glycol (Lubricant Eye Drops) 15 Ml Drops, 2 DROP BOTH EYES QID, EA 07/05/14 Quetiapine Fumarate* (Quetiapine Fumarate*) 400 Mg Tablet, 400 MG PO HS, TAB 07/04/14 Folic Acid* (Folic Acid*) 1 Mg Tablet, 1 MG PO DAILY 06/29/13 Multivit/Ca Carb/B Cmplx/Fa* (Deepthi-Frida*) 1 Tab Tab, 1 TAB PO DAILY, TAB 06/24/13 Aspirin Ec (Aspir 81) 81 Mg Tablet.dr, 81 MG PO DAILY 06/24/13 Sevelamer Carbonate* (Renvela*) 800 Mg Tablet, 800 MG PO TID 06/24/13 Cinacalcet* (Sensipar*) 60 Mg Tablet, 60 MG PO DAILY 06/24/13 Discontinued Reported Medications Doxazosin Mesylate* (Doxazosin Mesylate*) 1 Mg Tablet, 1 MG PO BID for 90 Days, #180 TAKE ONE TABLET BY MOUTH TWICE DAILY 07/12/18 Quetiapine Fumarate* (Quetiapine Fumarate*) 100 Mg Tablet, 100 MG PO QPM, TAB 07/04/14 Lamotrigine* (Lamotrigine*) 25 Mg Tablet, 125 MG PO DAILY, TAB 07/04/14 Clonazepam* (Clonazepam*) 1 Mg Tablet, 1 MG PO DAILY PRN for ANXIETY, TAB 07/04/14 Medications Current Medications IV Flush (NS 3 ml) 3 ml PER PROTOCOL IV ; Start 07/13/18 at 00:30 Ondansetron HCl (Zofran Inj) 4 mg Q6H PRN IV NAUSEA/VOMITING Last administered on 07/18/18at 12:56; Admin Dose 4 MG; Start 07/13/18 at 00:30 Acetaminophen (Tylenol Tab) 650 mg Q6H PRN PO .PAIN 1-3 OR TEMP Last administered on 07/14/18 04:22; Admin Dose 650 MG; Start 07/13/18 at 00:30 Acetaminophen/ Hydrocodone Bitart (Cayce (5/325)) 1 tab Q6H PRN PO .PAIN 4-6 Last administered on 07/20/18at 16:22; Admin Dose 1 TAB; Start 07/13/18 at 00:30 Heparin Sodium (Porcine) (Heparin (5000 Units/1ml)) 5,000 unit Q12 SC Last administered on 07/13/18at 08:28; Admin Dose 5,000 UNIT; Start 07/13/18 at 09:00 Albuterol/ Ipratropium (Duoneb) 3 ml Q2H RESP THERAPY PRN HHN SHORTNESS OF BREATH; Start 07/13/18 at 00:30 Aspirin (Halfprin) 81 mg DAILY PO Last administered on 07/21/18 10:21; Admin Dose 81 MG; Start 07/13/18 at 09:00 Cinacalcet (Sensipar) 60 mg DAILY PO Last administered on 07/21/18 10:21; Admin Dose 60 MG; Start 07/13/18 at 09:00 Clonazepam (Klonopin) 0.5 mg HS PO Last administered on 07/20/18 20:24; Admin Dose 0.5 MG; Start 07/13/18 at 21:00 Folic Acid (Folic Acid) 1 mg DAILY PO Last administered on 07/21/18 10:21; Admin Dose 1 MG; Start 07/13/18 at 09:00 Levothyroxine Sodium (Synthroid) 224 mcg AC BREAKFAST PO Last administered on 07/21/18 06:44; Admin Dose 224 MCG; Start 07/13/18 at 07:00 Losartan Potassium (Cozaar) 50 mg BID PO Last administered on 07/21/18 10:22; Admin Dose 50 MG; Start 07/13/18 at 00:30 Multivit/Ca Carb/ B Cmplx/FA/Prenat (Deepthi-Frida) 1 tab DAILY PO Last administered on 07/21/18 10:21; Admin Dose 1 TAB; Start 07/13/18 at 09:00 Sevelamer Carbonate (Renvela) 0.8 gm WITH MEALS PO Last administered on 07/21/18 10:23; Admin Dose 0.8 GM; Start 07/13/18 at 08:00 Miscellaneous Information (Pending [facility] Order For Wound Care) This patient sahu... PRN PRN XX WOUND CARE; Start 07/13/18 at 14:30 Nifedipine (Procardia Xl) 60 mg BID PO Last administered on 07/21/18 10:20; Admin Dose 60 MG; Start 07/14/18 at 09:00 Docusate Sodium (Colace) 250 mg DAILY PO Last administered on 07/21/18 10:21; Admin Dose 250 MG; Start 07/14/18 at 13:30 Senna (Senokot) 2 tab DAILY PO Last administered on 07/21/18 10:22; Admin Dose 2 TAB; Start 07/15/18 at 09:00 Clonidine (Catapres) 0.1 mg Q6H PRN PO SBP>160 Last administered on 07/19/18 16:58; Admin Dose 0.1 MG; Start 07/15/18 at 01:55 Spironolactone (Aldactone) 50 mg DAILY PO Last administered on 07/21/18 10:23; Admin Dose 50 MG; Start 07/15/18 at 09:00 Polyethylene Glycol (Miralax) 17 gm DAILY PO Last administered on 07/21/18 10:20; Admin Dose 17 GM; Start 07/17/18 at 09:00 Lamotrigine (Lamictal) 50 mg BID PO Last administered on 07/19/18 08:38; Admin Dose 50 MG; Start 07/16/18 at 21:00; Status Hold Clonazepam (Klonopin) 1 mg Q6H PRN PO ANXIETY Last administered on 07/20/18 21:40; Admin Dose 1 MG; Start 07/16/18 at 13:00 Cefepime HCl 50 ml @ 100 mls/hr Q24H IVPB Last administered on 07/20/18 14:43; Admin Dose 100 MLS/HR; Start 07/16/18 at 14:30 Lactobacillus Acidophilus/ Rhamnosus (Culturelle) 1 cap BID PO Last administered on 07/21/18 10:21; Admin Dose 1 CAP; Start 07/16/18 at 21:00 Hydralazine HCl (Apresoline) 100 mg Q6 PO Last administered on 07/20/18 12:19; Admin Dose 100 MG; Start 07/18/18 at 00:00 Benazepril HCl (Lotensin) 40 mg DAILY PO Last administered on 07/21/18 10:21; Admin Dose 40 MG; Start 07/17/18 at 22:30 Clonidine (Catapres) 0.2 mg Q8 PO Last administered on 07/20/18 21:41; Admin Dose 0.2 MG; Start 07/18/18 at 06:00 Buspirone HCl (Buspar) 5 mg BID PO Last administered on 07/21/18 10:22; Admin Dose 5 MG; Start 07/19/18 at 21:00 Quetiapine Fumarate (Seroquel) 200 mg HS PO Last administered on 07/20/18 20:24; Admin Dose 200 MG; Start 07/19/18 at 21:00 Clonazepam (Klonopin) 0.5 mg Q12 PO Last administered on 07/21/18at 10:22; Admin Dose 0.5 MG; Start 07/20/18 at 11:30 Bisacodyl (Dulcolax Supp) 10 mg DAILY PRN [place] CONSTIPATION; Start 07/21/18 at 06:30 Allergies: Coded Allergies: No Known Allergies (Verified Allergy, Mild, 07/10/13) Past Surgical History Past Surgical Hx: other (Including but not limited to AV fistula) Social History Smoking Status: Never smoker Exam/Review of Systems Exam Vitals Vital Signs Date Temp Pulse Resp B/P (MAP) Pulse Ox O2 O2 Flow FiO2 Time Delivery Rate 07/21/18 77 17 156/70 94 Room Air 09:40 (98) 07/21/18 2.0 08:00 07/21/18 98.0 07:37 Intake and Output 07/20/18 07/20/18 07/21/18 1515:00 23:00 07:00 IntakeIntake Total 480 ml OutputOutput Total 1400 ml BalanceBalance 480 ml -1400 ml Exam PHYSICAL EXAMINATION: GENERAL: Chronically ill alert & oriented x 3, in no acute distress SKIN: AV fistula Left arm- edema, bruises HEAD: Normocephalic, atraumatic, no tenderness. EYES: Pupils equal reactive to light, no discharge. EARS/NOSE AND THROAT: Ears normal, nose normal. NECK: Supple, no masses. CHEST: Inspection within normal limits. CARDIOVASCULAR: Heart: Regular rate and rhythm RESPIRATORY: Rales lower bases GASTROINTESTINAL AND LIVER: Abdomen: Soft, mild generalized tenderness, distended, no guarding, no rebound tenderness, normoactive bowel sounds. Rectal: Deferred. GENITOURINARY: Female genitalia within normal limits. EXTREMITIES: Mild edema. Results Result Diagram: 07/21/18 0729 07/21/18 07 Results 24hrs Laboratory Tests Test 07/21/18 07:29 White Blood Count 3.8 L Red Blood Count 2.59 L Hemoglobin 9.5 L Hematocrit 29.0 L Mean Corpuscular Volume 112.0 H Mean Corpuscular Hemoglobin 36.7 H Mean Corpuscular Hemoglobin Concent 32.8 Red Cell Distribution Width 14.6 H Platelet Count 157 Mean Platelet Volume 9.4 Immature Granulocytes % 0.300 Neutrophils % 53.4 Lymphocytes % 18.6 Monocytes % 17.8 H Eosinophils % 8.6 H Basophils % 1.3 Nucleated Red Blood Cells % 0.0 Immature Granulocytes # 0.010 Neutrophils # 2.0 Lymphocytes # 0.7 L Monocytes # 0.7 Eosinophils # 0.3 Basophils # 0.1 Nucleated Red Blood Cells # 0.0 Sodium Level 136 Potassium Level 5.1 Chloride Level 97 Carbon Dioxide Level 28 Anion Gap 11 Blood Urea Nitrogen 54 H Creatinine 3.55 H Est Glomerular Filtrat Rate mL/min 13 L Glucose Level 94 Calcium Level 8.7 Magnesium Level 2.7 H Medications Medication Current Medications IV Flush (NS 3 ml) 3 ml PER PROTOCOL IV ; Start 07/13/18 at 00:30 Ondansetron HCl (Zofran Inj) 4 mg Q6H PRN IV NAUSEA/VOMITING Last administered on 07/18/18 12:56; Admin Dose 4 MG; Start 07/13/18 at 00:30 Acetaminophen (Tylenol Tab) 650 mg Q6H PRN PO .PAIN 1-3 OR TEMP Last administered on 07/14/18 04:22; Admin Dose 650 MG; Start 07/13/18 at 00:30 Acetaminophen/ Hydrocodone Bitart (Cayce (5/325)) 1 tab Q6H PRN PO .PAIN 4-6 Last administered on 07/20/18 16:22; Admin Dose 1 TAB; Start 07/13/18 at 00:30 Heparin Sodium (Porcine) (Heparin (5000 Units/1ml)) 5,000 unit Q12 SC Last administered on 07/13/18 08:28; Admin Dose 5,000 UNIT; Start 07/13/18 at 09:00 Albuterol/ Ipratropium (Duoneb) 3 ml Q2H RESP THERAPY PRN HHN SHORTNESS OF BREATH; Start 07/13/18 at 00:30 Aspirin (Halfprin) 81 mg DAILY PO Last administered on 07/21/18 10:21; Admin Dose 81 MG; Start 07/13/18 at 09:00 Cinacalcet (Sensipar) 60 mg DAILY PO Last administered on 07/21/18 10:21; Admin Dose 60 MG; Start 07/13/18 at 09:00 Clonazepam (Klonopin) 0.5 mg HS PO Last administered on 07/20/18 20:24; Admin Dose 0.5 MG; Start 07/13/18 at 21:00 Folic Acid (Folic Acid) 1 mg DAILY PO Last administered on 07/21/18 10:21; Admin Dose 1 MG; Start 07/13/18 at 09:00 Levothyroxine Sodium (Synthroid) 224 mcg AC BREAKFAST PO Last administered on 07/21/18 06:44; Admin Dose 224 MCG; Start 07/13/18 at 07:00 Losartan Potassium (Cozaar) 50 mg BID PO Last administered on 07/21/18 10:22; Admin Dose 50 MG; Start 07/13/18 at 00:30 Multivit/Ca Carb/ B Cmplx/FA/Prenat (Deepthi-Frida) 1 tab DAILY PO Last administered on 07/21/18 10:21; Admin Dose 1 TAB; Start 07/13/18 at 09:00 Sevelamer Carbonate (Renvela) 0.8 gm WITH MEALS PO Last administered on 07/21/18 10:23; Admin Dose 0.8 GM; Start 07/13/18 at 08:00 Miscellaneous Information ([facility]) This patient sahu... PRN PRN XX WOUND CARE; Start 07/13/18 at 14:30 Nifedipine (Procardia Xl) 60 mg BID PO Last administered on 07/21/18 10:20; Admin Dose 60 MG; Start 07/14/18 at 09:00 Docusate Sodium (Colace) 250 mg DAILY PO Last administered on 07/21/18 10:21; Admin Dose 250 MG; Start 07/14/18 at 13:30 Senna (Senokot) 2 tab DAILY PO Last administered on 07/21/18 10:22; Admin Dose 2 TAB; Start 07/15/18 at 09:00 Clonidine (Catapres) 0.1 mg Q6H PRN PO SBP>160 Last administered on 07/19/18 16:58; Admin Dose 0.1 MG; Start 07/15/18 at 01:55 Spironolactone (Aldactone) 50 mg DAILY PO Last administered on 07/21/18 10:23; Admin Dose 50 MG; Start 07/15/18 at 09:00 Polyethylene Glycol (Miralax) 17 gm DAILY PO Last administered on 07/21/18 10:20; Admin Dose 17 GM; Start 07/17/18 at 09:00 Lamotrigine (Lamictal) 50 mg BID PO Last administered on 07/19/18 08:38; Admin Dose 50 MG; Start 07/16/18 at 21:00; Status Hold Clonazepam (Klonopin) 1 mg Q6H PRN PO ANXIETY Last administered on 07/20/18 21:40; Admin Dose 1 MG; Start 07/16/18 at 13:00 Cefepime HCl 50 ml @ 100 mls/hr Q24H IVPB Last administered on 07/20/18 14:43; Admin Dose 100 MLS/HR; Start 07/16/18 at 14:30 Lactobacillus Acidophilus/ Rhamnosus (Culturelle) 1 cap BID PO Last administer ed on 07/21/18 10:21; Admin Dose 1 CAP; Start 07/16/18 at 21:00 Hydralazine HCl (Apresoline) 100 mg Q6 PO Last administered on 07/20/18 12:19; Admin Dose 100 MG; Start 07/18/18 at 00:00 Benazepril HCl (Lotensin) 40 mg DAILY PO Last administered on 07/21/18 10:21; Admin Dose 40 MG; Start 07/17/18 at 22:30 Clonidine (Catapres) 0.2 mg Q8 PO Last administered on 07/20/18 21:41; Admin Dose 0.2 MG; Start 07/18/18 at 06:00 Buspirone HCl (Buspar) 5 mg BID PO Last administered on 07/21/18 10:22; Admin Dose 5 MG; Start 07/19/18 at 21:00 Quetiapine Fumarate (Seroquel) 200 mg HS PO Last administered on 07/20/18 20:24; Admin Dose 200 MG; Start 07/19/18 at 21:00 Clonazepam (Klonopin) 0.5 mg Q12 PO Last administered on 07/21/18 10:22; Admin Dose 0.5 MG; Start 07/20/18 at 11:30 Bisacodyl (Dulcolax Supp) 10 mg DAILY PRN [place] CONSTIPATION; Start 07/21/18 at 06:30 ANDREA ANDERSON July 21, 2018 13:41
[2018-07-21] MEDS ORDERED: MINERAL OIL 133 ML ENEMA PR PRN (14:00)
--- NOTE | 2018-07-21 15:59 | PN ---
Date/Time of Note Date/Time of Note DATE: 07/21/18 TIME: 15:55 Assessment/Plan Lines/Catheters IV Catheter Type (from Nrsg): Saline Lock Arredondo in Place (from Nrsg): No Assessment/Plan Assessment/Plan BUE edema, L arm AVF with h/o central venous stenosis and stenting Planning to return to SNF soon, I thought she was going on Thursday but she is still here Scheduled for L arm AV fistulagram on Thursday If she is discharged tomorrow to SNF I will arrange for this to be done as an outpatient Subjective 24 Hr Interval Summary No pain in the arms. AVF has been working well. Exam/Review of Systems Vital Signs Vitals Vital Signs Date Temp Pulse Resp B/P (MAP) Pulse Ox O2 O2 Flow FiO2 Time Delivery Rate 07/21/18 77 17 156/70 94 Room Air 09:40 (98) 07/21/18 2.0 08:00 07/21/18 98.0 07:37 Intake and Output 07/20/18 07/20/18 07/21/18 1515:00 23:00 07:00 IntakeIntake Total 480 ml OutputOutput Total 1400 ml BalanceBalance 480 ml -1400 ml Exam Free Text/Dictation BUE edema persists, L > R L arm AVF with good thrill - stable pseudoaneurysms Chest wall collaterals c/w central venous stenosis Less leg edema Results Result Diagram: 07/21/18 0729 07/21/18 0729 TANA BENTON MD July 21, 2018 15:59
--- NOTE | 2018-07-21 17:15 | CONS ---
Date/Time of Note Date/Time of Note DATE: 07/21/18 TIME: 17:12 Consult Date/Type/Reason Admit Date July 12, 2018 at 20:28 Type of Consult Psych Subjective Reevaluation for medication adjustments was requested by primary MD. On a ribw-vl-giaz evaluation patient requested her medications to be adjusted states she is increasingly anxious and irritable she has poor impulse control poor coping skills. Patient will benefit from medication increase to reduce risk for self-harm or harm to other people Objective Patient Appearance: Appropriate dress Voice Loudness: Mildly Loud, Mildly Soft/Quiet Mood and Affect Description: Agitated Mood or Affect: Cooperative Speech Pattern: Clear Thought Process: Intact Hallucination Type: None Delusion Description: Present YONAS VYAS NP July 21, 2018 17:15
--- NOTE | 2018-07-21 17:17 | CONS ---
Assessment/Plan Assessment/Plan Hospital Course 62 yo F with reported hx of ? seizures and other comorbidities who presents for evaluation of dizziness and generalized weakness. She was noted on 07/20 to become acutely altered, for which neurology is cons ulted. Likely an acute toxic-metabolic encephalopathy in the context of respiratory distress... that has shown improvement. A focal COMMUNITY EDUCATION COORDINATOR process is less likely. P: Await MRI brain for further characterization OK to continue Lamictal per ops Ativan iv prn prolonged seizure or cluster PT/OT as necessary Cont medical management per primary Will follow Consultation Date/Type/Reason Admit Date/Time July 12, 2018 at 20:28 Type of Consult Neurology Reason for Consultation ams Requesting Provider: CARLOS SUÁREZ Date/Time of Note DATE: 07/21/18 TIME: 17:04 Hx of Present Illness The pt is a difficult historian. She was noted on 06/20 to be confused and short of breath. It is additionally noted elsewhere: Hx of Present Illness This is a 62-year-old female with a history of hypertension, ESRD on HD (MWF), dyslipidemia, bipolar, hypothyroidism, migraine headache. Patient was brought to the ER from the dialysis center complaining of generalized weakness and dizziness. Generalized weakness is been going on for several months. She has also occasionally been feeling dizzy. After dialysis her symptoms worsened and as such as shortness of brought here for evaluation. Denied focal weakness. She reports headache. No chest pain. When presented to ER, blood pressure was 200/88. Head CT without acute findings. Chest x-ray shows cardiomegaly with congestive change and/or multifocal pneumonia and Moderate left and small right pleural effusions. negative unless noted otherwise in HPI Exam/Review of Systems Exam Vitals Vital Signs Date Temp Pulse Resp B/P (MAP) Pulse Ox O2 O2 Flow FiO2 Time Delivery Rate 07/21/18 77 17 156/70 94 Room Air 09:40 (98) 07/21/18 2.0 08:00 07/21/18 98.0 07:37 Intake and Output 07/20/18 07/20/18 07/21/18 1515:00 23:00 07:00 IntakeIntake Total 480 ml OutputOutput Total 1400 ml BalanceBalance 480 ml -1400 ml Exam PE: Gen Appearance: Anxious HEENT: Normocephalic Cardiovascular: Regular rate Lungs: Clear bilaterally Abdomen: Soft Extremities: Dry NE: The patient was alert and oriented. Language was normal. Attention span limited. Difficult to direct/redirect. Fund of knowledge was normal. Pupils were equal and reactive to light. There was no afferent pupillary defect. Visual sun were normal. Funduscopic examination was limited. Extra-ocular movements were full. Ptosis was absent. There was no nystagmus. Facial sensation was normal. Face was symmetric with normal strength. Hearing was intact. Palate movements were normal. Neck strength was normal. There was normal tongue bulk and speed of movement. Tone was normal. Muscle bulk was normal. I did not see fasciculations. The pt was generally weak. Vibration sensation was normal. Temperature and pinprick sensation was normal. Rapid alternating movements were normal. There was no dysmetria. There was no intention tremor. Gait was deferred due to bedrest. Arm and leg reflexes were 2+ and symmetric. Anguiano's sign was absent. Plantar responses were flexor. Results Result Diagram: 07/21/18 0729 07/21/18 0729 Results 24hrs Laboratory Tests Test 07/21/18 07:29 White Blood Count 3.8 L Red Blood Count 2.59 L Hemoglobin 9.5 L Hematocrit 29.0 L Mean Corpuscular Volume 112.0 H Mean Corpuscular Hemoglobin 36.7 H Mean Corpuscular Hemoglobin Concent 32.8 Red Cell Distribution Width 14.6 H Platelet Count 157 Mean Platelet Volume 9.4 Immature Granulocytes % 0.300 Neutrophils % 53.4 Lymphocytes % 18.6 Monocytes % 17.8 H Eosinophils % 8.6 H Basophils % 1.3 Nucleated Red Blood Cells % 0.0 Immature Granulocytes # 0.010 Neutrophils # 2.0 Lymphocytes # 0.7 L Monocytes # 0.7 Eosinophils # 0.3 Basophils # 0.1 Nucleated Red Blood Cells # 0.0 Sodium Level 136 Potassium Level 5.1 Chloride Level 97 Carbon Dioxide Level 28 Anion Gap 11 Blood Urea Nitrogen 54 H Creatinine 3.55 H Est Glomerular Filtrat Rate mL/min 13 L Glucose Level 94 Calcium Level 8.7 Magnesium Level 2.7 H Medications Medication Current Medications IV Flush (NS 3 ml) 3 ml PER PROTOCOL IV ; Start 07/13/18 at 00:30 Ondansetron HCl (Zofran Inj) 4 mg Q6H PRN IV NAUSEA/VOMITING Last administered on 07/18/18 12:56; Admin Dose 4 MG; Start 07/13/18 at 00:30 Acetaminophen (Tylenol Tab) 650 mg Q6H PRN PO .PAIN 1-3 OR TEMP Last administered on 07/14/18 04:22; Admin Dose 650 MG; Start 07/13/18 at 00:30 Acetaminophen/ Hydrocodone Bitart ([place] (5/325)) 1 tab Q6H PRN PO .PAIN 4-6 Last administered on 07/21/18 13:30; Admin Dose 1 TAB; Start 07/13/18 at 00:30 Heparin Sodium (Porcine) (Heparin (5000 Units/1ml)) 5,000 unit Q12 SC Last administered on 07/13/18 08:28; Admin Dose 5,000 UNIT; Start 07/13/18 at 09:00 Albuterol/ Ipratropium (Duoneb) 3 ml Q2H RESP THERAPY PRN HHN SHORTNESS OF BREATH; Start 07/13/18 at 00:30 Aspirin (Halfprin) 81 mg DAILY PO Last administered on 07/21/18 10:21; Admin Dose 81 MG; Start 07/13/18 at 09:00 Cinacalcet (Sensipar) 60 mg DAILY PO Last administered on 07/21/18 10:21; Admin Dose 60 MG; Start 07/13/18 at 09:00 Folic Acid (Folic Acid) 1 mg DAILY PO Last administered on 07/21/18 10:21; Admin Dose 1 MG; Start 07/13/18 at 09:00 Levothyroxine Sodium (Synthroid) 224 mcg AC BREAKFAST PO Last administered on 07/21/18 06:44; Admin Dose 224 MCG; Start 07/13/18 at 07:00 Losartan Potassium (Cozaar) 50 mg BID PO Last administered on 07/21/18 10:22; Admin Dose 50 MG; Start 07/13/18 at 00:30 Multivit/Ca Carb/ B Cmplx/FA/Prenat (Deepthi-Frida) 1 tab DAILY PO Last administered on 07/21/18 10:21; Admin Dose 1 TAB; Start 07/13/18 at 09:00 Sevelamer Carbonate (Renvela) 0.8 gm WITH MEALS PO Last administered on 07/21/18 13:22; Admin Dose 0.8 GM; Start 07/13/18 at 08:00 Miscellaneous Information (Pending [facility] Order For Wound Care) This patient sahu... PRN PRN XX WOUND CARE; Start 07/13/18 at 14:30 Nifedipine (Procardia Xl) 60 mg BID PO Last administered on 07/21/18 10:20; Admin Dose 60 MG; Start 07/14/18 at 09:00 Docusate Sodium (Colace) 250 mg DAILY PO Last administered on 07/21/18 10:21; Admin Dose 250 MG; Start 07/14/18 at 13:30 Senna (Senokot) 2 tab DAILY PO Last administered on 07/21/18 10:22; Admin Dose 2 TAB; Start 07/15/18 at 09:00 Clonidine (Catapres) 0.1 mg Q6H PRN PO SBP>160 Last administered on 07/19/18 16:58; Admin Dose 0.1 MG; Start 07/15/18 at 01:55 Spironolactone (Aldactone) 50 mg DAILY PO Last administered on 07/21/18 10:23; Admin Dose 50 MG; Start 07/15/18 at 09:00 Polyethylene Glycol (Miralax) 17 gm DAILY PO Last administered on 07/21/18 10:20; Admin Dose 17 GM; Start 07/17/18 at 09:00 Clonazepam (Klonopin) 1 mg Q6H PRN PO ANXIETY Last administered on 07/20/18 21:40; Admin Dose 1 MG; Start 07/16/18 at 13:00 Cefepime HCl 50 ml @ 100 mls/hr Q24H IVPB Last administered on 07/20/18 14:43; Admin Dose 100 MLS/HR; Start 07/16/18 at 14:30 Lactobacillus Acidophilus/ Rhamnosus (Culturelle) 1 cap BID PO Last administered on 07/21/18 10:21; Admin Dose 1 CAP; Start 07/16/18 at 21:00 Hydralazine HCl (Apresoline) 100 mg Q6 PO Last administered on 07/21/18 13:27; Admin Dose 100 MG; Start 07/18/18 at 00:00 Benazepril HCl (Lotensin) 40 mg DAILY PO Last administered on 5/15/19at 10:21; Admin Dose 40 MG; Start 07/17/18 at 22:30 Clonidine (Catapres) 0.2 mg Q8 PO Last administered on 07/21/18at 14:13; Admin Dose 0.2 MG; Start 07/18/18 at 06:00 Buspirone HCl (Buspar) 5 mg BID PO Last administered on 07/21/18at 10:22; Admin Dose 5 MG; Start 07/19/18 at 21:00 Quetiapine Fumarate (Seroquel) 200 mg HS PO Last administered on 07/20/18at 20:24; Admin Dose 200 MG; Start 07/19/18 at 21:00 Bisacodyl (Dulcolax Supp) 10 mg DAILY PRN [place] CONSTIPATION; Start 07/21/18 at 06:30 Mineral Oil (Fleet Mineral Oil Enema) 133 ml DAILY PRN [place] constipation; Start 07/21/18 at 14:00 Lamotrigine (Lamictal) 100 mg BID PO ; Start 07/21/18 at 21:00 Clonazepam (Klonopin) 0.5 mg TID PO ; Start 07/21/18 at 21:00; Status UNV Past Medical History reviewed Home Meds Active Scripts Sennosides* (Senna Lax*) 8.6 Mg Tablet, 2 TAB PO DAILY for 30 Days, TAB Prov:CARLOS SUÁREZ. 07/16/18 Polyethylene Glycol* (Miralax*) 17 Gm Powd.pack, 17 GM PO DAILY, #30 PACKET Prov:CARLOS SUÁREZ . 07/16/18 Lactobacillus Rhamnosus GG (Culturelle) 1 Each Capsule, 1 CAP PO BID for 14 Days, CAP Prov:CARLOS SUÁREZ M. 07/16/18 Docusate Sodium* (Colace*) 250 Mg Capsule, 250 MG PO DAILY, #30 CAP Prov:CARLOS SUÁREZ. 07/16/18 Buspirone Hcl* (Buspirone Hcl*) 5 Mg Tab, 5 MG PO BID, #60 TAB Prov:CARLOS SUÁREZ M. 07/16/18 Spironolactone* (Aldactone*) 50 Mg Tablet, 50 MG PO DAILY, #30 TAB Prov:CARLOS SUÁREZ. 5/10/19 Nifedipine (Procardia Xl) 60 Mg Tab.er.24, 60 MG PO BID, #60 TAB Prov:CARLOS SUÁREZ. 07/16/18 Ipratropium-Albuterol (Ipratropium-Albuterol) 0.5-3 Mg/3 Ml Ampul.neb, 3 ML HHN Q2H RESP THERAPY PRN for SHORTNESS OF BREATH, #30 VIAL Prov:CARLOS SUÁREZ. 07/16/18 Cefepime Hcl/Dextrose, Iso-Osm (Cefepime 2 Gm Injection) 2 Gm/100 Ml Froz.piggy, 2 GM IV AFTER DIALYSIS, #5 DOSE Prov:CARLOS SUÁREZ. 07/16/18 Reported Medications Levothyroxine Sodium* (Levothyroxine Sodium*) 112 Mcg Tablet, 224 MCG PO AC BREAKFAST for 30 Days, #60 07/12/18 Clonidine Hcl* (Clonidine Hcl*) 0.2 Mg Tablet, 0.2 MG PO TID for 30 Days, #90 TAKE 1 TABLET (0.2 MG TOTAL) BY MOUTH THREE (3) TIMES DAILY. 07/12/18 Hydralazine Hcl* (Hydralazine Hcl*) 100 Mg Tablet, 100 MG PO TID TAKE 1 TABLET (100 MG TOTAL) BY MOUTH THREE (3) TIMES DAILY. 07/12/18 Clonazepam (Klonopin) 0.5 Mg Tablet, 0.5 MG PO HS, TAB 07/05/14 Losartan Potassium* (Losartan Potassium*) 50 Mg Tablet, 50 MG PO BID, TAB 07/05/14 Glycerin-Propylene Glycol (Lubricant Eye Drops) 15 Ml Drops, 2 DROP BOTH EYES QID, EA 07/05/14 Quetiapine Fumarate* (Quetiapine Fumarate*) 400 Mg Tablet, 400 MG PO HS, TAB 07/04/14 Folic Acid* (Folic Acid*) 1 Mg Tablet, 1 MG PO DAILY 06/29/13 Multivit/Ca Carb/B Cmplx/Fa* (Deepthi-Frida*) 1 Tab Tab, 1 TAB PO DAILY, TAB 06/24/13 Aspirin Ec (Aspir 81) 81 Mg Tablet.dr, 81 MG PO DAILY 06/24/13 Sevelamer Carbonate* (Renvela*) 800 Mg Tablet, 800 MG PO TID 06/24/13 Cinacalcet* (Sensipar*) 60 Mg Tablet, 60 MG PO DAILY 06/24/13 Discontinued Reported Medications Doxazosin Mesylate* (Doxazosin Mesylate*) 1 Mg Tablet, 1 MG PO BID for 90 Days, #180 TAKE ONE TABLET BY MOUTH TWICE DAILY 07/12/18 Quetiapine Fumarate* (Quetiapine Fumarate*) 100 Mg Tablet, 100 MG PO QPM, TAB 07/04/14 Lamotrigine* (Lamotrigine*) 25 Mg Tablet, 125 MG PO DAILY, TAB 07/04/14 Clonazepam* (Clonazepam*) 1 Mg Tablet, 1 MG PO DAILY PRN for ANXIETY, TAB 07/04/14 Medications Current Medications IV Flush (NS 3 ml) 3 ml PER PROTOCOL IV ; Start 07/13/18 at 00:30 Ondansetron HCl (Zofran Inj) 4 mg Q6H PRN IV NAUSEA/VOMITING Last administered on 07/18/18 12:56; Admin Dose 4 MG; Start 07/13/18 at 00:30 Acetaminophen (Tylenol Tab) 650 mg Q6H PRN PO .PAIN 1-3 OR TEMP Last administered on 07/14/18 04:22; Admin Dose 650 MG; Start 07/13/18 at 00:30 Acetaminophen/ Hydrocodone Bitart ([place] (5/325)) 1 tab Q6H PRN PO .PAIN 4-6 Last administered on 07/21/18 13:30; Admin Dose 1 TAB; Start 07/13/18 at 00:30 Heparin Sodium (Porcine) (Heparin (5000 Units/1ml)) 5,000 unit Q12 SC Last administered on 07/13/18 08:28; Admin Dose 5,000 UNIT; Start 07/13/18 at 09:00 Albuterol/ Ipratropium (Duoneb) 3 ml Q2H RESP THERAPY PRN HHN SHORTNESS OF BREATH; Start 07/13/18 at 00:30 Aspirin (Halfprin) 81 mg DAILY PO Last administered on 07/21/18 10:21; Admin Dose 81 MG; Start 07/13/18 at 09:00 Cinacalcet (Sensipar) 60 mg DAILY PO Last administered on 07/21/18 10:21; Admin Dose 60 MG; Start 07/13/18 at 09:00 Folic Acid (Folic Acid) 1 mg DAILY PO Last administered on 07/21/18 10:21; Admin Dose 1 MG; Start 07/13/18 at 09:00 Levothyroxine Sodium (Synthroid) 224 mcg AC BREAKFAST PO Last administered on 07/21/18 06:44; Admin Dose 224 MCG; Start 07/13/18 at 07:00 Losartan Potassium (Cozaar) 50 mg BID PO Last administered on 07/21/18 10:22; Admin Dose 50 MG; Start 07/13/18 at 00:30 Multivit/Ca Carb/ B Cmplx/FA/Prenat (Deepthi-Frida) 1 tab DAILY PO Last administered on 07/21/18 10:21; Admin Dose 1 TAB; Start 07/13/18 at 09:00 Sevelamer Carbonate (Renvela) 0.8 gm WITH MEALS PO Last administered on 07/21/18 13:22; Admin Dose 0.8 GM; Start 07/13/18 at 08:00 Miscellaneous Information (Pending [facility] Order For Wound Care) This patient sahu... PRN PRN XX WOUND CARE; Start 07/13/18 at 14:30 Nifedipine (Procardia Xl) 60 mg BID PO Last administered on 07/21/18 10:20; Admin Dose 60 MG; Start 07/14/18 at 09:00 Docusate Sodium (Colace) 250 mg DAILY PO Last administered on 07/21/18 10:21; Admin Dose 250 MG; Start 07/14/18 at 13:30 Senna (Senokot) 2 tab DAILY PO Last administered on 07/21/18 10:22; Admin Dose 2 TAB; Start 07/15/18 at 09:00 Clonidine (Catapres) 0.1 mg Q6H PRN PO SBP>160 Last administered on 07/19/18 16:58; Admin Dose 0.1 MG; Start 07/15/18 at 01:55 Spironolactone (Aldactone) 50 mg DAILY PO Last administered on 07/21/18 10:23; Admin Dose 50 MG; Start 07/15/18 at 09:00 Polyethylene Glycol (Miralax) 17 gm DAILY PO Last administered on 07/21/18 10:20; Admin Dose 17 GM; Start 07/17/18 at 09:00 Clonazepam (Klonopin) 1 mg Q6H PRN PO ANXIETY Last administered on 07/20/18 21 :40; Admin Dose 1 MG; Start 07/16/18 at 13:00 Cefepime HCl 50 ml @ 100 mls/hr Q24H IVPB Last administered on 07/20/18 14:43; Admin Dose 100 MLS/HR; Start 07/16/18 at 14:30 Lactobacillus Acidophilus/ Rhamnosus (Culturelle) 1 cap BID PO Last administered on 07/21/18 10:21; Admin Dose 1 CAP; Start 07/16/18 at 21:00 Hydralazine HCl (Apresoline) 100 mg Q6 PO Last administered on 07/21/18 13:27; Admin Dose 100 MG; Start 07/18/18 at 00:00 Benazepril HCl (Lotensin) 40 mg DAILY PO Last administered on 07/21/18 10:21; Admin Dose 40 MG; Start 07/17/18 at 22:30 Clonidine (Catapres) 0.2 mg Q8 PO Last administered on 07/21/18 14:13; Admin Dose 0.2 MG; Start 07/18/18 at 06:00 Buspirone HCl (Buspar) 5 mg BID PO Last administered on 07/21/18 10:22; Admin Dose 5 MG; Start 07/19/18 at 21:00 Quetiapine Fumarate (Seroquel) 200 mg HS PO Last administered on 07/20/18 20:24; Admin Dose 200 MG; Start 07/19/18 at 21:00 Bisacodyl (Dulcolax Supp) 10 mg DAILY PRN [place] CONSTIPATION; Start 07/21/18 at 06:30 Mineral Oil (Fleet Mineral Oil Enema) 133 ml DAILY PRN [place] constipation; Start 07/21/18 at 14:00 Lamotrigine (Lamictal) 100 mg BID PO ; Start 07/21/18 at 21:00 Clonazepam (Klonopin) 0.5 mg TID PO ; Start 07/21/18 at 21:00; Status UNV Allergies: Coded Allergies: No Known Allergies (Verified Allergy, Mild, 07/10/13) Past Surgical History reviewed Past Surgical Hx: other (Including but not limited to AV fistula) Social History reviewed Smoking Status: Never smoker SULY DUONG NP July 21, 2018 17:14 VERONICA DIETZ July 22, 2018 07:15
--- NOTE | 2018-07-21 17:38 | CONS ---
Date/Time of Note Date/Time of Note DATE: 07/21/18 TIME: 17:35 Consult Date/Type/Reason Admit Date July 12, 2018 at 20:28 Type of Consult Psych Ordering Provider: CARLOS SUÁREZ Subjective Patient was interviewed today, reevaluated for medication adjustment, she states she is increasingly anxious, irritable, requesting for medication to be increased, Lamictal increased to 100mg bid, and klonopin increased to 0.5mg tid Objective Patient Appearance: Tense Voice Loudness: Moderately Loud Mood and Affect Description: Anxious Mood or Affect: Anxious Speech Pattern: Clear Thought Process: Intact Hallucination Type: None Delusion Description: Not Present Assessment/Plan Recommendations Lamictal increased to 100mg bid, and klonopin increased to 0.5mg tid YONAS VYAS NP July 21, 2018 17:38
[2018-07-21] MEDS: LAMOTRIGINE 100 MG TAB PO SCH (20:47)
[2018-07-21] MEDS: QUETIAPINE 100 MG TAB PO SCH (20:47)
[2018-07-21] MEDS ORDERED: HEPARIN 5,000 UNIT/1 ML VIAL SC SCH (21:00)
[2018-07-21] MEDS: CEFEPIME 1GM/50 ML (PMX) 50 ML IVPB SCH (21:38)
[2018-07-22] VITALS (18 sets, daily range): BP systolic 128–200; BP diastolic 67–88; PULSE 79–90; RESP 17–20
[2018-07-22] MEDS: LEVOTHYROXINE 112 MCG TAB PO SCH (06:01)
[2018-07-22] MEDS: FOLIC ACID 1 MG TAB PO SCH (08:31)
[2018-07-22] MEDS: DOCUSATE SODIUM 250 MG CAP PO SCH (08:31)
[2018-07-22] MEDS: ASPIRIN (EC) 81 MG TAB PO SCH (08:32)
[2018-07-22] MEDS: LACTOBACILLUS RHAMNOSUS CAP PO SCH ×2 (08:32→20:14)
[2018-07-22] MEDS: NIFEdipine (XL) 60 MG TAB PO SCH ×2 (08:32→20:14)
[2018-07-22] MEDS: BUSPIRONE 5 MG TAB PO SCH ×2 (08:33→20:14)
[2018-07-22] MEDS: LOSARTAN 50 MG TAB PO SCH ×2 (08:33→20:15)
[2018-07-22] MEDS: CINACALCET 30 MG TAB PO SCH (08:34)
[2018-07-22] MEDS: BENAZEPRIL 40 MG TAB PO SCH (08:34)
[2018-07-22] MEDS: MULTIVIT/CA CARB/B CMPLX/FA TAB PO SCH (08:34)
[2018-07-22] MEDS: POLYETHYLENE GLYCOL 17 GM PACKET PO SCH ×2 (08:35→20:15)
[2018-07-22] MEDS: LAMOTRIGINE 100 MG TAB PO SCH ×2 (08:35→20:14)
[2018-07-22] MEDS: clonAZEPAM 0.5 MG TAB PO SCH ×3 (08:35→20:14)
[2018-07-22] MEDS: SPIRONOLACTONE 50 MG TAB PO SCH (08:42)
[2018-07-22] MEDS: SENNA TAB PO SCH (08:42)
[2018-07-22] MEDS: SEVELAMER CARBONATE 0.8 GM PKT PO SCH ×3 (08:43→17:18)
[2018-07-22] MEDS: HEPARIN 5,000 UNIT/1 ML VIAL SC SCH ×2 (08:46→20:16)
--- NOTE | 2018-07-22 10:25 | PN ---
DATE: 07/22/2018 SUBJECTIVE: The patient is stable. Patient remained hypertensive. The patient is pending hemodialy sis today. OBJECTIVE: VITAL SIGNS: Blood pressure is 200/88, respirations 20, pulse 90, temperature 98.4. Patient's I's a nd O's reviewed. HEENT: Head is normocephalic. NECK: Supple. HEART: Regular rate. LUNGS: Show diminished breath sounds at the base. ABDOMEN: Soft, nontender to palpation without rebound or guarding. EXTREMITIES: Negative for clubbing, cyanosis. Positive edema, diffuse anasarca. DERMATOLOGIC: No rashes. MUSCULOSKELETAL: No joint effusions. NEUROLOGIC: No change in exam. MEDICATIONS: Reviewed. LABORATORY DATA: Has been reviewed. ASSESSMENT AND PLAN: 1. End-stage renal disease. The patient has been receiving daily dialysis for volume removal and so lute clearance. Will plan for dialysis today and tomorrow. 2. Volume overload. Etiology is secondary to end-stage renal disease. The patient has been noncomp liant with ultrafiltration with dialysis. Repeatedly refusing ultrafiltration greater than 1 liter. Will attempt more aggressive ultrafiltration today and tomorrow with hemodialysis. Monitor closely. 3. Hyperkalemia. Continue dialysis on low potassium bath. 4. Hypertension. Blood pressures are elevated. Continue ultrafiltration dialysis. Continue curren t blood pressure regimen. 5. Anemia. Monitor hemoglobin and hematocrit levels. Will give Epogen as needed. 6. Mineral bone disorder, monitor calcium and phosphorus levels. 7. Sensipar. Continue phosphatase binders. 8. Dyslipidemia. Continue statin therapy. 9. Hypothyroidism. Continue Synthroid. 10. Anxiety disorder, depression, behavioral disorder. Continue to monitor. Follow up with psychia try. 11. Large pericardial effusion. The patient needs aggressive dialysis with ultrafiltration. There has been no evidence of tamponade, will continue to monitor. Agree with our cardiology colleague, Dr Blaze Munroe. 12. Pneumonia. Patient is completing antibiotic course. Dictated By: MOISES OLSON/NTS Conf#: [id number] DID#: [id number] CC: LUCÍA HICKS MD;*EndCC*
--- NOTE | 2018-07-22 11:11 | PN ---
Date/Time of Note Date/Time of Note DATE: 07/22/18 TIME: 11:07 Assessment/Plan VTE Prophylaxis Risk score (from Nsg)>0 risk: 4 Pharmacological prophylaxis: heparin Lines/Catheters IV Catheter Type (from Nrsg): Peripheral IV Urinary Cath still in place: No Assessment/Plan Hospital Course Subjective: still no BM, enema x 2 yesterday with no significant response Objective : Constitutional: Alert, lethargic, much more cooperative and less anxious today Head: normocephalic Eyes: PERRL, conjunctival pallor ENMT: No mucosa pink and moist (dry) Respiratory: diminished breath sounds; Cardiovascular: regular rate and rhythm Gastrointestinal: soft, bowel sounds, more distended? firm; No rebound or guarding Musculoskeletal: No muscle tone (reduced, with diffuse msc wasting ) yohan finger clubbing Extremities: other; Pitting edema in all 4 extremities, upper extremities more than lower extremities Neurological: nl mental status, nl speech, lethargic Skin: other (large LUE AV fistula and old ecchymosis) assessment and plan: 62-year-old female with a history of end-stage renal disease on hemodialysis who was originally admitted from dialysis units due to weakness and lethargy and recurrent falls. -She had gone to the dialysis unit but was too weak to be discharged home . She was sent to the emergency room for evaluation. -Detailed work-up only showed multifocal pneumonia with bilateral pleural effu jung and she was treated for healthcare associated pneumonia she was planned to be discharged to half-way facility on IV antibiotic therapy but still felt sick, she is currently managed for the followin. Pericardial effusion -Echocardiogram with medium sized pericardial effusion with no evidence of tamponade. Furthermore, no hypotension, actually patient with hypertension. -In discussion with nursing staff, patient has not been agreeable to further fluid removal with hemodialysis. Given patient with pleural effusions and pericardial effusion, I agree, volume removal via hemodialysis is the ideal therapy -No further inpatient cardiac work-up needed at the current time 2. SOB with fluid overload and Bilateral pleural effusion, moderate on the right with associated atelectasis - s/p Satisfactory ultrasound-guided right thoracentesis 07/21/18. Approximately 475 CC of serous fluid was aspirated and sent to the laboratory for cultures 3. Bilateral, multifocal pneumonia -continue IV abx 4. Severe constipation with possible enteritis versus developing small bowel obstruction -still no BM -GI consulted, orders noted 5. Severe anasarca with market body wall edema, severe mesenteric edema, trace ascites -fluid removal with HD, patient had previously declined this 6. Soft tissue fullness right lower neck concerning for dilated vascular structures versus lymphadenopathy -will get USS 6. Impaired cognition with poor short term memory likely reflective of dementia versus acute CVA --Patient has impaired short-term memory, and this is very distressing to her worsening her anxiety. MRI of the brain, neurology consult 8. End-stage renal disease on hemodialysis 9. Chronic bipolar disorder 10. Chronic hypothyroidism 11. Chronic debility Plan: -still with no BM despite stool softeners and laxatives, GI on the case -MRI of the brain also pending to work-up worsening of mentation. Result Diagram: 07/21/18 0707/21/18 07 Exam/Review of Systems Exam Vitals Vital Signs Date Temp Pulse Resp B/P (MAP) Pulse Ox O2 O2 Flow FiO2 Time Delivery Rate 07/22/18 85 146/67 09:26 (93) 07/22/18 98.5 20 99 08:00 07/21/18 21 20:00 07/21/18 Room Air 16:50 07/21/18 2.0 08:00 Intake and Output 07/21/18 07/21/18 07/22/18 1515:00 23:00 07:00 IntakeIntake Total 50 ml OutputOutput Total 475 ml 1600 ml BalanceBalance -475 ml -1550 ml Medications Medication Current Medications IV Flush (NS 3 ml) 3 ml PER PROTOCOL IV ; Start 07/13/18 at 00:30 Ondansetron HCl (Zofran Inj) 4 mg Q6H PRN IV NAUSEA/VOMITING Last administered on 07/18/18at 12:56; Admin Dose 4 MG; Start 07/13/18 at 00:30 Acetaminophen (Tylenol Tab) 650 mg Q6H PRN PO .PAIN 1-3 OR TEMP Last administered on 07/14/18at 04:22; Admin Dose 650 MG; Start 07/13/18 at 00:30 Acetaminophen/ Hydrocodone Bitart ([place] (5/325)) 1 tab Q6H PRN PO .PAIN 4-6 Last administered on 07/21/18at 13:30; Admin Dose 1 TAB; Start 07/13/18 at 00:30 Heparin Sodium (Porcine) (Heparin (5000 Units/1ml)) 5,000 unit Q12 SC Last administered on 07/13/18 08:28; Admin Dose 5,000 UNIT; Start 07/13/18 at 09:00 Albuterol/ Ipratropium (Duoneb) 3 ml Q2H RESP THERAPY PRN HHN SHORTNESS OF BREATH; Start 07/13/18 at 00:30 Aspirin (Halfprin) 81 mg DAILY PO Last administered on 07/22/18 08:32; Admin Dose 81 MG; Start 07/13/18 at 09:00 Cinacalcet (Sensipar) 60 mg DAILY PO Last administered on 07/22/18 08:34; Admin Dose 60 MG; Start 07/13/18 at 09:00 Folic Acid (Folic Acid) 1 mg DAILY PO Last administered on 07/22/18 08:31; Admin Dose 1 MG; Start 07/13/18 at 09:00 Levothyroxine Sodium (Synthroid) 224 mcg AC BREAKFAST PO Last administered on 07/22/18 06:01; Admin Dose 224 MCG; Start 07/13/18 at 07:00 Losartan Potassium (Cozaar) 50 mg BID PO Last administered on 07/22/18 08:33; Admin Dose 50 MG; Start 07/13/18 at 00:30 Multivit/Ca Carb/ B Cmplx/FA/Prenat (Deepthi-Frida) 1 tab DAILY PO Last admini stered on 07/22/18 08:34; Admin Dose 1 TAB; Start 07/13/18 at 09:00 Sevelamer Carbonate (Renvela) 0.8 gm WITH MEALS PO Last administered on 07/22/18 08:43; Admin Dose 0.8 GM; Start 07/13/18 at 08:00 Miscellaneous Information (Pending [facility] Order For Wound Care) This patient sahu... PRN PRN XX WOUND CARE; Start 07/13/18 at 14:30 Nifedipine (Procardia Xl) 60 mg BID PO Last administered on 07/22/18 08:32; Admin Dose 60 MG; Start 07/14/18 at 09:00 Docusate Sodium (Colace) 250 mg DAILY PO Last administered on 07/22/18 08:31; Admin Dose 250 MG; Start 07/14/18 at 13:30 Senna (Senokot) 2 tab DAILY PO Last administered on 07/22/18 08:42; Admin Dose 2 TAB; Start 07/15/18 at 09:00 Clonidine (Catapres) 0.1 mg Q6H PRN PO SBP>160 Last administered on 07/22/18 02:29; Admin Dose 0.1 MG; Start 07/15/18 at 01:55 Spironolactone (Aldactone) 50 mg DAILY PO Last administered on 07/22/18 08:42; Admin Dose 50 MG; Start 07/15/18 at 09:00 Polyethylene Glycol (Miralax) 17 gm DAILY PO Last administered on 07/22/18 08:35; Admin Dose 17 GM; Start 07/17/18 at 09:00 Clonazepam (Klonopin) 1 mg Q6H PRN PO ANXIETY Last administered on 07/20/18 21:40; Admin Dose 1 MG; Start 07/16/18 at 13:00 Lactobacillus Acidophilus/ Rhamnosus (Culturelle) 1 cap BID PO Last administered on 07/22/18 08:32; Admin Dose 1 CAP; Start 07/16/18 at 21:00 Hydralazine HCl (Apresoline) 100 mg Q6 PO Last administered on 07/22/18 05:50; Admin Dose 100 MG; Start 07/18/18 at 00:00 Benazepril HCl (Lotensin) 40 mg DAILY PO Last administered on 07/22/18 08:34; Admin Dose 40 MG; Start 07/17/18 at 22:30 Clonidine (Catapres) 0.2 mg Q8 PO Last administered on 07/22/18 05:50; Admin Dose 0.2 MG; Start 07/18/18 at 06:00 Buspirone HCl (Buspar) 5 mg BID PO Last administered on 07/22/18 08:33; Admin Dose 5 MG; Start 07/19/18 at 21:00 Quetiapine Fumarate (Seroquel) 200 mg HS PO Last administered on 07/21/18 20:47; Admin Dose 200 MG; Start 07/19/18 at 21:00 Bisacodyl (Dulcolax Supp) [address] CONSTIPATION; Start 07/21/18 at 06:30 Mineral Oil (Fleet Mineral Oil Enema) [address] constipation; Start 07/21/18 at 14:00 Lamotrigine (Lamictal) 100 mg BID PO Last administered on 07/22/18at 08:35; Admin Dose 100 MG; Start 07/21/18 at 21:00 Clonazepam (Klonopin) 0.5 mg TID PO Last administered on 07/22/18at 08:35; Admin Dose 0.5 MG; Start 07/21/18 at 16:30 Cefepime HCl 50 ml @ 100 mls/hr Q24H IVPB Last administered on 07/21/18at 21:38; Admin Dose 100 MLS/HR; Start 07/21/18 at 21:00 CARLOS SUÁREZ July 22, 2018 11:11
--- NOTE | 2018-07-22 11:45 | PN ---
Date/Time of Note Date/Time of Note DATE: 07/22/18 TIME: 11:24 Assessment/Plan VTE Prophylaxis Risk score (from Nsg)>0 risk: 4 SCD applied (from Ns): No SCD contraindicated: low risk/ambulating, other Pharmacological prophylaxis: NA/contraindicated Pharm contraindication: renal impairment Lines/Catheters IV Catheter Type (from [facility]): Peripheral IV Urinary Cath still in place: No Assessment/Plan Hospital Course Summary Assessment and Plan: Assessment: Chronic constipation -Abd X-ray Moderate volume stool within the colon suggesting constipation. Findings are significantly improved when compared to the prior examination. ESRD on HD Macrocytic anemia -Abd us- shows the liver is normal in echogenicity and measures 16.7 cm Pneumonia- on ABX -Abd X-ray- Small left pleural effusion with left basilar atelectasis versus pneumonia. HTN Medium size pericardial effusion -Preserved left ventricular ejection fraction History of Bipolar disorder Plan: Start Amitiza and increase MiraLAX to BID Enemas PRN Encourage ambulation/OOB as tolerated Plan to decrease regimen- after patient has BM's or diarrhea Patient seen in collaboration with Dr. Knight Subjective: Course reviewed with nursing staff Patient interviewed and examined All labs, imaging and other results reviewed The patient sitting up in chair, states she had a very small BM yesterday Discussed results of abd x-ray. Less abd pain today, no c/o n/v. PHYSICAL EXAMINATION: GENERAL: Chronically ill alert & oriented x 3, in no acute distress SKIN: AV fistula Left arm- edema, bruises HEAD: Normocephalic, atraumatic, no tenderness. EYES: Pupils equal reactive to light, no discharge. EARS/NOSE AND THROAT: Ears normal, nose normal. NECK: Supple, no masses. CHEST: Inspection within normal limits. CARDIOVASCULAR: Heart: Regular rate and rhythm RESPIRATORY: Rales lower bases GASTROINTESTINAL AND LIVER: Abdomen: Soft, mild generalized tenderness, distended, no guarding, no rebound tenderness, normoactive bowel sounds. Rectal: Deferred. GENITOURINARY: Female genitalia within normal limits. EXTREMITIES: Mild edema. Result Diagram: 07/21/18 0729 07/21/18 0729 Exam/Review of Systems Exam Vitals Vital Signs Date Temp Pulse Resp B/P (MAP) Pulse Ox O2 O2 Flow FiO2 Time Delivery Rate 07/22/18 85 146/67 09:26 (93) 5/16/19 98.5 20 99 08:00 07/21/18 21 20:00 07/21/18 Room Air 16:50 07/21/18 2.0 08:00 Intake and Output 07/21/18 07/21/18 07/22/18 1515:00 23:00 07:00 IntakeIntake Total 50 ml OutputOutput Total 475 ml 1600 ml BalanceBalance -475 ml -1550 ml Medications Medication Current Medications IV Flush (NS 3 ml) 3 ml PER PROTOCOL IV ; Start 07/13/18 at 00:30 Ondansetron HCl (Zofran Inj) 4 mg Q6H PRN IV NAUSEA/VOMITING Last administered on 07/18/18 12:56; Admin Dose 4 MG; Start 07/13/18 at 00:30 Acetaminophen (Tylenol Tab) 650 mg Q6H PRN PO .PAIN 1-3 OR TEMP Last a dministered on 07/14/18 04:22; Admin Dose 650 MG; Start 07/13/18 at 00:30 Acetaminophen/ Hydrocodone Bitart ([place] (5/325)) 1 tab Q6H PRN PO .PAIN 4-6 Last administered on 07/21/18 13:30; Admin Dose 1 TAB; Start 07/13/18 at 00:30 Heparin Sodium (Porcine) (Heparin (5000 Units/1ml)) 5,000 unit Q12 SC Last administered on 07/13/18 08:28; Admin Dose 5,000 UNIT; Start 07/13/18 at 09:00 Albuterol/ Ipratropium (Duoneb) 3 ml Q2H RESP THERAPY PRN HHN SHORTNESS OF BREATH; Start 07/13/18 at 00:30 Aspirin (Halfprin) 81 mg DAILY PO Last administered on 07/22/18 08:32; Admin Dose 81 MG; Start 07/13/18 at 09:00 Cinacalcet (Sensipar) 60 mg DAILY PO Last administered on 07/22/18 08:34; Admin Dose 60 MG; Start 07/13/18 at 09:00 Folic Acid (Folic Acid) 1 mg DAILY PO Last administered on 07/22/18 08:31; Admin Dose 1 MG; Start 07/13/18 at 09:00 Levothyroxine Sodium (Synthroid) 224 mcg AC BREAKFAST PO Last administered on 07/22/18 06:01; Admin Dose 224 MCG; Start 07/13/18 at 07:00 Losartan Potassium (Cozaar) 50 mg BID PO Last administered on 07/22/18 08:33; Admin Dose 50 MG; Start 07/13/18 at 00:30 Multivit/Ca Carb/ B Cmplx/FA/Prenat (Deepthi-Frida) 1 tab DAILY PO Last administered on 07/22/18 08:34; Admin Dose 1 TAB; Start 07/13/18 at 09:00 Sevelamer Carbonate (Renvela) 0.8 gm WITH MEALS PO Last administered on 07/22/18 08:43; Admin Dose 0.8 GM; Start 07/13/18 at 08:00 [facility] This patient sahu... PRN PRN XX WOUND CARE; Start 07/13/18 at 14:30 Nifedipine (Procardia Xl) 60 mg BID PO Last administered on 07/22/18 08:32; Admin Dose 60 MG; Start 07/14/18 at 09:00 Docusate Sodium (Colace) 250 mg DAILY PO Last administered on 07/22/18 08:31; Admin Dose 250 MG; Start 07/14/18 at 13:30 Senna (Senokot) 2 tab DAILY PO Last administered on 07/22/18 08:42; Admin Dose 2 TAB; Start 07/15/18 at 09:00 Clonidine (Catapres) 0.1 mg Q6H PRN PO SBP>160 Last administered on 07/22/18 02:29; Admin Dose 0.1 MG; Start 07/15/18 at 01:55 Spironolactone (Aldactone) 50 mg DAILY PO Last administered on 07/22/18 08:42; Admin Dose 50 MG; Start 07/15/18 at 09:00 Polyethylene Glycol (Miralax) 17 gm DAILY PO Last administered on 07/22/18 08:35; Admin Dose 17 GM; Start 07/17/18 at 09:00 Clonazepam (Klonopin) 1 mg Q6H PRN PO ANXIETY Last administered on 07/20/18 21:40; Admin Dose 1 MG; Start 07/16/18 at 13:00 Lactobacillus Acidophilus/ Rhamnosus (Culturelle) 1 cap BID PO Last administered on 07/22/18 08:32; Admin Dose 1 CAP; Start 07/16/18 at 21:00 Hydralazine HCl (Apresoline) 100 mg Q6 PO Last administered on 07/22/18 05:50; Admin Dose 100 MG; Start 07/18/18 at 00:00 Benazepril HCl (Lotensin) 40 mg DAILY PO Last administered on 07/22/18 08:34; Admin Dose 40 MG; Start 07/17/18 at 22:30 Clonidine (Catapres) 0.2 mg Q8 PO Last administered on 07/22/18 05:50; Admin Dose 0.2 MG; Start 07/18/18 at 06:00 Buspirone HCl (Buspar) 5 mg BID PO Last administered on 07/22/18 08:33; Admin Dose 5 MG; Start 07/19/18 at 21:00 Quetiapine Fumarate (Seroquel) 200 mg HS PO Last administered on 07/21/18 20:47; Admin Dose 200 MG; Start 07/19/18 at 21:00 Bisacodyl (Dulcolax Supp) 10 mg DAILY PRN [place] CONSTIPATION; Start 07/21/18 at 06:30 Mineral Oil (Fleet Mineral Oil Enema) 133 ml DAILY PRN [place] constipation; Start 07/21/18 at 14:00 Lamotrigine (Lamictal) 100 mg BID PO Last administered on 07/22/18 08:35; Admin Dose 100 MG; Start 07/21/18 at 21:00 Clonazepam (Klonopin) 0.5 mg TID PO Last administered on 07/22/18 08:35; Admin Dose 0.5 MG; Start 07/21/18 at 16:30 Cefepime HCl 50 ml @ 100 mls/hr Q24H IVPB Last administered on 07/21/18 21:38; Admin Dose 100 MLS/HR; Start 07/21/18 at 21:00 ANDREA ANDERSON July 22, 2018 11:44
[2018-07-22] MEDS: LUBIPROSTONE 24 MCG CAP PO SCH ×2 (13:00→20:14)
[2018-07-22] MEDS: clonAZEPAM 0.5 MG TAB PO PRN (13:24)
--- NOTE | 2018-07-22 16:31 | CONS ---
Assessment/Plan Assessment/Plan Hospital Course 62 yo F with reported hx of ? seizures and other comorbidities who presents for evaluation of dizziness and generalized weakness. Noted on 06/20 to become acutely altered, for which neurology is consulted. Likely an acute toxic-metabolic encephalopathy in the context of respiratory distress... that has shown improvement. A focal LAMP WIRER process is unlikely. MRI brain is reassuringly without acute intracranial pathology. P: Ok to continue Lamictal per ops PT/OT as necessary Cont medical management per primary Will follow Consultation Date/Type/Reason Admit Date/Time July 12, 2018 at 20:28 Type of Consult Neurology Reason for Consultation ams Requesting Provider: CARLOS SUÁREZ Date/Time of Note DATE: 07/22/18 TIME: 16:31 24 HR Interval Summary Free Text/Dictation Continues acute care. S/p MRI Exam Vital Signs Vitals Vital Signs Date Temp Pulse Resp B/P (MAP) Pulse Ox O2 O2 Flow FiO2 Time Delivery Rate 07/22/18 79 16:18 07/22/18 20 144/75 98 Room Air 14:03 (98) 07/22/18 97.9 14:00 07/21/18 21 20:00 07/21/18 2.0 08:00 Intake and Output 07/21/18 07/21/18 07/22/18 1515:00 23:00 07:00 IntakeIntake Total 50 ml OutputOutput Total 475 ml 1600 ml BalanceBalance -475 ml -1550 ml Exam PE: Gen Appearance: Anxious HEENT: Normocephalic Cardiovascular: Regular rate Lungs: Clear bilaterally Abdomen: Soft Extremities: Dry NE: The patient was alert and oriented. Language was normal. Attention span limited. Difficult to direct/redirect. Fund of knowledge was normal. Pupils were equal and reactive to light. There was no afferent pupillary defect. Visual sun were normal. Funduscopic examination was limited. Extra-ocular movements were full. Ptosis was absent. There was no nystagmus. Facial sensation was normal. Face was symmetric with normal strength. Hearing was intact. Palate movements were normal. Neck strength was normal. There was normal tongue bulk and speed of movement. Tone was normal. Muscle bulk was normal. I did not see fasciculations. The pt was generally weak. Vibration sensation was normal. Temperature and pinprick sensation was normal. Rapid alternating movements were normal. There was no dysmetria. There was no intention tremor. Gait was deferred due to bedrest. Arm and leg reflexes were 2+ and symmetric. Anguiano's sign was absent. Plantar responses were flexor. SULY DUONG NP July 22, 2018 16:31 VERONICA DIETZ July 23, 2018 15:15
[2018-07-22] MEDS: BISACODYL 10 MG SUPP PR PRN (17:18)
[2018-07-22] MEDS: QUETIAPINE 100 MG TAB PO SCH (20:15)
[2018-07-22] MEDS: CEFEPIME 1GM/50 ML (PMX) 50 ML IVPB SCH (20:15)
[2018-07-23] VITALS (17 sets, daily range): BP systolic 169–185; BP diastolic 78–88; PULSE 80–91; RESP 17–20
[2018-07-23] MEDS: LEVOTHYROXINE 112 MCG TAB PO SCH (06:23)
--- NOTE | 2018-07-23 08:44 | PN ---
DATE: 07/23/2018 SUBJECTIVE: The patient had hemodialysis yesterday, tolerated well. OBJECTIVE: VITAL SIGNS: Blood pressure is 169/78, respirations 18, pulse 91, temperature 98.1. HEENT: Head is normocephalic. NECK: Supple. HEART: Regular rate. LUNGS: Show diminished breath sounds at the base. ABDOMEN: Soft, nontender to palpation. No rebound or guarding. EXTREMITIES: Negative for clubbing, cyanosis. Positive edema. DERMATOLOGIC: No rashes. MUSCULOSKELETAL: No joint effusion. NEUROLOGIC: No change in exam. MEDICATIONS: Reviewed. LABORATORY DATA: Reviewed. ASSESSMENT AND PLAN: 1. End-stage renal disease. The patient has been receiving daily dialysis for solute clearance volu me and volume removal. Plan is for dialysis again today. 2. Volume overload. Etiology is secondary to end-stage renal disease. The patient is noncompliant with ultrafiltration. Continue ultrafiltration with hemodialysis. Monitor closely. 3. Hyperkalemia, improved. Continue dialysis on low-potassium diet. 4. Hypertension. Continue ultrafiltration with dialysis. Continue current blood pressure regimen. 5. Anemia. Continue to monitor hemoglobin and hematocrit levels. We will continue Epogen. 6. Mineral bone disorder. Monitor calcium and phosphorus levels. Continue Sensipar and phosphate b inders. 7. Dyslipidemia. Continue statin therapy. 8. Hypothyroidism. Continue Synthroid. 9. Anxiety disorder, depression. Continue current medical management. 10. Pericardial effusion. Etiology is secondary to inadequate hemodialysis. Continue aggressive ul trafiltration. No evidence of tamponade. 11. Pneumonia. The patient is completing antibiotic course. Dictated By: MOISES OLSON/DC Conf#: [id number] DID#: [id number] CC: TANA BENTON MD; CARLOS SUÁREZ MD; LUCÍA HICKS MD;*EndCC*
[2018-07-23] MEDS: MULTIVIT/CA CARB/B CMPLX/FA TAB PO SCH (10:09)
[2018-07-23] MEDS: LUBIPROSTONE 24 MCG CAP PO SCH ×2 (10:09→21:25)
[2018-07-23] MEDS: LACTOBACILLUS RHAMNOSUS CAP PO SCH ×2 (10:09→21:18)
[2018-07-23] MEDS: FOLIC ACID 1 MG TAB PO SCH (10:11)
[2018-07-23] MEDS: NIFEdipine (XL) 60 MG TAB PO SCH ×2 (10:11→21:19)
[2018-07-23] MEDS: BENAZEPRIL 40 MG TAB PO SCH (10:12)
[2018-07-23] MEDS: LOSARTAN 50 MG TAB PO SCH ×2 (10:12→21:17)
[2018-07-23] MEDS: BUSPIRONE 5 MG TAB PO SCH ×2 (10:12→21:17)
[2018-07-23] MEDS: LAMOTRIGINE 100 MG TAB PO SCH ×2 (10:12→21:18)
[2018-07-23] MEDS: DOCUSATE SODIUM 250 MG CAP PO SCH (10:12)
[2018-07-23] MEDS: ASPIRIN (EC) 81 MG TAB PO SCH (10:12)
[2018-07-23] MEDS: clonAZEPAM 0.5 MG TAB PO SCH ×3 (10:12→21:18)
[2018-07-23] MEDS: SENNA TAB PO SCH (10:13)
[2018-07-23] MEDS: SEVELAMER CARBONATE 0.8 GM PKT PO SCH ×3 (10:13→17:40)
[2018-07-23] MEDS: SPIRONOLACTONE 50 MG TAB PO SCH (10:13)
[2018-07-23] MEDS: CINACALCET 30 MG TAB PO SCH (10:13)
[2018-07-23] MEDS: HEPARIN 5,000 UNIT/1 ML VIAL SC SCH ×2 (10:15→21:00)
[2018-07-23] MEDS: POLYETHYLENE GLYCOL 17 GM PACKET PO SCH ×2 (10:16→21:19)
--- NOTE | 2018-07-23 10:28 | OPR ---
DATE OF OPERATION: 07/23/2018 SUBJECTIVE: Ms. Tsang is here for followup. She has bilateral upper extremity edema. She has a le ft upper arm AV fistula. 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 So I brought her in today for left arm fistulogram and possible intervention. PROCEDURE: The patient was brought to the canvas shop laborer and placed on the table in supine position. Left arm was prepped and draped in the usual sterile fashion. I began by infiltrating over the fistula i n the upper part of the left upper arm about 10 mL of 1% Xylocaine below the level of the fistula was very tortuous and hugely aneurysmal. I then entered the fistula with a micropuncture needle. I the n advanced an 0.018 wire through the needle into the vein, then micropuncture sheath was advanced ove r the wire into the vein and then I did a fistulogram showed the fistula was patent, very large diame ter from the upper arm all the way into the chest. The subclavian vein is patent. There are multipl e collaterals coming off the subclavian going up towards the neck and large azygos vein coming off of the subclavian going down towards the heart. There are stents in the innominate vein extending into the superior vena cava that are patent, but it is difficult to really visualize whether there is any stenosis and then at the distal end of the stent looks like there is probably significant stenosis w ithin the stent. There is sort of valdovinos. Given these collaterals coming off proximal to the stents w e decided to go ahead and treat this. I cannot see any other reason why it should be swelling, so I advanced an 0.035 Glidewire through the stent into the right atrium. I then exchanged the micropunct ure sheath for a 7-Spanish sheath over the wire then used a 12 mm x 4 cm balloon. I angioplastied the superior vena cava and the innominate vein through the stent and at the end of the stents bilaterall y after venoplasty a fistulogram now showed brisk flow through the stents, the collateral flow up int o the neck and into the azygos was much less. I did not even seen filling of the azygos after the an gioplasty so hopefully this will take care of the stenosis and the stent. I then removed all the cat heter sheaths and wires and then put a 4-0 Monocryl pursestring suture around the puncture site. Nicola rile dressing was applied. She was transferred back to room in stable condition. She tolerated the procedure well without any complication. The fistula can be used right away. I will see here in the office next week to remove the suture and the fistula was hugely aneurysmal and it probably should b e revised. I will discuss it with her when I see her again as well. Dictated By: TANA MCCLENDON/DC Conf#: [id number] DID#: [id number] CC: CARLOS SUÁREZ MD; MOISES WEISS DO; AJ PRICE MD; TANA BENTON MD; LUCÍA HICKS MD;*EndCC*
[2018-07-23] MEDS: BISACODYL 10 MG SUPP PR PRN (11:42)
--- NOTE | 2018-07-23 11:42 | CONS ---
Assessment/Plan Assessment/Plan Hospital Course (Demo Recall) Medium size pericardial effusion Preserved left ventricular ejection fraction Left ventricular hypertrophy Hypertension End-stage renal disease on hemodialysis Psychiatric disorder -Echocardiogram with medium sized pericardial effusion with no evidence of tamponade. Furthermore, no hypotension, actually patient with hypertension. As mentioned previously, patient with intermittent refusal of fluid removal during hemodialysis. -Patient status post AV fistula intervention today -Patient will be agreeable to further fluid removal via hemodialysis which would help blood pressure and fluid status -Continue blood pressure control and titrate meds as needed Consultation Date/Type/Reason Admit Date/Time July 12, 2018 at 20:28 Initial Consult Date 07/21/18 Type of Consult Cardiology Requesting Provider: CARLOS SUÁREZ Date/Time of Note DATE: 07/23/18 TIME: 11:40 24 HR Interval Summary Free Text/Dictation Denies chest pain, shortness of breath, palpitations Exam/Review of Systems Vital Signs Vitals Vital Signs Date Temp Pulse Resp B/P (MAP) Pulse Ox O2 O2 Flow FiO2 Time Delivery Rate 07/23/18 Nasal 2.0 08:00 Cannula 07/23/18 98.1 91 18 169/78 95 07:47 (108) 07/21/18 21 20:00 Intake and Output 07/22/18 07/22/18 07/23/18 1515:00 23:00 07:00 IntakeIntake Total 480 ml 290 ml OutputOutput Total 200 ml 2400 ml BalanceBalance 280 ml -2110 ml Exam Constitutional: alert, oriented (No apparent distress, no dyspnea with speaking) Head: normocephalic Respiratory: other (Coarse breath sounds, no wheezing) Cardiovascular: regular rate and rhythm (S1-S2 heard) Gastrointestinal: soft, non-tender, bowel sounds Extremities: edema Labs Result Diagram: 07/22/18 1103 07/22/18 1103 Medications Medications Current Medications IV Flush (NS 3 ml) 3 ml PER PROTOCOL IV ; Start 07/13/18 at 00:30 Ondansetron HCl (Zofran Inj) 4 mg Q6H PRN IV NAUSEA/VOMITING Last administered on 07/18/18at 12:56; Admin Dose 4 MG; Start 07/13/18 at 00:30 Acetaminophen (Tylenol Tab) 650 mg Q6H PRN PO .PAIN 1-3 OR TEMP Last administer ed on 07/14/18 04:22; Admin Dose 650 MG; Start 07/13/18 at 00:30 Acetaminophen/ Hydrocodone Bitart ([place] (5/325)) 1 tab Q6H PRN PO .PAIN 4-6 Last administered on 07/21/18 13:30; Admin Dose 1 TAB; Start 07/13/18 at 00:30 Heparin Sodium (Porcine) (Heparin (5000 Units/1ml)) 5,000 unit Q12 SC Last ad ministered on 07/23/18 10:15; Admin Dose 5,000 UNIT; Start 07/13/18 at 09:00 Albuterol/ Ipratropium (Duoneb) 3 ml Q2H RESP THERAPY PRN HHN SHORTNESS OF BREATH; Start 07/13/18 at 00:30 Aspirin (Halfprin) 81 mg DAILY PO Last administered on 07/23/18 10:12; Admin Dose 81 MG; Start 07/13/18 at 09:00 Cinacalcet (Sensipar) 60 mg DAILY PO Last administered on 07/23/18 10:13; Admin Dose 60 MG; Start 07/13/18 at 09:00 Folic Acid (Folic Acid) 1 mg DAILY PO Last administered on 07/23/18 10:11; Admin Dose 1 MG; Start 07/13/18 at 09:00 Levothyroxine Sodium (Synthroid) 224 mcg AC BREAKFAST PO Last administered on 07/23/18 06:23; Admin Dose 224 MCG; Start 07/13/18 at 07:00 Losartan Potassium (Cozaar) 50 mg BID PO Last administered on 07/23/18 10:12; Admin Dose 50 MG; Start 07/13/18 at 00:30 Multivit/Ca Carb/ B Cmplx/FA/Prenat (Deepthi-Frida) 1 tab DAILY PO Last administered on 07/23/18 10:09; Admin Dose 1 TAB; Start 07/13/18 at 09:00 Sevelamer Carbonate (Renvela) 0.8 gm WITH MEALS PO Last administered on 07/23/18 10:13; Admin Dose 0.8 GM; Start 07/13/18 at 08:00 Miscellaneous Information (Pending [facility] Order For Wound Care) This patient sahu... PRN PRN XX WOUND CARE; Start 07/13/18 at 14:30 Nifedipine (Procardia Xl) 60 mg BID PO Last administered on 07/23/18 10:11; Admin Dose 60 MG; Start 07/14/18 at 09:00 Docusate Sodium (Colace) 250 mg DAILY PO Last administered on 07/23/18 10:12; Admin Dose 250 MG; Start 07/14/18 at 13:30 Senna (Senokot) 2 tab DAILY PO Last administered on 07/23/18 10:13; Admin Dose 2 TAB; Start 07/15/18 at 09:00 Clonidine (Catapres) 0.1 mg Q6H PRN PO SBP>160 Last administered on 07/22/18 20:15; Admin Dose 0.1 MG; Start 07/15/18 at 01:55 Spironolactone (Aldactone) 50 mg DAILY PO Last administered on 07/23/18 10:13; Admin Dose 50 MG; Start 07/15/18 at 09:00 Clonazepam (Klonopin) 1 mg Q6H PRN PO ANXIETY Last administered on 07/22/18 13:24; Admin Dose 1 MG; Start 07/16/18 at 13:00 Lactobacillus Acidophilus/ Rhamnosus (Culturelle) 1 cap BID PO Last admi nistered on 07/23/18 10:09; Admin Dose 1 CAP; Start 07/16/18 at 21:00 Hydralazine HCl (Apresoline) 100 mg Q6 PO Last administered on 07/23/18 06:23; Admin Dose 100 MG; Start 07/18/18 at 00:00 Benazepril HCl (Lotensin) 40 mg DAILY PO Last administered on 07/23/18 10:12; Admin Dose 40 MG; Start 07/17/18 at 22:30 Clonidine (Catapres) 0.2 mg Q8 PO Last administered on 07/23/18 06:24; Admin Dose 0.2 MG; Start 07/18/18 at 06:00 Buspirone HCl (Buspar) 5 mg BID PO Last administered on 07/23/18 10:12; Admin Dose 5 MG; Start 07/19/18 at 21:00 Quetiapine Fumarate (Seroquel) 200 mg HS PO Last administered on 5/16/19at 20:15; Admin Dose 200 MG; Start 07/19/18 at 21:00 Bisacodyl (Dulcolax Supp) 10 mg DAILY PRN [place] CONSTIPATION; Start 07/21/18 at 06:30 Mineral Oil (Fleet Mineral Oil Enema) 133 ml DAILY PRN OR constipation; Start 07/21/18 at 14:00 Lamotrigine (Lamictal) 100 mg BID PO Last administered on 07/23/18at 10:12; Admin Dose 100 MG; Start 07/21/18 at 21:00 Clonazepam (Klonopin) 0.5 mg TID PO Last administered on 07/23/18at 10:12; Admin Dose 0.5 MG; Start 07/21/18 at 16:30 Cefepime HCl 50 ml @ 100 mls/hr Q24H IVPB Last administered on 07/22/18at 20:15; Admin Dose 100 MLS/HR; Start 07/21/18 at 21:00 Polyethylene Glycol (Miralax) 17 gm BID PO Last administered on 07/23/18at 10:1 6; Admin Dose 17 GM; Start 07/22/18 at 21:00 Lubiprostone (Amitiza) 24 mcg BID PO Last administered on 07/23/18at 10:09; Admin Dose 24 MCG; Start 07/22/18 at 11:30 Gonzales Munroe DO July 23, 2018 11:42
[2018-07-23] MEDS ORDERED: PEG/ELECTROLYTES 4L BTL PO ONE (13:00)
[2018-07-23] MEDS: clonAZEPAM 0.5 MG TAB PO PRN (13:02)
--- NOTE | 2018-07-23 14:58 | PN ---
Date/Time of Note Date/Time of Note DATE: 07/23/18 TIME: 14:56 Assessment/Plan VTE Prophylaxis Risk score (from Nsg)>0 risk: 3 SCD applied (from Nsg): Yes Pharmacological prophylaxis: heparin Lines/Catheters IV Catheter Type (from Nrsg): Peripheral IV Urinary Cath still in place: No Assessment/Plan Assessment/Plan Assessment: Chronic constipation -Abd X-ray Moderate volume stool within the colon suggesting constipation. Findings are significantly improved when compared to the prior examination. ESRD on HD Macrocytic anemia -Abd us- shows the liver is normal in echogenicity and measures 16.7 cm Pneumonia- on ABX -Abd X-ray- Small left pleural effusion with left basilar atelectasis versus pneumonia. HTN Medium size pericardial effusion -Preserved left ventricular ejection fraction History of Bipolar disorder Plan: GoLYTELY has been ordered Lactulose twice daily as needed Continue Amitiza and increase MiraLAX to BID Enemas PRN Encourage ambulation/OOB as tolerated Plan to decrease regimen- after patient has BM's or diarrhea Patient seen in collaboration with Dr. Knight Subjective: Course reviewed with nursing staff Patient interviewed and examined All labs, imaging and other results reviewed The patient is resting in bed. Dialysis in progress. Patient reports small bowel movements on MiraLAX and mineral oil enemas. Abdomen remains distended. GoLYTELY has been ordered by hospitalist. Will add lactulose twice daily as needed. PHYSICAL EXAMINATION: GENERAL: Chronically ill alert & oriented x 3, in no acute distress SKIN: AV fistula Left arm- edema, bruises HEAD: Normocephalic, atraumatic, no tenderness. EYES: Pupils equal reactive to light, no discharge. EARS/NOSE AND THROAT: Ears normal, nose normal. NECK: Supple, no masses. CHEST: Inspection within normal limits. CARDIOVASCULAR: Heart: Regular rate and rhythm RESPIRATORY: Rales lower bases GASTROINTESTINAL AND LIVER: Abdomen: Soft, mild generalized tenderness, distended, no guarding, no rebound tenderness, normoactive bowel sounds. Rectal: Deferred. GENITOURINARY: Female genitalia within normal limits. EXTREMITIES: Mild edema. Result Diagram: 07/22/18 1103 07/22/18 1103 CC: MIKEL KNIGHT MD ; Exam/Review of Systems Exam Vitals Vital Signs Date Temp Pulse Resp B/P (MAP) Pulse Ox O2 O2 Flow FiO2 Time Delivery Rate 07/23/18 Nasal 2.0 08:00 Cannula 07/23/18 98.1 91 18 169/78 95 07:47 (108) 07/21/18 21 20:00 Intake and Output 07/22/18 07/22/18 07/23/18 1515:00 23:00 07:00 IntakeIntake Total 480 ml 290 ml OutputOutput Total 200 ml 2400 ml BalanceBalance 280 ml -2110 ml Medications Medication Current Medications IV Flush (NS 3 ml) 3 ml PER PROTOCOL IV ; Start 07/13/18 at 00:30 Ondansetron HCl (Zofran Inj) 4 mg Q6H PRN IV NAUSEA/VOMITING Last administered on 07/18/18 12:56; Admin Dose 4 MG; Start 07/13/18 at 00:30 Acetaminophen (Tylenol Tab) 650 mg Q6H PRN PO .PAIN 1-3 OR TEMP Last administered on 07/14/18 04:22; Admin Dose 650 MG; Start 07/13/18 at 00:30 Acetaminophen/ Hydrocodone Bitart ([place] (5/325)) 1 tab Q6H PRN PO .PAIN 4-6 Last administered on 07/21/18 13:30; Admin Dose 1 TAB; Start 07/13/18 at 00:30 Heparin Sodium (Porcine) (Heparin (5000 Units/1ml)) 5,000 unit Q12 SC Last administered on 07/23/18 10:15; Admin Dose 5,000 UNIT; Start 07/13/18 at 09:00 Albuterol/ Ipratropium (Duoneb) 3 ml Q2H RESP THERAPY PRN HHN SHORTNESS OF BREATH; Start 07/13/18 at 00:30 Aspirin (Halfprin) 81 mg DAILY PO Last administered on 07/23/18 10:12; Admin Dose 81 MG; Start 07/13/18 at 09:00 Cinacalcet (Sensipar) 60 mg DAILY PO Last administered on 07/23/18 10:13; Admin Dose 60 MG; Start 07/13/18 at 09:00 Folic Acid (Folic Acid) 1 mg DAILY PO Last administered on 07/23/18 10:11; Admin Dose 1 MG; Start 07/13/18 at 09:00 Levothyroxine Sodium (Synthroid) 224 mcg AC BREAKFAST PO Last administered on 07/23/18 06:23; Admin Dose 224 MCG; Start 07/13/18 at 07:00 Losartan Potassium (Cozaar) 50 mg BID PO Last administered on 07/23/18 10:12; Admin Dose 50 MG; Start 07/13/18 at 00:30 Multivit/Ca Carb/ B Cmplx/FA/Prenat (Deepthi-Frida) 1 tab DAILY PO Last administered on 07/23/18 10:09; Admin Dose 1 TAB; Start 07/13/18 at 09:00 Sevelamer Carbonate (Renvela) 0.8 gm WITH MEALS PO Last administered on 07/23/18 10:13; Admin Dose 0.8 GM; Start 07/13/18 at 08:00 Miscellaneous Information (Pending [facility] Order For Wound Care) This patient sahu... PRN PRN XX WOUND CARE; Start 07/13/18 at 14:30 Nifedipine (Procardia Xl) 60 mg BID PO Last administered on 07/23/18 10:11; Admin Dose 60 MG; Start 07/14/18 at 09:00 Docusate Sodium (Colace) 250 mg DAILY PO Last administered on 07/23/18 10:12; Admin Dose 250 MG; Start 07/14/18 at 13:30 Senna (Senokot) 2 tab DAILY PO Last administered on 07/23/18 10:13; Admin Dose 2 TAB; Start 07/15/18 at 09:00 Clonidine (Catapres) 0.1 mg Q6H PRN PO SBP>160 Last administered on 07/22/18 20:15; Admin Dose 0.1 MG; Start 07/15/18 at 01:55 Spironolactone (Aldactone) 50 mg DAILY PO Last administered on 07/23/18 10:13; Admin Dose 50 MG; Start 07/15/18 at 09:00 Clonazepam (Klonopin) 1 mg Q6H PRN PO ANXIETY Last administered on 07/23/18 13:02; Admin Dose 1 MG; Start 07/16/18 at 13:00 Lactobacillus Acidophilus/ Rhamnosus (Culturelle) 1 cap BID PO Last administered on 07/23/18 10:09; Admin Dose 1 CAP; Start 07/16/18 at 21:00 Hydralazine HCl (Apresoline) 100 mg Q6 PO Last administered on 07/23/18 06:23; Admin Dose 100 MG; Start 07/18/18 at 00:00 Benazepril HCl (Lotensin) 40 mg DAILY PO Last administered on 07/23/18 10:12; Admin Dose 40 MG; Start 07/17/18 at 22:30 Clonidine (Catapres) 0.2 mg Q8 PO Last administered on 07/23/18 06:24; Admin Dose 0.2 MG; Start 07/18/18 at 06:00 Buspirone HCl (Buspar) 5 mg BID PO Last administered on 07/23/18 10:12; Admin Dose 5 MG; Start 07/19/18 at 21:00 Quetiapine Fumarate (Seroquel) 200 mg HS PO Last administered on 07/22/18 20:15; Admin Dose 200 MG; Start 07/19/18 at 21:00 Bisacodyl (Dulcolax Supp) 10 mg DAILY PRN [place] CONSTIPATION Last administered on 07/23/18 11:42; Admin Dose 10 MG; Start 07/21/18 at 06:30 Mineral Oil (Fleet Mineral Oil Enema) 133 ml DAILY PRN [place] constipation; Start 07/21/18 at 14:00 Lamotrigine (Lamictal) 100 mg BID PO Last administered on 07/23/18 10:12; Admi n Dose 100 MG; Start 07/21/18 at 21:00 Clonazepam (Klonopin) 0.5 mg TID PO Last administered on 07/23/18 10:12; Admin Dose 0.5 MG; Start 07/21/18 at 16:30 Cefepime HCl 50 ml @ 100 mls/hr Q24H IVPB Last administered on 07/22/18 20:15; Admin Dose 100 MLS/HR; Start 07/21/18 at 21:00 Polyethylene Glycol (Miralax) 17 gm BID PO Last administered on 07/23/18 10:16; Admin Dose 17 GM; Start 07/22/18 at 21:00 Lubiprostone (Amitiza) 24 mcg BID PO Last administered on 07/23/18 10:09; Admin Dose 24 MCG; Start 07/22/18 at 11:30 JOAN GARNER NP July 23, 2018 14:58
[2018-07-23] MEDS ORDERED: LACTULOSE 30ML CUP PO PRN (15:00)
--- NOTE | 2018-07-23 15:01 | DS ---
Date/Time of Note Date/Time of Note DATE: 07/23/18 TIME: 14:52 Discharge Summary Admission/Discharge Info Admit Date/Time July 12, 2018 at 20:28 Discharge Date/Time Discharge Diagnosis .62-year-old female with a history of end-stage renal disease on hemodialysis who was originally admitted from dialysis units due to weakness and lethargy and recurrent falls. -She had gone to the dialysis unit but was too weak to be discharged home . She was sent to the emergency room for evaluation. 1. Multifocal pneumonia with bilateral pleural effusion and she was treated for healthcare associated pneumonia 2. Pericardial effusion: no need for drainage per cardio 3. SOB with fluid overload and Bilateral pleural effusion, moderate on the right with associated atelectasis - s/p Satisfactory ultrasound-guided right thoracentesis 07/21/18. Approximately 475 CC of serous fluid was aspirated and sent to the laboratory for cultures 4. Severe constipation with possible enteritis: resolved 5. Severe anasarca with market body wall edema, severe mesenteric edema, trace ascites -fluid removal with HD, patient had previously declined this 6. Soft tissue fullness right lower neck concerning for dilated vascular structures versus lymphadenopathy -negative USS 7. . Impaired cognition with poor short term memory likely reflective of dementia --Patient has impaired short-term memory, and this is very distressing to her worsening her anxiety. -Brain MRI negative -likely 2/2 dementia -consider aricept therapy o/p if persistent 8. End-stage renal disease on hemodialysis 9. Chronic bipolar disorder and severe anxiety -see by psych multiple times, meds were adjusted, patient is stable on current regimen 10. Chronic hypothyroidism 11. Chronic debility -has been doing much better with PT . Patient Condition: Stable Hospital Course 62-year-old female with a history of end-stage renal disease on hemodialysis who was originally admitted from dialysis units due to weakness and lethargy and recurrent falls. -She had gone to the dialysis unit but was too weak to be discharged home . She was sent to the emergency room for evaluation. -Detailed work-up only showed multifocal pneumonia with bilateral pleural effusion and she was treated for healthcare associated pneumonia she was planned to be discharged to shelter facility on IV antibiotic therapy. She was also managed for the following as below 1. Pericardial effusion -Echocardiogram with medium sized pericardial effusion with no evidence of tamponade. Furthermore, no hypotension, actually patient with hypertension. -In discussion with nursing staff, patient has not been agreeable to further fluid removal with hemodialysis. Given patient with pleural effusions and pericardial effusion, I agree, volume removal via hemodialysis is the ideal therapy -No further inpatient cardiac work-up needed at the current time 2. SOB with fluid overload and Bilateral pleural effusion, moderate on the right with associated atelectasis - s/p Satisfactory ultrasound-guided right thoracentesis 07/21/18. Approximately 475 CC of serous fluid was aspirated and sent to the laboratory for cultures 3. Bilateral, multifocal pneumonia -continue IV abx for 2 weeks 4. Severe constipation with possible enteritis versus developing small bowel obstruction -appreciate GI input, patient finally having good output BM after about 4 days 5. Severe anasarca with market body wall edema, severe mesenteric edema, trace ascites -fluid removal with HD, patient had previously declined this 6. Soft tissue fullness right lower neck concerning for dilated vascular structures versus lymphadenopathy -will get USS 6. Impaired cognition with poor short term memory likely reflective of dementia versus acute CVA --Patient has impaired short-term memory, and this is very distressing to her worsening her anxiety. -Brain MRI negative -likely 2/2 dementia -consider aricept therapy o/p if persistent 8. End-stage renal disease on hemodialysis 9. Chronic bipolar disorder and severe anxiety -see by psych multiple times, meds were adjusted, patient is stable on current regimen 10. Chronic hypothyroidism 11. Chronic debility -has been doing much better with PT Dispo: now cleared for d/c to SNF after HD today Home Meds Active Scripts Sennosides* (Senna Lax*) 8.6 Mg Tablet, 2 TAB PO DAILY for 30 Days, TAB Prov:KAMINIHEIDIO M. 07/16/18 Polyethylene Glycol* (Miralax*) 17 Gm Powd.pack, 17 GM PO DAILY, #30 PACKET Prov:KAMINIJESICAATITO M. 07/16/18 Lactobacillus Rhamnosus GG (Culturelle) 1 Each Capsule, 1 CAP PO BID for 14 Days, CAP Prov:KAMINIHEIDIO M. 07/16/18 Docusate Sodium* (Colace*) 250 Mg Capsule, 250 MG PO DAILY, #30 CAP Prov:KAMINIJESICAATITO M. 07/16/18 Buspirone Hcl* (Buspirone Hcl*) 5 Mg Tab, 5 MG PO BID, #60 TAB Prov:CARLOS SUÁREZ. 07/16/18 Spironolactone* (Aldactone*) 50 Mg Tablet, 50 MG PO DAILY, #30 TAB Prov:CARLOS SUÁREZ. 07/16/18 Nifedipine (Procardia Xl) 60 Mg Tab.er.24, 60 MG PO BID, #60 TAB Prov:CARLOS SUÁREZ. 07/16/18 Ipratropium-Albuterol (Ipratropium-Albuterol) 0.5-3 Mg/3 Ml Ampul.neb, 3 ML HHN Q2H RESP THERAPY PRN for SHORTNESS OF BREATH, #30 VIAL Prov:CARLOS SUÁREZ. 07/16/18 Cefepime Hcl/Dextrose, Iso-Osm (Cefepime 2 Gm Injection) 2 Gm/100 Ml Froz.piggy, 2 GM IV AFTER DIALYSIS, #5 DOSE Prov:CARLOS SUÁREZ. 07/16/18 Reported Medications Levothyroxine Sodium* (Levothyroxine Sodium*) 112 Mcg Tablet, 224 MCG PO AC BREAKFAST for 30 Days, #60 07/12/18 Clonidine Hcl* (Clonidine Hcl*) 0.2 Mg Tablet, 0.2 MG PO TID for 30 Days, #90 TAKE 1 TABLET (0.2 MG TOTAL) BY MOUTH THREE (3) TIMES DAILY. 07/12/18 Hydralazine Hcl* (Hydralazine Hcl*) 100 Mg Tablet, 100 MG PO TID TAKE 1 TABLET (100 MG TOTAL) BY MOUTH THREE (3) TIMES DAILY. 07/12/18 Clonazepam (Klonopin) 0.5 Mg Tablet, 0.5 MG PO HS, TAB 07/05/14 Losartan Potassium* (Losartan Potassium*) 50 Mg Tablet, 50 MG PO BID, TAB 07/05/14 Glycerin-Propylene Glycol (Lubricant Eye Drops) 15 Ml Drops, 2 DROP BOTH EYES QID, EA 07/05/14 Quetiapine Fumarate* (Quetiapine Fumarate*) 400 Mg Tablet, 400 MG PO HS, TAB 07/04/14 Folic Acid* (Folic Acid*) 1 Mg Tablet, 1 MG PO DAILY 06/29/13 Multivit/Ca Carb/B Cmplx/Fa* (Deepthi-Frida*) 1 Tab Tab, 1 TAB PO DAILY, TAB 06/24/13 Aspirin Ec (Aspir 81) 81 Mg Tablet.dr, 81 MG PO DAILY 06/24/13 Sevelamer Carbonate* (Renvela*) 800 Mg Tablet, 800 MG PO TID 06/24/13 Cinacalcet* (Sensipar*) 60 Mg Tablet, 60 MG PO DAILY 06/24/13 Discontinued Reported Medications Doxazosin Mesylate* (Doxazosin Mesylate*) 1 Mg Tablet, 1 MG PO BID for 90 Days, #180 TAKE ONE TABLET BY MOUTH TWICE DAILY 07/12/18 Quetiapine Fumarate* (Quetiapine Fumarate*) 100 Mg Tablet, 100 MG PO QPM, TAB 07/04/14 Lamotrigine* (Lamotrigine*) 25 Mg Tablet, 125 MG PO DAILY, TAB 07/04/14 Clonazepam* (Clonazepam*) 1 Mg Tablet, 1 MG PO DAILY PRN for ANXIETY, TAB 07/04/14 Follow-up Plan SNF needs CXR upon completion of abx therapy. . Primary Care Provider Not On Staff Doctor Time spent on discharge: > 30 minutes CARLOS SUÁREZ July 23, 2018 15:01
--- NOTE | 2018-07-23 15:51 | CONS ---
Assessment/Plan Assessment/Plan Hospital Course 62 yo F with reported hx of ? seizures and other comorbidities who presents for evaluation of dizziness and generalized weakness. Noted on 06/20 to become acutely altered, for which neurology is consulted. Likely an acute toxic-metabolic encephalopathy in the context of respiratory distress... that has shown improvement. A focal [employer] process is unlikely. MRI brain is reassuringly without acute intracranial pathology. P: Ok to continue Lamictal per ops PT/OT as necessary Cont medical management per primary Will follow Consultation Date/Type/Reason Admit Date/Time July 12, 2018 at 20:28 Type of Consult Neurology Reason for Consultation ams Requesting Provider: CARLOS SUÁREZ Date/Time of Note DATE: 07/23/18 TIME: 15:51 24 HR Interval Summary Free Text/Dictation Continues acute care Exam Vital Signs Vitals Vital Signs Date Temp Pulse Resp B/P (MAP) Pulse Ox O2 O2 Flow FiO2 Time Delivery Rate 07/23/18 20 178/88 Nasal 2.0 13:00 (118) Cannula 07/23/18 98.1 91 95 07:47 07/21/18 21 20:00 Intake and Output 07/22/18 07/22/18 07/23/18 1515:00 23:00 07:00 IntakeIntake Total 480 ml 290 ml OutputOutput Total 200 ml 2400 ml BalanceBalance 280 ml -2110 ml VERONICA DIETZ July 23, 2018 15:51
[2018-07-23] MEDS: CEFEPIME 1GM/50 ML (PMX) 50 ML IVPB SCH (21:16)
[2018-07-23] MEDS: QUETIAPINE 100 MG TAB PO SCH (21:19)
[2018-07-23] MEDS: HYDROCODONE/APAP (5/325) TAB PO PRN (21:21)
[2018-07-23] MEDS ORDERED: morphine 2 MG INJ IV ONE (23:43)
[2018-07-24 01:22] VITALS: BP 170/74; PULSE 86; RESP 18
[2018-07-24 06:01] VITALS: BP 139/66
[2018-07-24] MEDS: LEVOTHYROXINE 112 MCG TAB PO SCH (06:03)
[2018-07-24 08:04] VITALS: BP 140/65; PULSE 87; RESP 18
[2018-07-24] MEDS: ALBUTEROL/IPRATROPIUM (NEB) 3 ML AMP HHN PRN ×2 (08:27→13:26)
[2018-07-24] MEDS: HEPARIN 5,000 UNIT/1 ML VIAL SC SCH ×3 (09:00→20:22)
[2018-07-24] MEDS: ASPIRIN (EC) 81 MG TAB PO SCH (09:22)
[2018-07-24] MEDS: BUSPIRONE 5 MG TAB PO SCH ×2 (09:22→20:17)
[2018-07-24] MEDS: clonAZEPAM 0.5 MG TAB PO SCH ×3 (09:22→20:16)
[2018-07-24] MEDS: CINACALCET 30 MG TAB PO SCH (09:23)
[2018-07-24] MEDS: LUBIPROSTONE 24 MCG CAP PO SCH ×2 (09:23→20:17)
[2018-07-24] MEDS: DOCUSATE SODIUM 250 MG CAP PO SCH (09:23)
[2018-07-24] MEDS: SENNA TAB PO SCH (09:23)
[2018-07-24] MEDS: LAMOTRIGINE 100 MG TAB PO SCH ×2 (09:24→20:16)
[2018-07-24] MEDS: LOSARTAN 50 MG TAB PO SCH ×2 (09:24→20:16)
[2018-07-24] MEDS: SPIRONOLACTONE 50 MG TAB PO SCH (09:24)
[2018-07-24] MEDS: BENAZEPRIL 40 MG TAB PO SCH (09:25)
[2018-07-24] MEDS: POLYETHYLENE GLYCOL 17 GM PACKET PO SCH ×2 (09:25→20:17)
[2018-07-24] MEDS: SEVELAMER CARBONATE 0.8 GM PKT PO SCH ×3 (09:25→17:37)
[2018-07-24] MEDS: MULTIVIT/CA CARB/B CMPLX/FA TAB PO SCH (09:25)
[2018-07-24] MEDS: FOLIC ACID 1 MG TAB PO SCH (09:25)
[2018-07-24] MEDS: NIFEdipine (XL) 60 MG TAB PO SCH ×2 (09:25→20:17)
[2018-07-24] MEDS: LACTOBACILLUS RHAMNOSUS CAP PO SCH ×2 (09:25→20:16)
--- NOTE | 2018-07-24 10:20 | PN ---
DATE: 07/24/2018 SUBJECTIVE: Yesterday, the patient underwent left arm fistulogram. The patient following the proced ure also had angioplasty of the azygos vein. The patient following the procedure had hemodialysis yes terday, tolerated well. The patient did have bleeding through the AV fistula overnight. No other ev ents noted. No hemoptysis, hematemesis, hematochezia. OBJECTIVE: VITAL SIGNS: Blood pressure is 139/66, respiration 18, pulse 86, temperature 98.6. HEENT: Head is normocephalic. NECK: Supple. HEART: Regular rate. LUNGS: Show diminished breath sounds at the base. ABDOMEN: Soft, nontender to palpation. No rebound or guarding. EXTREMITIES: Negative for clubbing, cyanosis. Positive edema bilateral upper extremities, mildly im proved. DERMATOLOGIC: No rashes. MUSCULOSKELETAL: No joint effusions. NEUROLOGIC: No change in exam. MEDICATIONS: The patient's medications have been reviewed. LABORATORY DATA: Has been reviewed. ASSESSMENT AND PLAN: 1. End-stage renal disease. The patient has been receiving daily dialysis for solute clearance and volume removal given underlying pericardial effusion and total body anasarca. We will hold dialysis today. Plan for dialysis again tomorrow as the patient has an actively bleeding AV fistula. 3. Volume overload. Etiology secondary to end-stage renal disease. Continue ultrafiltration dialys is. 4. Pericardial effusion, likely due to uremia and inadequate ultrafiltration dialysis. No overt sig ns of pericarditis. Continue aggressive dialysis and ultrafiltration. Appreciate cardiology evaluat ion. 5. Hyperkalemia, improved. Continue dialysis on a low potassium diet. 6. Hypertension. Continue current blood pressure regimen. Continue ultrafiltration dialysis. 7. Anemia. Monitor hemoglobin and hematocrit levels. 8. Mineral bone disorder. Monitor calcium and phosphorus. Continue Sensipar and phosphate binders. 9. Dyslipidemia. Continue statin therapy. 10. Hypothyroidism, continue Synthroid. 11. Anxiety disorder and depression. Continue medical management. 12. Acute encephalopathy, etiology is likely toxic metabolic. Continue to monitor. Follow up with neurology. 13. Pneumonia. The patient is completing an antibiotic course. Dictated By: MOISES WEISS DO NR/NTS Conf#: [id number] DID#: [id number] CC: LUCÍA HICKS MD; CARLOS SUÁREZ MD; TANA BENTON MD;*EndCC*
--- NOTE | 2018-07-24 11:19 | CONS ---
Assessment/Plan Assessment/Plan Hospital Course 62 yo F with reported hx of ? seizures and other comorbidities who presents for evaluation of dizziness and generalized weakness. Noted on 06/20 to become acutely altered, for which neurology is consulted. Likely an acute toxic-metabolic encephalopathy in the context of respiratory distress... that has shown improvement. A focal FORMULATOR process is unlikely. MRI brain is reassuringly without acute intracranial pathology. P: OK to continue Lamictal per ops PT/OT as necessary Other medical management per primary Will sign off for now; please call w/ ?s Consultation Date/Type/Reason Admit Date/Time July 12, 2018 at 20:28 Type of Consult Neurology Reason for Consultation ams Requesting Provider: CARLOS SUÁREZ Date/Time of Note DATE: 07/24/18 TIME: 11:18 24 HR Interval Summary Free Text/Dictation Continues acute care Exam Vital Signs Vitals Vital Signs Date Temp Pulse Resp B/P (MAP) Pulse Ox O2 O2 Flow FiO2 Time Delivery Rate 07/24/18 84 22 94 Nasal 2.0 08:31 Cannula 07/24/18 97.6 140/65 08:04 (90) 07/21/18 21 20:00 Intake and Output 07/23/18 07/23/18 07/24/18 1515:00 23:00 07:00 IntakeIntake Total 800 ml 50 ml OutputOutput Total 200 ml 2400 ml BalanceBalance 600 ml -2350 ml VERONICA DIETZ July 24, 2018 11:19
[2018-07-24] MEDS ORDERED: morphine 2 MG INJ IV STA (12:27)
--- NOTE | 2018-07-24 14:00 | DS ---
Date/Time of Note Date/Time of Note DATE: 07/24/18 TIME: 13:58 Discharge Summary Admission/Discharge Info Admit Date/Time July 12, 2018 at 20:28 Discharge Date/Time July 24, 2018 Discharge Diagnosis 62-year-old female with a history of end-stage renal disease on hemodialysis who was originally admitted from dialysis units due to weakness and lethargy and recurrent falls. -She had gone to the dialysis unit but was too weak to be discharged home . She was sent to the emergency room for evaluation. 1. Multifocal pneumonia with bilateral pleural effusion and she was treated for healthcare associated pneumonia 2. Pericardial effusion: no need for drainage per cardio 3. SOB with fluid overload and Bilateral pleural effusion, moderate on the r ight with associated atelectasis - s/p Satisfactory ultrasound-guided right thoracentesis 07/21/18. Approximately 475 CC of serous fluid was aspirated and sent to the laboratory for cultures 4. Severe constipation with possible enteritis: resolved 5. Severe anasarca with market body wall edema, severe mesenteric edema, trace ascites -fluid removal with HD, patient had previously declined this 6. Soft tissue fullness right lower neck concerning for dilated vascular structures versus lymphadenopathy -negative USS 7. . Impaired cognition with poor short term memory likely reflective of dementia --Patient has impaired short-term memory, and this is very distressing to her worsening her anxiety. -Brain MRI negative -likely 2/2 dementia -consider aricept therapy o/p if persistent 8. End-stage renal disease on hemodialysis 9. Chronic bipolar disorder and severe anxiety -see by psych multiple times, meds were adjusted, patient is stable on current regimen 10. Chronic hypothyroidism 11. Chronic debility -has been doing much better with PT . Patient Condition: Good Hospital Course 62-year-old female with a history of end-stage renal disease on hemodialysis who was originally admitted from dialysis units due to weakness and lethargy and recurrent falls. -She had gone to the dialysis unit but was too weak to be discharged home . She was sent to the emergency room for evaluation. -Detailed work-up only showed multifocal pneumonia with bilateral pleural effusion and she was treated for healthcare associated pneumonia she was [facility]. She was also managed for the following as below. Discharge to [facility], BP meds have been increased. 1. Pericardial effusion -Echocardiogram with medium sized pericardial effusion with no evidence of tamponade. Furthermore, no hypotension, actually patient with hypertension. -In discussion with nursing staff, patient has not been agreeable to further fluid removal with hemodialysis. Given patient with pleural effusions and pericardial effusion, I agree, volume removal via hemodialysis is the ideal t herapy -No further inpatient cardiac work-up needed at the current time 2. SOB with fluid overload and Bilateral pleural effusion, moderate on the right with associated atelectasis - s/p Satisfactory ultrasound-guided right thoracentesis 07/21/18. Approximately 475 CC of serous fluid was aspirated and sent to the laboratory for cultures 3. Bilateral, multifocal pneumonia -continue IV abx for 2 weeks 4. Severe constipation with possible enteritis versus developing small bowel obstruction -appreciate GI input, patient finally having good output BM after about 4 days 5. Severe anasarca with market body wall edema, severe mesenteric edema, trace ascites -fluid removal with HD, patient had previously declined this 6. Soft tissue fullness right lower neck concerning for dilated vascular structures versus lymphadenopathy -will get USS 6. Impaired cognition with poor short term memory likely reflective of dementia versus acute CVA --Patient has impaired short-term memory, and this is very distressing to her worsening her anxiety. -Brain MRI negative -likely 2/2 dementia -consider aricept therapy o/p if persistent 8. End-stage renal disease on hemodialysis 9. Chronic bipolar disorder and severe anxiety -see by psych multiple times, meds were adjusted, patient is stable on current regimen 10. Chronic hypothyroidism 11. Chronic debility -has been doing much better with PT Home Meds Active Scripts Sennosides* (Senna Lax*) 8.6 Mg Tablet, 2 TAB PO DAILY for 30 Days, TAB Prov:KAMINI,JESICAATITO M. 07/16/18 Polyethylene Glycol* (Miralax*) 17 Gm Powd.pack, 17 GM PO DAILY, #30 PACKET Prov:KAMINI,BOLATITO M. 07/16/18 Lactobacillus Rhamnosus GG (Culturelle) 1 Each Capsule, 1 CAP PO BID for 14 Days, CAP Prov:KAMINI,BOLATITO M. 07/16/18 Docusate Sodium* (Colace*) 250 Mg Capsule, 250 MG PO DAILY, #30 CAP Prov:KAMINI,BOLATITO M. 07/16/18 Buspirone Hcl* (Buspirone Hcl*) 5 Mg Tab, 5 MG PO BID, #60 TAB Prov:CARLOS SUÁREZ. 07/16/18 Spironolactone* (Aldactone*) 50 Mg Tablet, 50 MG PO DAILY, #30 TAB Prov:CARLOS SUÁREZ. 07/16/18 Nifedipine (Procardia Xl) 60 Mg Tab.er.24, 60 MG PO BID, #60 TAB Prov:CARLOS SUÁREZ. 07/16/18 Ipratropium-Albuterol (Ipratropium-Albuterol) 0.5-3 Mg/3 Ml Ampul.neb, 3 ML HHN Q2H RESP THERAPY PRN for SHORTNESS OF BREATH, #30 VIAL Prov:CARLOS SUÁREZ. 07/16/18 Cefepime Hcl/Dextrose, Iso-Osm (Cefepime 2 Gm Injection) 2 Gm/100 Ml Froz.piggy, 2 GM IV AFTER DIALYSIS, #5 DOSE Prov:CARLOS SUÁREZ. 07/16/18 Reported Medications Levothyroxine Sodium* (Levothyroxine Sodium*) 112 Mcg Tablet, 224 MCG PO AC BREAKFAST for 30 Days, #60 07/12/18 Clonidine Hcl* (Clonidine Hcl*) 0.2 Mg Tablet, 0.2 MG PO TID for 30 Days, #90 TAKE 1 TABLET (0.2 MG TOTAL) BY MOUTH THREE (3) TIMES DAILY. 07/12/18 Hydralazine Hcl* (Hydralazine Hcl*) 100 Mg Tablet, 100 MG PO TID TAKE 1 TABLET (100 MG TOTAL) BY MOUTH THREE (3) TIMES DAILY. 07/12/18 Clonazepam (Klonopin) 0.5 Mg Tablet, 0.5 MG PO HS, TAB 07/05/14 Losartan Potassium* (Losartan Potassium*) 50 Mg Tablet, 50 MG PO BID, TAB 07/05/14 Glycerin-Propylene Glycol (Lubricant Eye Drops) 15 Ml Drops, 2 DROP BOTH EYES QID, EA 07/05/14 Quetiapine Fumarate* (Quetiapine Fumarate*) 400 Mg Tablet, 400 MG PO HS, TAB 07/04/14 Folic Acid* (Folic Acid*) 1 Mg Tablet, 1 MG PO DAILY 06/29/13 Multivit/Ca Carb/B Cmplx/Fa* (Deepthi-Frida*) 1 Tab Tab, 1 TAB PO DAILY, TAB 06/24/13 Aspirin Ec (Aspir 81) 81 Mg Tablet.dr, 81 MG PO DAILY 06/24/13 Sevelamer Carbonate* (Renvela*) 800 Mg Tablet, 800 MG PO TID 06/24/13 Cinacalcet* (Sensipar*) 60 Mg Tablet, 60 MG PO DAILY 06/24/13 Follow-up Plan [facility] with [facility] . Primary Care Provider Not On Staff Doctor Time spent on discharge: > 30 minutes MARGARITA MELÉNDEZ July 24, 2018 14:00
--- NOTE | 2018-07-24 14:01 | PN ---
Date/Time of Note Date/Time of Note DATE: 07/24/18 TIME: 13:48 Assessment/Plan VTE Prophylaxis Risk score (from Nsg)>0 risk: 4 SCD applied (from Nsg): No SCD contraindicated: low risk/ambulating Pharmacological prophylaxis: heparin Lines/Catheters IV Catheter Type (from Nrsg): Peripheral IV Urinary Cath still in place: No Assessment/Plan Assessment/Plan Assessment: Chronic constipation -Abd X-ray Moderate volume stool within the colon suggesting constipation. Findings are significantly improved when compared to the prior examination. ESRD on HD Macrocytic anemia -Abd us- shows the liver is normal in echogenicity and measures 16.7 cm Pneumonia- on ABX -Abd X-ray- Small left pleural effusion with left basilar atelectasis versus pneumonia. HTN Medium size pericardial effusion -Preserved left ventricular ejection fraction History of Bipolar disorder Plan: Can add prn simethicone for gas bloating. Continue bowel regimen, constipation improved. Encourage ambulation/OOB as tolerated Patient is in the process of being discharged home per primary team. Patient seen in collaboration with Dr. Garber Subjective: Course reviewed with nursing staff Patient interviewed and examined All labs, imaging and other results reviewed The patient is resting in bed. Dialysis in progress. Patient reports small bowel movements on current bowel regimen. She continues to complain of abdominal distention, denies significant pain. She reports gas bloating. Patient is being discharged. PHYSICAL EXAMINATION: GENERAL: Chronically ill alert & oriented x 3, in no acute distress SKIN: AV fistula Left arm- edema, bruises HEAD: Normocephalic, atraumatic, no tenderness. EYES: Pupils equal reactive to light, no discharge. EARS/NOSE AND THROAT: Ears normal, nose normal. NECK: Supple, no masses. CHEST: Inspection within normal limits. CARDIOVASCULAR: Heart: Regular rate and rhythm RESPIRATORY: Rales lower bases GASTROINTESTINAL AND LIVER: Abdomen: Soft, mild generalized tenderness, mild distended, no guarding, no rebound tenderness, normoactive bowel sounds. Rectal: Deferred. GENITOURINARY: Female genitalia within normal limits. EXTREMITIES: Mild edema. Result Diagram: 07/22/18 1103 07/22/18 1103 CC: LATOYA GARBER ; Exam/Review of Systems Exam Vitals Vital Signs Date Temp Pulse Resp B/P (MAP) Pulse Ox O2 O2 Flow FiO2 Time Delivery Rate 07/24/18 84 22 94 Nasal 2.0 08:31 Cannula 07/24/18 97.6 140/65 08:04 (90) 07/21/18 21 20:00 Intake and Output 07/23/18 07/23/18 07/24/18 1515:00 23:00 07:00 IntakeIntake Total 800 ml 50 ml OutputOutput Total 200 ml 2400 ml BalanceBalance 600 ml -2350 ml Medications Medication Current Medications IV Flush (NS 3 ml) 3 ml PER PROTOCOL IV ; Start 07/13/18 at 00:30 Ondansetron HCl (Zofran Inj) 4 mg Q6H PRN IV NAUSEA/VOMITING Last administered on 07/18/18 12:56; Admin Dose 4 MG; Start 07/13/18 at 00:30 Acetaminophen (Tylenol Tab) 650 mg Q6H PRN PO .PAIN 1-3 OR TEMP Last administered on 07/14/18 04:22; Admin Dose 650 MG; Start 07/13/18 at 00:30 Acetaminophen/ Hydrocodone Bitart ([place] (5/325)) 1 tab Q6H PRN PO .PAIN 4-6 Last administered on 07/23/18 21:21; Admin Dose 1 TAB; Start 07/13/18 at 00:30 Heparin Sodium (Porcine) (Heparin (5000 Units/1ml)) 5,000 unit Q12 SC Last administered on 07/23/18 10:15; Admin Dose 5,000 UNIT; Start 07/13/18 at 09:00 Albuterol/ Ipratropium (Duoneb) 3 ml Q2H RESP THERAPY PRN HHN SHORTNESS OF BREATH Last administered on 07/24/18 13:26; Admin Dose 3 ML; Start 07/13/18 at 00:30 Aspirin (Halfprin) 81 mg DAILY PO Last administered on 07/24/18 09:22; Admin Dose 81 MG; Start 07/13/18 at 09:00 Cinacalcet (Sensipar) 60 mg DAILY PO Last administered on 07/24/18 09:23; Admin Dose 60 MG; Start 07/13/18 at 09:00 Folic Acid (Folic Acid) 1 mg DAILY PO Last administered on 07/24/18 09:25; Admin Dose 1 MG; Start 07/13/18 at 09:00 Levothyroxine Sodium (Synthroid) 224 mcg AC BREAKFAST PO Last administered on 07/24/18 06:03; Admin Dose 224 MCG; Start 07/13/18 at 07:00 Losartan Potassium (Cozaar) 50 mg BID PO Last administered on 07/24/18 09:24; Admin Dose 50 MG; Start 07/13/18 at 00:30 Multivit/Ca Carb/ B Cmplx/FA/Prenat (Deepthi-Frida) 1 tab DAILY PO Last administered on 07/24/18 09:25; Admin Dose 1 TAB; Start 07/13/18 at 09:00 Sevelamer Carbonate (Renvela) 0.8 gm WITH MEALS PO Last administered on 07/24/18 12:43; Admin Dose 0.8 GM; Start 07/13/18 at 08:00 Miscellaneous Information (Pending [facility] Order For Wound Care) This patient sahu... PRN PRN XX WOUND CARE; Start 07/13/18 at 14:30 Nifedipine (Procardia Xl) 60 mg BID PO Last administered on 07/24/18 09:25; Admin Dose 60 MG; Start 07/14/18 at 09:00 Docusate Sodium (Colace) 250 mg DAILY PO Last administered on 07/24/18 09:23; Admin Dose 250 MG; Start 07/14/18 at 13:30 Senna (Senokot) 2 tab DAILY PO Last administered on 07/24/18 09:23; Admin Dose 2 TAB; Start 07/15/18 at 09:00 Clonidine (Catapres) 0.1 mg Q6H PRN PO SBP>160 Last administered on 07/23/18 23:30; Admin Dose 0.1 MG; Start 07/15/18 at 01:55 Spironolactone (Aldactone) 50 mg DAILY PO Last administered on 07/24/18 09:24; Admin Dose 50 MG; Start 07/15/18 at 09:00 Clonazepam (Klonopin) 1 mg Q6H PRN PO ANXIETY Last administered on 07/23/18 13:02; Admin Dose 1 MG; Start 07/16/18 at 13:00 Lactobacillus Acidophilus/ Rhamnosus (Culturelle) 1 cap BID PO Last administered on 07/24/18 09:25; Admin Dose 1 CAP; Start 07/16/18 at 21:00 Hydralazine HCl (Apresoline) 100 mg Q6 PO Last administered on 07/24/18 12:43; Admin Dose 100 MG; Start 07/18/18 at 00:00 Benazepril HCl (Lotensin) 40 mg DAILY PO Last administered on 07/24/18 09:25; Admin Dose 40 MG; Start 07/17/18 at 22:30 Clonidine (Catapres) 0.2 mg Q8 PO Last administered on 07/24/18 06:02; Admin Dose 0.2 MG; Start 07/18/18 at 06:00 Buspirone HCl (Buspar) 5 mg BID PO Last administered on 07/24/18 09:22; Admin Dose 5 MG; Start 07/19/18 at 21:00 Quetiapine Fumarate (Seroquel) 200 mg HS PO Last administered on 07/23/18 21:19; Admin Dose 200 MG; Start 07/19/18 at 21:00 Bisacodyl (Dulcolax Supp) 10 mg DAILY PRN AL CONSTIPATION Last administered on 07/23/18 11:42; Admin Dose 10 MG; Start 07/21/18 at 06:30 Mineral Oil (Fleet Mineral Oil Enema) 133 ml DAILY PRN AL constipation; Start 07/21/18 at 14:00 Lamotrigine (Lamictal) 100 mg BID PO Last administered on 07/24/18 09:24; A dmin Dose 100 MG; Start 07/21/18 at 21:00 Clonazepam (Klonopin) 0.5 mg TID PO Last administered on 07/24/18 12:43; Admin Dose 0.5 MG; Start 07/21/18 at 16:30 Cefepime HCl 50 ml @ 100 mls/hr Q24H IVPB Last administered on 07/23/18 21:16; Admin Dose 100 MLS/HR; Start 07/21/18 at 21:00 Polyethylene Glycol (Miralax) 17 gm BID PO Last administered on 07/24/18 09:25; Admin Dose 17 GM; Start 07/22/18 at 21:00 Lubiprostone (Amitiza) 24 mcg BID PO Last administered on 07/24/18 09:23; Admin Dose 24 MCG; Start 07/22/18 at 11:30 Lactulose (Enulose) 10 gm BID PRN PO CONSTIPATION; Start 07/23/18 at 15:00 BALDOMERO FLORIAN NP July 24, 2018 13:58
[2018-07-24] MEDS ORDERED: hydrALAzine 20 MG INJ IV ONE (14:30)
[2018-07-24 15:04] VITALS: BP 181/88; PULSE 85; RESP 18
--- NOTE | 2018-07-24 18:15 | QN ---
Documentation Comment Called b/c AVF is oozing from site of access on Thursday. There is a tiny area with persistent oozing from the skin - no compression had been applied. A blood soaked gauze was over the site taped to the skin. The AVF has a good thrill and there is no hematoma. The site of AVF gram has no bleeding or hematoma. Edema is still moderate. - instructed nurse to apply surgicel to the bleeding puncture site and cover with gauze and wrap the area with JUAN wraps TANA BENTON MD July 24, 2018 18:15
[2018-07-24 19:53] VITALS: BP 188/89; PULSE 88; RESP 18
[2018-07-24] MEDS: QUETIAPINE 100 MG TAB PO SCH (20:16)
[2018-07-24] MEDS: CEFEPIME 1GM/50 ML (PMX) 50 ML IVPB SCH (20:17)
[2018-07-24] MEDS: HYDROCODONE/APAP (5/325) TAB PO PRN (22:12)
[2018-07-25] VITALS (21 sets, daily range): BP systolic 97–195; BP diastolic 56–95; PULSE 76–86; RESP 17–18
[2018-07-25] MEDS: clonAZEPAM 0.5 MG TAB PO PRN (00:14)
[2018-07-25] MEDS ORDERED: FUROSEMIDE 40 MG INJ IV ONE ×2 (03:30→16:22)
[2018-07-25] MEDS: LEVOTHYROXINE 112 MCG TAB PO SCH (06:49)
[2018-07-25] MEDS: HEPARIN 5,000 UNIT/1 ML VIAL SC SCH ×2 (09:00→21:10)
[2018-07-25] MEDS: BUSPIRONE 5 MG TAB PO SCH ×2 (09:43→21:07)
[2018-07-25] MEDS: FOLIC ACID 1 MG TAB PO SCH (09:43)
[2018-07-25] MEDS: SENNA TAB PO SCH (09:43)
[2018-07-25] MEDS: LUBIPROSTONE 24 MCG CAP PO SCH ×2 (09:43→21:07)
[2018-07-25] MEDS: MULTIVIT/CA CARB/B CMPLX/FA TAB PO SCH (09:43)
[2018-07-25] MEDS: LAMOTRIGINE 100 MG TAB PO SCH ×2 (09:44→21:09)
[2018-07-25] MEDS: LACTOBACILLUS RHAMNOSUS CAP PO SCH ×2 (09:45→21:07)
[2018-07-25] MEDS: clonAZEPAM 0.5 MG TAB PO SCH ×3 (09:45→21:07)
[2018-07-25] MEDS: CINACALCET 30 MG TAB PO SCH (09:45)
[2018-07-25] MEDS: DOCUSATE SODIUM 250 MG CAP PO SCH (09:45)
[2018-07-25] MEDS: ASPIRIN (EC) 81 MG TAB PO SCH (09:45)
[2018-07-25] MEDS: POLYETHYLENE GLYCOL 17 GM PACKET PO SCH ×2 (09:45→21:06)
[2018-07-25] MEDS: SEVELAMER CARBONATE 0.8 GM PKT PO SCH ×3 (09:46→17:25)
[2018-07-25] MEDS: SPIRONOLACTONE 50 MG TAB PO SCH (09:46)
[2018-07-25] MEDS: LOSARTAN 50 MG TAB PO SCH ×2 (10:36→21:07)
[2018-07-25] MEDS: NIFEdipine (XL) 60 MG TAB PO SCH ×2 (10:37→21:09)
[2018-07-25] MEDS: BENAZEPRIL 40 MG TAB PO SCH (10:37)
--- NOTE | 2018-07-25 11:50 | DS ---
Date/Time of Note Date/Time of Note DATE: 07/25/18 TIME: 11:48 Discharge Summary Admission/Discharge Info Admit Date/Time July 12, 2018 at 20:28 Discharge Date/Time July 25, 2018 Discharge Diagnosis DC held once again yesterday secondary to hypertension, ambulance would not take patient back to assisted, patient has since received Lasix and hemodialysis with improvement in blood pressure 62-year-old female with a history of end-stage renal disease on hemodialysis who was originally admitted from dialysis units due to weakness and lethargy and recurrent falls. -She had gone to the dialysis unit but was too weak to be discharged home . She was sent to the emergency room for evaluation. 1. Multifocal pneumonia with bilateral pleural effusion and she was treated for healthcare associated pneumonia 2. Pericardial effusion: no need for drainage per cardio 3. SOB with fluid overload and Bilateral pleural effusion, moderate on the right with associated atelectasis - s/p Satisfactory ultrasound-guided right thoracentesis 07/21/18. Approximately 475 CC of serous fluid was aspirated and sent to the laboratory for cultures 4. Severe constipation with possible enteritis: resolved 5. Severe anasarca with market body wall edema, severe mesenteric edema, trace ascites -fluid removal with HD, patient had previously declined this 6. Soft tissue fullness right lower neck concerning for dilated vascular structures versus lymphadenopathy -negative USS 7. . Impaired cognition with poor short term memory likely reflective of dementia --Patient has impaired short-term memory, and this is very distressing to her worsening her anxiety. -Brain MRI negative -likely 2/2 dementia -consider aricept therapy o/p if persistent 8. End-stage renal disease on hemodialysis 9. Chronic bipolar disorder and severe anxiety -see by psych multiple times, meds were adjusted, patient is stable on current regimen 10. Chronic hypothyroidism 11. Chronic debility -has been doing much better with PT . Patient Condition: Good Hospital Course 62-year-old female with a history of end-stage renal disease on hemodialysis who was originally admitted from dialysis units due to weakness and lethargy and recurrent falls. -She had gone to the dialysis unit but was too weak to be discharged home . She was sent to the emergency room for evaluation. -Detailed work-up only showed multifocal pneumonia with bilateral pleural effusion and she was treated for healthcare associated pneumonia she was planned to be discharged to residential facility on IV antibiotic therapy. She was also managed for the following as below. Discharge to assisted, BP meds have been increased. BP stable prior to DC. 1. Pericardial effusion -Echocardiogram with medium sized pericardial effusion with no evidence of tamponade. Furthermore, no hypotension, actually patient with hypertension. -In discussion with nursing staff, patient has not been agreeable to further fluid removal with hemodialysis. Given patient with pleural effusions and pericardial effusion, I agree, volume removal via hemodialysis is the ideal therapy -No further inpatient cardiac work-up needed at the current time 2. SOB with fluid overload and Bilateral pleural effusion, moderate on the right with associated atelectasis - s/p Satisfactory ultrasound-guided right thoracentesis 07/21/18. Approximately 475 CC of serous fluid was aspirated and sent to the laboratory for cultures 3. Bilateral, multifocal pneumonia -continue IV abx for 2 weeks 4. Severe constipation with possible enteritis versus developing small bowel obstruction -appreciate GI input, patient finally having good output BM after about 4 days 5. Severe anasarca with market body wall edema, severe mesenteric edema, trace ascites -fluid removal with HD, patient had previously declined this 6. Soft tissue fullness right lower neck concerning for dilated vascular structures versus lymphadenopathy -will get USS 6. Impaired cognition with poor short term memory likely reflective of dementia versus acute CVA --Patient has impaired short-term memory, and this is very distressing to her worsening her anxiety. -Brain MRI negative -likely 2/2 dementia -consider aricept therapy o/p if persistent 8. End-stage renal disease on hemodialysis 9. Chronic bipolar disorder and severe anxiety -see by psych multiple times, meds were adjusted, patient is stable on current regimen 10. Chronic hypothyroidism 11. Chronic debility -has been doing much better with PT Home Meds Active Scripts Sennosides* (Senna Lax*) 8.6 Mg Tablet, 2 TAB PO DAILY for 30 Days, TAB Prov:KAMINI,BOLATITO M. 07/16/18 Polyethylene Glycol* (Miralax*) 17 Gm Powd.pack, 17 GM PO DAILY, #30 PACKET Prov:KAMINI,BOLATITO M. 07/16/18 Lactobacillus Rhamnosus GG (Culturelle) 1 Each Capsule, 1 CAP PO BID for 14 Days, CAP Prov:KAMINI,BOLATITO M. 07/16/18 Docusate Sodium* (Colace*) 250 Mg Capsule, 250 MG PO DAILY, #30 CAP Prov:CARLOS SUÁREZ. 07/16/18 Buspirone Hcl* (Buspirone Hcl*) 5 Mg Tab, 5 MG PO BID, #60 TAB Prov:CARLOS SUÁREZ. 07/16/18 Spironolactone* (Aldactone*) 50 Mg Tablet, 50 MG PO DAILY, #30 TAB Prov:CARLOS SUÁREZ. 07/16/18 Nifedipine (Procardia Xl) 60 Mg Tab.er.24, 60 MG PO BID, #60 TAB Prov:CARLOS SUÁREZ. 07/16/18 Ipratropium-Albuterol (Ipratropium-Albuterol) 0.5-3 Mg/3 Ml Ampul.neb, 3 ML HHN Q2H RESP THERAPY PRN for SHORTNESS OF BREATH, #30 VIAL Prov:CARLOS SUÁREZ. 07/16/18 Cefepime Hcl/Dextrose, Iso-Osm (Cefepime 2 Gm Injection) 2 Gm/100 Ml Froz.piggy, 2 GM IV AFTER DIALYSIS, #5 DOSE Prov:CARLOS SUÁREZ. 07/16/18 Reported Medications Levothyroxine Sodium* (Levothyroxine Sodium*) 112 Mcg Tablet, 224 MCG PO AC BREAKFAST for 30 Days, #60 07/12/18 Clonidine Hcl* (Clonidine Hcl*) 0.2 Mg Tablet, 0.2 MG PO TID for 30 Days, #90 TAKE 1 TABLET (0.2 MG TOTAL) BY MOUTH THREE (3) TIMES DAILY. 07/12/18 Hydralazine Hcl* (Hydralazine Hcl*) 100 Mg Tablet, 100 MG PO TID TAKE 1 TABLET (100 MG TOTAL) BY MOUTH THREE (3) TIMES DAILY. 07/12/18 Clonazepam (Klonopin) 0.5 Mg Tablet, 0.5 MG PO HS, TAB 07/05/14 Losartan Potassium* (Losartan Potassium*) 50 Mg Tablet, 50 MG PO BID, TAB 07/05/14 Glycerin-Propylene Glycol (Lubricant Eye Drops) 15 Ml Drops, 2 DROP BOTH EYES QID, EA 07/05/14 Quetiapine Fumarate* (Quetiapine Fumarate*) 400 Mg Tablet, 400 MG PO HS, TAB 4/28/15 Folic Acid* (Folic Acid*) 1 Mg Tablet, 1 MG PO DAILY 06/29/13 Multivit/Ca Carb/B Cmplx/Fa* (Deepthi-Frida*) 1 Tab Tab, 1 TAB PO DAILY, TAB 06/24/13 Aspirin Ec (Aspir 81) 81 Mg Tablet.dr, 81 MG PO DAILY 06/24/13 Sevelamer Carbonate* (Renvela*) 800 Mg Tablet, 800 MG PO TID 06/24/13 Cinacalcet* (Sensipar*) 60 Mg Tablet, 60 MG PO DAILY 06/24/13 Follow-up Plan Follow-up with physicians at residential facility . Primary Care Provider Not On Staff Doctor Time spent on discharge: > 30 minutes MARGARITA MELÉNDEZ July 25, 2018 11:50
--- NOTE | 2018-07-25 12:29 | PN ---
DATE: 07/25/2018 SUBJECTIVE: The patient is stable. The patient's bleeding AV fistula site is improved. No other ev ents noted. OBJECTIVE: VITAL SIGNS: Blood pressure 97/56, temperature 97.6, pulse 86, respirations 17. HEENT: Head is normocephalic. NECK: Supple. HEART: Regular rate. LUNGS: Show diminished breath sounds at base. ABDOMEN: Soft, nontender to palpation without rebound or guarding. EXTREMITIES: Negative for clubbing, cyanosis, positive edema. DERMATOLOGIC: No rashes. MUSCULOSKELETAL: No joint effusion. NEUROLOGIC: No change in exam. MEDICATIONS: The patient's medications have been reviewed. LABORATORY DATA: Has been reviewed. ASSESSMENT AND PLAN: 1. End-stage renal disease. The patient is on daily dialysis for solute clearance and volume remova l due to pericardial effusion, total body anasarca. Will plan for dialysis again today and tomorrow with goal ultrafiltration approximately 2 to 3 liters. 2. Volume overload secondary to end-stage renal disease. Continue ultrafiltration dialysis. 3. Pericardial effusion due to uremia and inadequate ultrafiltration with dialysis. Continue aggres sive dialysis with ultrafiltration. Continue to monitor. Follow up with cardiology. 4. Shortness of breath secondary to volume overload, pulmonary edema. Anticipate hemodialysis today . Continue supplemental oxygen. 5. Hyperkalemia, resolved. 6. Hypertension. Continue current blood pressure regimen. 7. Anemia. Monitor hemoglobin and hematocrit levels. 8. Mineral bone disorder, monitor calcium and phosphorus levels. 9. Dyslipidemia. Continue statin therapy. 10. Hypothyroidism. Continue Synthroid. 11. Anxiety disorder and Depression. Continue medical management. 12. Access. The patient is status post fistulogram. Continue to monitor. Follow up with surgery. 13. Acute encephalopathy, etiology is toxic metabolic, improving. Continue to monitor. 14. Pneumonia. Patient is completing antibiotic course. Dictated By: MOISES WEISS DO NR/NTS Conf#: [id number] DID#: [id number] CC: TANA BENTON MD; MARGARITA MELÉNDEZ MD; LUCÍA HICKS MD;*EndCC*
[2018-07-25] MEDS: HYDROCODONE/APAP (5/325) TAB PO PRN (18:13)
[2018-07-25] MEDS: CEFEPIME 1GM/50 ML (PMX) 50 ML IVPB SCH (21:06)
[2018-07-25] MEDS: QUETIAPINE 100 MG TAB PO SCH (21:07)
[2018-07-26] VITALS (20 sets, daily range): BP systolic 133–175; BP diastolic 70–83; PULSE 79–86; RESP 15–18
[2018-07-26] MEDS ORDERED: hydrALAzine 20 MG INJ IV ONE ×2 (01:00→12:00)
[2018-07-26] MEDS: LEVOTHYROXINE 112 MCG TAB PO SCH (06:08)
[2018-07-26] MEDS: clonAZEPAM 0.5 MG TAB PO SCH ×2 (08:52→12:09)
[2018-07-26] MEDS: LACTOBACILLUS RHAMNOSUS CAP PO SCH (08:52)
[2018-07-26] MEDS: CINACALCET 30 MG TAB PO SCH (08:52)
[2018-07-26] MEDS: LUBIPROSTONE 24 MCG CAP PO SCH (08:52)
[2018-07-26] MEDS: MULTIVIT/CA CARB/B CMPLX/FA TAB PO SCH (08:52)
[2018-07-26] MEDS: ASPIRIN (EC) 81 MG TAB PO SCH (08:52)
[2018-07-26] MEDS: BUSPIRONE 5 MG TAB PO SCH (08:52)
[2018-07-26] MEDS: SPIRONOLACTONE 50 MG TAB PO SCH (08:53)
[2018-07-26] MEDS: LAMOTRIGINE 100 MG TAB PO SCH (08:53)
[2018-07-26] MEDS: DOCUSATE SODIUM 250 MG CAP PO SCH (08:53)
[2018-07-26] MEDS: SENNA TAB PO SCH (08:53)
[2018-07-26] MEDS: FOLIC ACID 1 MG TAB PO SCH (08:53)
[2018-07-26] MEDS: SEVELAMER CARBONATE 0.8 GM PKT PO SCH ×3 (08:53→17:22)
[2018-07-26] MEDS: POLYETHYLENE GLYCOL 17 GM PACKET PO SCH (08:53)
[2018-07-26] MEDS: HEPARIN 5,000 UNIT/1 ML VIAL SC SCH (08:54)
[2018-07-26] MEDS: BENAZEPRIL 40 MG TAB PO SCH ×2 (09:00→12:56)
[2018-07-26] MEDS: NIFEdipine (XL) 60 MG TAB PO SCH ×2 (09:00→12:11)
[2018-07-26] MEDS: LOSARTAN 50 MG TAB PO SCH ×2 (09:00→14:47)
--- NOTE | 2018-07-26 09:27 | PN ---
DATE: 07/26/2018 SUBJECTIVE: The patient is stable. No events overnight. The patient had hemodialysis yesterday, to lerating well. OBJECTIVE: VITAL SIGNS: Blood pressure is 146/71, pulse 81, respirations 16, temperature 98.0. HEENT: Head is normocephalic. NECK: Supple. HEART: Regular rate. LUNGS: Show diminished breath sounds at the base. ABDOMEN: Soft, nontender to palpation, no rebound or guarding. EXTREMITIES: Negative for clubbing, cyanosis. Positive edema. DERMATOLOGIC: No rashes. MUSCULOSKELETAL: No joint effusion. NEUROLOGIC: No change in exam. MEDICATIONS: Have been reviewed. LABORATORY DATA: Has been reviewed. ASSESSMENT AND PLAN: 1. End-stage renal disease. The patient has been receiving daily dialysis for solute clearance, vol ume removal in the setting of pericardial effusion, total body anasarca. Will continue dialysis agai n today with goal ultrafiltration approximately 2 liters. 2. Volume overload, secondary to end-stage renal disease. Continue ultrafiltration dialysis. 3. Pericardial effusion due to uremia and inadequate ultrafiltration dialysis. Continue aggressive dialysis. 4. Shortness of breath secondary to volume overload, pulmonary edema. Continue ultrafiltration dial ysis. Continue supplemental oxygen. 5. Hyperkalemia, resolved. 6. Hypertension. Continue current blood pressure regimen. 7. Anemia. Monitor hemoglobin and hematocrit levels. Will give Epogen as needed. 8. Dyslipidemia. Continue statin therapy. 9. Hypothyroidism. Continue Synthroid. 10. Anxiety disorder, depression. Continue medical management. 11. Access. Patient is status post fistulogram. Continue to monitor. 12. Encephalopathy, etiology toxic metabolic. 13. Pneumonia. Patient is completing antibiotic course. Dictated By: MOISES WEISS DO NR/NTS Conf#: [id number] DID#: [id number] CC: LUCÍA HICKS MD;*EndCC*
[2018-07-26] MEDS: ONDANSETRON 4 MG INJ IV PRN (10:23)
[2018-07-26] MEDS: clonAZEPAM 0.5 MG TAB PO PRN ×2 (10:34→17:50)
[2018-07-26] MEDS ORDERED: ASA/ACETAMINOPHEN/CAFF TAB PO PRN (12:00)
--- NOTE | 2018-07-26 12:11 | EN ---
Date/Time of Note Date/Time of Note DATE: 07/26/18 TIME: 12:05 Event Note Medicine Medicine Event Note Date/Time of Note Date/Time of Note DATE: 07/25/18 TIME: 11:48 Discharge Summary Admission/Discharge Info Admit Date/Time July 12, 2018 at 20:28 Discharge Date/Time July 25, 2018 Discharge Diagnosis 62-year-old female with a history of end-stage renal disease on hemodialysis who was originally admitted from dialysis units due to weakness and lethargy and recurrent falls. -She had gone to the dialysis unit but was too weak to be discharged home . She was sent to the emergency room for evaluation. 1. Multifocal pneumonia with bilateral pleural effusion and she was treated for healthcare associated pneumonia 2. Pericardial effusion: no need for drainage per cardio 3. SOB with fluid overload and Bilateral pleural effusion, moderate on the right with associated atelectasis: improved - s/p Satisfactory ultrasound-guided right thoracentesis 07/21/18. Approximately 475 CC of serous fluid was aspirated and sent to the laboratory for cultures -cultures remain negative 4. Severe constipation with possible enteritis: resolved 5. Severe anasarca with market body wall edema, severe mesenteric edema, trace ascites -fluid removal with HD, patient had previously declined this 6. Soft tissue fullness right lower neck concerning for dilated vascular structures versus lymphadenopathy -negative USS 7. . Impaired cognition with poor short term memory likely reflective of dementia --Patient has impaired short-term memory, and this is very distressing to her worsening her anxiety. -Brain MRI negative -likely 2/2 dementia -consider aricept therapy o/p if persistent 8. End-stage renal disease on hemodialysis 9. Chronic bipolar disorder and severe anxiety -see by psych multiple times, meds were adjusted, patient is stable on current regimen 10. Chronic hypothyroidism 11. Chronic debility -has been doing much better with PT . Patient Condition: Good Hospital Course 62-year-old female with a history of end-stage renal disease on hemodialysis who was originally admitted from dialysis units due to weakness and lethargy and recurrent falls. -She had gone to the dialysis unit but was too weak to be discharged home . She was sent to the emergency room for evaluation. -Detailed work-up only showed multifocal pneumonia with bilateral pleural effusion and she was treated for healthcare associated pneumonia she was planned to be discharged to [facility] on IV antibiotic therapy. She was also managed for the following as below. Discharge to [facility], 1. Pericardial effusion -Echocardiogram with medium sized pericardial effusion with no evidence of tamponade. Furthermore, no hypotension, actually patient with hypertension. -In discussion with nursing staff, patient has not been agreeable to further fluid removal with hemodialysis. Given patient with pleural effusions and p ericardial effusion, I agree, volume removal via hemodialysis is the ideal therapy -No further inpatient cardiac work-up needed at the current time 2. SOB with fluid overload and Bilateral pleural effusion, moderate on the right with associated atelectasis - s/p Satisfactory ultrasound-guided right thoracentesis 07/21/18. Approximately 475 CC of serous fluid was aspirated and sent to the laboratory for cultures --cultures remain negative 3. Bilateral, multifocal pneumonia -continue IV abx for 2 weeks till 07/27/18 4. Severe constipation with possible enteritis versus developing small bowel obstruction -appreciate GI input, patient finally having good output BM after about 4 days 5. Severe anasarca with market body wall edema, severe mesenteric edema, trace ascites -fluid removal with HD, patient had previously declined this 6. Soft tissue fullness right lower neck concerning for dilated vascular structures versus lymphadenopathy -USS shows no concerning findings 6. Impaired cognition with poor short term memory likely reflective of dementia versus acute CVA --Patient has impaired short-term memory, and this is very distressing to her worsening her anxiety. -Brain MRI negative -likely 2/2 dementia -consider aricept therapy o/p if persistent 8. End-stage renal disease on hemodialysis 9. Chronic bipolar disorder and severe anxiety -see by psych multiple times, meds were adjusted, patient is stable on current regimen 10. Chronic hypothyroidism 11. Chronic debility -has been doing much better with PT Addendum: DC held once again yesterday secondary to hypertension, apparently, nursing staff has been holding antihypertensives because of hemodialysis. I had a long conversation with them, we also confirmed with nephrology. Once daily medications should always be given after dialysis regardless of the time, except blood pressure is low or patient does not meet parameters. Today the patient she will get her antihypertensives that way due at 9 AM and not given due to dialysis after hemodialysis, and hopefully blood pressure should be appropriate when the ambulance comes to pick her up. Patient has been reassessed and remained stable for discharge Discharge medications Most up-to-date list on paper medication reconciliation inpatient chart Sennosides* (Senna Lax*) 8.6 Mg Tablet, 2 TAB PO DAILY for 30 Days, TAB Prov:CARLOS SUÁREZ. 07/16/18 Polyethylene Glycol* (Miralax*) 17 Gm Powd.pack, 17 GM PO DAILY, #30 PACKET Prov:CARLOS SUÁREZ . 07/16/18 Lactobacillus Rhamnosus GG (Culturelle) 1 Each Capsule, 1 CAP PO BID for 14 Days, CAP Prov:CARLOS SUÁREZ . 07/16/18 Docusate Sodium* (Colace*) 250 Mg Capsule, 250 MG PO DAILY, #30 CAP Prov:CARLOS SUÁREZ . 07/16/18 Buspirone Hcl* (Buspirone Hcl*) 5 Mg Tab, 5 MG PO BID, #60 TAB Prov:CARLOS SUÁREZ . 07/16/18 Spironolactone* (Aldactone*) 50 Mg Tablet, 50 MG PO DAILY, #30 TAB Prov:CARLOS SUÁREZ . 07/16/18 Nifedipine (Procardia Xl) 60 Mg Tab.er.24, 60 MG PO BID, #60 TAB Prov:CARLOS SUÁREZ . 07/16/18 Ipratropium-Albuterol (Ipratropium-Albuterol) 0.5-3 Mg/3 Ml Ampul.neb, 3 ML HHN Q2H RESP THERAPY PRN for SHORTNESS OF BREATH, #30 VIAL Prov:CARLOS SUÁREZ . 07/16/18 Cefepime Hcl/Dextrose, Iso-Osm (Cefepime 2 Gm Injection) 2 Gm/100 Ml Froz.piggy, 2 GM IV AFTER DIALYSIS, #5 DOSE Prov:CARLOS SUÁREZ . 07/16/18 Reported Medications Levothyroxine Sodium* (Levothyroxine Sodium*) 112 Mcg Tablet, 224 MCG PO AC BREAKFAST for 30 Days, #60 07/12/18 Clonidine Hcl* (Clonidine Hcl*) 0.2 Mg Tablet, 0.2 MG PO TID for 30 Days, #90 TAKE 1 TABLET (0.2 MG TOTAL) BY MOUTH THREE (3) TIMES DAILY. 07/12/18 Hydralazine Hcl* (Hydralazine Hcl*) 100 Mg Tablet, 100 MG PO TID TAKE 1 TABLET (100 MG TOTAL) BY MOUTH THREE (3) TIMES DAILY. 07/12/18 Clonazepam (Klonopin) 0.5 Mg Tablet, 0.5 MG PO HS, TAB 07/05/14 Losartan Potassium* (Losartan Potassium*) 50 Mg Tablet, 50 MG PO BID, TAB 07/05/14 Glycerin-Propylene Glycol (Lubricant Eye Drops) 15 Ml Drops, 2 DROP BOTH EYES QID, EA 07/05/14 Quetiapine Fumarate* (Quetiapine Fumarate*) 400 Mg Tablet, 400 MG PO HS, TAB 07/04/14 Folic Acid* (Folic Acid*) 1 Mg Tablet, 1 MG PO DAILY 06/29/13 Multivit/Ca Carb/B Cmplx/Fa* (Deepthi-Frida*) 1 Tab Tab, 1 TAB PO DAILY, TAB 06/24/13 Aspirin Ec (Aspir 81) 81 Mg Tablet.dr, 81 MG PO DAILY 06/24/13 Sevelamer Carbonate* (Renvela*) 800 Mg Tablet, 800 MG PO TID 06/24/13 Cinacalcet* (Sensipar*) 60 Mg Tablet, 60 MG PO DAILY 06/24/13 Follow-up Plan Follow-up with physicians at [facility] . Primary Care Provider Not On Staff Doctor Time spent on discharge: > 30 minutes CARLOS SUÁREZ July 26, 2018 12:11
[2018-07-26] MEDS ORDERED: EPOETIN ALFA-EPBX (NON-ESRD 10,000 UNIT/ML VIAL SC SCH (17:00)
== END 2018-07-26 19:10 | DRG 252 ==
LOC: E/R 18:03 → 6WM 20:28 → 2NE 07-14 23:57 → 5EC 07-20 20:48
PROVIDERS: ADMIT Internal Medicine; ATTEND Family Medicine
PROC: 5A1D70Z Performance of Urinary Filtration, Intermittent, Less than 6 Hours Per Day (ICD-10-PCS; principal; 2018-07-13)
PROC: 0W993ZZ Drainage of Right Pleural Cavity, Percutaneous Approach (ICD-10-PCS; 2018-07-21)
PROC: 027V3ZZ Dilation of Superior Vena Cava, Percutaneous Approach (ICD-10-PCS; 2018-07-23)
PROC: 05743ZZ Dilation of Left Innominate Vein, Percutaneous Approach (ICD-10-PCS; 2018-07-23)
PROC: B51WYZZ Fluoroscopy of Dialysis Shunt/Fistula using Other Contrast (ICD-10-PCS; 2018-07-23)
PROC: B51NYZZ Fluoroscopy of Left Upper Extremity Veins using Other Contrast (ICD-10-PCS; 2018-07-23)
DX: I16.0 Hypertensive urgency (principal); N18.6 End stage renal disease; J18.9 Pneumonia, unspecified organism; G92 Toxic encephalopathy; J90 Pleural effusion, not elsewhere classified; I31.3 Pericardial effusion (noninflammatory); J98.11 Atelectasis; T82.856A Stenosis of peripheral vascular stent, initial encounter; T82.898A Other specified complication of vascular prosthetic devices, implants and grafts, initial encounter; I12.0 Hypertensive chronic kidney disease with stage 5 chronic kidney disease or end stage renal disease; D63.1 Anemia in chronic kidney disease; D72.819 Decreased white blood cell count, unspecified; D53.9 Nutritional anemia, unspecified; E87.70 Fluid overload, unspecified; E03.9 Hypothyroidism, unspecified; E78.5 Hyperlipidemia, unspecified; E87.5 Hyperkalemia; F31.9 Bipolar disorder, unspecified; F41.9 Anxiety disorder, unspecified; F03.90 Unspecified dementia, unspecified severity, without behavioral disturbance, psychotic disturbance, mood disturbance, and anxiety; F91.9 Conduct disorder, unspecified; J32.0 Chronic maxillary sinusitis; K59.09 Other constipation; K52.9 Noninfective gastroenteritis and colitis, unspecified; M62.838 Other muscle spasm; M62.50 Muscle wasting and atrophy, not elsewhere classified, unspecified site; R06.03 Acute respiratory distress; R53.81 Other malaise; R29.6 Repeated falls; R60.1 Generalized edema; R14.0 Abdominal distension (gaseous); R22.1 Localized swelling, mass and lump, neck; Y95 Nosocomial condition; Y83.8 Other surgical procedures as the cause of abnormal reaction of the patient, or of later complication, without mention of misadventure at the time of the procedure; Z99.2 Dependence on renal dialysis; Z79.82 Long term (current) use of aspirin
CPT/HCPCS: 36415; 36600; 36902; 70450; 70551; 71045; 71250; 74018; 74176; 76536; 76700; 76942; 80048; 80053; 80061; 81001; 82803; 83036; 83540; 83735; 84100; 84439; 84443; 85025; 85610; 85730; 87070; 87081; 87102; 87116; 87340; 90935; 93005; 93306; 93970; 93971; 94640; 94664; 97110; 97116; 97161; 97530; C1894; J0360; J0692; J1644; J1940; J2060; J2270; J2405; Q5106

== ENCOUNTER 2018-07-28 02:16 | Inpatient (IN) | payer OTHER ==
[~2018-07-28] VITALS: Ht 152.4 cm; Wt 54.0 kg
[~2018-07-28 02:16] MED LIST changes: +BUSP5TAB2 PO; +CEFE2FRO IV; +CLON0.2T5 PO; -CLON1TAB13 PO; +DOCU250C58 PO; +HYDR100T25 PO; +IPRA3AMP29 HHN; +LACT1CAP28 PO; -LAMO25TA8 PO; -LEVO100T82 PO; +LEVO112T57 PO; +NIFE60TA2 PO; -NORVAC; +POLY17PO6 PO; -QUET100T32 PO; +SENN-120 PO; -SIMV40TA2 PO; +SPIR50TA PO
[2018-07-28] MEDS ORDERED: SOD CHLORIDE 0.9% 500 ML IV STA (02:29)
[2018-07-28] MEDS ORDERED: ONDANSETRON 4 MG INJ IV STA (02:29)
[2018-07-28] MEDS ORDERED: HYDROmorphONE 1 MG/ML SYG IV STA (02:29)
[2018-07-28] MEDS ORDERED: LEVO200T6 PO (04:30)
[2018-07-28] MEDS ORDERED: DULO30CA47 PO (04:30)
[2018-07-28] MEDS ORDERED: QUET100T32 PO (04:30)
[2018-07-28] MEDS ORDERED: DOXA1TAB PO (04:30)
--- NOTE | 2018-07-28 05:43 | ERD ---
ER Documentation Chief Complaint Chief Complaint [id number],from [facility],O2 dependent,migraine & abd pain HPI Is a very pleasant 62-year-old female complains of abdominal pain. Patient comes in from senior living facility. He said the vomiting started insidiously and is progressively worse. Today she denies fevers chills. She does complain a of 2 loose bowel movements. Denies any other current problems pain is mild to moderate intensity comes in waves with no exacerbating or alleviating factors. ROS All systems reviewed and are negative except as per history of present illness. Medications Home Meds Active Scripts Sennosides* (Senna Lax*) 8.6 Mg Tablet, 2 TAB PO DAILY for 30 Days, TAB Prov:CARLOS SUÁREZ . 07/16/18 Polyethylene Glycol* (Miralax*) 17 Gm Powd.pack, 17 GM PO DAILY, #30 PACKET Prov:CARLOS SUÁREZ . 07/16/18 Lactobacillus Rhamnosus GG (Culturelle) 1 Each Capsule, 1 CAP PO BID for 14 Days, CAP Prov:CARLOS SUÁREZ . 07/16/18 Docusate Sodium* (Colace*) 250 Mg Capsule, 250 MG PO DAILY, #30 CAP Prov:CARLOS SUÁREZ . 07/16/18 Buspirone Hcl* (Buspirone Hcl*) 5 Mg Tab, 5 MG PO BID, #60 TAB Prov:KAMINIJESICAGINGER . 07/16/18 Spironolactone* (Aldactone*) 50 Mg Tablet, 50 MG PO DAILY, #30 TAB Prov:CARLOS SUÁREZ . 07/16/18 Nifedipine (Procardia Xl) 60 Mg Tab.er.24, 60 MG PO BID, #60 TAB Prov:KAMINIJESICAGINGER . 07/16/18 Ipratropium-Albuterol (Ipratropium-Albuterol) 0.5-3 Mg/3 Ml Ampul.neb, 3 ML HHN Q2H RESP THERAPY PRN for SHORTNESS OF BREATH, #30 VIAL Prov:CARLOS SUÁREZ . 07/16/18 Reported Medications Quetiapine Fumarate* (Quetiapine Fumarate*) 100 Mg Tablet, 100 MG PO QPM for 30 Days, #30 07/28/18 Doxazosin Mesylate* (Doxazosin Mesylate*) 1 Mg Tablet, 1 MG PO BID for 90 Days, #180 07/28/18 Levothyroxine Sodium* (Levothyroxine Sodium*) 200 Mcg Tablet, 200 MCG PO QAM for 90 Days, #90 07/28/18 Duloxetine Hcl* (Duloxetine Hcl*) 30 Mg Capsule.dr, 30 MG PO DAILY for 90 Days, #90 07/28/18 Clonidine Hcl* (Clonidine Hcl*) 0.2 Mg Tablet, 0.2 MG PO TID for 30 Days, #90 TAKE 1 TABLET (0.2 MG TOTAL) BY MOUTH THREE (3) TIMES DAILY. 07/12/18 Hydralazine Hcl* (Hydralazine Hcl*) 100 Mg Tablet, 100 MG PO TID TAKE 1 TABLET (100 MG TOTAL) BY MOUTH THREE (3) TIMES DAILY. 07/12/18 Clonazepam (Klonopin) 0.5 Mg Tablet, 0.5 MG PO HS, TAB 07/05/14 Losartan Potassium* (Losartan Potassium*) 50 Mg Tablet, 50 MG PO BID, TAB 07/05/14 Quetiapine Fumarate* (Quetiapine Fumarate*) 400 Mg Tablet, 400 MG PO HS, TAB 07/04/14 Folic Acid* (Folic Acid*) 1 Mg Tablet, 1 MG PO DAILY 06/29/13 Multivit/Ca Carb/B Cmplx/Fa* (Deepthi-Frida*) 1 Tab Tab, 1 TAB PO DAILY, TAB 06/24/13 Aspirin Ec (Aspir 81) 81 Mg Tablet.dr, 81 MG PO DAILY 06/24/13 Sevelamer Carbonate* (Renvela*) 800 Mg Tablet, 800 MG PO TID 06/24/13 Cinacalcet* (Sensipar*) 60 Mg Tablet, 60 MG PO DAILY 06/24/13 Discontinued Reported Medications Levothyroxine Sodium* (Levothyroxine Sodium*) 112 Mcg Tablet, 224 MCG PO AC BREAKFAST for 30 Days, #60 07/12/18 Glycerin-Propylene Glycol (Lubricant Eye Drops) 15 Ml Drops, 2 DROP BOTH EYES QID, EA 07/05/14 Discontinued Scripts Cefepime Hcl/Dextrose, Iso-Osm (Cefepime 2 Gm Injection) 2 Gm/100 Ml Froz.piggy, 2 GM IV AFTER DIALYSIS, #5 DOSE Prov:CARLOS SUÁREZ 07/16/18 Allergies Allergies: Coded Allergies: No Known Allergies (Verified Allergy, Mild, 07/10/13) PMhx/Soc History of Surgery: Yes (hernia repair, Left arm AVF) Anesthesia Reaction: No Hx Neurological Disorder: No Hx Respiratory Disorders: No Hx Cardiac Disorders: Yes (HTN, dislipidemia ) Hx Psychiatric Problems: Yes (bipolar,depression,anxiety) Hx Miscellaneous Medical Probl: Yes (Hemodialysis MWF,muscle weakness,difficulty walking) Hx Alcohol Use: No Hx Substance Use: No Hx Tobacco Use: No Smoking Status: Never smoker Physical Exam Vitals Vital Signs Date Temp Pulse Resp B/P (MAP) Pulse Ox O2 O2 Flow FiO2 Time Delivery Rate 07/28/18 88 21 187/84 96 Room Air 04:30 (118) 07/28/18 Nasal 3.0 02:46 Cannula 07/28/18 84 21 194/81 97 Nasal 3.0 02:30 (118) Cannula 07/28/18 98.8 87 18 199/84 93 02:20 (122) Physical Exam Const: No acute distress Head: Atraumatic Eyes: Normal Conjunctiva ENT: Normal External Ears, Nose and Mouth. Neck: Full range of motion. No meningismus. Resp: Clear to auscultation bilaterally Cardio: Regular rate and rhythm, no murmurs Abd: Soft, non tender, non distended. Normal bowel sounds Skin: No petechiae or rashes Back: No midline or flank tenderness Ext: No cyanosis, or edema Neur: Awake and alert Psych: Normal Mood and Affect Result Diagram: 07/28/18 0302 07/28/18 0302 Results 24 hrs Laboratory Tests Test 07/28/18 03:02 White Blood Count 4.5 10^3/ul Red Blood Count 2.43 10^6/ul Hemoglobin 9.1 g/dl Hematocrit 26.8 % Mean Corpuscular Volume 110.3 fl Mean Corpuscular Hemoglobin 37.4 pg Mean Corpuscular Hemoglobin Concent 34.0 g/dl Red Cell Distribution Width 13.0 % Platelet Count 203 10^3/UL Mean Platelet Volume 10.1 fl Immature Granulocytes % 0.200 % Neutrophils % 62.9 % Lymphocytes % 15.9 % Monocytes % 12.4 % Eosinophils % 7.3 % Basophils % 1.3 % Nucleated Red Blood Cells % 0.0 /100WBC Immature Granulocytes # 0.010 10^3/ul Neutrophils # 2.8 10^3/ul Lymphocytes # 0.7 10^3/ul Monocytes # 0.6 10^3/ul Eosinophils # 0.3 10^3/ul Basophils # 0.1 10^3/ul Nucleated Red Blood Cells # 0.0 10^3/ul Sodium Level 136 mmol/L Potassium Level 4.6 mmol/L Chloride Level 94 mmol/L Carbon Dioxide Level 30 mmol/L Anion Gap 12 Blood Urea Nitrogen 62 mg/dl Creatinine 3.17 mg/dl Est Glomerular Filtrat Rate mL/min 15 mL/min Glucose Level 118 mg/dl Calcium Level 8.6 mg/dl Total Bilirubin 0.1 mg/dl Direct Bilirubin 0.00 mg/dl Indirect Bilirubin 0.1 mg/dl Aspartate Amino Transf (AST/SGOT) 30 IU/L Alanine Aminotransferase (ALT/SGPT) 21 IU/L Alkaline Phosphatase 188 IU/L Troponin I 0.049 ng/ml Total Protein 7.0 g/dl Albumin 3.8 g/dl Globulin 3.20 g/dl Albumin/Globulin Ratio 1.18 Lipase 314 U/L Current Medications Medications Dose Sig/Martín Start Time Status Last (Trade) Ordered Route PRN Stop Time Admin Dose Reason Admin Sodium 500 ml @ Q1H STAT 07/28/18 DC 07/28/18 Chloride 500 mls/hr IV 02:29 02:55 07/28/18 03:28 1 mg ONCE STAT 07/28/18 DC 07/28/18 Hydromorphone IV 02:29 02:56 HCl 07/28/18 02:31 (Dilaudid) Ondansetron 4 mg ONCE STAT 07/28/18 DC 07/28/18 HCl (Zofran IV 02:29 02:56 Inj) 07/28/18 02:31 Piperacillin 100 ml @ ONCE ONCE 07/28/18 Sod/ 200 mls/hr IVPB 06:00 Tazobactam 07/28/18 06:29 Sod Procedures/MDM Medical decision making: This is a 59-year-old female as well as to be colitis based on CAT scan that is consistent with her symptomology. At this point clinically stable. Patient will be admitted Departure Diagnosis: Primary Impression: Colitis Condition: Serious LUCÍA FOFANA July 28, 2018 05:43
[2018-07-28] MEDS ORDERED: PIPER-TAZO 3.375 GM IV (PMX) 100 ML IVPB ONE (06:00)
--- NOTE | 2018-07-28 07:19 | HP ---
Date/Time of Note Date/Time of Note DATE: 07/28/18 TIME: 07:11 Assessment/Plan VTE Prophylaxis Pharmacological prophylaxis: other Lines/Catheters IV Catheter Type (from Nrsg): Saline Lock Assessment/Plan Assessment/Plan 1. Colonic wall thickening: infectious colitis or inflammatory bowel disease vs Ischemic colitis -Keep patient n.p.o. for now -CT with contrast -GI consult 2. Headache: Patient with known migraine headache -Pain management and blood pressure control 3. Hypertensive urgency: Adjust BP meds as needed 4. ESRD on HD: Nephrology for dialysis 5. Large pericardial effusion: Patient was recently admitted and per cardiology, no need for drainage -We will reconsult cardiology 6. Volume overload state with pleural effusion and anasarca with ascites -Status post right-sided thoracentesis during recent hospitalization. We may repeat that on this hospitalization 7. Bipolar, depression and anxiety -Patient recently had a psych eval with a diagnosis of bipolar, depressive type -Continue meds when no longer n.p.o. Result Diagram: 07/28/18 0302 07/28/18 0302 Results 24hrs Laboratory Tests Test 07/28/18 03:02 White Blood Count 4.5 L Red Blood Count 2.43 L Hemoglobin 9.1 L Hematocrit 26.8 L Mean Corpuscular Volume 110.3 H Mean Corpuscular Hemoglobin 37.4 H Mean Corpuscular Hemoglobin Concent 34.0 Red Cell Distribution Width 13.0 Platelet Count 203 # Mean Platelet Volume 10.1 Immature Granulocytes % 0.200 Neutrophils % 62.9 Lymphocytes % 15.9 Monocytes % 12.4 H Eosinophils % 7.3 H Basophils % 1.3 Nucleated Red Blood Cells % 0.0 Immature Granulocytes # 0.010 Neutrophils # 2.8 Lymphocytes # 0.7 L Monocytes # 0.6 Eosinophils # 0.3 Basophils # 0.1 Nucleated Red Blood Cells # 0.0 Sodium Level 136 Potassium Level 4.6 Chloride Level 94 L Carbon Dioxide Level 30 Anion Gap 12 Blood Urea Nitrogen 62 H Creatinine 3.17 H Est Glomerular Filtrat Rate mL/min 15 L Glucose Level 118 Calcium Level 8.6 Total Bilirubin 0.1 L Direct Bilirubin 0.00 Indirect Bilirubin 0.1 Aspartate Amino Transf (AST/SGOT) 30 Alanine Aminotransferase (ALT/SGPT) 21 Alkaline Phosphatase 188 H Troponin I 0.049 Total Protein 7.0 Albumin 3.8 Globulin 3.20 Albumin/Globulin Ratio 1.18 Lipase 314 H HPI/ROS Admit Date/Time Admit Date/Time Hx of Present Illness Patient is a 62-year-old female with a history of ESRD on HD, hypothyroidism, debility, bipolar/anxiety, hypertension, dyslipidemia, migraine headache who was sent from the facility with multiple complaints , bloating abdominal pain, generalized weakness, muscle loss and headache. She said "everything is going wrong with me". She said that she noticed that she has been losing muscle and as a result she has been feeling weak. She also complains of abdominal pain which improves with bowel movement. Last bowel movement was yesterday x 2. Patient was just discharged from here 3 days ago. During recent hospitalization, she was diagnosed with multifocal pneumonia and was treated for healthcare associated pneumonia. Had a thoracentesis for right pleural effusion. Also noted to have a pericardial effusion, no need for drainage per cardiology. CT at that time also showed severe constipation, which had resolved. He was noted that patient may have had enteritis at that time as well. Patient presents the ER today, blood pressure was 199/84. CT abdomen/pelvis shows the followin. Wall thickening of the colon from the splenic flexure through the descending colon. This could be due to infectious colitis or inflammatory bowel disease. Ischemic colitis is also a consideration given the distribution. Follow-up study with enteric and intravenous contrast may be helpful. No pneumatosis or portal venous gas is seen. 2. Redemonstration of severe anasarca and mild ascites. 3. Some increase in bilateral pleural effusions. Large pericardial effusion and cardiomegaly again seen. PMH/Family/Social Past Medical History Past Medical History Medical History: other (See HPI) Past Surgical History Past Surgical Hx: other (See HPI) Family History Significant Family History: no pertinent family hx Social History Alcohol Use: none Smoking Status: Never smoker Drug Use: none Exam Constitutional: alert, oriented, well developed Head: normocephalic, atraumatic Eyes: EOMI, PERRL Respiratory: clear to auscultation, normal air movement Cardiovascular: regular rate and rhythm, nl pulses Gastrointestinal: soft, non-tender Extremities: normal pulses Medications Current Medications IV Flush (NS 3 ml) 3 ml PER PROTOCOL IV ; Start 07/28/18 at 07:30; Status UNV Ondansetron HCl (Zofran Inj) 4 mg Q6H PRN IV NAUSEA/VOMITING; Start 07/28/18 at 07:30; Status UNV Morphine Sulfate (morphine) 2 mg Q4H PRN IV .SEVERE PAIN 7-10; Start 07/28/18 at 07:30; Status UNV Pantoprazole (Protonix Iv) 40 mg DAILY@06 IV ; Start 07/29/18 at 06:00; Status UNV Albuterol/ Ipratropium (Duoneb) 3 ml Q2H RESP THERAPY PRN HHN SHORTNESS OF BREATH; Start 07/28/18 at 07:30; Status UNV Piperacillin Sod/ Tazobactam Sod 100 ml @ 200 mls/hr Q6H IVPB ; Start 07/28/18 at 07:30; Status UNV Coded Allergies: No Known Allergies (Verified Allergy, Mild, 07/10/13) Past Surgical History Past Surgical Hx: other Social History Smoking Status: Never smoker Exam/Review of Systems Vital Signs Vitals Vital Signs Date Temp Pulse Resp B/P (MAP) Pulse Ox O2 O2 Flow FiO2 Time Delivery Rate 07/28/18 87 19 174/75 96 Room Air 05:55 (108) 07/28/18 3.0 02:46 07/28/18 98.8 02:20 LUCÍA HICKS MD July 28, 2018 07:19
[2018-07-28] MEDS ORDERED: morphine 2 MG INJ IV PRN (07:30)
[2018-07-28] MEDS ORDERED: ALBUTEROL/IPRATROPIUM (NEB) 3 ML AMP HHN PRN ×2 (07:30→15:00)
[2018-07-28] MEDS ORDERED: NACL 0.9% 3 ML SYG IV SCH (07:30)
[2018-07-28] MEDS: hydrALAzine 20 MG INJ IV PRN ×4 (07:45→20:13)
[2018-07-28] MEDS: FAMOTIDINE 20 MG INJ IV SCH ×2 (07:45→08:37)
[2018-07-28] MEDS ORDERED: LORAZEPAM 1 MG TAB PO ONE (08:05)
[2018-07-28] MEDS ORDERED: IOHEXOL 300MG/ML 150 ML BTL ONE (13:06)
[2018-07-28] MEDS ORDERED: SOD CHLORIDE 0.9% 100 ML ONE (13:06)
[2018-07-28] MEDS: ONDANSETRON 4 MG INJ IV PRN ×2 (14:14→20:33)
--- NOTE | 2018-07-28 15:09 | PN ---
Date/Time of Note Date/Time of Note DATE: 07/28/18 TIME: 15:00 Assessment/Plan VTE Prophylaxis Pharmacological prophylaxis: heparin Lines/Catheters IV Catheter Type (from Nrsg): Saline Lock Assessment/Plan Hospital Course 1. Abdominal pain secondary to gas and constipation -Initial CT of the abdomen without contrast showed possible colitis, repeat CT with contrast did not show colitis -Imaging is consistent with constipation the patient reports gaseous pain -Patient with 2 bowel movements this morning -Continue laxatives and stool softeners, have increased Colace and senna doses -Started scheduled simethicone -Resume diet 2. Headache: Patient with known migraine headache -Excedrin 3. Hypertensive urgency -Resume home meds 4. ESRD on HD secondary to lithium toxicity -Nephrology for dialysis 5. Anasarca with ascites and large pericardial effusion secondary to end-stage renal disease and malnutrition -HD per renal -Status post right-sided thoracentesis during recent hospitalization, consider repeat thoracentesis during this hospitalization 6. Malnutrition -Supplements with meals 7. Bipolar, depression and anxiety -Patient recently had a psych eval with a diagnosis of bipolar, depressive type -Continue meds Prophylaxis: Heparin Result Diagram: 07/28/18 0302 07/28/18 0302 Results 24hrs Laboratory Tests Test 07/28/18 03:02 White Blood Count 4.5 L Red Blood Count 2.43 L Hemoglobin 9.1 L Hematocrit 26.8 L Mean Corpuscular Volume 110.3 H Mean Corpuscular Hemoglobin 37.4 H Mean Corpuscular Hemoglobin Concent 34.0 Red Cell Distribution Width 13.0 Platelet Count 203 # Mean Platelet Volume 10.1 Immature Granulocytes % 0.200 Neutrophils % 62.9 Lymphocytes % 15.9 Monocytes % 12.4 H Eosinophils % 7.3 H Basophils % 1.3 Nucleated Red Blood Cells % 0.0 Immature Granulocytes # 0.010 Neutrophils # 2.8 Lymphocytes # 0.7 L Monocytes # 0.6 Eosinophils # 0.3 Basophils # 0.1 Nucleated Red Blood Cells # 0.0 Sodium Level 136 Potassium Level 4.6 Chloride Level 94 L Carbon Dioxide Level 30 Anion Gap 12 Blood Urea Nitrogen 62 H Creatinine 3.17 H Est Glomerular Filtrat Rate mL/min 15 L Glucose Level 118 Calcium Level 8.6 Total Bilirubin 0.1 L Direct Bilirubin 0.00 Indirect Bilirubin 0.1 Aspartate Amino Transf (AST/SGOT) 30 Alanine Aminotransferase (ALT/SGPT) 21 Alkaline Phosphatase 188 H Troponin I 0.049 Total Protein 7.0 Albumin 3.8 Globulin 3.20 Albumin/Globulin Ratio 1.18 Lipase 314 H Subjective 24 Hr Interval Summary Neurologic: headache Exam/Review of Systems Exam Vitals Vital Signs Date Temp Pulse Resp B/P (MAP) Pulse Ox O2 O2 Flow FiO2 Time Delivery Rate 07/28/18 98.7 84 20 187/85 98 Room Air 13:40 (119) 07/28/18 3.0 11:55 Constitutional: alert, oriented Respiratory: clear to auscultation Cardiovascular: regular rate and rhythm Gastrointestinal: soft; No distended Musculoskeletal: nl extremities to inspection Results Results 24hrs Laboratory Tests Test 07/28/18 03:02 White Blood Count 4.5 L Red Blood Count 2.43 L Hemoglobin 9.1 L Hematocrit 26.8 L Mean Corpuscular Volume 110.3 H Mean Corpuscular Hemoglobin 37.4 H Mean Corpuscular Hemoglobin Concent 34.0 Red Cell Distribution Width 13.0 Platelet Count 203 # Mean Platelet Volume 10.1 Immature Granulocytes % 0.200 Neutrophils % 62.9 Lymphocytes % 15.9 Monocytes % 12.4 H Eosinophils % 7.3 H Basophils % 1.3 Nucleated Red Blood Cells % 0.0 Immature Granulocytes # 0.010 Neutrophils # 2.8 Lymphocytes # 0.7 L Monocytes # 0.6 Eosinophils # 0.3 Basophils # 0.1 Nucleated Red Blood Cells # 0.0 Sodium Level 136 Potassium Level 4.6 Chloride Level 94 L Carbon Dioxide Level 30 Anion Gap 12 Blood Urea Nitrogen 62 H Creatinine 3.17 H Est Glomerular Filtrat Rate mL/min 15 L Glucose Level 118 Calcium Level 8.6 Total Bilirubin 0.1 L Direct Bilirubin 0.00 Indirect Bilirubin 0.1 Aspartate Amino Transf (AST/SGOT) 30 Alanine Aminotransferase (ALT/SGPT) 21 Alkaline Phosphatase 188 H Troponin I 0.049 Total Protein 7.0 Albumin 3.8 Globulin 3.20 Albumin/Globulin Ratio 1.18 Lipase 314 H Medications Medication Current Medications IV Flush (NS 3 ml) 3 ml PER PROTOCOL IV ; Start 07/28/18 at 07:30 Ondansetron HCl (Zofran Inj) 4 mg Q6H PRN IV NAUSEA/VOMITING Last administered on 07/28/18at 14:14; Admin Dose 4 MG; Start 07/28/18 at 07:30 Morphine Sulfate (morphine) 2 mg Q4H PRN IV .SEVERE PAIN 7-10 Last administered on 07/28/18at 14:15; Admin Dose 2 MG; Start 07/28/18 at 07:30 Famotidine (Pepcid Iv) 20 mg DAILY IV Last administered on 07/28/18at 07:45; Admin Dose 20 MG; Start 07/28/18 at 07:30 Albuterol/ Ipratropium (Duoneb) 3 ml Q2H RESP THERAPY PRN HHN SHORTNESS OF BREATH; Start 07/28/18 at 07:30 Piperacillin Sod/ Tazobactam Sod 100 ml @ 200 mls/hr Q8 IVPB ; Start 07/28/18 at 14:00 Hydralazine HCl (Apresoline) 10 mg Q4H PRN IV sbp > 160 Last administered on 07/28/18at 11:52; Admin Dose 10 MG; Start 07/28/18 at 07:30 Epoetin Blayne-epbx (Retacrit (Non-Esrd)) 10,000 unit MoWeFr@1700 SC ; Start 07/28/18 at 17:00; Status UNV Acetaminophen/ Aspirin/Caffeine (Excedrin) 1 tab Q6 PRN PO HEADACHE; Start 07/28/18 at 15:00; Status UNV Aspirin (Halfprin) 81 mg DAILY PO ; Start 07/29/18 at 09:00; Status UNV Buspirone HCl (Buspar) 5 mg BID PO ; Start 07/28/18 at 21:00; Status UNV Cinacalcet (Sensipar) 60 mg DAILY PO ; Start 07/29/18 at 09:00; Status UNV Clonazepam (Klonopin) 0.5 mg HS PO ; Start 07/28/18 at 21:00; Status UNV Clonidine (Catapres) 0.2 mg TID PO ; Start 07/28/18 at 21:00; Status UNV Docusate Sodium (Colace) 250 mg DAILY PO ; Start 07/29/18 at 09:00; Status UNV Doxazosin Mesylate (Cardura) 1 mg BID PO ; Start 07/28/18 at 21:00; Status UNV Duloxetine HCl (Cymbalta) 30 mg DAILY PO ; Start 07/29/18 at 09:00; Status UNV Folic Acid (Folic Acid) 1 mg DAILY PO ; Start 07/29/18 at 09:00; Status UNV Hydralazine HCl (Apresoline) 100 mg TID PO ; Start 07/28/18 at 21:00; Status UNV Albuterol/ Ipratropium (Duoneb) 3 ml Q2H RESP THERAPY PRN HHN SHORTNESS OF BREATH; Start 07/28/18 at 15:00; Status UNV Lactobacillus Acidophilus/ Rhamnosus (Culturelle) 1 cap BID PO ; Start 07/28/18 at 21:00; Status UNV Levothyroxine Sodium (Synthroid) 200 mcg QAM PO ; Start 07/29/18 at 09:00; Status UNV Losartan Potassium (Cozaar) 50 mg BID PO ; Start 07/28/18 at 15:00; Status UNV Multivit/Ca Carb/ B Cmplx/FA/Prenat (Deepthi-Frida) 1 tab DAILY PO ; Start 07/29/18 at 09:00; Status UNV Nifedipine (Procardia Xl) 60 mg BID PO ; Start 07/28/18 at 21:00; Status UNV Polyethylene Glycol (Miralax) 17 gm DAILY PO ; Start 07/29/18 at 09:00; Status UNV Quetiapine Fumarate (Seroquel) 100 mg QPM PO ; Start 07/28/18 at 21:00; Status UNV Quetiapine Fumarate (Seroquel) 400 mg HS PO ; Start 07/28/18 at 21:00; Status UNV Senna (Senokot) 2 tab DAILY PO ; Start 07/29/18 at 09:00; Status UNV Sevelamer Carbonate (Renvela) 0.8 gm TID PO ; Start 07/28/18 at 21:00; Status UNV Spironolactone (Aldactone) 50 mg DAILY PO ; Start 07/29/18 at 09:00; Status UNV MARGARITA MELÉNDEZ July 28, 2018 15:09
[2018-07-28] MEDS: LOSARTAN 50 MG TAB PO SCH ×2 (15:19→20:19)
[2018-07-28] MEDS ORDERED: hydrALAzine 20 MG INJ IV STA (16:36)
[2018-07-28] MEDS: PIPER-TAZO 3.375 GM IV (PMX) 100 ML IVPB SCH ×2 (16:46→22:20)
[2018-07-28] MEDS ORDERED: LABETALOL HCL 20MG INJ IV ONE (17:30)
[2018-07-28] MEDS ORDERED: LABETALOL HCL 20MG INJ ONE (17:32)
[2018-07-28 18:20] VITALS: BP 201/95
--- NOTE | 2018-07-28 19:00 | CONS ---
DATE OF ADMISSION: 07/28/2018 DATE OF CONSULTATION: 07/28/2018 TYPE OF CONSULTATION: Nephrology. REASON FOR CONSULTATION: End-stage renal disease. PHYSICIAN REQUESTING CONSULT: Dr. Groves. HISTORY OF PRESENT ILLNESS: This is a 62-year-old female with a past medical history of end-stage re nal disease on hemodialysis, history of pericardial effusion, history of medical noncompliance, histo ry of anasarca, heart failure, hypothyroidism, debility, bipolar disorder, anxiety, hypertension, dys lipidemia, who presents to [facility] with generalized weakness headaches. T he patient was recently admitted to [facility], [place], and had a 2-week course before she was discharged. After being discharged, the patient now presents back into the emergency room w ith abdominal pain, migraines and headaches. In the emergency room, the patient had a CT scan of the abdomen and pelvis, which showed findings of wall thickening of the colonic splenic flexure through the descending colon, possible ischemic colitis. The patient also showed ongoing anasarca and ascite s. Chest x-ray was obtained that showed evidence of pulmonary congestion. In the emergency room, th e patient was given antibiotic therapy. In terms of the patient's renal history, the patient was recently at [facility] whe re she was diagnosed with a pericardial effusion. The patient received daily dialysis for volume rem oval. The patient continues to have evidence of shortness of breath. She denies any hemoptysis, hem atemesis or hematochezia. PAST MEDICAL HISTORY: History of end-stage renal disease, history of anemia, history of anasarca, hi story of hypertension, history of severe concentric left ventricular hypertrophy, history of diastoli c heart failure, history of headaches. FAMILY HISTORY: No family history of kidney disease. SOCIAL HISTORY: Does not drink, smoke or do drugs. MEDICATIONS: The patient's medication have been reviewed. REVIEW OF SYSTEMS: A 14-point review of systems conducted. Pertinent positives stated in HPI, other mclean negative. PHYSICAL EXAMINATION: VITAL SIGNS: Blood pressure is 187/85, respiratory rate temperature 98.7. HEENT: Head is normocephalic. NECK: Supple. HEART: Regular rate. LUNGS: Show diminished breath sounds at base. ABDOMEN: Soft, nontender to palpation without rebound or guarding. EXTREMITIES: Negative for clubbing or cyanosis. Positive edema. DERMATOLOGIC: No rashes. MUSCULOSKELETAL: No joint effusion. NEUROLOGIC: No change in exam. LABORATORY DATA: From July 28 was reviewed. ASSESSMENT AND PLAN: This is a 62-year-old female, who presents with problem: 1. End-stage renal disease. The patient is on intermittent dialysis. Access is AV fistula. Plan i s for dialysis daily for solute clearance and volume removal. Will be dialyzed on 3 hours 2K bath, c alcium 2.5. 2. Volume overload. Etiology secondary to acute diastolic heart failure, end-stage renal disease. Plan for ultrafiltration with dialysis with goal to ultrafiltration approximately 2 to 3 liters. 3. Hypertensive urgency, etiology in part due to increased intravascular volume. Continue ultrafilt ration with hemodialysis. Continue current blood pressure regimen. 4. Anemia. Monitor hemoglobin and hematocrit levels. We will give Epogen with hemodialysis. 5. Mineral bone disorder, monitor calcium and phosphorus level. 6. Pericardial effusion due to uremia. Continue aggressive dialysis. 7. Acute respiratory failure secondary to pulmonary edema. Continue ultrafiltration dialysis. 8. Abdominal pain, etiology may be secondary to colitis. CT scan was reviewed. Continue to monitor . Continue antibiotic therapy. Consider GI evaluation. 9. Headaches. Continue current migraine medication. 10. Bipolar disorder, depression and anxiety disorder. Continue current medical management. Thank you, Dr. Groves, for this interesting consult. It will be a pleasure to follow the patient with khadra qureshi throughout the hospital course. Dictated By: MOISES OLSON/NTS Conf#: [id number] DID#: [id number] CC: LUCÍA HICKS MD;*EndCC*
[2018-07-28 20:00] VITALS: BP 192/91; PULSE 82; PULSE 84; RESP 18; Ht 152.4 cm; Wt 54.0 kg
[2018-07-28] MEDS: BUSPIRONE 5 MG TAB PO SCH (20:17)
[2018-07-28] MEDS: SEVELAMER CARBONATE 0.8 GM PKT PO SCH (20:17)
[2018-07-28] MEDS: QUETIAPINE 100 MG TAB PO SCH (20:17)
[2018-07-28] MEDS: NIFEdipine (XL) 60 MG TAB PO SCH (20:18)
[2018-07-28] MEDS: LACTOBACILLUS RHAMNOSUS CAP PO SCH (20:18)
[2018-07-28] MEDS: DOXAZOSIN 1 MG TAB PO SCH (20:18)
[2018-07-28] MEDS ORDERED: QUETIAPINE 100 MG TAB PO SCH (21:00)
[2018-07-28] MEDS ORDERED: clonAZEPAM 0.5 MG TAB PO SCH (21:00)
[2018-07-28] MEDS: EPOETIN ALFA-EPBX (NON-ESRD 10,000 UNIT/ML VIAL SC SCH (22:22)
[2018-07-28] MEDS: HEPARIN 5,000 UNIT/1 ML VIAL SC SCH (22:45)
[2018-07-29] VITALS (25 sets, daily range): BP systolic 102–184; BP diastolic 51–91; PULSE 75–111; RESP 18–20
[2018-07-29] MEDS: ONDANSETRON 4 MG INJ IV PRN (04:32)
[2018-07-29] MEDS: hydrALAzine 20 MG INJ IV PRN (04:32)
[2018-07-29] MEDS: PIPER-TAZO 3.375 GM IV (PMX) 100 ML IVPB SCH ×3 (06:05→21:51)
[2018-07-29] MEDS: FAMOTIDINE 20 MG INJ IV SCH (08:28)
[2018-07-29] MEDS: SPIRONOLACTONE 50 MG TAB PO SCH (08:29)
[2018-07-29] MEDS: SEVELAMER CARBONATE 0.8 GM PKT PO SCH ×3 (08:30→21:45)
[2018-07-29] MEDS: CINACALCET 30 MG TAB PO SCH (08:30)
[2018-07-29] MEDS: SENNA TAB PO SCH ×2 (08:30→21:48)
[2018-07-29] MEDS: POLYETHYLENE GLYCOL 17 GM PACKET PO SCH (08:30)
[2018-07-29] MEDS: NIFEdipine (XL) 60 MG TAB PO SCH ×2 (08:31→21:50)
[2018-07-29] MEDS: LOSARTAN 50 MG TAB PO SCH ×2 (08:31→21:47)
[2018-07-29] MEDS: ASPIRIN (EC) 81 MG TAB PO SCH (08:31)
[2018-07-29] MEDS: MULTIVIT/CA CARB/B CMPLX/FA TAB PO SCH (08:31)
[2018-07-29] MEDS: FOLIC ACID 1 MG TAB PO SCH (08:31)
[2018-07-29] MEDS: DOCUSATE SODIUM 250 MG CAP PO SCH ×2 (08:32→21:48)
[2018-07-29] MEDS: DOXAZOSIN 1 MG TAB PO SCH ×2 (08:34→21:49)
[2018-07-29] MEDS: LACTOBACILLUS RHAMNOSUS CAP PO SCH ×2 (08:37→21:45)
[2018-07-29] MEDS: DULOXETINE 30 MG CAP DR PO SCH (08:38)
[2018-07-29] MEDS: LEVOTHYROXINE 100 MCG TAB PO SCH (08:40)
[2018-07-29] MEDS: BUSPIRONE 5 MG TAB PO SCH ×2 (08:40→21:47)
[2018-07-29] MEDS: HEPARIN 5,000 UNIT/1 ML VIAL SC SCH ×2 (08:46→22:13)
[2018-07-29] MEDS: ASA/ACETAMINOPHEN/CAFF TAB PO PRN (08:51)
[2018-07-29] MEDS ORDERED: DOCUSATE SODIUM 250 MG CAP PO SCH (09:00)
[2018-07-29] MEDS ORDERED: SENNA TAB PO SCH (09:00)
--- NOTE | 2018-07-29 09:30 | PN ---
DATE: 07/29/2018 SUBJECTIVE: The patient is stable, no acute events overnight. Patient is pending hemodialysis this morning. OBJECTIVE: VITAL SIGNS: Blood pressure is 154/70, pulse 92, respiration 18, temperature 98.5. HEENT: Head is normocephalic. NECK: Supple. HEART: Regular rate. LUNGS: Show diminished breath sounds at the base. Positive crackles. ABDOMEN: Soft, nontender to palpation without rebound or guarding. EXTREMITIES: Negative for clubbing, cyanosis, positive edema. DERMATOLOGIC: No rashes. MUSCULOSKELETAL: No joint effusion. NEUROLOGIC: No change in exam. MEDICATIONS: Have been reviewed. LABORATORY DATA: Has been reviewed. ASSESSMENT AND PLAN: 1. End-stage renal disease. Patient scheduled for dialysis today. Plan is for daily dialysis for v olume removal and solute clearance. 2. Volume overload secondary to diastolic heart failure, end-stage renal disease. Continue ultrafil tration with hemodialysis. 3. Hypertensive urgency, etiology in part due to increased intravascular volume. Continue current m edical management. Continue dialysis. Continue ultrafiltration. 4. Anemia. Continue to monitor hemoglobin and hematocrit levels. Continue Epogen. 5. Mineral bone disorder. Monitor calcium and phosphorus levels. 6. Pericardial effusion secondary to end-stage renal disease. Continue aggressive dialysis. 7. Acute respiratory failure secondary to pulmonary edema. Continue ultrafiltration dialysis. 8. Abdominal pain. Etiology secondary to colitis. Continue current antibiotic regimen. Followup GI. 9. Headaches. Continue current medical management. 10. Bipolar disorder, anxiety disorder. Continue current treatment plan. Dictated By: MOISES OLSON/NTS Conf#: [id number] DID#: [id number] CC: LUCÍA HICKS MD;*EndCC*
[2018-07-29] MEDS: clonAZEPAM 0.5 MG TAB PO PRN (11:07)
--- NOTE | 2018-07-29 12:18 | CONS ---
Date/Time of Note Date/Time of Note DATE: 07/29/18 TIME: 12:00 Consult Date/Type/Reason Admit Date July 28, 2018 at 05:38 Type of Consult Psych Subjective Patient is a 62-year-old female with a history of Hypertension, dyslipidemia, ESRD on HD, hypothyroidism, and migraine headache. On a face to face evaluation, patient reports increased anxiety, poor coping skills, she also reports history of Bipolar disorder with a lot of impulsivity but controlled with medications. She denies suicidal ideation and contracted for safety. Objective Patient Appearance: Appropriate dress Mood and Affect Description: Anxious Mood or Affect: Cooperative Speech Pattern: Clear Thought Process: Intact Hallucination Type: None Delusion Description: Not Present Assessment/Plan Recommendations Continue current medications YONAS VYAS NP July 29, 2018 12:18
[2018-07-29] MEDS ORDERED: clonAZEPAM 0.5 MG TAB PO SCH (14:00)
--- NOTE | 2018-07-29 17:31 | PN ---
Date/Time of Note Date/Time of Note DATE: 07/29/18 TIME: 17:27 Assessment/Plan VTE Prophylaxis Risk score (from Nsg)>0 risk: 7 SCD applied (from Nsg): Yes Pharmacological prophylaxis: heparin Lines/Catheters IV Catheter Type (from Nrsg): Peripheral IV Assessment/Plan Hospital Course 1. Abdominal pain secondary to gas and constipation -Initial CT of the abdomen without contrast showed possible colitis, repeat CT with contrast did not show colitis -Imaging is consistent with constipation the patient reports gaseous pain -Patient with 2 bowel movements yesterday -Continue laxatives and stool softeners, have increased Colace and senna doses -Continue scheduled simethicone -Resume diet 2. Headache: Patient with known migraine headache -Excedrin 3. Hypertensive urgency -Blood pressure now stable -Continue home meds 4. ESRD on HD secondary to lithium toxicity -Nephrology for dialysis 5. Anasarca with pleural effusion secondary to end-stage renal disease and malnutrition -CT of the abdomen suggested possible ascites but ultrasound shows no fluid -Ultrasound of the chest shows moderate pleural effusion, thoracentesis has been ordered -HD per renal -Status post right-sided thoracentesis during recent hospitalization 6. Malnutrition -Supplements with meals 7. Bipolar, depression and anxiety -Patient recently had a psych eval with a diagnosis of bipolar, depressive type -Continue meds -Psychiatry reevaluation appreciated Prophylaxis: Heparin DC planning: Possible DC back to [facility] tomorrow after thoracentesis Result Diagram: 07/29/18 0638 07/29/18 0637 Results 24hrs Laboratory Tests Test 07/29/18 06:37 07/29/18 06:38 Sodium Level 135 Potassium Level 5.1 Chloride Level 96 L Carbon Dioxide Level 27 Anion Gap 12 Blood Urea Nitrogen 75 H Creatinine 4.43 #H Est Glomerular Filtrat Rate mL/min 10 L Glucose Level 101 Calcium Level 8.7 Phosphorus Level 4.2 Magnesium Level 2.8 H Total Bilirubin 0.0 L Direct Bilirubin 0.00 Indirect Bilirubin 0.0 Aspartate Amino Transf (AST/SGOT) 26 Alanine Aminotransferase (ALT/SGPT) 24 Alkaline Phosphatase 135 H Total Protein 6.4 Albumin 3.7 Globulin 2.70 Albumin/Globulin Ratio 1.37 White Blood Count 3.4 #L Red Blood Count 2.32 L Hemoglobin 8.4 L Hematocrit 25.4 L Mean Corpuscular Volume 109.5 H Mean Corpuscular Hemoglobin 36.2 H Mean Corpuscular Hemoglobin Concent 33.1 Red Cell Distribution Width 13.1 Platelet Count 183 Mean Platelet Volume 10.3 Immature Granulocytes % 0.300 Neutrophils % 62.8 Lymphocytes % 17.2 Monocytes % 12.8 H Eosinophils % 5.2 Basophils % 1.7 Nucleated Red Blood Cells % 0.0 Immature Granulocytes # 0.010 Neutrophils # 2.2 Lymphocytes # 0.6 L Monocytes # 0.4 Eosinophils # 0.2 Basophils # 0.1 Nucleated Red Blood Cells # 0.0 Subjective 24 Hr Interval Summary Constitutional: no complaints Exam/Review of Systems Exam Vitals Vital Signs Date Temp Pulse Resp B/P (MAP) Pulse Ox O2 O2 Flow FiO2 Time Delivery Rate 07/29/18 76 16:00 07/29/18 98.5 18 123/69 98 15:41 (87) 07/29/18 Nasal 3.0 13:04 Cannula Intake and Output 07/28/18 07/28/18 07/29/18 1515:00 23:00 07:00 IntakeIntake Total 800 ml BalanceBalance 800 ml Constitutional: alert, oriented Respiratory: clear to auscultation Cardiovascular: regular rate and rhythm Gastrointestinal: soft; No distended Musculoskeletal: nl extremities to inspection Results Results 24hrs Laboratory Tests Test 07/29/18 06:37 07/29/18 06:38 Sodium Level 135 Potassium Level 5.1 Chloride Level 96 L Carbon Dioxide Level 27 Anion Gap 12 Blood Urea Nitrogen 75 H Creatinine 4.43 #H Est Glomerular Filtrat Rate mL/min 10 L Glucose Level 101 Calcium Level 8.7 Phosphorus Level 4.2 Magnesium Level 2.8 H Total Bilirubin 0.0 L Direct Bilirubin 0.00 Indirect Bilirubin 0.0 Aspartate Amino Transf (AST/SGOT) 26 Alanine Aminotransferase (ALT/SGPT) 24 Alkaline Phosphatase 135 H Total Protein 6.4 Albumin 3.7 Globulin 2.70 Albumin/Globulin Ratio 1.37 White Blood Count 3.4 #L Red Blood Count 2.32 L Hemoglobin 8.4 L Hematocrit 25.4 L Mean Corpuscular Volume 109.5 H Mean Corpuscular Hemoglobin 36.2 H Mean Corpuscular Hemoglobin Concent 33.1 Red Cell Distribution Width 13.1 Platelet Count 183 Mean Platelet Volume 10.3 Immature Granulocytes % 0.300 Neutrophils % 62.8 Lymphocytes % 17.2 Monocytes % 12.8 H Eosinophils % 5.2 Basophils % 1.7 Nucleated Red Blood Cells % 0.0 Immature Granulocytes # 0.010 Neutrophils # 2.2 Lymphocytes # 0.6 L Monocytes # 0.4 Eosinophils # 0.2 Basophils # 0.1 Nucleated Red Blood Cells # 0.0 Medications Medication Current Medications IV Flush (NS 3 ml) 3 ml PER PROTOCOL IV ; Start 07/28/18 at 07:30 Ondansetron HCl (Zofran Inj) 4 mg Q6H PRN IV NAUSEA/VOMITING Last administered on 07/29/18 04:32; Admin Dose 4 MG; Start 07/28/18 at 07:30 Morphine Sulfate (morphine) 2 mg Q4H PRN IV .SEVERE PAIN 7-10 Last administered on 07/28/18 14:15; Admin Dose 2 MG; Start 07/28/18 at 07:30 Famotidine (Pepcid Iv) 20 mg DAILY IV Last administered on 07/29/18 08:28; A dmin Dose 20 MG; Start 07/28/18 at 07:30 Albuterol/ Ipratropium (Duoneb) 3 ml Q2H RESP THERAPY PRN HHN SHORTNESS OF BREATH; Start 07/28/18 at 07:30 Piperacillin Sod/ Tazobactam Sod 100 ml @ 200 mls/hr Q8 IVPB Last administered on 07/29/18 13:24; Admin Dose 200 MLS/HR; Start 07/28/18 at 14:00 Hydralazine HCl (Apresoline) 10 mg Q4H PRN IV sbp > 170 Last administered on 07/29/18 04:32; Admin Dose 10 MG; Start 07/28/18 at 07:30 Epoetin Blayne-epbx (Retacrit (Non-Esrd)) 10,000 unit MoWeFr@1700 SC Last administered on 07/28/18 22:22; Admin Dose 10,000 UNIT; Start 07/28/18 at 17:00 Acetaminophen/ Aspirin/Caffeine (Excedrin) 1 tab Q6 PRN PO HEADACHE Last administered on 07/29/18 08:51; Admin Dose 1 TAB; Start 07/28/18 at 15:00 Aspirin (Halfprin) 81 mg DAILY PO Last administered on 07/29/18 08:31; Admin Dose 81 MG; Start 07/29/18 at 09:00 Buspirone HCl (Buspar) 5 mg BID PO Last administered on 07/29/18 08:40; Admin Dose 5 MG; Start 07/28/18 at 21:00 Cinacalcet (Sensipar) 60 mg DAILY PO Last administered on 07/29/18 08:30; Admin Dose 60 MG; Start 07/29/18 at 09:00 Clonidine (Catapres) 0.2 mg TID PO Last administered on 07/29/18 13:23; Admin Dose 0.2 MG; Start 07/28/18 at 21:00 Doxazosin Mesylate (Cardura) 1 mg BID PO Last administered on 07/29/18 08:34; Admin Dose 1 MG; Start 07/28/18 at 21:00 Duloxetine HCl (Cymbalta) 30 mg DAILY PO Last administered on 07/29/18 08:38; Admin Dose 30 MG; Start 07/29/18 at 09:00 Folic Acid (Folic Acid) 1 mg DAILY PO Last administered on 07/29/18 08:31; Admin Dose 1 MG; Start 07/29/18 at 09:00 Hydralazine HCl (Apresoline) 100 mg TID PO Last administered on 07/29/18 13:24; Admin Dose 100 MG; Start 07/28/18 at 21:00 Albuterol/ Ipratropium (Duoneb) 3 ml Q2H RESP THERAPY PRN HHN SHORTNESS OF BREATH; Start 07/28/18 at 15:00 Lactobacillus Acidophilus/ Rhamnosus (Culturelle) 1 cap BID PO Last administered on 07/29/18 08:37; Admin Dose 1 CAP; Start 07/28/18 at 21:00 Levothyroxine Sodium (Synthroid) 200 mcg QAM PO Last administered on 07/29/18 08:40; Admin Dose 200 MCG; Start 07/29/18 at 09:00 Losartan Potassium (Cozaar) 50 mg BID PO Last administered on 07/29/18 08:31; Admin Dose 50 MG; Start 07/28/18 at 15:00 Multivit/Ca Carb/ B Cmplx/FA/Prenat (Deepthi-Frida) 1 tab DAILY PO Last administered on 07/29/18 08:31; Admin Dose 1 TAB; Start 07/29/18 at 09:00 Nifedipine (Procardia Xl) 60 mg BID PO Last administered on 07/29/18 08:31; Admin Dose 60 MG; Start 07/28/18 at 21:00 Polyethylene Glycol (Miralax) 17 gm DAILY PO Last administered on 07/29/18 08:30; Admin Dose 17 GM; Start 07/29/18 at 09:00 Quetiapine Fumarate (Seroquel) 400 mg HS PO Last administered on 07/28/18 20:17; Admin Dose 400 MG; Start 07/28/18 at 21:00 Sevelamer Carbonate (Renvela) 0.8 gm TID PO Last administered on 07/29/18 08:30; Admin Dose 0.8 GM; Start 07/28/18 at 21:00 Spironolactone (Aldactone) 50 mg DAILY PO Last administered on 07/29/18 08:29; Admin Dose 50 MG; Start 07/29/18 at 09:00 Docusate Sodium (Colace) 200 mg BID PO Last administered on 07/29/18 08:32; Admin Dose 200 MG; Start 07/29/18 at 09:00 Senna (Senokot) 2 tab BID PO Last administered on 07/29/18 08:30; Admin Dose 2 TAB; Start 07/29/18 at 09:00 Simethicone (Mylicon) 80 mg TID PO Last administered on 07/29/18 13:23; Admin Dose 80 MG; Start 07/28/18 at 21:00 Heparin Sodium (Porcine) (Heparin (5000 Units/1ml)) 5,000 unit BID SC Last administered on 07/29/18 08:46; Admin Dose 5,000 UNIT; Start 07/28/18 at 21:00 Clonazepam (Klonopin) 1 mg Q8H PRN PO ANXIETY Last administered on 07/29/18 11:07; Admin Dose 1 MG; Start 07/29/18 at 11:00 MARGARITA MELÉNDEZ July 29, 2018 17:30
[2018-07-29] MEDS ORDERED: QUETIAPINE 100 MG TAB PO SCH (18:00)
[2018-07-29] MEDS: QUETIAPINE 100 MG TAB PO SCH (21:50)
[2018-07-30] VITALS (9 sets, daily range): BP systolic 149–174; BP diastolic 70–88; PULSE 65–88; RESP 18–20
[2018-07-30] MEDS: PIPER-TAZO 3.375 GM IV (PMX) 100 ML IVPB SCH ×2 (05:50→13:34)
[2018-07-30] MEDS: clonAZEPAM 0.5 MG TAB PO PRN ×2 (08:53→20:01)
[2018-07-30] MEDS: BUSPIRONE 5 MG TAB PO SCH ×2 (08:54→20:30)
[2018-07-30] MEDS: BALSAM PERU/CASTOR OIL 60 GM TUBE TOP SCH (08:54)
[2018-07-30] MEDS: LEVOTHYROXINE 100 MCG TAB PO SCH (08:55)
[2018-07-30] MEDS: SPIRONOLACTONE 50 MG TAB PO SCH (08:55)
[2018-07-30] MEDS: CINACALCET 30 MG TAB PO SCH (08:55)
[2018-07-30] MEDS: DULOXETINE 30 MG CAP DR PO SCH (08:56)
[2018-07-30] MEDS: ASPIRIN (EC) 81 MG TAB PO SCH (08:56)
[2018-07-30] MEDS: MULTIVIT/CA CARB/B CMPLX/FA TAB PO SCH (08:56)
[2018-07-30] MEDS: DOCUSATE SODIUM 250 MG CAP PO SCH ×2 (08:57→20:30)
[2018-07-30] MEDS: FAMOTIDINE 20 MG INJ IV SCH (08:57)
[2018-07-30] MEDS: POLYETHYLENE GLYCOL 17 GM PACKET PO SCH (08:58)
[2018-07-30] MEDS: SEVELAMER CARBONATE 0.8 GM PKT PO SCH ×3 (08:58→20:30)
[2018-07-30] MEDS: SENNA TAB PO SCH ×2 (08:59→20:29)
[2018-07-30] MEDS: FOLIC ACID 1 MG TAB PO SCH (09:00)
[2018-07-30] MEDS: LOSARTAN 50 MG TAB PO SCH ×2 (09:00→20:25)
[2018-07-30] MEDS: LACTOBACILLUS RHAMNOSUS CAP PO SCH ×2 (09:00→20:25)
[2018-07-30] MEDS: NIFEdipine (XL) 60 MG TAB PO SCH ×2 (09:00→20:29)
[2018-07-30] MEDS: DOXAZOSIN 1 MG TAB PO SCH ×2 (09:00→20:29)
--- NOTE | 2018-07-30 09:43 | PN ---
DATE: 07/30/2018 SUBJECTIVE: The patient is stable, no events overnight. OBJECTIVE: VITAL SIGNS: Blood pressure is 153/74, pulse 65, respirations 18, temperature 98.5. HEENT: Head is normocephalic. NECK: Supple. HEART: Regular rate. LUNGS: Show diminished breath sounds at the base. ABDOMEN: Soft, nontender to palpation without rebound or guarding. EXTREMITIES: Negative for clubbing, cyanosis. Trace edema. DERMATOLOGIC: No rashes. MUSCULOSKELETAL: No joint effusion. NEUROLOGIC: No change in exam. MEDICATIONS: The patient's medications have been reviewed. LABORATORY DATA: Reviewed. ASSESSMENT AND PLAN: 1. End-stage renal disease. The patient is scheduled for dialysis today. We will dialyze for 3 solo rs 3k bath, calcium 2.5. 2. Volume overload secondary to diastolic heart failure. 3. End-stage renal disease. Continue ultrafiltration with dialysis. 4. Hypertensive urgency, improving. Continue ultrafiltration with hemodialysis. Continue current b lood pressure regimen. 5. Anemia. Monitor hemoglobin and hematocrit levels. We will give Epogen as needed. 6. Mineral bone disorder, monitor calcium and phosphorus levels. 7. Pericardial effusion secondary to end-stage renal disease. Continue aggressive hemodialysis. 8. Acute respiratory failure secondary to pulmonary edema. Continue ultrafiltration with dialysis. 9. Pleural effusion. The patient is pending possible thoracentesis. 10. Abdominal pain secondary to colitis. Continue current antibiotic regimen. 11. Headaches. Continue current treatment plan. 12. Bipolar disorder, anxiety disorder. Continue current treatment plan. Follow up with psychiatry . Dictated By: MOISES WEISS DO NR/NTS Conf#: [id number] DID#: [id number] CC: MARGARITA MELÉNDEZ MD; LUCÍA HICKS MD;*EndCC*
[2018-07-30] MEDS: HEPARIN 5,000 UNIT/1 ML VIAL SC SCH ×2 (09:47→20:43)
[2018-07-30] MEDS ORDERED: SENN-120 PO (15:15)
[2018-07-30] MEDS ORDERED: SIME80TA60 PO (15:15)
[2018-07-30] MEDS ORDERED: CLON0.5T14 PO (15:15)
[2018-07-30] MEDS ORDERED: Docusate Sodium PO (15:15)
--- NOTE | 2018-07-30 15:25 | DS ---
Date/Time of Note Date/Time of Note DATE: 07/30/18 TIME: 15:19 Discharge Summary Admission/Discharge Info Admit Date/Time July 28, 2018 Discharge Date/Time July 30, 2018 Discharge Diagnosis 1. Abdominal pain secondary to gas and constipation -Initial CT of the abdomen without contrast showed possible colitis, repeat CT with contrast did not show colitis -Imaging is consistent with constipation the patient reports gaseous pain -Patient does not have bowel movements -Continue laxatives and stool softeners, have increased Colace and senna doses -DC with simethicone as needed -Tolerating diet 2. Headache: Patient with known migraine headache -Excedrin 3. Hypertensive urgency -Blood pressure now stable -Continue home meds 4. ESRD on HD secondary to lithium toxicity -Nephrology for dialysis 5. Anasarca with pleural effusion secondary to end-stage renal disease and malnutrition -CT of the abdomen suggested possible ascites but ultrasound shows no fluid -Ultrasound of the chest shows moderate pleural effusion, thoracentesis done -HD per renal -Status post right-sided thoracentesis during recent hospitalization 6. Malnutrition -Supplements with meals 7. Bipolar, depression and anxiety -Patient recently had a psych eval with a diagnosis of bipolar, depressive type -Continue meds -Psychiatry reevaluation appreciated 8. Debility secondary to comorbidities -DC back to shelter Patient Condition: Good Hospital Course Patient is a 62-year-old female with a history of bipolar disorder on lithium for many years with subsequent end-stage renal disease now on dialysis, hypertension, debility with malnutrition, chronic headaches. Patient was recently discharged to nursing facility, patient presents this admission complaining of abdominal pain. In the ER CT abdomen without contrast initially showed possible colitis repeat CT with contrast did not reproduce those findings. Patient had no diarrhea but rather was complaining of constipation and gaseous pain. Patient also had hypertensive urgency which improved with medical therapy. Patient was started on laxatives and Colace and senna were increased, patient was also prescribed scheduled simethicone. CT abdomen showed possible ascites but ultrasound of the abdomen was negative, ultrasound of the chest did show moderate effusions and patient underwent thoracentesis. Patient was seen by psychology intern who continued her medications. Patient was having bowel movements and abdominal pain did improve, patient was stable for DC back to [facility], on the day of discharge patient's vitals, labs and physical exam are stable. Home Meds Active Scripts Simethicone* (Mylicon*) 80 Mg Tab, 80 MG PO TID PRN for DISTENSION/GAS/BLOATING, #60 TAB Prov:MARGARITA MELÉNDEZ 07/30/18 Sennosides* (Senna Lax*) 8.6 Mg Tablet, 2 TAB PO BID, #60 TAB Prov:MARGARITA MELÉNDEZ 07/30/18 [Docusate Sodium] 250 MG CAP No Conflict Check, 200 MG PO BID, #60 Prov:MARGARITA MELÉNDEZ 07/30/18 Clonazepam* (Clonazepam*) 0.5 Mg Tablet, 1 MG PO Q8H PRN for ANXIETY, #60 TAB Prov:MARGARITA MELÉNDEZ 07/30/18 Polyethylene Glycol* (Miralax*) 17 Gm Powd.pack, 17 GM PO DAILY, #30 PACKET Prov:CARLOS SUÁREZ. 07/16/18 Lactobacillus Rhamnosus GG (Culturelle) 1 Each Capsule, 1 CAP PO BID for 14 Days, CAP Prov:HEIDI SUÁREZAngela . 07/16/18 Buspirone Hcl* (Buspirone Hcl*) 5 Mg Tab, 5 MG PO BID, #60 TAB Prov:HEIDI SUÁREZAngela . 07/16/18 Spironolactone* (Aldactone*) 50 Mg Tablet, 50 MG PO DAILY, #30 TAB Prov:HEIDI SUÁREZAngela . 07/16/18 Nifedipine (Procardia Xl) 60 Mg Tab.er.24, 60 MG PO BID, #60 TAB Prov:CARLOS SUÁREZ . 07/16/18 Ipratropium-Albuterol (Ipratropium-Albuterol) 0.5-3 Mg/3 Ml Ampul.neb, 3 ML HHN Q2H RESP THERAPY PRN for SHORTNESS OF BREATH, #30 VIAL Prov:CARLOS SUÁREZ . 07/16/18 Reported Medications Doxazosin Mesylate* (Doxazosin Mesylate*) 1 Mg Tablet, 1 MG PO BID for 90 Days, #180 07/28/18 Levothyroxine Sodium* (Levothyroxine Sodium*) 200 Mcg Tablet, 200 MCG PO QAM for 90 Days, #90 07/28/18 Duloxetine Hcl* (Duloxetine Hcl*) 30 Mg Capsule.dr, 30 MG PO DAILY for 90 Days, #90 5/22/19 Clonidine Hcl* (Clonidine Hcl*) 0.2 Mg Tablet, 0.2 MG PO TID for 30 Days, #90 TAKE 1 TABLET (0.2 MG TOTAL) BY MOUTH THREE (3) TIMES DAILY. 07/12/18 Hydralazine Hcl* (Hydralazine Hcl*) 100 Mg Tablet, 100 MG PO TID TAKE 1 TABLET (100 MG TOTAL) BY MOUTH THREE (3) TIMES DAILY. 07/12/18 Clonazepam (Klonopin) 0.5 Mg Tablet, 0.5 MG PO HS, TAB 07/05/14 Losartan Potassium* (Losartan Potassium*) 50 Mg Tablet, 50 MG PO BID, TAB 07/05/14 Quetiapine Fumarate* (Quetiapine Fumarate*) 400 Mg Tablet, 400 MG PO HS, TAB 07/04/14 Folic Acid* (Folic Acid*) 1 Mg Tablet, 1 MG PO DAILY 06/29/13 Multivit/Ca Carb/B Cmplx/Fa* (Deepthi-Frida*) 1 Tab Tab, 1 TAB PO DAILY, TAB 06/24/13 Aspirin Ec (Aspir 81) 81 Mg Tablet.dr, 81 MG PO DAILY 06/24/13 Sevelamer Carbonate* (Renvela*) 800 Mg Tablet, 800 MG PO TID 06/24/13 Cinacalcet* (Sensipar*) 60 Mg Tablet, 60 MG PO DAILY 06/24/13 Discontinued Reported Medications Quetiapine Fumarate* (Quetiapine Fumarate*) 100 Mg Tablet, 100 MG PO QPM for 30 Days, #30 07/28/18 Levothyroxine Sodium* (Levothyroxine Sodium*) 112 Mcg Tablet, 224 MCG PO AC BREAKFAST for 30 Days, #60 07/12/18 Glycerin-Propylene Glycol (Lubricant Eye Drops) 15 Ml Drops, 2 DROP BOTH EYES QID, EA 07/05/14 Discontinued Scripts Sennosides* (Senna Lax*) 8.6 Mg Tablet, 2 TAB PO DAILY for 30 Days, TAB Prov:CARLOS SUÁREZ. 07/16/18 Docusate Sodium* (Colace*) 250 Mg Capsule, 250 MG PO DAILY, #30 CAP Prov:CARLSO SUÁREZ. 07/16/18 Cefepime Hcl/Dextrose, Iso-Osm (Cefepime 2 Gm Injection) 2 Gm/100 Ml Froz.piggy, 2 GM IV AFTER DIALYSIS, #5 DOSE Prov:CARLOS SUÁREZ 07/16/18 Follow-up Plan [facility] physicians at the [facility] Primary Care Provider Care Physician No Primary Time spent on discharge: > 30 minutes MARGARITA MELÉNDEZ July 30, 2018 15:25
[2018-07-30] MEDS ORDERED: LIDOCAINE 1% (MPF) 5 ML VIAL ONE (16:01)
[2018-07-30] MEDS: EPOETIN ALFA-EPBX (NON-ESRD 10,000 UNIT/ML VIAL SC SCH (17:40)
[2018-07-30] MEDS: hydrALAzine 20 MG INJ IV PRN (18:24)
[2018-07-30] MEDS: ASA/ACETAMINOPHEN/CAFF TAB PO PRN (18:52)
[2018-07-30] MEDS: QUETIAPINE 100 MG TAB PO SCH (20:29)
[2018-07-30] MEDS: PIPER-TAZO 2.25 GM/NS 50 ML IVPB SCH (22:13)
[2018-07-31] VITALS (18 sets, daily range): BP systolic 101–187; BP diastolic 54–83; PULSE 68–84; RESP 17–21
[2018-07-31] MEDS: PIPER-TAZO 2.25 GM/NS 50 ML IVPB SCH ×2 (06:08→13:43)
[2018-07-31] MEDS: ASPIRIN (EC) 81 MG TAB PO SCH (08:48)
[2018-07-31] MEDS: MULTIVIT/CA CARB/B CMPLX/FA TAB PO SCH (08:48)
[2018-07-31] MEDS: DOXAZOSIN 1 MG TAB PO SCH (08:49)
[2018-07-31] MEDS: DOCUSATE SODIUM 250 MG CAP PO SCH (08:49)
[2018-07-31] MEDS: CINACALCET 30 MG TAB PO SCH (08:49)
[2018-07-31] MEDS: LOSARTAN 50 MG TAB PO SCH (08:49)
[2018-07-31] MEDS: SPIRONOLACTONE 50 MG TAB PO SCH (08:50)
[2018-07-31] MEDS: SENNA TAB PO SCH (08:50)
[2018-07-31] MEDS: LACTOBACILLUS RHAMNOSUS CAP PO SCH (08:50)
[2018-07-31] MEDS: NIFEdipine (XL) 60 MG TAB PO SCH (08:50)
[2018-07-31] MEDS: FOLIC ACID 1 MG TAB PO SCH (08:50)
[2018-07-31] MEDS: DULOXETINE 30 MG CAP DR PO SCH (08:50)
[2018-07-31] MEDS: BUSPIRONE 5 MG TAB PO SCH (08:51)
[2018-07-31] MEDS: SEVELAMER CARBONATE 0.8 GM PKT PO SCH ×2 (08:51→13:00)
[2018-07-31] MEDS: FAMOTIDINE 20 MG INJ IV SCH (08:51)
[2018-07-31] MEDS: LEVOTHYROXINE 100 MCG TAB PO SCH (08:51)
[2018-07-31] MEDS: POLYETHYLENE GLYCOL 17 GM PACKET PO SCH (08:51)
[2018-07-31] MEDS: BALSAM PERU/CASTOR OIL 60 GM TUBE TOP SCH (08:52)
--- NOTE | 2018-07-31 09:02 | PN ---
DATE: 07/31/2018 SUBJECTIVE: The patient is stable. No events overnight. The patient had hemodialysis yesterday. T he patient is noted to be hypertensive overnight. OBJECTIVE: VITAL SIGNS: Blood pressure is 153/72, respirations 18, pulse 80, temperature 98.2. HEENT: Head is normocephalic. NECK: Supple. HEART: Regular rate. LUNGS: Show diminished breath sounds at the base. ABDOMEN: Soft, nontender to palpation without rebound or guarding. EXTREMITIES: Negative for clubbing, cyanosis, no edema. DERMATOLOGIC: No rashes. MUSCULOSKELETAL: No joint effusion. NEUROLOGIC: No change in exam. MEDICATIONS: Reviewed. LABORATORY DATA: Reviewed. ASSESSMENT AND PLAN: 1. End-stage renal disease. The patient had hemodialysis yesterday. Plan is for dialysis again tod ay for solute clearance and volume removal. 2. Volume overload secondary to heart failure. Continue ultrafiltration with dialysis. 3. Hypertensive urgency. Continue current blood pressure regimen. Continue dialysis. 4. Anemia. Monitor hemoglobin and hematocrit levels. We will give Epogen as needed. 5. Mineral bone disorder, monitor calcium and phosphorus levels. 6. Pericardial effusion, etiology is likely due to uremia. Continue aggressive ultrafiltration with hemodialysis. 7. Bilateral pleural effusion. The patient is status post thoracentesis. Continue to monitor. 8. Acute respiratory failure secondary to pulmonary edema, improving. Continue ultrafiltration with dialysis. 9. Abdominal pain secondary to colitis. Continue current antibiotic regimen. 10. Headaches. Continue to monitor. 11. Bipolar disorder, anxiety disorder. Continue current treatment plan, follow up with psychiatry. 12. Access. The patient has AV fistula with noted aneurysm. We will discuss with primary team abou t possible vascular surgery evaluation. Dictated By: MOISES WEISS DO NR/NTS Conf#: [id number] DID#: [id number] CC: LUCÍA HICKS MD; MARGARITA MELÉNDEZ MD;*End*
[2018-07-31] MEDS: HEPARIN 5,000 UNIT/1 ML VIAL SC SCH (09:09)
[2018-07-31] MEDS: ONDANSETRON 4 MG INJ IV PRN (09:12)
[2018-07-31] MEDS: hydrALAzine 20 MG INJ IV PRN (10:31)
[2018-07-31] MEDS: clonAZEPAM 0.5 MG TAB PO PRN (10:32)
--- NOTE | 2018-07-31 10:45 | DS ---
Date/Time of Note Date/Time of Note DATE: 07/31/18 TIME: 10:43 Discharge Summary Admission/Discharge Info Admit Date/Time July 29, 2018 at 17:26 Discharge Date/Time July 31, 2018 Discharge Diagnosis DC held yesterday as patient did not feel ready to go to long-term 1. Abdominal pain secondary to gas and constipation -Initial CT of the abdomen without contrast showed possible colitis, repeat CT with contrast did not show colitis -Imaging is consistent with constipation the patient reports gaseous pain -Patient does not have bowel movements -Continue laxatives and stool softeners, have increased Colace and senna doses -DC with simethicone as needed -Tolerating diet 2. Headache: Patient with known migraine headache -Excedrin 3. Hypertensive urgency -Blood pressure now stable -Continue home meds 4. ESRD on HD secondary to lithium toxicity -Nephrology for dialysis 5. Anasarca with pleural effusion secondary to end-stage renal disease and malnutrition -CT of the abdomen suggested possible ascites but ultrasound shows no fluid -Ultrasound of the chest shows moderate pleural effusion, thoracentesis done -HD per renal -Status post right-sided thoracentesis during previous admission 6. Malnutrition -Supplements with meals 7. Bipolar, depression and anxiety -Patient recently had a psych eval with a diagnosis of bipolar, depressive type -Continue meds -Psychiatry reevaluation appreciated 8. Debility secondary to comorbidities -DC back to long-term 9. Mild gastroparesis -Patient is tolerating diet, no indication for Reglan Patient Condition: Good Hospital Course Patient is a 62-year-old female with a history of bipolar disorder on lithium for many years with subsequent end-stage renal disease now on dialysis, hypert ension, debility with malnutrition, chronic headaches. Patient was recently discharged to nursing facility, patient presents this admission complaining of abdominal pain. In the ER CT abdomen without contrast initially showed possible colitis repeat CT with contrast did not reproduce those findings. Patient had no diarrhea but rather was complaining of constipation and gaseous pain. Patient also had hypertensive urgency which improved with medical therapy. Patient was started on laxatives and Colace and senna were increased, patient was also prescribed scheduled simethicone. CT abdomen showed possible ascites but ultrasound of the abdomen was negative, ultrasound of the chest did show moderate effusions and patient underwent thoracentesis. Patient was seen by [facility] psychiatrist who continued her medications. Patient was having bowel movements and abdominal pain did improve, patient was stable for DC back to long-term, on the day of discharge patient's vitals, labs and physical exam are stable. Of note patient was discharged 07/30/2018 but did not feel ready to go to long-term, patient now feels better and ready to go to facility. Home Meds Active Scripts Simethicone* (Mylicon*) 80 Mg Tab, 80 MG PO TID PRN for DISTENSION/GAS/BLOATING, #60 TAB Prov:MARGARITA MELÉNDEZ 07/30/18 Sennosides* (Senna Lax*) 8.6 Mg Tablet, 2 TAB PO BID, #60 TAB Prov:MARGARITA MELÉNDEZ 07/30/18 [Docusate Sodium] 250 MG CAP No Conflict Check, 200 MG PO BID, #60 Prov:MARGARITA MELÉNDEZ 07/30/18 Clonazepam* (Clonazepam*) 0.5 Mg Tablet, 1 MG PO Q8H PRN for ANXIETY, #60 TAB Prov:MARGARITA MELÉNDEZ 07/30/18 Polyethylene Glycol* (Miralax*) 17 Gm Powd.pack, 17 GM PO DAILY, #30 PACKET Prov:CARLOS SUÁREZ M. 07/16/18 Lactobacillus Rhamnosus GG (Culturelle) 1 Each Capsule, 1 CAP PO BID for 14 Days, CAP Prov:CARLOS SUÁREZ M. 07/16/18 Buspirone Hcl* (Buspirone Hcl*) 5 Mg Tab, 5 MG PO BID, #60 TAB Prov:CARLOS SUÁREZ M. 07/16/18 Spironolactone* (Aldactone*) 50 Mg Tablet, 50 MG PO DAILY, #30 TAB Prov:CARLOS SUÁREZ M. 07/16/18 Nifedipine (Procardia Xl) 60 Mg Tab.er.24, 60 MG PO BID, #60 TAB Prov:CARLOS SUÁREZ M. 07/16/18 Ipratropium-Albuterol (Ipratropium-Albuterol) 0.5-3 Mg/3 Ml Ampul.neb, 3 ML HHN Q2H RESP THERAPY PRN for SHORTNESS OF BREATH, #30 VIAL Prov:CARLOS SUÁREZ M. 07/16/18 Reported Medications Doxazosin Mesylate* (Doxazosin Mesylate*) 1 Mg Tablet, 1 MG PO BID for 90 Days, #180 07/28/18 Levothyroxine Sodium* (Levothyroxine Sodium*) 200 Mcg Tablet, 200 MCG PO QAM for 90 Days, #90 07/28/18 Duloxetine Hcl* (Duloxetine Hcl*) 30 Mg Capsule.dr, 30 MG PO DAILY for 90 Days, #90 07/28/18 Clonidine Hcl* (Clonidine Hcl*) 0.2 Mg Tablet, 0.2 MG PO TID for 30 Days, #90 TAKE 1 TABLET (0.2 MG TOTAL) BY MOUTH THREE (3) TIMES DAILY. 07/12/18 Hydralazine Hcl* (Hydralazine Hcl*) 100 Mg Tablet, 100 MG PO TID TAKE 1 TABLET (100 MG TOTAL) BY MOUTH THREE (3) TIMES DAILY. 07/12/18 Clonazepam (Klonopin) 0.5 Mg Tablet, 0.5 MG PO HS, TAB 07/05/14 Losartan Potassium* (Losartan Potassium*) 50 Mg Tablet, 50 MG PO BID, TAB 07/05/14 Quetiapine Fumarate* (Quetiapine Fumarate*) 400 Mg Tablet, 400 MG PO HS, TAB 07/04/14 Folic Acid* (Folic Acid*) 1 Mg Tablet, 1 MG PO DAILY 06/29/13 Multivit/Ca Carb/B Cmplx/Fa* (Deepthi-Frida*) 1 Tab Tab, 1 TAB PO DAILY, TAB 06/24/13 Aspirin Ec (Aspir 81) 81 Mg Tablet.dr, 81 MG PO DAILY 06/24/13 Sevelamer Carbonate* (Renvela*) 800 Mg Tablet, 800 MG PO TID 06/24/13 Cinacalcet* (Sensipar*) 60 Mg Tablet, 60 MG PO DAILY 06/24/13 Discontinued Reported Medications Quetiapine Fumarate* (Quetiapine Fumarate*) 100 Mg Tablet, 100 MG PO QPM for 30 Days, #30 07/28/18 Levothyroxine Sodium* (Levothyroxine Sodium*) 112 Mcg Tablet, 224 MCG PO AC BREAKFAST for 30 Days, #60 07/12/18 Glycerin-Propylene Glycol (Lubricant Eye Drops) 15 Ml Drops, 2 DROP BOTH EYES QID, EA 07/05/14 Discontinued Scripts Sennosides* (Senna Lax*) 8.6 Mg Tablet, 2 TAB PO DAILY for 30 Days, TAB Prov:CARLOS SUÁREZ 07/16/18 Docusate Sodium* (Colace*) 250 Mg Capsule, 250 MG PO DAILY, #30 CAP Prov:CARLOS SUÁREZ 07/16/18 Cefepime Hcl/Dextrose, Iso-Osm (Cefepime 2 Gm Injection) 2 Gm/100 Ml Froz.piggy, 2 GM IV AFTER DIALYSIS, #5 DOSE Prov:CARLOS SUÁREZ 07/16/18 Follow-up Plan Follow-up physicians at the group home facility Primary Care Provider Care Physician No Primary Time spent on discharge: > 30 minutes MARGARITA MELÉNDEZ July 31, 2018 10:45
[2018-07-31] MEDS ORDERED: LORAZEPAM 2 MG INJ IV ONE (13:30)
[2018-07-31] MEDS: ASA/ACETAMINOPHEN/CAFF TAB PO PRN (15:51)
== END 2018-07-31 19:23 | DRG 391 ==
LOC: E/R 02:16 → MS1 05:38 → EDBEDREQ 05:41 → 6WM 19:10 → OBSVTOIN 07-29 17:26
PROVIDERS: ADMIT Internal Medicine; ATTEND Internal Medicine
PROC: 5A1D70Z Performance of Urinary Filtration, Intermittent, Less than 6 Hours Per Day (ICD-10-PCS; 2018-07-29)
PROC: 0W993ZZ Drainage of Right Pleural Cavity, Percutaneous Approach (ICD-10-PCS; principal; 2018-07-30)
PROC: 5A1D70Z Performance of Urinary Filtration, Intermittent, Less than 6 Hours Per Day (ICD-10-PCS; 2018-07-30)
PROC: 5A1D70Z Performance of Urinary Filtration, Intermittent, Less than 6 Hours Per Day (ICD-10-PCS; 2018-07-31)
DX: K52.9 Noninfective gastroenteritis and colitis, unspecified (principal); N18.6 End stage renal disease; I12.0 Hypertensive chronic kidney disease with stage 5 chronic kidney disease or end stage renal disease; E46 Unspecified protein-calorie malnutrition; R10.9 Unspecified abdominal pain; K59.00 Constipation, unspecified; K31.84 Gastroparesis; R51 Headache; Z99.2 Dependence on renal dialysis; Z68.23 Body mass index [BMI] 23.0-23.9, adult; F31.9 Bipolar disorder, unspecified; R53.81 Other malaise; R60.1 Generalized edema; D64.9 Anemia, unspecified; E78.5 Hyperlipidemia, unspecified; E03.9 Hypothyroidism, unspecified; F32.9 Major depressive disorder, single episode, unspecified; F41.9 Anxiety disorder, unspecified
CPT/HCPCS: 36415; 71045; 74176; 74177; 76604; 76705; 76942; 80053; 83690; 83735; 84100; 84484; 85025; 90935; 93005; 96374; 96375; G0378; J0360; J1170; J1644; J2060; J2270; J2405; J2543; J7040; Q5106; Q9967